=== PATIENT | female | born 1945 | race Caucasian/White ===

== ENCOUNTER → 2017-11-24 09:40 | Day surgery (SDC) | payer MEDICARE, MEDICAID ==
[~2017-11-24 09:40] MED LIST: Flumazenil* 0.1 MG/ML 5 ML MDV ONE; Heparin 2 UNITS/ML IVPREMIX* 1,000 ML IV ONE; Iodixanol* (CONTRAST) 320 MG/ML 100 ML SDV ONE; Lidocaine 1% INJ* 10 MG/ML 30 ML SDV ONE; Midazolam* 1 MG/ML 10 ML VIAL (10 MG) ONE; Naloxone* 0.4 MG/ML 1 ML VIAL ONE; fentaNYL* 50 MCG/ML 2 ML VIAL (100 MCG VIAL) ONE
[2017-11-24 11:11] LABS: ABS Basophils 0 10^3/ul (0-0.2); ABS Eosinophils 0.1 10^3/ul (0-0.6); ABS Lymphocytes 0.7 10^3/ul (1.0-4.8); ABS Monocytes 0.4 10^3/ul (0-0.8); ABS Neutrophils 3.3 10^3/ul (1.5-7.7); ABS Nucleated RBC 0 10^3/ul; Eosinophil % 2.7 % (0-6); Hematocrit 32 % (35-47); Hemoglobin 10.4 g/dl (12.0-16.0); Lymphocyte % 15.7 % (25-47); Mean Corpuscular HGB Conc 33 g/dl (31-36); Mean Corpuscular Hemoglobin 31 pg (27-31); Mean Corpuscular Volume 96 fL (80-97); Mean Platelet Volume 7.5 um3 (7.4-10.4); Nucleated Red Blood Cells % 0; Platelet Count 191 10^3/ul (150-450); Red Blood Count 3.34 10^6/ul (4.00-5.40); Red Cell Distribution Width 16 % (10.5-15); White Blood Count 4.6 10^3/ul (3.5-10.8)
[2017-11-24 11:18] LABS: INR 1.85 (0.77-1.02)
[2017-11-24 11:35] LABS: EGFR Non-African American 16.1 (>60)
[2017-11-24 16:02] VITALS: BP 158/68
--- NOTE | 2017-11-24 17:57 | RAD ---
CPT II Codes: G9500 Procedure(s) performed: 1. Diagnostic fistulogram of the patient's right brachiocephalic arteriovenous fistula. 2. Balloon angioplasty of the venous outflow including the right cephalic vein, subclavian vein and superior most superior vena cava. Date of service: November 24, 2017 Indication for procedure: Prolonged bleeding after dialysis Comparison: Ultrasound dated August 24, 2015 Contrast: 35 mL of Visipaque 320 Fluoroscopy Time: 13.2 minutes Vessels Accessed: Percutaneous access was obtained with ultrasound guidance in the distal right cephalic vein overlying the distal right humerus in the antegrade direction towards the heart. Catheter angiography, with the catheter tip located within the lumen of the following vessels, was performed at the right cephalic vein. Anesthesia: Conscious sedation with IV Fentanyl and Versed as well as local 1% lidocaine injected locally at the arteriotomy site. Conscious sedation time: Timeout: 1336 hours Case end: 1507 hours Total conscious sedation time: 91 minutes Additional medications: * The patient received 1 mg of p.o. Ativan prior to the onset of the procedure. Procedure and Imaging findings: Prior to the procedure the risk and benefits were carefully explained and informed consent was obtained from the patient. The hemodialysis fistula was examined to determine strength of palpable thrill, condition of the overlying skin and direction of flow. Weak pulsatile flow is felt over the patient's bulging right upper arm hemodialysis fistula. Audible rumbling can be auscultated overlying the arterial anastomosis but the rump length as well as palpable thrill is quickly lost in the more proximal portion of the venous outflow. The patient was appropriately positioned on the table in the angiography suite. The skin overlying and surrounding the hemodialysis fistula was prepped and draped in standard sterile fashion. Sterile precautions were employed including use of cap, mask, gown and sterile gloves. A formal time out was performed and all members of the team and the patient agreed to the patient, procedure and laterality. The fistula was examined with ultrasound and sales and marketing representative images were obtained. Under sonographic control the fistula was accessed in the antegrade direction with an 18 gauge Angiocath needle. An image was recorded. Under fluoroscopic control a 0.035 inch Bentson wire was advanced proximally and the needle was exchange for a 5 Cypriot catheter. Through the catheter a venogram of the distal venous outflow was conducted demonstrating tortuosity of the venous outflow with at least 2 foci of high-grade stenosis at the level of the diaphysis of the right humerus. There was a lot of difficulty encountered advancing wires and catheters in the venous outflow due to the bulging tortuosity of the veins and the multiple foci of stenosis. Ultimately a wire was advanced into the fistula over which a 5-Cypriot curved tip catheter was advanced to the level of the humeral neck. Contrast venography was performed demonstrating further stenoses at the proximal most portion of the right cephalic vein and stenosis at the junction of the right cephalic vein with the right subclavian vein. There is also high-grade stenosis at the junction of the right brachiocephalic vein and superior most portion of the superior vena cava. There is collateralized venous filling before the contrast ultimately enters the heart and is seen filling the pulmonary arteries. Through the 5-Cypriot catheter a 0.035 inch hydrophilic stiff wire was advanced into the central veins and advanced under fluoroscopic control into the IVC. With the stiff hydrophilic wire serving as a reliable access, the 5-Cypriot SideArm sheath was exchanged for a 7-Cypriot access sheath. Difficulty was again encountered trying to advance the 7-Cypriot sheath over the wire but this was ultimately successful by compressing the distal most venous outflow to prevent internal looping and buckling of the access wire. Based on the preliminary intravascular angiographic studies the following interventions were pursued. Over the wire and 8 mm x 80 mm Passeo 35 balloon was advanced to the stenoses identified at the level of the humeral diaphysis. Under fluoroscopic control balloon angioplasty was performed. Subsequent arteriogram demonstrated improved flow but persistent tortuosity of the vein at the mid-level of the right humerus. Over the wire the balloon was advanced more proximally to balloon angioplasty the stenoses identified at the proximal most right cephalic vein and to balloon angioplasty the junction of the right cephalic vein and subclavian vein. Contrast arteriogram performed through the access sheath showed further improvement patency and no acute dissection of the vein. The balloon was advanced further for venoplasty of the stenosis seen at the junction of the right brachiocephalic vein and superior vena cava. During each inflation the balloon remained inflated for a minimum of 2 minutes to address venospasm. The balloon was removed and attempt was made to do reflux arteriography of the arterial anastomosis. This attempt proved unsuccessful and the arterial anastomosis was not directly visualized with angiography. At this point the procedure the patient had visible pulsation of her fistula and a palpable thrill that was not present prior to venoplasty. The initial ultrasound of the patient's fistula demonstrated a widely patent arterial anastomosis and therefore contrast angiography of the arterial anastomosis was not deemed crucial at this point. A "purse string" suture was tied around the vascular sheath with non-absorbable monofilament suture and tied immediately after removal of the sheath. Gentle pressure was held at the access site for 5 minutes and no significant bleeding or hematoma formation occurred. The site was dressed with sterile gauze and the patient left the angiography suite in stable condition. SUMMARY OF PROCEDURE, IMAGING FINDINGS AND INTERVENTIONS PERFORMED: 1. Diagnostic studies performed: * Percutaneous fistula access was obtained at the proximal from the arterial anastomosis in the antegrade direction (i.e. towards the heart) with ultrasound guidance. A sonographic image was recorded. * Diagnostic catheter angiography (necessary to perform the appropriate interventions) was performed with the catheter tip in the right cephalic vein. * Catheter arteriography was performed of the venous outflow of the right brachiocephalic fistula, the central veins, superior vena cava as well as the heart and right pulmonary arteries. 2. Interpretation of diagnostic studies performed: * There are multiple foci of stenoses in the cephalic vein outflow and in the central veins. * Related to these focal stenoses there is severe tortuosity of the venous outflow. 3. Surgical interventions performed: * Balloon angioplasty of essentially the entire cephalic vein including the junction of the right cephalic vein and subclavian vein utilizing a 5 mm x 80 mm Passeo 35. * Balloon angioplasty of the junction between the right brachiocephalic vein and superior vena cava. 4. Interpretation of interventions performed: * Postprocedural fistulography and venography demonstrated improved brisk flow through the venous outflow. * Physical examination demonstrated visibly increased pulsatile flow through the fistula with a return of a palpable thrill that was not felt prior to venoplasty. Plan: 1. Hemodialysis may commence immediately. 2. The pursestring suture tied around the access site at the right upper arm must be removed in 3-5 days. If this cannot be done at the dialysis center, the patient must return to Interventional Radiology for suture removal.
== END | disposition home or self-care (01) ==
LOC: CHICATH 09:40
PROVIDERS: ATTEND Radiology Diagnostic Radiology
DX: T82.858A Stenosis of other vascular prosthetic devices, implants and grafts, initial encounter (principal); I13.2 Hypertensive heart and chronic kidney disease with heart failure and with stage 5 chronic kidney disease, or end stage renal disease; I12.9 Hypertensive chronic kidney disease with stage 1 through stage 4 chronic kidney disease, or unspecified chronic kidney disease; I48.3 Typical atrial flutter; Z79.01 Long term (current) use of anticoagulants; N18.6 End stage renal disease; Z99.2 Dependence on renal dialysis
CPT/HCPCS: 36415; 36901; 37249; 76937; 80048; 85025; 85610; 85730; 99156; 99157; C1725; C1769; C1887; J1644; J2250; J2310; J3010

== ENCOUNTER 2018-06-20 10:58 | Emergency (ER) | payer MEDICARE, MEDICAID ==
[2018-06-20] MEDS ORDERED: Lidocaine 2% 10 ML* VIAL INJ ONE (12:32)
[2018-06-20] MEDS ORDERED: Acetaminophen TAB* 325 MG PO ONE (12:33)
[2018-06-20] MEDS ORDERED: Lidocaine 2% PF * 5 ML VIAL ONE (12:39)
--- NOTE | 2018-06-20 14:30 | ED ---
Lower Extremity - HPI Summary HPI Summary: Pt here w/ Lt LE injury prior to arrival. She was in the car and accidentally cut her lateral leg with the car door. Minimal bleeding but sister reports alot of "water" came out. Pt has h/o significant swelling in legs at baseline and wears compression stockings daily. She is also a dialysis pt and just went this morning. Otherwise feeling well and ate prior to arrival. Imms are UTD. - History of Current Complaint Chief Complaint: EDExtremityLower Stated Complaint: LAC ON LEFT LEG Time Seen by Provider: 06/20/18 12:17 Hx Obtained From: Patient, Family/Bagging Machine Operator - sister Pain Intensity: 3 - Allergies/Home Medications Allergies/Adverse Reactions: Allergies Allergy/AdvReac Type Severity Reaction Status Date / Time cephalexin Allergy Hives Verified 06/20/18 11:08 NSAIDS (Non-Steroidal Allergy Bleeding Verified 06/20/18 11:08 Anti-Inflamma Penicillins Allergy Itching Verified 06/20/18 11:08 PMH/Surg Hx/FS Hx/Imm Hx Previously Healthy: Yes - dialysis pt Endocrine/Hematology History: Reports: Hx Anticoagulant Therapy, Hx Anemia Denies: Hx Diabetes, Hx Systemic Lupus Erythematosus, Hx Thyroid Disease Cardiovascular History: Reports: Hx Hypertension, Other Cardiovascular Problems/ Disorders - B/L LE Edema - wears compression stockings Respiratory History: Reports: Hx Chronic Bronchitis, Hx Pneumonia, Other Respiratory Problems/Disorders - PNEUMONIA 12/2014 Denies: Hx Asthma, Hx Chronic Obstructive Pulmonary Disease (COPD) GI History: Denies: Hx Ulcer History: Reports: Hx Chronic Renal Failure, Hx Dialysis, Hx Renal Disease - polycystic kidney disease Musculoskeletal History: Denies: Hx Rheumatoid Arthritis Sensory History: Reports: Hx Contacts or Glasses Opthamlomology History: Reports: Hx Contacts or Glasses - Immunization History Immunizations Up to Date: Yes Infectious Disease History: No Infectious Disease History: Denies: Hx Hepatitis, Hx Human Immunodeficiency Virus (HIV), History Other Infectious Disease, Traveled Outside the [place] in Last 30 Days - Family History Known Family History: Positive: None - Social History Occupation: Unemployed Lives: With Family - sister - also attends day programs Alcohol Use: None Hx Substance Use: No Substance Use Type: Reports: None Hx Tobacco Use: No Smoking Status (MU): Never Smoked Tobacco Review of Systems Constitutional: Negative Positive: no symptoms reported Musculoskeletal: Negative Skin: Other - lac to LLE Neurological: Negative Psychological: Normal All Other Systems Reviewed And Are Negative: Yes Physical Exam Triage Information Reviewed: Yes Vital Signs On Initial Exam: Initial Vitals Temp Pulse Resp BP Pulse Ox 98.1 F 78 20 101/54 95 06/20/18 11:06 06/20/18 11:06 06/20/18 11:06 06/20/18 11:06 06/20/18 11:06 Vital Signs Reviewed: Yes Appearance: Positive: Well-Appearing, No Pain Distress, Obese Skin: Positive: Warm, Skin Color Reflects Adequate Perfusion - V shaped deep flap wound over lateral LLE Head/Face: Positive: Normal Head/Face Inspection Eyes: Positive: EOMI ENT: Positive: Hearing grossly normal Respiratory/Lung Sounds: Positive: Breath Sounds Present Cardiovascular: Positive: Pulses are Symmetrical in both Upper and Lower Extremities, Leg Edema Left, Leg Edema Right - equal B/L (baseline per sister) Musculoskeletal: Positive: Strength/ROM Intact - can move toes, ankle, knees and hips - ambulates Neurological: Positive: Normal, Sensory/Motor Intact, Alert, Oriented to Person Place, Time Psychiatric: Positive: Normal - concerned about pending repair procedure but pleasant, polite, cooperative and in good spirits Procedures - Laceration/Wound Repair 1 Location: lower extremity - Left lateral leg Description: Irregular - flap skin tear with deeper subcutaneous laceration Anesthesia: Local, 2.0%, Lido - 10cc Length, Depth and Shape: triangle flap - sides are 3cm in length - deepest area at center is 0.75cm through subcutaneous tissue only - no fascia, no muscle observed Betadine Prep?: No - hibaclens wash Irrigated w/ Saline (ccs): 100 Laceration/Wound Explored: clean Closure: Multilayer Suture Type: Chromic - 4-0, Other - ethilon 4-0 Number of Sutures: 1 - 3 deep, 4 horizontal mattress, 9 simple interrupted, 1 flap loop Layer Closure?: Yes Sterile Dressing Applied?: Yes - triple anbx ointment + telfa + gauze + NIKA wrap Diagnostics - Vital Signs Vital Signs Temp Pulse Resp BP Pulse Ox 06/20/18 11:06 98.1 F 78 20 101/54 95 - Laboratory Lab Statement: Any lab studies that have been ordered have been reviewed, and results considered in the medical decision making process. Lower Extremity Course/Dx - Course Course Of Treatment: Conversation with pt and pt's sister that the skin that was injured is thin and closure may not hold however chances for best healing are rest, elevation and ice to keep swelling at a minimum/sutures in place. Antibiotics were not initiated as she has multiple drug allergies, cannot take bactrim d/t renal failure, and doxycycline would make bleeding complication worse should this wound open - her wound is clean and we reviewed danger s/sx of infection. Sister has already made an appointment for Monday (2 days from now ) to have wound evaulated by PCP. Pain well controlled w/ acetaminophen. - Diagnoses Provider Diagnoses: Laceration of left leg Discharge - Sign-Out/Discharge Documenting (check all that apply): Patient Departure - Discharge Plan Condition: Stable Disposition: HOME Patient Education Materials: Care For Your Stitches (ED), Laceration (ED) Referrals: Rob Jj MD [Primary Care Provider] - Additional Instructions: Keep Dressing clean and dry and in place for the next 48 hours. After that time you may remove dressing, gently wash wound with soap and water, rinse well and pat dry with clean cloth. Reapply triple antibiotic ointment and clean gauze dressing with NIKA wrap over. Continue this daily until sutures are removed. Call your PCP today schedule wound recheck for Monday. If wound is healing well, sutures may be removed in 10-14 days. REST THE LEG, ICE, ELEVATE MUCH POSSIBLE to aid in keeping pain and swelling controlled and prevent return of bleeding/oozing. * If you develop redness, swelling, streaking, purulent drainage, fevers or chills, seek medical attention sooner or return to the emergency department. - Billing Disposition and Condition Condition: STABLE Disposition: Home
[2018-06-20 14:54] VITALS: BP 113/69
== END 2018-06-20 14:50 | disposition home or self-care (01) ==
LOC: ED 10:58
DX: S81.812A Laceration without foreign body, left lower leg, initial encounter (principal); Z79.01 Long term (current) use of anticoagulants; Z88.0 Allergy status to penicillin; D64.9 Anemia, unspecified; W22.8XXA Striking against or struck by other objects, initial encounter; Y92.810 Car as the place of occurrence of the external cause; Z99.2 Dependence on renal dialysis; I12.0 Hypertensive chronic kidney disease with stage 5 chronic kidney disease or end stage renal disease; N18.6 End stage renal disease; Q61.3 Polycystic kidney, unspecified
CPT/HCPCS: 12002; 99282; A9270-GY

== ENCOUNTER → 2018-07-06 09:42 | Day surgery (SDC) | payer MEDICARE, MEDICAID ==
[~2018-07-06 09:42] MED LIST changes: -Flumazenil* 0.1 MG/ML 5 ML MDV ONE; +Heparin(*) 1000 UNIT/ML 10 ML VIAL CATH LAB IV ONE; +Iodixanol 320 (CONTRAST) 100 ML SDV ONE; -Iodixanol* (CONTRAST) 320 MG/ML 100 ML SDV ONE; +LORazepam TAB(*) 1 MG ONE; -Midazolam* 1 MG/ML 10 ML VIAL (10 MG) ONE; +Midazolam* 1 MG/ML 5 ML VIAL (5 MG) ONE; -Naloxone* 0.4 MG/ML 1 ML VIAL ONE; +nitroGLYCERIN DRIP* 0 MCG/0 ML BTL ONE
--- NOTE | 2018-07-06 14:26 | PN ---
Progress Note - Progress Note Date of Service: 07/06/18 SOAP: Subjective: No pain complaints. Objective: Selected Entries 07/06/18 07/06/18 14:10 14:11 Heart Rate 120 Respiratory 21 Rate Blood Pressure 115/77 (mmHg) Blood Pressure 98 Mean O2 Sat by Pulse 95 Oximetry NAD, AAO x 3 RUE fistula with palpalbe thrill No bleeding at site Dressing is CDI RUE is neuromuscular grossly intact Assessment: 73 YOF status post RUE hemodialysis fistulogram and balloon angioplasty of multiple central and peripheral RUE stenoses. Plan: 1. Patient can resume normal dialysis schedule. 2. Pursestring suture at today's access site must removed within 1 week. If this cannot be done at the dialysis unit 07/09/18, then patient must return to Interventional Radiology or Imaging Department for removal. Selected Entries 07/06/18 07/06/18 14:10 14:11 Heart Rate 120 Respiratory 21 Rate Blood Pressure 115/77 (mmHg) Blood Pressure 98 Mean O2 Sat by Pulse 95 Oximetry
[2018-07-06 15:40] VITALS: BP 70/56
== END | disposition home or self-care (01) ==
LOC: CHICATH 09:42
PROVIDERS: ATTEND Radiology Diagnostic Radiology
DX: T82.858A Stenosis of other vascular prosthetic devices, implants and grafts, initial encounter (principal); N18.6 End stage renal disease; Z99.2 Dependence on renal dialysis; I48.3 Typical atrial flutter; Z79.01 Long term (current) use of anticoagulants; I13.2 Hypertensive heart and chronic kidney disease with heart failure and with stage 5 chronic kidney disease, or end stage renal disease; D64.9 Anemia, unspecified; E78.5 Hyperlipidemia, unspecified; R60.0 Localized edema
CPT/HCPCS: 36901; 36902; 36907; 76937; 99156; 99157; A9270-GY; C1725; C1769; C1887; J1644; J2250; J3010

== ENCOUNTER 2019-05-15 15:37 | Inpatient (IN) | payer MEDICARE, MEDICAID ==
--- NOTE | 2019-05-15 15:59 | ED ---
Complex/Multi-Sys Presentation - HPI Summary HPI Summary: Pt is a 74 y/o F presenting to the ED brought in by EMS for an elevated INR. Per pts sister she had cellulitis that developed last week so she was started on Bactrim which bothered her stomach, causing nausea and abd pain so they decreased the dose to half. This morning she was lightheaded and fell onto her knees before her dialysis appointment. Denies hitting her head or LOC. Was able to walk w walker. Pts sister was called this afternoon d/t her INR being 20. Pt takes Coumadin, 2mg which has been her dose for a while. Patient has baseline intellectual disability. Her only complaint is knee pain and light headedness. - History Of Current Complaint Chief Complaint: EDGeneral Time Seen by Provider: 05/15/19 15:38 Hx Obtained From: Patient, Family/Account Planner Onset/Duration: Sudden Onset, Lasting Hours, Still Present Timing: Hours Severity Currently: None Associated Signs And Symptoms: Positive: Nausea, Abdominal Pain - Allergies/Home Medications Allergies/Adverse Reactions: Allergies Allergy/AdvReac Type Severity Reaction Status Date / Time cephalexin Allergy Vomiting Verified 05/15/19 20:58 NSAIDS (Non-Steroidal Allergy Bleeding Verified 06/20/18 11:08 Anti-Inflamma Penicillins Allergy Vomiting Verified 05/15/19 20:58 Home Medications: Home Medications Bumetanide TAB* [Bumex 1 MG TAB*] 2 mg PO DAILY PRN 05/15/19 [History Confirmed 05/15/19] LevoCETirizine TAB (NF) [Xyzal TAB (NF)] 5 mg PO DAILY 05/15/19 [History Confirmed 05/15/19] Montelukast Sodium TAB* [Singulair TAB*] 10 mg PO DAILY 05/15/19 [History Confirmed 05/15/19] Mupirocin 2% CREAM* [Bactroban 2% CREAM*] 1 applic TOPICAL BID 05/15/19 [ History Confirmed 05/15/19] Sulfamethox/Trimethoprim DS* [Bactrim DS 800/160 TAB*] 1 tab PO BID 05/15/19 [ History Confirmed 05/15/19] Warfarin TAB(*) [Coumadin TAB(*)] 4 - 6 mg PO DAILY 05/15/19 [History Confirmed 05/15/19] PMH/Surg Hx/FS Hx/Imm Hx Previously Healthy: Yes Endocrine/Hematology History: Reports: Hx Anticoagulant Therapy, Hx Anemia Denies: Hx Diabetes, Hx Systemic Lupus Erythematosus, Hx Thyroid Disease Cardiovascular History: Reports: Hx Hypercholesterolemia, Hx Hypertension, Other Cardiovascular Problems/Disorders - B/L LE Edema - wears compression stockings Denies: Hx Angina, Hx Coronary Artery Disease, Hx Myocardial Infarction Respiratory History: Reports: Hx Chronic Bronchitis, Hx Pneumonia, Other Respiratory Problems/Disorders - PNEUMONIA 12/2014 Denies: Hx Asthma, Hx Chronic Obstructive Pulmonary Disease (COPD) GI History: Denies: Hx Ulcer History: Reports: Hx Chronic Renal Failure, Hx Dialysis, Hx Renal Disease - polycystic kidney disease Musculoskeletal History: Denies: Hx Rheumatoid Arthritis Sensory History: Reports: Hx Contacts or Glasses Denies: Hx Hearing Aid Opthamlomology History: Reports: Hx Contacts or Glasses Infectious Disease History: No Infectious Disease History: Denies: Hx Hepatitis, Hx Human Immunodeficiency Virus (HIV), History Other Infectious Disease, Traveled Outside the [place] in Last 30 Days - Family History Known Family History: Negative: Cardiac Disease - Social History Alcohol Use: None Hx Substance Use: No Substance Use Type: Reports: None Hx Tobacco Use: No Smoking Status (MU): Never Smoked Tobacco Review of Systems Positive: Other - high inr Positive: Abdominal Pain, Nausea Positive: Myalgia - leg pain, Other - fall Neurological: Other - lightheadedness All Other Systems Reviewed And Are Negative: Yes Physical Exam - Summary Physical Exam Summary: Constitutional: Well-developed, Well-nourished, Alert. (-) Distressed Skin: Warm, Dry HENT: Normocephalic; Atraumatic Eyes: Conjunctiva normal Neck: Musculoskeletal ROM normal neck. (-) JVD, (-) Stridor, (-) Nuchal rigidity Cardio: Rhythm regular, rate normal, Heart sounds normal; Intact distal pulses; Radial pulses are 2+ and symmetric. (-) Murmur Pulmonary/Chest wall: Effort normal. (-) Respiratory distress, (-) Wheezes, (-) Rales Abd: Soft, (-) tenderness, (-) Distension, (-) Guarding, (-) Rebound Musculoskeletal: Fistula to RUE. Bilateral lymphedema. Ecchymosis of bilateral knees with underlying tenderness. Large ecchymosis behind the L knee. Lymph: (-) Cervical adenopathy Neuro: Alert, speaks in short sentences, at baseline Psych: anxious Triage Information Reviewed: Yes Vital Signs On Initial Exam: Initial Vitals Temp Pulse Resp BP Pulse Ox 100.1 F 106 25 98/39 95 05/15/19 15:43 05/15/19 15:43 05/15/19 15:43 05/15/19 15:43 05/15/19 15:43 Vital Signs Reviewed: Yes Procedures - Procedure Summary Procedure Summary: US IV Ultrasound Guided Peripheral IV Procedure Note Indication: Unable to obtain adequate IV access Skin Prep:Chlorhexidine Sterile Prep (allowed to dry for thirty seconds) Sterility: Gloves Insertion: Appropriate time out was taken. Ultrasound guidance was utilized for vein selection, to document selected vessel patency and real time ultrasound visualization of vascular needle entry into venous lumen. Insertion Site: L forearm Type of catheter: 20 gauge catheter Blood return:yes Saline lock: yes Post Procedure: Estimated blood loss: minimal - Sedation Patient Received Moderate/Deep Sedation with Procedure: No Diagnostics - Vital Signs Vital Signs Temp Pulse Resp BP Pulse Ox 05/15/19 15:43 100.1 F 106 25 98/39 95 - Laboratory Result Diagrams: 05/16/19 14:40 05/16/19 04:49 Lab Statement: Any lab studies that have been ordered have been reviewed, and results considered in the medical decision making process. - Radiology R femur XR Radiology Interpretation Completed By: Radiologist Summary of Radiographic Findings: OSTEOPENIA WITH NO DISPLACED FRACTURE. IF PAIN PERSISTS, FURTHER IMAGING IS RECOMMENDED. ED physician has reviewed this report. L femur XR Radiology Interpretation Completed By: Radiologist Summary of Radiographic Findings: OSTEOPENIA WITH NO DISPLACED FRACTURE. IF PAIN PERSISTS, FURTHER IMAGING IS RECOMMENDED. ED physician has reviewed this report. RLE XR Radiology Interpretation Completed By: Radiologist Summary of Radiographic Findings: OSTEOPENIA WITH NO DISPLACED FRACTURE. IF PAIN PERSISTS, FURTHER IMAGING IS RECOMMENDED. ED physician has reviewed this report. LLE XR Radiology Interpretation Completed By: Radiologist Summary of Radiographic Findings: OSTEOPENIA WITH NO DISPLACED FRACTURE. IF PAIN PERSISTS, FURTHER IMAGING IS RECOMMENDED. ED physician has reviewed this report. - CT Brain CT CT Interpretation Completed By: Radiologist Summary of CT Findings: 1. No intracranial hemorrhage. 2. 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 3. Moderate cerebellar volume loss. ED physician has reviewed this report. - EKG 1651 Cardiac Rate: Tachycardia - 117 EKG Rhythm: Sinus Tachycardia ST Segment: Normal Ectopy: None Summary of EKG Findings: EKG at 1651 shows sinus tachycardia at 117bpm with T- wave inversions in leads II, aVF, v2-v6, and prolonged QTc. T-wave inversions are new when compared to prior. No STEMI. Dr. Pinto has reviewed and interpreted this EKG. Complex Multi-Symp Course/Dx Course Of Treatment: 74 y/o F w hx ESRD, afib/flutter on coumadin, lymphedema, p /w fatigue and fall. - PE w ecchymosis most pronounced to L thigh/knee. Hb drop from 10 1 year ago to 6.6. Tachycardic in fib to 120's w soft BP in 90's. Concern for volume depletion leading to fatigue/near syncope. Given [address] head obtained given fall, elevated INR and headache which is normal. Plain films of extremities w/o obvious fracture. Given vitamin K 10 IV and PCC for bleeding in setting of elevated INR and Hb drop. - Diagnoses Provider Diagnoses: Elevated INR, Anemia - Physician Notifications Discussed Care Of Patient With: Matthew Hurley Time Discussed With Above Provider: 16:55 Instructed by Provider To: Admit As Inpatient - Critical Care Time Critical Care Time: 30-74 min - 30min Discharge ED - Sign-Out/Discharge Documenting (check all that apply): Patient Departure - Discharge Plan Condition: Stable Disposition: ADMITTED TO [facility] - Billing Disposition and Condition Condition: STABLE Disposition: Admitted to [facility] - Attestation Statements Document Initiated by Joel: Yes Documenting Scribe: Fawn Clark Provider For Whom Joel is Documenting (Include Credential): Josr Pinto MD. Scribe Attestation: Fawn Martinez, scribed for Josr Pinto MD. on 05/16/19 at 1930. Scribe Documentation Reviewed: Yes Provider Attestation: The documentation as recorded by the scribe, Fawn Clark accurately reflects the service I personally performed and the decisions made by me, Josr Pinto MD. Status of Scribe Document: Viewed
[2019-05-15] MEDS ORDERED: NS 0.9% 250 ML* 250 ML IV SCH (16:00)
[2019-05-15 16:20] LABS: ABS Eosinophils 0.1 10^3/ul (0-0.6); ABS Lymphocytes 0.4 10^3/ul (1.0-4.8); ABS Monocytes 0.8 10^3/ul (0-0.8); ABS Neutrophils 7.9 10^3/ul (1.5-7.7); Eosinophil % 0.6 %; Hematocrit 20 % (35-47); Hemoglobin 6.6 g/dL (12.0-16.0); Lymphocyte % 4.6 %; Mean Corpuscular HGB Conc 34 g/dL (31-36); Mean Corpuscular Hemoglobin 32 pg (27-31); Mean Corpuscular Volume 95 fL (80-97); Mean Platelet Volume 8.7 fL (7.4-10.4); Platelet Count 253 10^3/uL (150-450); Red Blood Count 2.07 10^6 /uL (3.70-4.87); Red Cell Distribution Width 17 % (10-15); White Blood Count 9.2 10^3/uL (3.5-10.8)
[2019-05-15 16:36] LABS: Troponin I 0.07 ng/mL (<0.03)
[2019-05-15 16:37] LABS: ALT 24 U/L (7-52); AST 64 U/L (13-39); Albumin 2.4 g/dL (3.2-5.2); Alkaline Phosphatase 279 U/L (34-104); Anion Gap 6 mmol/L (2-11); BUN/Creatinine Ratio 9.2 (8-20); Blood Urea Nitrogen 28 mg/dL (6-24); CO2 Carbon Dioxide 33 mmol/L (22-32); Calcium 7.8 mg/dL (8.6-10.3); Chloride 95 mmol/L (101-111); EGFR African American 18.1 (>60); Globulin 2.5 g/dL (2-4); Glucose 99 mg/dL (70-100); Potassium 4.2 mmol/L (3.5-5.0); Sodium 134 mmol/L (135-145); Total Protein 4.9 g/dL (6.4-8.9)
[2019-05-15] MEDS ORDERED: NS 0.9% 1000 ML** 1,000 ML IV ONE (16:45)
[2019-05-15] MEDS ORDERED: Phytonadione IV (Adult)* 10 MG/ML 1 ML AMP IV ONE (17:05)
[2019-05-15 17:51] LABS: INR >10.00 (0.82-1.09)
[2019-05-15] MEDS ORDERED: PHYTONADIONE 10 MG IVPB - ED ONCE IV ONE ×2 (18:00)
[2019-05-15] MEDS ORDERED: Pantoprazole IV* 40 MG IV ONE (18:26)
[2019-05-15] MEDS ORDERED: Metoprolol Tartrate IV* 1 MG/ML 5 ML VIAL IV PRN (18:28)
[2019-05-15 18:44] LABS: Magnesium 1.9 mg/dL (1.9-2.7)
[2019-05-15 19:25] LABS: Activated Partial Thrombo Time 100.8 seconds (26.0-38.0)
--- NOTE | 2019-05-15 20:33 | HP ---
HISTORY AND PHYSICAL: DATE OF ADMISSION: 05/15/19 ADMITTING PROVIDER: Matthew Hurley MD PRIMARY CARE PROVIDER: Rob Jj MD CHIEF COMPLAINT: Fall to the knees, lightheadedness, weakness, and outpatient INR of reportedly 22. HISTORY OF PRESENT ILLNESS: Kendra Trivedi is a 74-year-old female with past medical history of polycystic kidney disease resulting in end-stage renal disease, on hemodialysis Monday, Monday, and Monday for the last 13 years; hypertension; paroxysmal atrial fibrillation(on Coumadin); anemia secondary to renal disease; hyperlipidemia; some mild cognitive delay. She had a scrape against her right lateral knee approximately 10 days ago as someone was adjusting the foot supports of her wheelchair. She followed up with Dr. Giovanna Uriarte, partner of her primary care provider and she was prescribed double strength Bactrim twice a day initiated on 05/08/19 for suspected cellulitis. She continued to take that, but since the , she dropped down to 1 pill a day. She noticed 2 days prior to admission that her left posterior calf, which initially had a bruise after she had also knocked it against something, started to get bigger. She has also noticed increase in lower extremity edema, which they attributed to her not during her usual walks when we had a snowstorm yesterday. She has not missed any hemodialysis sessions, is reportedly at her dry weight between 92.7 and 94.4 kg. This morning she felt lightheaded when she got up from the wheelchair in the hallway and fell to her knees and had to be wheeled back to get back to hemodialysis, which she did tolerate without incident. Her sister asked for an INR to be drawn because she had been concerned about the bruising and her lightheadedness and fall and it has since reportedly returned at 22. She was referred [place] [facility] [place] further evaluation. Here, she is also found to be anemic to 6.6 with a hematocrit of 20. She denies any melena, hematochezia, hemoptysis, bleeding from the gums, gastrointestinal symptoms whatsoever. She has never had a colonoscopy. She actually has a Cologuard test currently waiting for at her home to perform. She has a history of anemia, on 02/19/19 she was 7.7 with replete iron studies and improved to 9.6 on 03/12/19. She has never had a blood transfusion. She denies any loss of consciousness when she fell forward this morning. Additional workup in the [facility] include troponin of 0.07, creatinine 3.05. She has had lower extremity x-rays and femur x-rays which showed no fracture, but evidence of osteopenia. 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 She has had been on stable doses of warfarin 4 mg daily without frequent changes. The emergency room provider has ordered for 10 mg of IV vitamin K and 5000 units of prothrombin complex concentrated Kcentra, and she was referred to the hospitalist service for admission. She attests to being orthopneic at baseline just being in her recliner and she notably is on 5 L nonrebreather mask satting in the high 90s currently. PAST MEDICAL HISTORY: Includes end-stage renal disease; polycystic kidney disease; hypertension; hyperlipidemia; paroxysmal atrial fibrillation, on Coumadin; anemia of chronic renal disease. MEDICATIONS: Include: 1. Metoprolol tartrate 25 mg p.o. twice a day, but holding on dialysis days Monday, Monday, and Monday. 2. Simvastatin 20 mg p.o. at bedtime. 3. Sevelamer 2400 mg p.o. t.i.d. with meals. 4. Oxybutynin 5 mg p.o. daily. 5. Warfarin 4 mg p.o. daily. 6. Bumex 2 mg p.o. daily on nondialysis days. 7. Singulair 10 mg daily. 8. Levocetirizine 5 mg p.o. daily. 9. Bactrim since 05/08/19 twice a day. They reduced to daily on 05/12/19 10. Bactroban topical b.i.d. ALLERGIES: Include PENICILLINS, itching; CEPHALEXIN, hives; NSAIDS, bleeding and she has now had severe coagulopathy with BACTRIM - interacting with her warfarin FAMILY HISTORY: Her father of throat cancer at age 89. Her mother of heart attack at age 88. SOCIAL HISTORY: The patient is a never smoker. Does not drink. She is disabled. She desires to be a full code. Her medical surrogate is her sister, Tia Jonas REVIEW OF SYSTEMS: A complete 14-point review of systems negative except as per HPI. She specifically denies any loss of consciousness. She had a headache yesterday. She has occasional stomach pains, but not currently. The cellulitis on the right lateral knee never was warm. PHYSICAL EXAMINATION GENERAL APPEARANCE: Chronically ill appearing, no acute distress, but fatigued appearing. VITAL SIGNS: Temperature 100.1, heart rate 117 to 123, respiratory rate between 20 and 31, satting in the high 90s currently on 5 L nonrebreather mask, blood pressure 98/39. HEENT: Normocephalic, atraumatic. Pupils are equal, round, and reactive to light. Extraocular motions intact. No scleral icterus. LUNGS: Anteriorly with some faint rales at the left lateral lung connelly. ABDOMEN: Soft, nontender, nondistended. EXTREMITIES: Warm, well perfused. There is evidence of nonpitting edema as well as lymphadenopathy bilaterally. There is hematoma and bruise behind her left knee approximately 5 inches in diameter. There are small lacerations to the left lateral lower leg with scant bleeding on her right lateral knee. There are some faint sarkar, but no erythema or drainage or redness. NEURO: Cranial nerves II through XII intact. Dental Insurance Coordinator strength intact. Wiggle her toes. Seems deconditioned. DIAGNOSTIC STUDIES/LAB DATA: White count 9.2, hemoglobin 6.6, hematocrit 20, platelets 253,000, MCV is 95, RDW 17. INR is greater than 10, APTT is pending. Sodium 134, potassium 4.2, chloride 95, carbon dioxide 33, BUN 28, creatinine 3.05, glucose 99, calcium 7.8, magnesium pending. T-bili is 1.7, AST is 64, ALT 24, alk phos 279. Troponin 0.07. Total protein 4.9, albumin 2.4. Imaging: Lower extremity x-ray and femur x-ray of the left all show osteopenia with no displaced fracture. CT of the brain demonstrated no intracranial hemorrhage, suspected old left SCA territory cerebellar infarct, moderate cerebellar volume loss. ASSESSMENT AND PLAN: 1. Kendra Trivedi is a 74-year-old female with past medical history of atrial fibrillation (on Coumadin); end-stage renal disease secondary to polycystic kidney disease; chronic anemia of renal disease; hypertension; hyperlipidemia; some mild cognitive delay, is presenting with severe anemia and cardiomyopathy in the setting of recent initiation of Bactrim on her chronic Coumadin with the reported INR above 22. She does have some hematoma with pitting in the left lower extremity and she will be reversed with 10 mg of IV vitamin K and 5000 units of Kcentra along with 1 unit of packed red blood cells. She has been consented for these. I will repeat the INR daily. Repeat a CBC posttransfusion approximately 2200 and again in the a.m. She does not have any signs of GI bleed, but we will add a fecal stool occult blood and empirically start Protonix 80 mg IV once and 40 mg q.12 starting tomorrow. She does avoid NSAIDs given her renal disease. She has never had a colonoscopy. 2. Atrial fibrillation with rapid ventricular response with heart rates in the 110s likely in the setting of volume depletion and anemia. She is going to get 1 unit of packed red blood cells, she is hypotensive with pressures 90s/40s, repeat a manual pressure. We will have to be cautious if volume resuscitation does not work, could consider digoxin. Will add lopressor 5mg IV q.5 minutes p.r.n. for sustained heart rates above 120. I am checking her magnesium and repeat that as necessary above 2. Potassium was replete at 4.2, keep above 4. Repeat BMP and magnesium daily. Put her on telemetry. 3. She has near fever and some hypoxia. We are going to get a chest x-ray and a urinalysis. She does make urine, also had a lactic acid. She denies any cough. 4. End-stage renal disease, on hemodialysis Monday, Monday, Monday. The patient reportedly at her dry weight. We will continue her sevelamer, get BMPs daily, have to be cautious with fluid resuscitation. 5. The patient is a full code. 6. She can eat a heart-healthy renal diet. 7. Medical surrogate is her sister, Tia Brennan. She is being admitted to observation status to telemetry unit. [id number]/[facility] #: [id number] [facility] HOSPITALAshley
[2019-05-15] MEDS: Mupirocin 2% OINT* TUBE TOPICAL SCH (23:12)
[2019-05-15] MEDS: Atorvastatin* 10 MG TAB PO SCH (23:12)
[2019-05-16 02:40] LABS: Hematocrit 20 % (35-47); Hemoglobin 6.7 g/dL (12.0-16.0); Mean Corpuscular HGB Conc 34 g/dL (31-36); Mean Corpuscular Hemoglobin 32 pg (27-31); Mean Corpuscular Volume 94 fL (80-97); Mean Platelet Volume 7.9 fL (7.4-10.4); Platelet Count 197 10^3/uL (150-450); Red Blood Count 2.09 10^6 /uL (3.70-4.87); Red Cell Distribution Width 16 % (10-15); White Blood Count 8.3 10^3/uL (3.5-10.8)
[2019-05-16 03:00] LABS: Troponin I 0.07 ng/mL (<0.03)
[2019-05-16 03:12] LABS: ABS Eosinophils 0.1 10^3/ul (0-0.6); ABS Lymphocytes 0.4 10^3/ul (1.0-4.8); ABS Monocytes 0.8 10^3/ul (0-0.8); Lymphocyte % 5.3 %
[2019-05-16 05:00] LABS: ABS Eosinophils 0.1 10^3/ul (0-0.6); ABS Lymphocytes 0.4 10^3/ul (1.0-4.8); ABS Monocytes 0.6 10^3/ul (0-0.8); ABS Neutrophils 6.9 10^3/ul (1.5-7.7); Eosinophil % 1.4 %; Hematocrit 19 % (35-47); Hemoglobin 6.5 g/dL (12.0-16.0); Lymphocyte % 5.5 %; Mean Corpuscular HGB Conc 34 g/dL (31-36); Mean Corpuscular Hemoglobin 32 pg (27-31); Mean Corpuscular Volume 94 fL (80-97); Mean Platelet Volume 7.6 fL (7.4-10.4); Platelet Count 197 10^3/uL (150-450); Red Cell Distribution Width 17 % (10-15); White Blood Count 8.1 10^3/uL (3.5-10.8)
[2019-05-16 05:08] LABS: INR 1.24 (0.82-1.09)
[2019-05-16 05:16] LABS: Calcium 7.8 mg/dL (8.6-10.3); EGFR African American 14.7 (>60); EGFR Non-African American 12.2 (>60)
[2019-05-16 05:23] LABS: Troponin I 0.07 ng/mL (<0.03)
[2019-05-16] MEDS: Pantoprazole IV* 40 MG IV SCH ×2 (08:44→22:11)
[2019-05-16] MEDS: Sevelamer TAB* 800 MG PO SCH ×3 (08:44→16:37)
[2019-05-16] MEDS: Oxybutynin XL TAB* 5 MG PO SCH (08:44)
[2019-05-16] MEDS: Mupirocin 2% OINT* TUBE TOPICAL SCH ×2 (08:44→23:13)
[2019-05-16] MEDS: Montelukast Sodium TAB* 10 MG PO SCH (08:44)
[2019-05-16] MEDS: Metoprolol Tartrate TAB* 25 MG PO SCH (10:09)
[2019-05-16] MEDS ORDERED: Digoxin IV* 0.5 MG/2 ML AMP (0.25 MG/ML) IV SLOW PU ONE (14:23)
--- NOTE | 2019-05-16 14:30 | PN ---
Subjective Date of Service: 05/16/19 Interval History: Pt feels tired. seen with her younger sister by the bedside. At baseline she ambulates with a walker and lives independently(attends adult day care during the day) Today pt c/o b/l knee pain(fell on them yesterday) Objective Active Medications: Atorvastatin Calcium (Lipitor*) 10 mg PO BEDTIME [facility] Last Admin: 05/15/19 23:12 Dose: 10 mg Cetirizine HCl (Zyrtec*) 10 mg PO BEDTIME [facility] Metoprolol Tartrate (Lopressor Iv*) 5 mg IV Q5M PRN PRN Reason: TACHYCARDIA Metoprolol Tartrate (Lopressor Tab*) 25 mg PO DAILY [facility] Last Admin: 05/16/19 10:09 Dose: Not Given Montelukast Sodium (Singulair Tab*) 10 mg PO DAILY [facility] Last Admin: 05/16/19 08:44 Dose: Not Given Mupirocin (Bactroban 2 % Oint*) 1 applic TOPICAL BID [facility] Last Admin: 05/16/19 08:44 Dose: Not Given Oxybutynin Chloride (Ditropan Xl Tab*) 5 mg PO DAILY [facility] Last Admin: 05/16/19 08:44 Dose: 5 mg Pantoprazole Sodium (Protonix Iv*) 40 mg IV Q12H [facility] Last Admin: 05/16/19 08:44 Dose: 40 mg Sevelamer Carbonate (Renvela Tab*) 2,400 mg PO TID WITH MEALS [facility] Last Admin: 05/16/19 12:58 Dose: 2,400 mg Vital Signs - 8 hr 05/16/19 05/16/19 08:01 11:45 Temperature 97.9 F 98.3 F Pulse Rate 122 123 Respiratory 16 20 Rate Blood Pressure 84/40 96/36 (mmHg) O2 Sat by Pulse 100 100 Oximetry Oxygen Devices in Use Now: OxyMask Appearance: 75 yo F in nAD, AAOx2, poor historian Eyes: No Scleral Icterus, PERRLA Ears/Nose/Mouth/Throat: NL Teeth, Lips, Gums, Mucous Membranes Moist Neck: NL Appearance and Movements; NL JVP, Trachea Midline Respiratory: Symmetrical Chest Expansion and Respiratory Effort, Clear to Auscultation Cardiovascular: RRR, - - tachy Abdominal: NL Sounds; No Tenderness; No Distention, No Hepatosplenomegaly Lymphatic: No Cervical Adenopathy Extremities: No Clubbing, Cyanosis, - - b/l UE and LE's lymphoedema, R arm HD fistula with positive thrill noted Skin: - - R thigh ecchymosis and left knee abrasion Neurological: NL Muscle Strength and Tone Result Diagrams: 05/16/19 04:49 05/16/19 04:49 Assess/Plan/Problems-Billing Assessment: Ms Zarate is a 74 yo F who has a h/o ESRD, HTN and afib/flutter presented to the ER with c/o a fall . She was noted to have INR>10 and Hb of 6 - Patient Problems (1) Anemia Comment: due to acute bleed in r thigh Hb at baseline at 8 S/p 2 U PRBC transfusion-will obtain Hb level today (2) Fall Comment: ambulates with a walker at home will ask PT to eval here (3) Atrial fibrillation Comment: pt is tachy in 120's and appears to be in a. flutter will tx with a dose of Digoxin x1 BB held in AM due to low SBP's troponin 0.07 barryley due to demand ischemia and ESRD will get Echo to eval further suspect low SBP is due to a. flutter. Cannot use too much volume due to pt's ESRD. (4) ESRD on hemodialysis Comment: The patient will continue with dialysis MWF. (5) Lymphedema Comment: chronic, will cont NIKA wraps and SCD's (6) DVT prophylaxis Comment: SCD's and NIKA wraps
[2019-05-16 14:46] LABS: ABS Eosinophils 0.2 10^3/ul (0-0.6); ABS Lymphocytes 0.4 10^3/ul (1.0-4.8); ABS Monocytes 0.6 10^3/ul (0-0.8); Eosinophil % 2.1 %; Hematocrit 21 % (35-47); Hemoglobin 7.2 g/dL (12.0-16.0); Lymphocyte % 6.2 %; Mean Corpuscular HGB Conc 34 g/dL (31-36); Mean Corpuscular Hemoglobin 31 pg (27-31); Mean Corpuscular Volume 92 fL (80-97); Mean Platelet Volume 7.5 fL (7.4-10.4); Nucleated Red Blood Cells % 0.2; Platelet Count 175 10^3/uL (150-450); Red Blood Count 2.29 10^6 /uL (3.70-4.87); Red Cell Distribution Width 17 % (10-15); White Blood Count 7.2 10^3/uL (3.5-10.8)
--- NOTE | 2019-05-16 16:29 | ECHO ---
*[facility]* [place] [address] Fax #: [phone] Transthoracic Echocardiogram Patient: Kendra Zarate I : 1945 Study Date: 05/16/2019 Age: 74 Gender: F HR: 123 bpm Height: 61 in /154.9 cm BSA: 1.94 m^2 Weight: 213.6 lb /97.1 kg BMI: 40.4 kg/m^2 *Recreation Center Director: Elisha Kimball *Referring Physician: Cris Salazar *Reading Physician: Sergio Berman MD Indications: Atrial Fibrillation. History: Atrial flutter. Risk factors: Hypertension. Conclusions Summary: - Left ventricle: The cavity size is normal. Wall thickness is moderately increased. Systolic function is normal. The estimated ejection fraction is 60-65%. Wall motion is normal; there are no regional wall motion abnormalities. - Right ventricle: The cavity size is mildly dilated. Systolic function is normal. - Left atrium: The atrium is severely dilated. - Tricuspid valve: There is mild-moderate regurgitation. - Pulmonary arteries: Systolic pressure is moderately to severely increased, estimated to be 60 mm Hg. Recommendations: Compared to prior study from 10/2018, findings are simlar, previous estimated PASP was 48 mmHg Study data: Transthoracic echocardiogram. Procedure: Transthoracic echocardiography was performed. Image quality was good. Complete 2D, spectral Doppler, and color flow Doppler. Location: Bedside. Patient status: Inpatient. Rhythm: Atrial fibrillation. Findings Left ventricle: The cavity size is normal. Wall thickness is moderately increased. Systolic function is normal. The estimated ejection fraction is 60-65%. Wall motion is normal; there are no regional wall motion abnormalities. Left ventricular diastolic function parameters are indeterminate. Right ventricle: The cavity size is mildly dilated. Systolic function is normal. Left atrium: The atrium is severely dilated. Right atrium: The atrium is moderately dilated. Mitral valve: Mitral annulus Appears moderately calcified. The leaflets are mildly thickened. There is no evidence of stenosis. There is mild regurgitation. Aortic valve: The valve is trileaflet. The leaflets are mildly calcified. There is no evidence of stenosis. There is no significant regurgitation. Tricuspid valve: The leaflets are normal thickness. There is no evidence of stenosis. There is mild-moderate regurgitation. Pulmonic valve: The leaflets are normal thickness. There is no evidence of stenosis. There is trace regurgitation. Aorta: The aortic root appears normal. Pericardium: There is no significant pericardial effusion. Pulmonary arteries: Systolic pressure is moderately to severely increased, estimated to be 60 mm Hg. Systemic veins: Inferior vena cava: The vessel is dilated. Pulmonary veins: Not well visualized. Measurements Left ventricle Value Ref Aortic valve Value Ref DAVID, LAX 3.8 cm 3.8 - Peak v, S 2.01 m/sec ----- 5.2 VTI, S 34.5 cm ----- ESD, LAX 2.6 cm 2.2 - Mean grad, S 8.0 mm Hg ----- 3.5 Peak grad, S 16.0 mm Hg ----- FS, LAX 32 % 45 JERO, VTI 1.77 cm^2 ----- PW, ED, LAX (H) 1.5 cm 0.6 - JERO, Vmax 1.59 cm^2 ----- 0.9 FS 31 % Mitral valve Value Ref Mid-wall FS 9 % -------- Peak E 1.61 m/sec ----- PW, ED (H) 1.5 cm 0.6 - Peak A 0 m/sec ----- 0.9 Decel time 239 ms ----- PW/ID, ED 0.4 -------- PHT 79 ms ----- E', avg, TDI 12.0 cm/sec -------- Mean grad, D 8.0 mm Hg -- --- E/e', avg, TDI 13 <=14 Peak grad, D 16.0 mm Hg ----- MVA, PHT 2.8 cm^2 ----- LVOT Value Ref Diam, S 1.80 cm -------- Pulmonic valve Value Ref Area 2.5 cm^2 -------- Peak v, S 1.12 m/sec ----- Peak carolann, S 1.26 m/sec -------- Peak grad, S 5.0 mm Hg ----- Peak grad, S 6 mm Hg -------- Mean grad, S 4 mm Hg -------- Tricuspid valve Value Ref SV 61 ml -------- TR peak v (H) 3.6 m/sec <=2. 8 SV/bsa 31 ml/m^2 -------- Peak RV-RA grad, S 52 mm Hg ----- Max TR carolann 3.61 m/sec ----- Ventricular septum Value Ref IVS, ED (H) 1.5 cm 0.6 - Aortic root Value Ref 0.9 Root diam 2.8 cm <4.1 Right ventricle Value Ref Ascending aorta Value Ref DAVID, LAX 3.0 cm -------- AAo AP diam, S 2.5 cm ----- DAVID minor ax, A4C (H) 5.0 cm 1.9 - AAo AP diam/bsa, S 1.3 cm/m^2 ----- mid 3.5 Decending aorta Value Ref Left atrium Value Ref Baljinder peak carolann 0.67 m/sec ----- ML dim, A4C 5.4 cm -------- SI dim, A4C 6.4 cm -------- Inferior vena cava Value Ref Vol/bsa, ES, 1-p (H) 62 ml/m^2 11 - 40 Diam 3.0 cm ----- A4C Vol/bsa, ES, A/L (H) 56 ml/m^2 16 - 34 Right atrium Value Ref SI dim, ES 5.0 cm 3.4 - 5.3 ML dim, ES, A4C 4.4 cm 2.6 - 4.4 SI dim, ES, A4C 5.0 cm 3.4 - 5.3 Legend: (L) and (H) hiram values outside specified reference range. Prepared and electronically signed by Sergio Marcus MD 05/16/2019 16:29
[2019-05-16] MEDS: Cetirizine* 10 MG TAB PO SCH (22:11)
[2019-05-16] MEDS: Atorvastatin* 10 MG TAB PO SCH (22:12)
[2019-05-17 05:55] LABS: Hematocrit 24 % (35-47); Hemoglobin 8.4 g/dL (12.0-16.0); Mean Corpuscular HGB Conc 35 g/dL (31-36); Mean Corpuscular Hemoglobin 32 pg (27-31); Mean Corpuscular Volume 93 fL (80-97); Mean Platelet Volume 7.2 fL (7.4-10.4); Platelet Count 173 10^3/uL (150-450); Red Blood Count 2.63 10^6 /uL (3.70-4.87); Red Cell Distribution Width 17 % (10-15); White Blood Count 7.1 10^3/uL (3.5-10.8)
[2019-05-17 06:07] LABS: Activated Partial Thrombo Time 30.6 seconds (26.0-38.0); INR 1.11 (0.82-1.09)
[2019-05-17 06:15] LABS: BUN/Creatinine Ratio 9.7 (8-20); Calcium 7.8 mg/dL (8.6-10.3); EGFR African American 11.4 (>60); EGFR Non-African American 9.4 (>60); Potassium 4.3 mmol/L (3.5-5.0)
[2019-05-17] MEDS ORDERED: Metoprolol Tartrate TAB* 25 MG PO SCH ×2 (07:23→20:00)
[2019-05-17 07:28] LABS: ABS Eosinophils 0.3 10^3/ul (0-0.6); ABS Lymphocytes 0.5 10^3/ul (1.0-4.8); ABS Monocytes 0.6 10^3/ul (0-0.8); ABS Neutrophils 5.7 10^3/ul (1.5-7.7); Eosinophil % 3.7 %; Lymphocyte % 7.5 %; Nucleated Red Blood Cells % 0.1
--- NOTE | 2019-05-17 09:06 | CONSULT ---
Consult Consult: Consult requested for: ESRD & HD Consult requested by: Dr. Apodaca, Hospitalist Performed by Dr. Skyler Bruner, [facility] Nephrology 05/17/2019 74 YO WF, mentally challenged, admitted via ED 05/15 evening with elevated INR, on Coumadin for A Fib. Had abdominal pain & nausea and abdominal pain. c/c of dizziness & lightheadedness and a fall onto her knees, caused ecchymosis on Lt thigh/knee. Probably had bled into her thigh muscles accounting for the low Hb on admission. During her last HD session, on Monday had low BP and was unable to stand. Echo 05/16~LVEF 60-65%. LA severely dilated. Moderate to severe Pulmonary HTN & RVSP 60 mm. CXR on admission~ 05/15 acute mild pulmonary edema, mild cardiomegaly, engorged pulmonary vasculature. Shes known ESRD with chronic LE lymphedema. In ED Hb was 6.6. Admitted s/ 2units PRBCs, todays Hb 8.5 & INR PMH: ESD on HD MWF A Fib on Coumadin HTN Dyslipidemia Anemia of ESRD Hospital Meds: Acetaminophen (Tylenol Tab*) 650 mg PO Q4H PRN PRN Reason: PAIN-MILD/TEMP >/= 100.4 Atorvastatin Calcium (Lipitor*) 10 mg PO BEDTIME [facility] Last Admin: 05/16/19 22:12 Dose: 10 mg Cetirizine HCl (Zyrtec*) 10 mg PO BEDTIME [facility] Last Admin: 05/16/19 22:11 Dose: 10 mg Metoprolol Tartrate (Lopressor Iv*) 5 mg IV Q5M PRN PRN Reason: TACHYCARDIA Last Admin: 05/16/19 16:37 Dose: 5 mg Metoprolol Tartrate (Lopressor Tab*) 25 mg PO DAILY [facility] Montelukast Sodium (Singulair Tab*) 10 mg PO DAILY [facility] Last Admin: 05/16/19 08:44 Dose: Not Given Mupirocin (Bactroban 2 % Oint*) 1 applic TOPICAL BID [facility] Last Admin: 05/16/19 23:13 Dose: Not Given Oxybutynin Chloride (Ditropan Xl Tab*) 5 mg PO DAILY [facility] Last Admin: 05/16/19 08:44 Dose: 5 mg Pantoprazole Sodium (Protonix Iv*) 40 mg IV Q12H [facility] Last Admin: 05/16/19 22:11 Dose: 40 mg Sevelamer Carbonate (Renvela Tab*) 2,400 mg PO TID WITH MEALS [facility] Last Admin: 05/16/19 16:37 Dose: 2,400 mg Allergies: Cephalexin, NSAIDs, PCN Social History: Denied Alcohol, smoking. No IVDA. Her sister is her caregiver Family History: Negative for Dialysis, ESRD or Renal Transplant. Positive for HTN & DM Surgical History:TDC 12-Point Review of System obtained: Constitutional: Fatigue. No fever Eyes No blurry vision. No red eye CV: SOB at rest & exertion, no chest pain. Had dizziness on admission & severe edema Respiratory: SOB at rest no cough no wheezing G.I: no diarrhea no nausea no vomiting no pain no blood per rectum no burning no obstruction symptoms Skin: Lt thigh ecchymosis Neurology No seizures or neurologic deficit Endocrine no diabetes, no heat or cold intolerance Hem/Lymphatic no bleeding no lymph nodes swelling Immune/Allergy no allergic reactions Musculoskeletal: No arthritis, no swelling Psych no anxiety no depression no hallucination Objective: 10 Point multi system exam: Constitutional Alert HEENT: No Conjunctivitis Abdomen Soft Abdomen No Ascites Heart: A Fib ++ LE Edema, No murmur Lungs: Basilar crackles Extremities: ++ edema Skin ecchymosis Lt thigh and knee Neurology No deficit. CN intact Hem/Lymph: no palpable lymph nodes Musculoskeletal: No joint swelling Laboratory Reviewed Sodium 134 mmol/L (135-145) L 05/17/19 05:47 Potassium 4.3 mmol/L (3.5-5.0) 05/17/19 05:47 BUN 44 mg/dL (6-24) H 05/17/19 05:47 Creatinine 4.55 mg/dL (0.51-0.95) H 05/17/19 05:47 Calcium 7.8 mg/dL (8.6-10.3) L 05/17/19 05:47 Magnesium 1.9 mg/dL (1.9-2.7) 05/15/19 16:05 AST 64 U/L (13-39) H 05/15/19 16:05 ALT 24 U/L (7-52) 05/15/19 16:05 Assessment and Plan: *ESRD, due for HD today. *Lyts Ok *BP has been running low since last HD 05/15 *Fluid overload & mild Pulmonary edema, will try UF 1L if BP tolerates.
[2019-05-17] MEDS ORDERED: EPOETIN ALFA-EPBX * 3,000 UNIT/ML VIAL IV ONE (10:00)
[2019-05-17] MEDS ORDERED: EPOETIN ALFA-EPBX * 2,000 UNIT/ML VIAL IV ONE (10:00)
[2019-05-17] MEDS: Sevelamer TAB* 800 MG PO SCH ×3 (10:38→16:50)
[2019-05-17] MEDS ORDERED: Digoxin IV* 0.5 MG/2 ML AMP (0.25 MG/ML) IV SLOW PU ONE (10:57)
--- NOTE | 2019-05-17 12:02 | PN ---
Progress Note - Progress Note Date of Service: 05/17/19 Note: Inpatient Acute Dialysis Note Performed by Dr. Skyler Bruner, [facility] Nephrology 05/17/2019 She was admitted with acute anemia, see consult Now doing better s/p 2 Units PRBCs She was seen and examined on HD for ESRD. No complaint HD Routine: MWF HD Duration: 3.0 Hr UF Goal: 1 L/Rx Vitals: BP: 120/85. HR: 75/m Blood Flow: 350 cc/min Dialysate Flow: 600 cc/min Bath: K: 2K Ca: 2.5Ca Na: 138 Hco3: 35 Temp: 36 C Dialyzer: Revaclear 300 Access: Rt IJ TDC Heparin Free Meds with HD: None Tolerates HD well. No Intradialytic Hypotension so far
--- NOTE | 2019-05-17 13:12 | PN ---
Subjective Date of Service: 05/17/19 Interval History: Pt is seen during dialysis, feels tired, but had a good breakfast. Denies SOB or CP Objective Active Medications: Acetaminophen (Tylenol Tab*) 650 mg PO Q4H PRN PRN Reason: PAIN-MILD/TEMP >/= 100.4 Atorvastatin Calcium (Lipitor*) 10 mg PO BEDTIME [facility] Last Admin: 05/16/19 22:12 Dose: 10 mg Cetirizine HCl (Zyrtec*) 10 mg PO BEDTIME [facility] Last Admin: 05/16/19 22:11 Dose: 10 mg Metoprolol Tartrate (Lopressor Iv*) 5 mg IV Q5M PRN PRN Reason: TACHYCARDIA Last Admin: 05/16/19 16:37 Dose: 5 mg Metoprolol Tartrate (Lopressor Tab*) 25 mg PO DAILY [facility] Montelukast Sodium (Singulair Tab*) 10 mg PO DAILY [facility] Last Admin: 05/16/19 08:44 Dose: Not Given Mupirocin (Bactroban 2 % Oint*) 1 applic TOPICAL BID [facility] Last Admin: 05/16/19 23:13 Dose: Not Given Oxybutynin Chloride (Ditropan Xl Tab*) 5 mg PO DAILY [facility] Last Admin: 05/16/19 08:44 Dose: 5 mg Pantoprazole Sodium (Protonix Iv*) 40 mg IV Q12H [facility] Last Admin: 05/16/19 22:11 Dose: 40 mg Sevelamer Carbonate (Renvela Tab*) 2,400 mg PO TID WITH MEALS [facility] Last Admin: 05/17/19 10:38 Dose: Not Given Vital Signs - 8 hr 05/17/19 05/17/19 07:15 07:39 Temperature 98 F Pulse Rate 120 Respiratory 20 18 Rate Blood Pressure 120/41 (mmHg) O2 Sat by Pulse 99 Oximetry Oxygen Devices in Use Now: Nasal Cannula Appearance: 74 yo F in nAD, aAOx2 Eyes: No Scleral Icterus, PERRLA Ears/Nose/Mouth/Throat: NL Teeth, Lips, Gums, Mucous Membranes Moist Neck: NL Appearance and Movements; NL JVP, Trachea Midline Respiratory: Symmetrical Chest Expansion and Respiratory Effort Cardiovascular: RRR, - - tachy Abdominal: NL Sounds; No Tenderness; No Distention, No Hepatosplenomegaly Lymphatic: No Cervical Adenopathy Extremities: No Clubbing, Cyanosis, - - b/l LE's lymphoedema, r thigh eccymosis , R arm dialisis fistula Skin: No Nodules or Sclerosis Neurological: Alert and Oriented x 3, NL Muscle Strength and Tone Result Diagrams: 05/17/19 05:47 05/17/19 05:47 Microbiology and Other Data: Microbiology 05/16/19 22:10 Transfusion Reaction Culture - Preliminary Blood Bag Culture Under Incubation Transfusion Reaction Gram Stain - Final Assess/Plan/Problems-Billing Assessment: Ms Zarate is a 74 yo F who has a h/o ESRD, HTN and afib/flutter presented to the ER with c/o a fall . She was noted to have INR>10 and Hb of 6 - Patient Problems (1) Anemia Comment: due to acute bleed in r thigh Hb back to baseline after 3 U PRBC transfusion (2) Fall Comment: ambulates with a walker at home cont PT (3) Atrial fibrillation Comment: pt is tachy in 120's and appears to be in a. flutter treated dose of Digoxin 0.25mg on 05/16. D/w Dr. Marcus -bishop tx with another digoxin at 0.25mg IV today after HD BB held in AM due to low SBP's troponin 0.07 likely due to demand ischemia and ESRD Echo shows pt to be in A. fib, EF 60% suspect low SBP is due to a. flutter. Cannot use too much volume due to pt's ESRD. (4) ESRD on hemodialysis Comment: The patient will continue with dialysis MWF. (5) Lymphedema Comment: chronic, will cont NIKA wraps and SCD's (6) DVT prophylaxis Comment: SCD's and NIKA wraps Status and Disposition: inpatient
[2019-05-17] MEDS: Acetaminophen TAB* 325 MG PO PRN ×2 (13:14→21:16)
[2019-05-17] MEDS: Oxybutynin XL TAB* 5 MG PO SCH (13:14)
[2019-05-17] MEDS: Pantoprazole IV* 40 MG IV SCH ×2 (13:14→21:14)
[2019-05-17] MEDS: Mupirocin 2% OINT* TUBE TOPICAL SCH ×2 (13:15→21:25)
[2019-05-17] MEDS: Montelukast Sodium TAB* 10 MG PO SCH ×2 (13:16→13:18)
--- NOTE | 2019-05-17 20:07 | CONSULT ---
Subjective Date of Service: 05/17/19 Interval History: Admission Date: 05/15/19 Consult date 05/17/2019 Service: Hospitalist [employer] Supervisor: Dr. Krunal Carr PRIMARY CARE PROVIDER: Rob Jj MD CC: Fall, weakness Reason for consult: Atrial flutter HISTORY OF PRESENT ILLNESS: Kendra Trivedi is a 74-year-old woman with a history as below. She was recently started on bactrim for an infection. She had developed a fall, lightheadedness and easy bruising. An INR was noted to be 22 and hemoglobin of 6.6. No syncope. Found with bleeding into right thigh s/p 3 units of pRBC and INR was reversed. Noted to be in atrial flutter ~ 120 bpm not clearly symptomatic but with BP low enough to limit rate control medications. She received 0.25 mg IV digoxin yesterday x 1 and today x 1 with little effect. 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 ALLERGIES: Include PENICILLINS, itching; CEPHALEXIN, hives; NSAIDS, bleeding and she of note has had coagulopathy with VITAMIN K interaction likely associated with the BACTRIM. FAMILY HISTORY: Her father of throat cancer at age 89. Her mother of heart attack at age 88. SOCIAL HISTORY: The patient is a never smoker. Does not drink. She is disabled. She desires to be a full code. Her medical surrogate is her sister, Tia Jonas Medications Active Medications: Acetaminophen (Tylenol Tab*) 650 mg PO Q4H PRN PRN Reason: PAIN-MILD/TEMP >/= 100.4 Last Admin: 05/17/19 13:14 Dose: 650 mg Atorvastatin Calcium (Lipitor*) 10 mg PO BEDTIME [facility] Last Admin: 05/16/19 22:12 Dose: 10 mg Cetirizine HCl (Zyrtec*) 10 mg PO BEDTIME [facility] Last Admin: 05/16/19 22:11 Dose: 10 mg Montelukast Sodium (Singulair Tab*) 10 mg PO DAILY [facility] Last Admin: 05/17/19 13:18 Dose: Not Given Mupirocin (Bactroban 2 % Oint*) 1 applic TOPICAL BID [facility] Last Admin: 05/17/19 13:15 Dose: 1 applic Oxybutynin Chloride (Ditropan Xl Tab*) 5 mg PO DAILY [facility] Last Admin: 05/17/19 13:14 Dose: 5 mg Pantoprazole Sodium (Protonix Iv*) 40 mg IV Q12H [facility] Last Admin: 05/17/19 13:14 Dose: 40 mg Sevelamer Carbonate (Renvela Tab*) 2,400 mg PO TID WITH MEALS [facility] Last Admin: 05/17/19 16:50 Dose: 2,400 mg Home Medications: Oxybutynin XL TAB* [Ditropan XL TAB*] 5 mg PO DAILY 01/15/15 [History Confirmed 05/15/19] Sevelamer TAB* [Renvela TAB*] 2,400 mg PO TID WITH MEALS 01/15/15 [History Confirmed 05/15/19] Simvastatin TAB(NF) [Zocor 20 MG (NF)] 20 mg PO BEDTIME 01/15/15 [History Confirmed 05/15/19] Metoprolol Tartrate TAB* [Lopressor TAB*] 25 mg PO bid, hold on ,, dialysis days Bumetanide TAB* [Bumex 1 MG TAB*] 2 mg PO DAILY PRN 05/15/19 [History Confirmed 05/15/19] LevoCETirizine TAB (NF) [Xyzal TAB (NF)] 5 mg PO DAILY 05/15/19 [History Confirmed 05/15/19] Montelukast Sodium TAB* [Singulair TAB*] 10 mg PO DAILY 05/15/19 [History Confirmed 05/15/19] Mupirocin 2% CREAM* [Bactroban 2% CREAM*] 1 applic TOPICAL BID 05/15/19 [ History Confirmed 05/15/19] Sulfamethox/Trimethoprim DS* [Bactrim DS 800/160 TAB*] 1 tab PO BID 05/15/19 [ History Confirmed 05/15/19] Warfarin TAB(*) [Coumadin TAB(*)] 4 - 6 mg PO DAILY 05/15/19 [History Confirmed 05/15/19] Review of Systems - Measurements Intake and Output: Intake and Output Last 24 Hours 05/15/19 05/16/19 05/17/19 05/18/19 06:59 06:59 06:59 06:59 Intake Total 0 1061 328 Output Total 0 Balance 0 1061 328 Weight 214 lb 6.4 oz Intake: Oral 0 710 328 Packed Cells 351 Output: Urine 0 Other: Estimated Void Large Small # Bowel Movements 1 1 1 Estimated Stool Amount Small Small Medium # Voids 2 - Review of Systems Constitutional Symptoms: Negative: Weakness, Fever Dermatology: Negative: Rash, Skin Lesions HEENT: Negative: Change in Hearing, Vertigo Eyes: Negative: Change in Vision, Double Vision Thyroid: Negative: Weight Loss, Weight Gain Pulmonary: Positive: Exercise Intolerance Negative: Respiratory Distress, Shortness of Breath Cardiology: Positive: Swelling of Ankles, Edema Negative: Chest Pain, Palpitations, Syncope, Claudication, Orthopnea Gastroenterology: Negative: Blood in Stools, Haematemesis Genital - Urinary: Negative: Dysuria, Hematuria Musculoskeletal: Negative: Joint Deformities, Kyphoscoliosis Endocrinology: Positive: Obesity Negative: Polydipsia, Polyuria Hematologic/Lymphatic: Positive: Use of Antiplatelet Drugs Negative: Use of Anticoagulant Neurology: Negative: Change in Speech, Change in Sphincter Function, Change in Walking Psychiatry: Negative: Unusual Anxiety, Suicidal Ideation Allergic/Immunologic: Negative: Hx HIV, Immunocompromise Review of Systems Statement: All other review of systems negative, unless stated above. Objective Vital Signs: Temp Pulse Resp BP Pulse Ox 98.3 F 115 16 101/33 93 05/17/19 19:40 05/17/19 19:40 05/17/19 19:40 05/17/19 19:40 05/17/19 19:40 Oxygen Devices in Use Now: Nasal Cannula Appearance: chronically ill appearing, very pleasant Ears/Nose/Mouth/Throat: Clear Oropharnyx Neck: Trachea Midline, - - uncertain jvp Respiratory: Symmetrical Chest Expansion and Respiratory Effort, - - basilar rales Cardiovascular: - - tachycardic, regular, no significant murmur Abdominal: - - soft, obese Extremities: - - obese, edematous Skin: No Rash or Ulcers Neurological: - - awake and alert Laboratory Results: 05/17/19 05:47 05/17/19 05:47 INR (Anticoag Therapy) 1.11 (0.82-1.09) H 05/17/19 05:47 APTT 30.6 seconds (26.0-38.0) 05/17/19 05:47 Total Bilirubin 1.70 mg/dL (0.2-1.0) H 05/15/19 16:05 AST 64 U/L (13-39) H 05/15/19 16:05 ALT 24 U/L (7-52) 05/15/19 16:05 Alkaline Phosphatase 279 U/L (34-104) H 05/15/19 16:05 B-Natriuretic Peptide 898 pg/mL (<=100) H 05/15/19 16:05 Total Protein 4.9 g/dL (6.4-8.9) L 05/15/19 16:05 Albumin 2.4 g/dL (3.2-5.2) L 05/15/19 16:05 Globulin 2.5 g/dL (2-4) 05/15/19 16:05 Albumin/Globulin Ratio 1.0 (1-3) 05/15/19 16:05 05/15/19 05/15/19 05/16/19 16:05 23:02 00:00 Troponin I 0.07 H* TNP TNP 05/16/19 05/16/19 02:30 04:49 Troponin I 0.07 H* 0.07 H* Diagnostic Imagin07/2009: cardiac catheterization: no CAD 10/2018: Normal vasodilator stress MPI Transthoracic Echocardiogram Study Date: 05/16/2019 Summary: - Left ventricle: The cavity size is normal. Wall thickness is moderately increased. Systolic function is normal. The estimated ejection fraction is 60-65%. Wall motion is normal; there are no regional wall motion abnormalities. - Right ventricle: The cavity size is mildly dilated. Systolic function is normal. - Left atrium: The atrium is severely dilated. - Tricuspid valve: There is mild-moderate regurgitation. - Pulmonary arteries: Systolic pressure is moderately to severely increased, estimated to be 60 mm Hg. Recommendations: Compared to prior study from 10/2018, findings are simlar, previous estimated PASP was 48 mmHg 05/15/19 CHEST AP OR PORT IMPRESSION: 1. Chest x-ray findings are most consistent acutely with mild pulmonary edema. 2. Persistent elevation of the right hemidiaphragm unchanged since May 17, 2015. EKG Data: ekg 01/10/2019 probable atrial flutter 112 bpm ekg 09/2018: EAT, lafb Assessment/Plan It is not clear if the CT finding was a CVA related to an atrial arrhythmia. She has had a significant bleeding complication with warfarin and would not restart. If ok with Nephrology, would start reduced dose (off label without weight/age indication) 2.5 mg po bid of eliquis. Alternatively could use aspirin. Regarding the atrial arrhythmia currently, patients volume status is still being optimized. Her outpatient BP from 10/2018 with a more normal ectopic atrial rhythm was 128/60 mmhg. Give BP limitations with rate control so far this admission will add 2.5 mg po tid midodrine for now in addition to metoprolol 25 mg po tid. The underlying atrial rate of her current arrhythmia is not clear and if still without change tomorrow will trial IV adenosine as a diagnostic (and less likely but possibly therapeutic) option.
[2019-05-17] MEDS: Cetirizine* 10 MG TAB PO SCH (21:17)
[2019-05-17] MEDS: Atorvastatin* 10 MG TAB PO SCH (21:17)
[2019-05-18 06:07] LABS: INR 1.33 (0.82-1.09)
[2019-05-18 06:08] LABS: Hematocrit 23 % (35-47); Hemoglobin 8.3 g/dL (12.0-16.0); Mean Corpuscular HGB Conc 35 g/dL (31-36); Mean Corpuscular Hemoglobin 32 pg (27-31); Mean Corpuscular Volume 91 fL (80-97); Red Blood Count 2.57 10^6 /uL (3.70-4.87); Red Cell Distribution Width 16 % (10-15); White Blood Count 6.9 10^3/uL (3.5-10.8)
[2019-05-18 06:15] LABS: BUN/Creatinine Ratio 8.9 (8-20); Calcium 7.8 mg/dL (8.6-10.3); EGFR African American 15.1 (>60); EGFR Non-African American 12.4 (>60); Potassium 3.8 mmol/L (3.5-5.0)
[2019-05-18 06:36] LABS: ABS Basophils 0.1 10^3/ul (0-0.2); ABS Eosinophils 0.5 10^3/ul (0-0.6); ABS Lymphocytes 0.5 10^3/ul (1.0-4.8); ABS Monocytes 0.7 10^3/ul (0-0.8); ABS Neutrophils 5.2 10^3/ul (1.5-7.7); Eosinophil % 6.8 %; Lymphocyte % 7.4 %; Mean Platelet Volume 7.8 fL (7.4-10.4); Nucleated Red Blood Cells % 0.1; Platelet Count 164 10^3/uL (150-450)
--- NOTE | 2019-05-18 08:35 | PN ---
Subjective Date of Service: 05/18/19 Interval History: f/u atrial flutter patient eating breakfast tele clearly shows atrial flutter with heart rates controlled at rest and elevated with movement mild dyspnea, remains volume overloaded Medications Active Medications: Acetaminophen (Tylenol Tab*) 650 mg PO Q4H PRN PRN Reason: PAIN-MILD/TEMP >/= 100.4 Last Admin: 05/17/19 21:16 Dose: 650 mg Atorvastatin Calcium (Lipitor*) 10 mg PO BEDTIME [facility] Last Admin: 05/17/19 21:17 Dose: 10 mg Cetirizine HCl (Zyrtec*) 10 mg PO BEDTIME [facility] Last Admin: 05/17/19 21:17 Dose: 10 mg Metoprolol Tartrate (Lopressor Tab*) 50 mg PO BID NATAL[facility] Midodrine (Midodrine) 2.5 mg PO BID [facility]; Protocol Montelukast Sodium (Singulair Tab*) 10 mg PO DAILY [facility] Last Admin: 05/17/19 13:18 Dose: Not Given Mupirocin (Bactroban 2 % Oint*) 1 applic TOPICAL BID [facility] Last Admin: 05/17/19 21:25 Dose: 1 applic Oxybutynin Chloride (Ditropan Xl Tab*) 5 mg PO DAILY [facility] Last Admin: 05/17/19 13:14 Dose: 5 mg Pantoprazole Sodium (Protonix Iv*) 40 mg IV Q12H [facility] Last Admin: 05/17/19 21:14 Dose: 40 mg Sevelamer Carbonate (Renvela Tab*) 2,400 mg PO TID WITH MEALS [facility] Last Admin: 05/17/19 16:50 Dose: 2,400 mg Objective Vital Signs: Temp Pulse Resp BP Pulse Ox 97.9 F 95 20 115/40 100 05/18/19 03:04 05/18/19 03:04 05/18/19 03:04 05/18/19 03:04 05/18/19 03:04 Oxygen Devices in Use Now: Nasal Cannula Appearance: chronically ill appearing, very pleasant Ears/Nose/Mouth/Throat: Clear Oropharnyx Neck: Trachea Midline, - - mild jvd Respiratory: Symmetrical Chest Expansion and Respiratory Effort, - - rales left base, decreased right base Cardiovascular: - - tachycardic, regular, no significant murmur Abdominal: - - soft, obese Extremities: - - obese, edematous Skin: No Rash or Ulcers Neurological: - - awake and alert Laboratory Results: 05/18/19 05:50 05/18/19 05:50 INR (Anticoag Therapy) 1.33 (0.82-1.09) H 05/18/19 05:50 APTT 30.6 seconds (26.0-38.0) 05/17/19 05:47 Total Bilirubin 1.70 mg/dL (0.2-1.0) H 05/15/19 16:05 AST 64 U/L (13-39) H 05/15/19 16:05 ALT 24 U/L (7-52) 05/15/19 16:05 Alkaline Phosphatase 279 U/L (34-104) H 05/15/19 16:05 B-Natriuretic Peptide 898 pg/mL (<=100) H 05/15/19 16:05 Total Protein 4.9 g/dL (6.4-8.9) L 05/15/19 16:05 Albumin 2.4 g/dL (3.2-5.2) L 05/15/19 16:05 Globulin 2.5 g/dL (2-4) 05/15/19 16:05 Albumin/Globulin Ratio 1.0 (1-3) 05/15/19 16:05 05/15/19 05/15/19 05/16/19 16:05 23:02 00:00 Troponin I 0.07 H* TNP TNP 05/16/19 05/16/19 02:30 04:49 Troponin I 0.07 H* 0.07 H* Diagnostic Imagin07/2009: cardiac catheterization: no CAD 10/2018: Normal vasodilator stress MPI Transthoracic Echocardiogram Study Date: 05/16/2019 Summary: - Left ventricle: The cavity size is normal. Wall thickness is moderately increased. Systolic function is normal. The estimated ejection fraction is 60-65%. Wall motion is normal; there are no regional wall motion abnormalities. - Right ventricle: The cavity size is mildly dilated. Systolic function is normal. - Left atrium: The atrium is severely dilated. - Tricuspid valve: There is mild-moderate regurgitation. - Pulmonary arteries: Systolic pressure is moderately to severely increased, estimated to be 60 mm Hg. Recommendations: Compared to prior study from 10/2018, findings are simlar, previous estimated PASP was 48 mmHg 05/15/19 CHEST AP OR PORT IMPRESSION: 1. Chest x-ray findings are most consistent acutely with mild pulmonary edema. 2. Persistent elevation of the right hemidiaphragm unchanged since May 17, 2015. EKG Data: ekg 01/10/2019 probable atrial flutter 112 bpm ekg 09/2018: EAT lafb Assessment/Plan 1. Atrial flutter - change metoprolol/midodrine to 50 mg and 2.5 mg po bid from current dosing for better rate control (ordered) - Remains volume overloaded - as per Nephrology - See consult note for atrial flutter thrombotic prevention recommendations
[2019-05-18] MEDS: Pantoprazole IV* 40 MG IV SCH ×2 (09:21→20:08)
[2019-05-18] MEDS: Metoprolol Tartrate TAB* 50 mg PO SCH ×2 (09:21→20:09)
[2019-05-18] MEDS: Sevelamer TAB* 800 MG PO SCH ×3 (09:21→16:37)
[2019-05-18] MEDS: Mupirocin 2% OINT* TUBE TOPICAL SCH ×2 (09:22→20:10)
[2019-05-18] MEDS: Oxybutynin XL TAB* 5 MG PO SCH (09:22)
[2019-05-18] MEDS: Montelukast Sodium TAB* 10 MG PO SCH (09:22)
--- NOTE | 2019-05-18 11:41 | PN ---
Subjective Date of Service: 05/18/19 Interval History: Pt c/o b/l knee pain , otherwise no SOB, or CP Objective Active Medications: Acetaminophen (Tylenol Tab*) 650 mg PO Q4H PRN PRN Reason: PAIN-MILD/TEMP >/= 100.4 Last Admin: 05/17/19 21:16 Dose: 650 mg Atorvastatin Calcium (Lipitor*) 10 mg PO BEDTIME [facility] Last Admin: 05/17/19 21:17 Dose: 10 mg Cetirizine HCl (Zyrtec*) 10 mg PO BEDTIME [facility] Last Admin: 05/17/19 21:17 Dose: 10 mg Metoprolol Tartrate (Lopressor Tab*) 50 mg PO BID [facility] Last Admin: 05/18/19 09:21 Dose: 50 mg Midodrine (Midodrine) 2.5 mg PO BID [facility]; Protocol Last Admin: 05/18/19 09:22 Dose: 2.5 mg Montelukast Sodium (Singulair Tab*) 10 mg PO DAILY [facility] Last Admin: 05/18/19 09:22 Dose: Not Given Mupirocin (Bactroban 2 % Oint*) 1 applic TOPICAL BID [facility] Last Admin: 05/18/19 09:22 Dose: 1 applic Oxybutynin Chloride (Ditropan Xl Tab*) 5 mg PO DAILY [facility] Last Admin: 05/18/19 09:22 Dose: 5 mg Pantoprazole Sodium (Protonix Iv*) 40 mg IV Q12H [facility] Last Admin: 05/18/19 09:21 Dose: 40 mg Sevelamer Carbonate (Renvela Tab*) 2,400 mg PO TID WITH MEALS [facility] Last Admin: 05/18/19 09:21 Dose: 2,400 mg Vital Signs - 8 hr 05/18/19 05/18/19 07:15 08:00 Temperature 97.3 F Pulse Rate 93 Respiratory 20 20 Rate Blood Pressure 115/41 (mmHg) O2 Sat by Pulse 100 Oximetry Oxygen Devices in Use Now: Nasal Cannula Appearance: 74 yo f in NAD, AAOx2 Eyes: No Scleral Icterus, PERRLA Ears/Nose/Mouth/Throat: NL Teeth, Lips, Gums, Mucous Membranes Moist Neck: NL Appearance and Movements; NL JVP, Trachea Midline Respiratory: Symmetrical Chest Expansion and Respiratory Effort, - - crackles at b/l bases-scant Cardiovascular: - - tachy Abdominal: NL Sounds; No Tenderness; No Distention, No Hepatosplenomegaly Lymphatic: No Cervical Adenopathy Extremities: - - b/l Le's lymphoedema -chronic Skin: No Nodules or Sclerosis, - - mild ecchymosis r thigh, left knee abrasion - mild Neurological: NL Muscle Strength and Tone Result Diagrams: 05/18/19 05:50 05/18/19 05:50 Microbiology and Other Data: Microbiology 05/16/19 22:10 Transfusion Reaction Culture - Preliminary Blood Bag Culture Under Incubation Transfusion Reaction Gram Stain - Final Assess/Plan/Problems-Billing Assessment: Ms Zarate is a 74 yo F who has a h/o ESRD, HTN and afib/flutter presented to the ER with c/o a fall . She was noted to have INR>10 and Hb of 6 - Patient Problems (1) Anemia Comment: due to acute bleed in r thigh Hb back to baseline after 3 U PRBC transfusion (2) Fall Comment: ambulates with a walker at home cont PT (3) Atrial fibrillation Comment: pt appears to be still in a. flutter, but now rate controled after Lopressor and midodrine TID started. Appreciate Dr. Marcus's consult treated dose of Digoxin 0.25mg on 05/16 and on 05/17. troponin 0.07 likely due to demand ischemia and ESRD Echo shows pt to be in A. fib, EF 60% (4) ESRD on hemodialysis Comment: The patient will continue with dialysis MWF. (5) Lymphedema Comment: chronic, will cont NIKA wraps and SCD's (6) DVT prophylaxis Comment: SCD's and NIKA wraps Status and Disposition: inpatient
[2019-05-18] MEDS: Acetaminophen TAB* 325 MG PO PRN ×2 (12:07→20:09)
[2019-05-18] MEDS: Cetirizine* 10 MG TAB PO SCH (20:08)
[2019-05-18] MEDS: Atorvastatin* 10 MG TAB PO SCH (20:09)
[2019-05-19 06:24] LABS: BUN/Creatinine Ratio 9.7 (8-20); EGFR Non-African American 10.3 (>60); Potassium 4.1 mmol/L (3.5-5.0)
[2019-05-19 06:25] LABS: Calcium 7.8 mg/dL (8.6-10.3); EGFR African American 12.5 (>60)
[2019-05-19 07:16] LABS: ABS Basophils 0.1 10^3/ul (0-0.2); ABS Eosinophils 0.5 10^3/ul (0-0.6); ABS Lymphocytes 0.5 10^3/ul (1.0-4.8); ABS Monocytes 0.6 10^3/ul (0-0.8); ABS Neutrophils 5.1 10^3/ul (1.5-7.7); Eosinophil % 6.7 %; Hematocrit 26 % (35-47); Hemoglobin 8.8 g/dL (12.0-16.0); Lymphocyte % 7.7 %; Mean Corpuscular HGB Conc 34 g/dL (31-36); Mean Corpuscular Hemoglobin 32 pg (27-31); Mean Corpuscular Volume 94 fL (80-97); Mean Platelet Volume 7.4 fL (7.4-10.4); Nucleated Red Blood Cells % 0.1; Platelet Count 210 10^3/uL (150-450); Red Blood Count 2.74 10^6 /uL (3.70-4.87); Red Cell Distribution Width 17 % (10-15); White Blood Count 6.8 10^3/uL (3.5-10.8)
[2019-05-19] MEDS: Pantoprazole TAB * 40 MG TAB PO SCH ×2 (08:34→21:10)
[2019-05-19] MEDS: Oxybutynin XL TAB* 5 MG PO SCH (08:34)
[2019-05-19] MEDS: Sevelamer TAB* 800 MG PO SCH ×3 (08:34→17:20)
[2019-05-19] MEDS: Metoprolol Tartrate TAB* 50 mg PO SCH ×2 (08:34→21:11)
[2019-05-19] MEDS: Acetaminophen TAB* 325 MG PO PRN (08:35)
[2019-05-19] MEDS: Montelukast Sodium TAB* 10 MG PO SCH (08:43)
[2019-05-19] MEDS ORDERED: Furosemide IV* 10 MG/ML VIAL (40 MG) IV ONE (09:55)
--- NOTE | 2019-05-19 09:55 | PN ---
Subjective Date of Service: 05/19/19 Interval History: Pt feels "a little SOB". Seen with her sister by the bedside Objective Active Medications: Acetaminophen (Tylenol Tab*) 650 mg PO Q4H PRN PRN Reason: PAIN-MILD/TEMP >/= 100.4 Last Admin: 05/19/19 08:35 Dose: 650 mg Atorvastatin Calcium (Lipitor*) 10 mg PO BEDTIME [facility] Last Admin: 05/18/19 20:09 Dose: 10 mg Cetirizine HCl (Zyrtec*) 10 mg PO BEDTIME [facility] Last Admin: 05/18/19 20:08 Dose: Not Given Metoprolol Tartrate (Lopressor Tab*) 50 mg PO BID [facility] Last Admin: 05/19/19 08:34 Dose: 50 mg Midodrine (Midodrine) 2.5 mg PO BID [facility]; Protocol Last Admin: 05/19/19 08:35 Dose: 2.5 mg Montelukast Sodium (Singulair Tab*) 10 mg PO DAILY [facility] Last Admin: 05/19/19 08:43 Dose: Not Given Mupirocin (Bactroban 2 % Oint*) 1 applic TOPICAL BID [facility] Last Admin: 05/18/19 20:10 Dose: 1 applic Oxybutynin Chloride (Ditropan Xl Tab*) 5 mg PO DAILY [facility] Last Admin: 05/19/19 08:34 Dose: 5 mg Pantoprazole Sodium (Protonix Tab*) 40 mg PO BID [facility] Last Admin: 05/19/19 08:34 Dose: 40 mg Sevelamer Carbonate (Renvela Tab*) 2,400 mg PO TID WITH MEALS [facility] Last Admin: 05/19/19 08:34 Dose: 2,400 mg Vital Signs - 8 hr 05/19/19 05/19/19 05/19/19 03:29 07:15 08:00 Temperature 97.5 F 97.4 F Pulse Rate 87 91 Respiratory 18 20 20 Rate Blood Pressure 103/44 97/44 (mmHg) O2 Sat by Pulse 96 96 Oximetry Oxygen Devices in Use Now: None Appearance: 74 yo F in nAD, aAOx2 Eyes: No Scleral Icterus, PERRLA Ears/Nose/Mouth/Throat: NL Teeth, Lips, Gums, Mucous Membranes Moist Neck: NL Appearance and Movements; NL JVP, Trachea Midline Respiratory: Symmetrical Chest Expansion and Respiratory Effort, - - rales at b/ l bases Cardiovascular: NL Sounds; No Murmurs; No JVD, RRR Abdominal: NL Sounds; No Tenderness; No Distention Lymphatic: No Cervical Adenopathy Extremities: - - b/l LE's lymphoedema Skin: No Rash or Ulcers, No Nodules or Sclerosis, - - mild ecchymosis R thigh Neurological: Alert and Oriented x 3 Result Diagrams: 05/19/19 06:57 05/19/19 05:10 Microbiology and Other Data: Microbiology 05/16/19 22:10 Transfusion Reaction Culture - Preliminary Blood Bag Culture Under Incubation Transfusion Reaction Gram Stain - Final Assess/Plan/Problems-Billing Assessment: Ms Zarate is a 74 yo F who has a h/o ESRD, HTN and afib/flutter presented to the ER with c/o a fall . She was noted to have INR>10 and Hb of 6 - Patient Problems (1) Anemia Comment: due to acute bleed in r thigh Hb back to baseline, even higher than baseline after 3 U PRBC transfusion stool heme+, but no melena , no BRBPR and Hb improving. D/w Pt and sister who agree that unless pt has obvious signs of bleeding, of Hb significatnly lower, no further w/u is necessary (2) Fall Comment: ambulates with a walker at home cont PT (3) Atrial fibrillation Comment: pt appears to be still in a. flutter, but now rate controled after Lopressor and midodrine TID started. Appreciate Dr. Marcus's consult treated dose of Digoxin 0.25mg on 05/16 and on 05/17. troponin 0.07 likely due to demand ischemia and ESRD Echo shows pt to be in A. fib, EF 60% (4) ESRD on hemodialysis Comment: The patient will continue with dialysis MWF. Today pt has rales on lung exam, but in no distress. She still makes urine and will tx with a dose of IV Lasix, prior to dialysis tomorrow (5) Lymphedema Comment: chronic, will cont NIKA wraps and SCD's (6) DVT prophylaxis Comment: SCD's and NIKA wraps Status and Disposition: inpatient
[2019-05-19] MEDS: Mupirocin 2% OINT* TUBE TOPICAL SCH ×2 (10:00→21:12)
--- NOTE | 2019-05-19 14:06 | PN ---
Subjective Date of Service: 05/19/19 Interval History: f/u atrial flutter sitting in chair telemetry with rate controlled atrial flutter no palpitations, chest pain or dyspnea at rest diuresis started Medications Active Medications: Acetaminophen (Tylenol Tab*) 650 mg PO Q4H PRN PRN Reason: PAIN-MILD/TEMP >/= 100.4 Last Admin: 05/19/19 08:35 Dose: 650 mg Atorvastatin Calcium (Lipitor*) 10 mg PO BEDTIME [facility] Last Admin: 05/18/19 20:09 Dose: 10 mg Cetirizine HCl (Zyrtec*) 10 mg PO BEDTIME [facility] Last Admin: 05/18/19 20:08 Dose: Not Given Metoprolol Tartrate (Lopressor Tab*) 50 mg PO BID [facility] Last Admin: 05/19/19 08:34 Dose: 50 mg Midodrine (Midodrine) 5 mg PO BID [facility]; Protocol Montelukast Sodium (Singulair Tab*) 10 mg PO DAILY [facility] Last Admin: 05/19/19 08:43 Dose: Not Given Mupirocin (Bactroban 2 % Oint*) 1 applic TOPICAL BID [facility] Last Admin: 05/19/19 10:00 Dose: 1 applic Oxybutynin Chloride (Ditropan Xl Tab*) 5 mg PO DAILY [facility] Last Admin: 05/19/19 08:34 Dose: 5 mg Pantoprazole Sodium (Protonix Tab*) 40 mg PO BID [facility] Last Admin: 05/19/19 08:34 Dose: 40 mg Sevelamer Carbonate (Renvela Tab*) 2,400 mg PO TID WITH MEALS [facility] Last Admin: 05/19/19 11:27 Dose: 2,400 mg Objective Vital Signs: Temp Pulse Resp BP Pulse Ox 97.4 F 91 20 97/44 96 05/19/19 07:15 05/19/19 07:15 05/19/19 08:00 05/19/19 07:15 05/19/19 07:15 Oxygen Devices in Use Now: None Appearance: chronically ill appearing, very pleasant Ears/Nose/Mouth/Throat: Clear Oropharnyx Neck: Trachea Midline, - - mild jvd Respiratory: Symmetrical Chest Expansion and Respiratory Effort, - - rales left base, decreased right base Cardiovascular: - - tachycardic, regular, no significant murmur Abdominal: - - soft, obese Extremities: - - obese, edematous Skin: No Rash or Ulcers Neurological: - - awake and alert Laboratory Results: 05/19/19 06:57 05/19/19 05:10 INR (Anticoag Therapy) 1.33 (0.82-1.09) H 05/18/19 05:50 APTT 30.6 seconds (26.0-38.0) 05/17/19 05:47 Total Bilirubin 1.70 mg/dL (0.2-1.0) H 05/15/19 16:05 AST 64 U/L (13-39) H 05/15/19 16:05 ALT 24 U/L (7-52) 05/15/19 16:05 Alkaline Phosphatase 279 U/L (34-104) H 05/15/19 16:05 B-Natriuretic Peptide 898 pg/mL (<=100) H 05/15/19 16:05 Total Protein 4.9 g/dL (6.4-8.9) L 05/15/19 16:05 Albumin 2.4 g/dL (3.2-5.2) L 05/15/19 16:05 Globulin 2.5 g/dL (2-4) 05/15/19 16:05 Albumin/Globulin Ratio 1.0 (1-3) 05/15/19 16:05 05/15/19 05/15/19 05/16/19 16:05 23:02 00:00 Troponin I 0.07 H* TNP TNP 05/16/19 05/16/19 02:30 04:49 Troponin I 0.07 H* 0.07 H* Diagnostic Imagin07/2009: cardiac catheterization: no CAD 10/2018: Normal vasodilator stress MPI Transthoracic Echocardiogram Study Date: 05/16/2019 Summary: - Left ventricle: The cavity size is normal. Wall thickness is moderately increased. Systolic function is normal. The estimated ejection fraction is 60-65%. Wall motion is normal; there are no regional wall motion abnormalities. - Right ventricle: The cavity size is mildly dilated. Systolic function is normal. - Left atrium: The atrium is severely dilated. - Tricuspid valve: There is mild-moderate regurgitation. - Pulmonary arteries: Systolic pressure is moderately to severely increased, estimated to be 60 mm Hg. Recommendations: Compared to prior study from 10/2018, findings are simlar, previous estimated PASP was 48 mmHg 05/15/19 CHEST AP OR PORT IMPRESSION: 1. Chest x-ray findings are most consistent acutely with mild pulmonary edema. 2. Persistent elevation of the right hemidiaphragm unchanged since May 17, 2015. EKG Data: ekg 01/10/2019 probable atrial flutter 112 bpm ekg 09/2018: EAT, lafb Assessment/Plan 1. Atrial flutter 2. ESRD on HD - continue metoprolol 50 mg po bid - SBP 90's-100's, will increase midodrone from 2.5 to 5 mg po bid (ordered) - Volume management per Hospitalist/Nephrology - See consult note for atrial flutter thrombotic prevention recommendations
[2019-05-19] MEDS: Cetirizine* 10 MG TAB PO SCH (19:16)
[2019-05-19] MEDS: Atorvastatin* 10 MG TAB PO SCH (21:10)
[2019-05-20] MEDS: Pantoprazole TAB * 40 MG TAB PO SCH ×2 (07:46→21:44)
[2019-05-20] MEDS: Montelukast Sodium TAB* 10 MG PO SCH (07:47)
[2019-05-20] MEDS: Mupirocin 2% OINT* TUBE TOPICAL SCH ×2 (07:48→22:07)
[2019-05-20] MEDS: Metoprolol Tartrate TAB* 50 mg PO SCH ×2 (07:48→21:41)
[2019-05-20] MEDS: Sevelamer TAB* 800 MG PO SCH ×3 (07:49→16:32)
[2019-05-20] MEDS: Oxybutynin XL TAB* 5 MG PO SCH (07:50)
--- NOTE | 2019-05-20 08:46 | PN ---
Subjective Date of Service: 05/20/19 Interval History: f/u atrial flutter no palpitations, chest pain or dyspnea at rest tele rate controlled aflutter Medications Active Medications: Acetaminophen (Tylenol Tab*) 650 mg PO Q4H PRN PRN Reason: PAIN-MILD/TEMP >/= 100.4 Last Admin: 05/19/19 08:35 Dose: 650 mg Atorvastatin Calcium (Lipitor*) 10 mg PO BEDTIME [facility] Last Admin: 05/19/19 21:10 Dose: 10 mg Cetirizine HCl (Zyrtec*) 10 mg PO BEDTIME [facility] Last Admin: 05/19/19 19:16 Dose: Not Given Metoprolol Tartrate (Lopressor Tab*) 50 mg PO BID [facility] Last Admin: 05/20/19 07:48 Dose: 50 mg Midodrine (Midodrine) 5 mg PO BID [facility]; Protocol Last Admin: 05/20/19 07:47 Dose: 5 mg Montelukast Sodium (Singulair Tab*) 10 mg PO DAILY [facility] Last Admin: 05/20/19 07:47 Dose: 10 mg Mupirocin (Bactroban 2 % Oint*) 1 applic TOPICAL BID [facility] Last Admin: 05/20/19 07:48 Dose: 1 applic Oxybutynin Chloride (Ditropan Xl Tab*) 5 mg PO DAILY [facility] Last Admin: 05/20/19 07:50 Dose: 5 mg Pantoprazole Sodium (Protonix Tab*) 40 mg PO BID [facility] Last Admin: 05/20/19 07:46 Dose: 40 mg Sevelamer Carbonate (Renvela Tab*) 2,400 mg PO TID WITH MEALS [facility] Last Admin: 05/20/19 07:49 Dose: 2,400 mg Objective Vital Signs: Temp Pulse Resp BP Pulse Ox 97.3 F 94 24 110/48 96 05/20/19 07:15 05/20/19 07:15 05/20/19 07:15 05/20/19 07:15 05/20/19 07:15 Oxygen Devices in Use Now: None Appearance: chronically ill appearing, very pleasant Ears/Nose/Mouth/Throat: Clear Oropharnyx Neck: Trachea Midline, - Respiratory: Symmetrical Chest Expansion and Respiratory Effort, - - basilar crackles Cardiovascular: - - irregularly iregular, no significant murmur, mild jvd Abdominal: - - soft, obese Extremities: - - obese, edematous Skin: No Rash or Ulcers Neurological: - - awake and alert Laboratory Results: 05/19/19 06:57 05/19/19 05:10 INR (Anticoag Therapy) 1.33 (0.82-1.09) H 05/18/19 05:50 APTT 30.6 seconds (26.0-38.0) 05/17/19 05:47 Total Bilirubin 1.70 mg/dL (0.2-1.0) H 05/15/19 16:05 AST 64 U/L (13-39) H 05/15/19 16:05 ALT 24 U/L (7-52) 05/15/19 16:05 Alkaline Phosphatase 279 U/L (34-104) H 05/15/19 16:05 B-Natriuretic Peptide 898 pg/mL (<=100) H 05/15/19 16:05 Total Protein 4.9 g/dL (6.4-8.9) L 05/15/19 16:05 Albumin 2.4 g/dL (3.2-5.2) L 05/15/19 16:05 Globulin 2.5 g/dL (2-4) 05/15/19 16:05 Albumin/Globulin Ratio 1.0 (1-3) 05/15/19 16:05 05/15/19 05/15/19 05/16/19 16:05 23:02 00:00 Troponin I 0.07 H* TNP TNP 05/16/19 05/16/19 02:30 04:49 Troponin I 0.07 H* 0.07 H* Diagnostic Imagin07/2009: cardiac catheterization: no CAD 10/2018: Normal vasodilator stress MPI Transthoracic Echocardiogram Study Date: 05/16/2019 Summary: - Left ventricle: The cavity size is normal. Wall thickness is moderately increased. Systolic function is normal. The estimated ejection fraction is 60-65%. Wall motion is normal; there are no regional wall motion abnormalities. - Right ventricle: The cavity size is mildly dilated. Systolic function is normal. - Left atrium: The atrium is severely dilated. - Tricuspid valve: There is mild-moderate regurgitation. - Pulmonary arteries: Systolic pressure is moderately to severely increased, estimated to be 60 mm Hg. Recommendations: Compared to prior study from 10/2018, findings are simlar, previous estimated PASP was 48 mmHg 05/15/19 CHEST AP OR PORT IMPRESSION: 1. Chest x-ray findings are most consistent acutely with mild pulmonary edema. 2. Persistent elevation of the right hemidiaphragm unchanged since May 17, 2015. EKG Data: ekg 01/10/2019 probable atrial flutter 112 bpm ekg 09/2018: EAT, lafb Assessment/Plan 1. Atrial flutter 2. ESRD on HD - volume overloaded 3. Supratherapeutic INR - with acute bleed in right thigh s/p 3 ntis prbc - continue metoprolol 50 mg po bid with midodrine 5 mg po bid - Volume management per Hospitalist/Nephrology - see consult note regarding CVA prevention
[2019-05-20] MEDS ORDERED: EPOETIN ALFA-EPBX * 10,000 UNIT/ML VIAL IV ONE (10:45)
--- NOTE | 2019-05-20 10:58 | PN ---
Subjective Date of Service: 05/20/19 Interval History: pt c/o left arm pain when moving it.Developed ecchymosis after heparin shot the other day Objective Active Medications: Acetaminophen (Tylenol Tab*) 650 mg PO Q4H PRN PRN Reason: PAIN-MILD/TEMP >/= 100.4 Last Admin: 05/19/19 08:35 Dose: 650 mg Atorvastatin Calcium (Lipitor*) 10 mg PO BEDTIME [facility] Last Admin: 05/19/19 21:10 Dose: 10 mg Cetirizine HCl (Zyrtec*) 10 mg PO BEDTIME [facility] Last Admin: 05/19/19 19:16 Dose: Not Given Metoprolol Tartrate (Lopressor Tab*) 50 mg PO BID [facility] Last Admin: 05/20/19 07:48 Dose: 50 mg Midodrine (Midodrine) 5 mg PO BID [facility]; Protocol Last Admin: 05/20/19 07:47 Dose: 5 mg Montelukast Sodium (Singulair Tab*) 10 mg PO DAILY [facility] Last Admin: 05/20/19 07:47 Dose: 10 mg Mupirocin (Bactroban 2 % Oint*) 1 applic TOPICAL BID [facility] Last Admin: 05/20/19 07:48 Dose: 1 applic Oxybutynin Chloride (Ditropan Xl Tab*) 5 mg PO DAILY [facility] Last Admin: 05/20/19 07:50 Dose: 5 mg Pantoprazole Sodium (Protonix Tab*) 40 mg PO BID [facility] Last Admin: 05/20/19 07:46 Dose: 40 mg Sevelamer Carbonate (Renvela Tab*) 2,400 mg PO TID WITH MEALS [facility] Last Admin: 05/20/19 07:49 Dose: 2,400 mg Vital Signs - 8 hr 05/20/19 05/20/19 05/20/19 04:17 06:41 07:15 Temperature 97.5 F 97.3 F Pulse Rate 86 94 Respiratory 22 20 24 Rate Blood Pressure 100/46 110/48 (mmHg) O2 Sat by Pulse 95 96 Oximetry Oxygen Devices in Use Now: None Appearance: 74 yo F in nAD, aAOx2 Eyes: No Scleral Icterus, PERRLA Ears/Nose/Mouth/Throat: NL Teeth, Lips, Gums, Mucous Membranes Moist Neck: NL Appearance and Movements; NL JVP, Trachea Midline Respiratory: Symmetrical Chest Expansion and Respiratory Effort, - - faint bibasiliar crackles Cardiovascular: - - tachy, regular Abdominal: NL Sounds; No Tenderness; No Distention, No Hepatosplenomegaly Extremities: - - b/l LE's lymphoedema, left arm edema and ecchymosis, no limit in passive ROM Skin: - - R upper thigh ecchymosis Neurological: NL Muscle Strength and Tone Result Diagrams: 05/19/19 06:57 05/19/19 05:10 Microbiology and Other Data: Microbiology 05/16/19 22:10 Transfusion Reaction Culture - Preliminary Blood Bag Culture Under Incubation Transfusion Reaction Gram Stain - Final Assess/Plan/Problems-Billing Assessment: Ms Zarate is a 74 yo F who has a h/o ESRD, HTN and afib/flutter presented to the ER with c/o a fall . She was noted to have INR>10 and Hb of 6 - Patient Problems (1) Anemia Comment: due to acute bleed in r thigh Hb back to baseline, even higher than baseline after 3 U PRBC transfusion stool heme+, but no melena , no BRBPR and Hb improving. D/w Pt and sister who agree that unless pt has obvious signs of bleeding, of Hb significatnly lower, no further w/u is necessary. repeat stool heme- (2) Fall Comment: ambulates with a walker at home cont PT (3) Atrial fibrillation Comment: pt appears to be still in a. flutter, but now rate controled after Lopressor and midodrine started. Appreciate Dr. Marcus's consult treated dose of Digoxin 0.25mg on 05/16 and on 05/17. troponin 0.07 likely due to demand ischemia and ESRD Echo shows pt to be in A. fib, EF 60% (4) ESRD on hemodialysis Comment: The patient will continue with dialysis MWF. Dialysis today (5) Lymphedema Comment: chronic, will cont NIKA wraps and SCD's (6) DVT prophylaxis Comment: SCD's and NIKA wraps Status and Disposition: inpatient, pt is deconditioned after the fall and hospital stay and is medically ready for discharge today. Awaiting PT recommendation today
--- NOTE | 2019-05-20 18:33 | PN ---
Progress Note - Progress Note Date of Service: 05/20/19 Note: Chief complaint end-stage kidney disease on hemodialysis Monday History of present illness: Patient was admitted status post fall. She usually has low blood pressure. She has end-stage kidney disease and dialyzes Monday. Today is her regular dialysis day. I saw the patient during maintenance hemodialysis and blood pressure was low as usual. She tolerated hemodialysis well. Review of systems: Constitutional: Patient is sleepy as usual during dialysis on Cardiovascular: No chest pain, no palpitations Physical exam: Blood pressure 110/48, respiratory rate 24/min, heart rate 94/min, temperature 97.3, oxygen saturation on room air Chest is clear to auscultation Abdomen is soft nontender nondistended Extremities with +2 lower edema no clubbing or cyanosis Assessment and plan 1. End-stage kidney disease on hemodialysis Monday Discussed the hemodialysis prescription with the dialysis nurse and patient received dialysis earlier in the morning. She tolerated her dialysis treatment as usual without changes compared to her outpatient dialysis. We were unable to remove more than 2 L of fluids due to low blood pressure. 2. Hypotension - we will start midodrine and blood pressure remains low.
[2019-05-20] MEDS: Acetaminophen TAB* 325 MG PO PRN (21:37)
[2019-05-20] MEDS: Cetirizine* 10 MG TAB PO SCH (21:42)
[2019-05-20] MEDS: Atorvastatin* 10 MG TAB PO SCH (22:07)
[2019-05-21] MEDS: Pantoprazole TAB * 40 MG TAB PO SCH ×2 (08:02→20:50)
[2019-05-21] MEDS: Sevelamer TAB* 800 MG PO SCH ×3 (08:02→17:26)
[2019-05-21] MEDS: Oxybutynin XL TAB* 5 MG PO SCH (08:03)
[2019-05-21] MEDS: Metoprolol Tartrate TAB* 50 mg PO SCH ×2 (08:03→20:49)
[2019-05-21] MEDS: Montelukast Sodium TAB* 10 MG PO SCH (08:03)
[2019-05-21] MEDS: Mupirocin 2% OINT* TUBE TOPICAL SCH ×2 (08:04→20:54)
--- NOTE | 2019-05-21 10:38 | PN ---
Subjective Date of Service: 05/21/19 Interval History: No complaints. No Pain. No N/V, LH, CP, SOB Objective Active Medications: Acetaminophen (Tylenol Tab*) 650 mg PO Q4H PRN PRN Reason: PAIN-MILD/TEMP >/= 100.4 Last Admin: 05/20/19 21:37 Dose: 650 mg Atorvastatin Calcium (Lipitor*) 10 mg PO BEDTIME [facility] Last Admin: 05/20/19 22:07 Dose: 10 mg Cetirizine HCl (Zyrtec*) 10 mg PO BEDTIME [facility] Last Admin: 05/20/19 21:42 Dose: Not Given Metoprolol Tartrate (Lopressor Tab*) 50 mg PO BID [facility] Last Admin: 05/21/19 08:03 Dose: 50 mg Midodrine (Midodrine) 5 mg PO BID [facility]; Protocol Last Admin: 05/21/19 08:03 Dose: 5 mg Montelukast Sodium (Singulair Tab*) 10 mg PO DAILY [facility] Last Admin: 05/21/19 08:03 Dose: 10 mg Mupirocin (Bactroban 2 % Oint*) 1 applic TOPICAL BID [facility] Last Admin: 05/21/19 08:04 Dose: 1 applic Oxybutynin Chloride (Ditropan Xl Tab*) 5 mg PO DAILY [facility] Last Admin: 05/21/19 08:03 Dose: 5 mg Pantoprazole Sodium (Protonix Tab*) 40 mg PO BID [facility] Last Admin: 05/21/19 08:02 Dose: 40 mg Sevelamer Carbonate (Renvela Tab*) 2,400 mg PO TID WITH MEALS [facility] Last Admin: 05/21/19 08:02 Dose: 2,400 mg Vital Signs - 8 hr 05/21/19 05/21/19 05/21/19 03:25 07:37 08:01 Temperature 97.9 F 97.9 F Pulse Rate 90 95 Respiratory 24 22 20 Rate Blood Pressure 106/43 110/53 (mmHg) O2 Sat by Pulse 94 94 Oximetry Oxygen Devices in Use Now: None Appearance: NAD, sitting up eating breakfast Eyes: No Scleral Icterus, PERRLA Ears/Nose/Mouth/Throat: NL Teeth, Lips, Gums, Clear Oropharnyx Neck: NL Appearance and Movements; NL JVP Respiratory: Symmetrical Chest Expansion and Respiratory Effort, - - trace basilar rales Cardiovascular: - - irir Abdominal: NL Sounds; No Tenderness; No Distention, No Hepatosplenomegaly Lymphatic: No Cervical Adenopathy Extremities: No Edema Skin: No Rash or Ulcers, - - hemaotom on posterior lateral aspect of right thigh Neurological: - - aox2 to self and location Result Diagrams: 05/19/19 06:57 05/19/19 05:10 Microbiology and Other Data: Microbiology 05/16/19 22:10 Transfusion Reaction Culture - Preliminary Blood Bag Culture Under Incubation Transfusion Reaction Gram Stain - Final Assess/Plan/Problems-Billing Assessment: 74 yo F who has a h/o ESRD, HTN and afib/flutter presented to the ER with c/o fall would with INR>10 on coumadin and Hb of 6 with associated thigh hematoma requiring 3 U PRBC - Patient Problems (1) Anemia Comment: Acute blood loss anemia due to acute bleed in right thigh Status post 3 U PRBC transfusion with Hb now stable stool heme+ without e/o blood loss. Dr. Apodaca d/w Pt and sister who agree that unless pt has obvious signs of bleeding, of Hb significatnly lower, no further w/u is necessary. repeat stool heme negative (2) Atrial flutter Comment: Rate controlled Metoprolol Midodrine with hypitension See cardiology consult note: Recommendation is for eliquis 2.5mg BID in setting of major bleed. Unclear optimal timing for restarting medication s/p major bleed. (3) Fall Current Visit: No Status: Acute Comment: ambulates with a walker at home cont PT (4) ESRD on hemodialysis Current Visit: No Status: Chronic Code(s): N18.6 - END STAGE RENAL DISEASE; Z99.2 - DEPENDENCE ON RENAL DIALYSIS SNOMED Code(s): 885848851 Comment: The patient will continue with dialysis MWF. Dialysis today (5) Lymphedema Comment: chronic cont NIKA wraps and SCD's (6) DVT prophylaxis Comment: SCD's and NIKA wraps Status and Disposition: inpatient, pt is deconditioned after the fall and hospital stay and is medically ready for discharge. Awaiting PT recommendation
[2019-05-21] MEDS: Acetaminophen TAB* 325 MG PO PRN (17:26)
[2019-05-21] MEDS: Atorvastatin* 10 MG TAB PO SCH (20:49)
[2019-05-21] MEDS: Cetirizine* 10 MG TAB PO SCH (20:49)
[2019-05-22] MEDS: Sevelamer TAB* 800 MG PO SCH ×3 (08:11→17:04)
[2019-05-22] MEDS: Oxybutynin XL TAB* 5 MG PO SCH (08:11)
[2019-05-22] MEDS: Montelukast Sodium TAB* 10 MG PO SCH (08:12)
[2019-05-22] MEDS: Mupirocin 2% OINT* TUBE TOPICAL SCH ×2 (08:12→21:22)
[2019-05-22] MEDS: Metoprolol Tartrate TAB* 50 mg PO SCH ×2 (08:12→21:01)
[2019-05-22] MEDS: Pantoprazole TAB * 40 MG TAB PO SCH ×2 (08:12→21:01)
--- NOTE | 2019-05-22 15:27 | PN ---
Subjective Date of Service: 05/22/19 Interval History: Vomiting when tried to eat her breakfast this AM Still felt stomach was unsettled when I spoke with her No other complaints Objective Active Medications: Acetaminophen (Tylenol Tab*) 650 mg PO Q4H PRN PRN Reason: PAIN-MILD/TEMP >/= 100.4 Last Admin: 05/21/19 17:26 Dose: 650 mg Atorvastatin Calcium (Lipitor*) 10 mg PO BEDTIME [facility] Last Admin: 05/21/19 20:49 Dose: 10 mg Cetirizine HCl (Zyrtec*) 10 mg PO BEDTIME [facility] Last Admin: 05/21/19 20:49 Dose: 10 mg Metoprolol Tartrate (Lopressor Tab*) 50 mg PO BID [facility] Last Admin: 05/22/19 08:12 Dose: 50 mg Midodrine (Midodrine) 5 mg PO BID [facility]; Protocol Last Admin: 05/22/19 08:12 Dose: 5 mg Montelukast Sodium (Singulair Tab*) 10 mg PO DAILY [facility] Last Admin: 05/22/19 08:12 Dose: 10 mg Mupirocin (Bactroban 2 % Oint*) 1 applic TOPICAL BID [facility] Last Admin: 05/22/19 08:12 Dose: 1 applic Oxybutynin Chloride (Ditropan Xl Tab*) 5 mg PO DAILY [facility] Last Admin: 05/22/19 08:11 Dose: 5 mg Pantoprazole Sodium (Protonix Tab*) 40 mg PO BID [facility] Last Admin: 05/22/19 08:12 Dose: 40 mg Sevelamer Carbonate (Renvela Tab*) 2,400 mg PO TID WITH MEALS [facility] Last Admin: 05/22/19 11:54 Dose: Not Given Vital Signs - 8 hr 05/22/19 07:35 Respiratory 20 Rate Oxygen Devices in Use Now: None Appearance: sitting up, NAD Eyes: No Scleral Icterus, PERRLA Ears/Nose/Mouth/Throat: NL Teeth, Lips, Gums, Clear Oropharnyx Neck: NL Appearance and Movements; NL JVP, Trachea Midline Respiratory: Symmetrical Chest Expansion and Respiratory Effort, - - decreased breathsounds throughout Cardiovascular: RRR Abdominal: NL Sounds; No Tenderness; No Distention, No Hepatosplenomegaly Extremities: - - RUE fistula, swelling in right hand, b/l LE edema Neurological: - - AOx2 Result Diagrams: 05/19/19 06:57 05/19/19 05:10 Microbiology and Other Data: Microbiology 05/16/19 22:10 Transfusion Reaction Culture - Preliminary Blood Bag Culture Under Incubation Transfusion Reaction Gram Stain - Final Assess/Plan/Problems-Billing Assessment: 74 yo F who has a h/o ESRD, HTN and afib/flutter presented to the ER with c/o fall would with INR>10 on coumadin and Hb of 6 with associated thigh hematoma requiring 3 U PRBC - Patient Problems (1) Anemia Comment: Acute blood loss anemia due to acute bleed in right thigh Status post 3 U PRBC transfusion with Hb now stable stool heme+ without e/o blood loss. Dr. Apodaca d/w Pt and sister who agree that unless pt has obvious signs of bleeding, of Hb significatnly lower, no further w/u is necessary. repeat stool heme negative (2) Atrial flutter Comment: Rate controlled Metoprolol Midodrine now with hypotension See cardiology consult note: Recommendation is for eliquis 2.5mg BID in setting of major bleed. Unclear optimal timing for restarting medication s/p major bleed. (3) ESRD on hemodialysis Comment: The patient will continue with dialysis MWF. (4) Lymphedema Comment: chronic cont NIKA wraps and SCD's (5) DVT prophylaxis Comment: SCD's and NIKA wraps Status and Disposition: inpatient, pt is deconditioned after the fall and hospital stay and is medically ready for discharge to [facility]
[2019-05-22] MEDS: Atorvastatin* 10 MG TAB PO SCH (21:01)
[2019-05-22] MEDS: Cetirizine* 10 MG TAB PO SCH (21:01)
[2019-05-23 05:09] LABS: Calcium 8.3 mg/dL (8.6-10.3); Potassium 4.6 mmol/L (3.5-5.0)
[2019-05-23 05:14] LABS: BUN/Creatinine Ratio 10.8 (8-20); EGFR African American 9.2 (>60); EGFR Non-African American 7.6 (>60); Phosphorus 3.2 mg/dL (2.5-5.0)
[2019-05-23] MEDS: Sevelamer TAB* 800 MG PO SCH ×4 (08:31→17:37)
[2019-05-23] MEDS: Oxybutynin XL TAB* 5 MG PO SCH (08:31)
[2019-05-23] MEDS: Montelukast Sodium TAB* 10 MG PO SCH (08:31)
[2019-05-23] MEDS: Metoprolol Tartrate TAB* 50 mg PO SCH ×2 (08:31→21:22)
[2019-05-23] MEDS: Pantoprazole TAB * 40 MG TAB PO SCH ×2 (08:31→21:22)
[2019-05-23 10:35] LABS: Hematocrit 28 % (35-47); Hemoglobin 9.5 g/dL (12.0-16.0); Mean Corpuscular HGB Conc 34 g/dL (31-36); Mean Corpuscular Hemoglobin 33 pg (27-31); Mean Corpuscular Volume 95 fL (80-97); Mean Platelet Volume 7.6 fL (7.4-10.4); Platelet Count 279 10^3/uL (150-450); Red Blood Count 2.92 10^6 /uL (3.70-4.87); Red Cell Distribution Width 18 % (10-15)
[2019-05-23] MEDS ORDERED: EPOETIN ALFA-EPBX * 10,000 UNIT/ML VIAL IV ONE (11:00)
--- NOTE | 2019-05-23 12:24 | PN ---
Progress Note - Progress Note Date of Service: 05/23/19 Note: Chief complaint: End-stage kidney disease Interval history: The patient looks a lot better than last time I saw her during hemodialysis. She was nauseated in the morning but this is resolved by the time she was taken to hemodialysis. She denies any cramps, upset,, headache , lightheadedness. Blood pressure is a lot improved as received midodrine before dialysis. Meds Acetaminophen (Tylenol Tab*) 650 mg PO Q4H PRN PRN Reason: PAIN-MILD/TEMP >/= 100.4 Last Admin: 05/21/19 17:26 Dose: 650 mg Atorvastatin Calcium (Lipitor*) 10 mg PO BEDTIME [facility] Last Admin: 05/22/19 21:01 Dose: 10 mg Cetirizine HCl (Zyrtec*) 10 mg PO BEDTIME [facility] Last Admin: 05/22/19 21:01 Dose: 10 mg Metoprolol Tartrate (Lopressor Tab*) 50 mg PO BID [facility] Last Admin: 05/23/19 08:31 Dose: 50 mg Midodrine (Midodrine) 5 mg PO BID [facility]; Protocol Last Admin: 05/23/19 08:31 Dose: 5 mg Montelukast Sodium (Singulair Tab*) 10 mg PO DAILY [facility] Last Admin: 05/23/19 08:31 Dose: 10 mg Mupirocin (Bactroban 2 % Oint*) 1 applic TOPICAL BID [facility] Last Admin: 05/22/19 21:22 Dose: 1 applic Oxybutynin Chloride (Ditropan Xl Tab*) 5 mg PO DAILY [facility] Last Admin: 05/23/19 08:31 Dose: 5 mg Pantoprazole Sodium (Protonix Tab*) 40 mg PO BID [facility] Last Admin: 05/23/19 08:31 Dose: 40 mg Sevelamer Carbonate (Renvela Tab*) 2,400 mg PO TID WITH MEALS [facility] Last Admin: 05/23/19 08:31 Dose: 2,400 mg Labs Laboratory Results - last 24 hr 05/23/19 05/23/19 04:54 10:00 WBC 5.0 RBC 2.92 L Hgb 9.5 L Hct 28 L MCV 95 MCH 33 H MCHC 34 RDW 18 H Plt Count 279 MPV 7.6 Sodium 134 L Potassium 4.6 Chloride 102 Carbon Dioxide 24 Anion Gap 8 BUN 59 H Creatinine 5.48 H Est GFR ( Amer) 9.2 Est GFR (Non-Af Amer) 7.6 BUN/Creatinine Ratio 10.8 Glucose 91 Calcium 8.3 L Phosphorus 3.2 Physical exam: Temp Pulse Resp BP Pulse Ox 98.1 F 88 16 118/57 99 05/23/19 07:15 05/23/19 07:15 05/23/19 08:00 05/23/19 07:15 05/23/19 07:15 Constitutional: No acute distress, chronically ill, lying in bed during dialysis. Chest is clear to auscultation Heart shows S1-S2 regular rate and rhythm no murmurs rubs or gallops Abdomen is soft and nontender Extremities with +2 lower extremities edema improved. Assessment and plan: End-stage renal disease patient admitted post fall. 1. End-stage kidney disease on hemodialysis Monday. She did not get dialysis today because it was [place] and it was off for dialysis nurses. I saw the patient during her hemodialysis treatment today and treatment was running smoothly without hemodynamic complications and without patient complaints. Discussed dialysis prescription with hemodialysis nurse. 3K bath, 2.5 calcium, same in the pool, serum heparin dose. 2. Hypotension on dialysis - Improved 3. Deconditioning - physical therapy. 4. hyperphosphatemia - controlled , no changes
[2019-05-23] MEDS: Mupirocin 2% OINT* TUBE TOPICAL SCH ×2 (15:50→21:22)
--- NOTE | 2019-05-23 17:38 | PN ---
Subjective Date of Service: 05/23/19 Interval History: Nausea and vomiting resolved but RN reported some coughing when eating No complaints Objective Active Medications: Acetaminophen (Tylenol Tab*) 650 mg PO Q4H PRN PRN Reason: PAIN-MILD/TEMP >/= 100.4 Last Admin: 05/21/19 17:26 Dose: 650 mg Atorvastatin Calcium (Lipitor*) 10 mg PO BEDTIME [facility] Last Admin: 05/22/19 21:01 Dose: 10 mg Cetirizine HCl (Zyrtec*) 10 mg PO BEDTIME [facility] Last Admin: 05/22/19 21:01 Dose: 10 mg Metoprolol Tartrate (Lopressor Tab*) 50 mg PO BID [facility] Last Admin: 05/23/19 08:31 Dose: 50 mg Midodrine (Midodrine) 5 mg PO BID [facility]; Protocol Last Admin: 05/23/19 08:31 Dose: 5 mg Montelukast Sodium (Singulair Tab*) 10 mg PO DAILY [facility] Last Admin: 05/23/19 08:31 Dose: 10 mg Mupirocin (Bactroban 2 % Oint*) 1 applic TOPICAL BID [facility] Last Admin: 05/23/19 15:50 Dose: 1 applic Oxybutynin Chloride (Ditropan Xl Tab*) 5 mg PO DAILY [facility] Last Admin: 05/23/19 08:31 Dose: 5 mg Pantoprazole Sodium (Protonix Tab*) 40 mg PO BID [facility] Last Admin: 05/23/19 08:31 Dose: 40 mg Sevelamer Carbonate (Renvela Tab*) 2,400 mg PO TID WITH MEALS [facility] Last Admin: 05/23/19 14:06 Dose: 2,400 mg Vital Signs - 8 hr 05/23/19 05/23/19 14:05 16:01 Temperature 97.1 F 97.5 F Pulse Rate 78 87 Respiratory 18 20 Rate Blood Pressure 103/39 118/43 (mmHg) O2 Sat by Pulse 98 97 Oximetry Oxygen Devices in Use Now: None Appearance: seen on dialysis, NAD Eyes: No Scleral Icterus Ears/Nose/Mouth/Throat: NL Teeth, Lips, Gums, Clear Oropharnyx Neck: NL Appearance and Movements; NL JVP, Trachea Midline Respiratory: Symmetrical Chest Expansion and Respiratory Effort, Clear to Auscultation Cardiovascular: RRR Abdominal: NL Sounds; No Tenderness; No Distention, No Hepatosplenomegaly Extremities: - - right fistual, swelling in b/l hands R>L and b/l legs Neurological: Alert and Oriented x 3 Result Diagrams: 05/23/19 10:00 05/23/19 04:54 Microbiology and Other Data: Microbiology 05/16/19 22:10 Transfusion Reaction Culture - Preliminary Blood Bag Culture Under Incubation Transfusion Reaction Gram Stain - Final Assess/Plan/Problems-Billing Assessment: 74 yo F who has a h/o ESRD, HTN and afib/flutter presented to the ER with c/o fall would with INR>10 on coumadin and Hb of 6 with associated thigh hematoma requiring 3 U PRBC - Patient Problems (1) Anemia Comment: Acute blood loss anemia due to acute bleed in right thigh Status post 3 U PRBC transfusion with Hb now stable stool heme+ without e/o blood loss. Dr. Apodaca d/w Pt and sister who agree that unless pt has obvious signs of bleeding, of Hb significatnly lower, no further w/u is necessary. repeat stool heme negative (2) Atrial flutter Comment: Rate controlled Metoprolol Midodrine now after hypotension - improved See cardiology consult note: Recommendation is for eliquis 2.5mg BID in setting of major bleed. Unclear optimal timing for restarting medication s/p major bleed. Last blood transfused on 05/16 (3) ESRD on hemodialysis Comment: The patient will continue with dialysis MWF. Missed Monday due to holiday. Dialysis today and tomorrow to catch up (4) Lymphedema Comment: chronic cont NIKA wraps and SCD's (5) DVT prophylaxis Comment: SCD's and NIKA wraps Status and Disposition: inpatient, pt is deconditioned after the fall and hospital stay and is medically ready for discharge to [facility]
[2019-05-23] MEDS: Cetirizine* 10 MG TAB PO SCH (21:22)
[2019-05-23] MEDS: Atorvastatin* 10 MG TAB PO SCH (21:22)
[2019-05-24] MEDS: Sevelamer TAB* 800 MG PO SCH ×2 (08:12→16:23)
[2019-05-24] MEDS: Montelukast Sodium TAB* 10 MG PO SCH (09:37)
[2019-05-24] MEDS: Pantoprazole TAB * 40 MG TAB PO SCH (09:41)
[2019-05-24] MEDS: Metoprolol Tartrate TAB* 50 mg PO SCH (09:41)
[2019-05-24] MEDS: Oxybutynin XL TAB* 5 MG PO SCH (09:41)
[2019-05-24] MEDS ORDERED: EPOETIN ALFA-EPBX * 10,000 UNIT/ML VIAL IV ONE (10:00)
--- NOTE | 2019-05-24 13:02 | DS ---
CC: Dr. Rob Jj* DISCHARGE SUMMARY: DATE OF ADMISSION: 05/15/19 DATE OF DISCHARGE: 05/24/19 PRIMARY CARE PROVIDER: Dr. Rob Jj. DISPOSITION ON DISCHARGE: Cesar. CONDITION ON DISCHARGE: Stable. PRIMARY DIAGNOSES: 1. Acute blood loss anemia in the setting of a right thigh hematoma. 2. Supratherapeutic INR. SECONDARY DIAGNOSES: 1. Endstage renal disease secondary to polycystic kidney disease, on hemodialysis Monday, Monday and Monday. 2. History of paroxysmal atrial fibrillation. 3. Chronic anemia. 4. Hyperlipidemia. 5. Hypertension. PERTINENT LABORATORY DATA: Hemoglobin on presentation 6.6, nadired at 6.5, 9.5 a day prior to discharge. INR on presentation was greater than 10, on last check, 1.3. PERTINENT IMAGING: Transthoracic echocardiogram, impression: Left ventricular chamber size and wall thickness is moderately increased with left ventricular ejection fraction of 60% to 65%, no regional wall motion abnormalities, RV systolic function is normal, left atrium is fairly dilated, tricuspid valve has mild to moderate regurgitation. Pulmonary artery systolic pressure is moderately to severely increased, estimated at 60 mmHg. Compared to October, findings are consistent except for pulmonary artery systolic pressure was 48 at that time, increased now. MEDICATIONS AT DISCHARGE: 1. Metoprolol 50 mg twice daily. 2. Simvastatin 20 mg in the evening. 3. Sevelamer 2400 mg three times a day. 4. Midodrine 5 mg twice a day. Please note addition of new medications: 1. Oxybutynin XL 5 mg daily. 2. Xyzal 5 mg daily. 3. Mupirocin one application topically twice daily. 4. Please note the increased doses of metoprolol as well as the addition of midodrine. 5. Recommendations is to start Eliquis 2.5 mg by Cardiology to replace Coumadin. The patient will now be started on Eliquis 2.5 mg twice daily at the time of discharge. It is unclear when would be a safe time to restart medication, however, I am recommending 1 week from today on 05/29/19, which will be 2 weeks from her major bleed. The patient is at significant risk for cardioembolic events while she is anticoagulated. Additionally, please note I am holding her Bumex as her blood pressure has been low while in hospital, consider restarting when needed. HISTORY OF PRESENT ILLNESS AND HOSPITAL COURSE: This is a 74-year-old female with a past medical history of intellectual disability as well as endstage renal disease, on hemodialysis Monday, Monday and Monday, recently prescribed Bactrim after scraping her knee, presented to the hospital feeling more lightheaded, found markedly anemic, suspected in the setting of right posterior thigh hematoma. The patient did require 3 units packed red blood cells last on 05/16/19. Her hemoglobin remained stable since that time. Her Coumadin was reversed with vitamin K as well as Kcentra. She received dialysis during the course of the hospital stay. It was noted that her blood pressure was lower and she was started on midodrine with good effect. The patient was seen in conjunction with both nephrology as well as cardiology services. The patient returned back to her baseline; however was markedly deconditioned, will be unable to return home where she spends her day at adult daycare and has to be able to ambulate. Recommendations are to change Coumadin for Eliquis 2.5 mg twice daily as indicated above which I will not start, but I am recommending to initiate 05/29/19 two weeks status post major bleed. There were no other complications during the course of the patient's hospital stay. FOLLOWUP: 1. Follow CBC as necessary, although increasing at this time. 2. Ensure the patient is started on anticoagulation for atrial fibrillation, if not started on 05/29/19. 3. Follow blood pressure on midodrine. 4. Consider restarting Bumex which is being held at that time secondary to her lower blood pressures requiring midodrine in order to dialyze. 5. No other specific labs or vitals that need followup. TIME SPENT: Greater than 60 minutes was spent on this discharge of this patient , greater than half was spent [id number] with the patient. [id number]/[facility] #: [id number] ABBIE
--- NOTE | 2019-05-24 16:39 | PN ---
Progress Note - Progress Note Date of Service: 05/24/19 Note: Chief complaint: End-stage kidney disease secondary to polycystic kidney disease. Interval history: Patient is doing well. Today is her regular maintenance dialysis day. She usually dialyzes Monday. I saw the patient during maintenance hemodialysis. She is doing well without abdominal pain cramps or headaches. Dialysis prescription was reviewed with field assembly supervisor. No labs today. Will do a 3K, 2.5 calcium bath. Physical exam. Blood pressure is a little better. She received midodrine before dialysis. So blood pressure is 113/50, at the time of my visit. Vital Signs 05/23/19 05/23/19 05/23/19 19:40 20:00 23:34 Temperature 97.9 F 98.2 F Pulse Rate 93 94 Respiratory 20 20 22 Rate Blood Pressure 123/49 114/46 (mmHg) O2 Sat by Pulse 93 93 Oximetry 05/24/19 05/24/19 05/24/19 03:53 08:00 14:35 Temperature 98.2 F 98.8 F Pulse Rate 96 80 Respiratory 20 19 15 Rate Blood Pressure 115/43 106/43 (mmHg) O2 Sat by Pulse 93 100 Oximetry Chest is clear to auscultation anteriorly Abdomen is soft nontender nondistended Extremities with improvement in lower extremities edema. Assessment and plan: 1. End-stage kidney disease maintenance hemodialysis Monday. I saw the patient during maintenance hemodialysis today. Tolerating treatment well without any complaints and with hemodynamic stability. 2. Hypotension during dialysis. Improved with midodrine before dialysis 3. Deconditioningto be discharged to short-term rehab center.
[2019-05-24] MEDS: Mupirocin 2% OINT* TUBE TOPICAL SCH (17:04)
[2019-05-24 18:43] VITALS: BP 110/40
== END 2019-05-24 18:54 | disposition swing bed (61) | DRG 811 ==
LOC: ED 15:37 → MEDTELE 18:14 → OBSVTOIN 05-16 11:00 → INTOOBSV 05-16 11:00
PROVIDERS: ADMIT Internal Medicine; ATTEND Internal Medicine
PROC: 30283B1 Transfusion of Nonautologous 4-Factor Prothrombin Complex Concentrate into Vein, Percutaneous Approach (ICD-10-PCS; principal; 2019-05-16)
PROC: 30233N1 Transfusion of Nonautologous Red Blood Cells into Peripheral Vein, Percutaneous Approach (ICD-10-PCS; 2019-05-16)
PROC: 5A1D70Z Performance of Urinary Filtration, Intermittent, Less than 6 Hours Per Day (ICD-10-PCS; 2019-05-17)
DX: D62 Acute posthemorrhagic anemia (principal); N18.6 End stage renal disease; D68.9 Coagulation defect, unspecified; I12.0 Hypertensive chronic kidney disease with stage 5 chronic kidney disease or end stage renal disease; Q61.3 Polycystic kidney, unspecified; I42.9 Cardiomyopathy, unspecified; I48.92 Unspecified atrial flutter; E78.00 Pure hypercholesterolemia, unspecified; I48.0 Paroxysmal atrial fibrillation; E78.5 Hyperlipidemia, unspecified; D63.1 Anemia in chronic kidney disease; J42 Unspecified chronic bronchitis; N18.9 Chronic kidney disease, unspecified; F70 Mild intellectual disabilities; I89.0 Lymphedema, not elsewhere classified; W19.XXXA Unspecified fall, initial encounter; S70.11XA Contusion of right thigh, initial encounter; G31.84 Mild cognitive impairment of uncertain or unknown etiology; I95.9 Hypotension, unspecified; R11.2 Nausea with vomiting, unspecified; E83.39 Other disorders of phosphorus metabolism; Z99.2 Dependence on renal dialysis; Z88.0 Allergy status to penicillin; Z88.6 Allergy status to analgesic agent; Z88.1 Allergy status to other antibiotic agents; Y92.9 Unspecified place or not applicable
CPT/HCPCS: 36415; 70450; 71045; 80048; 80053; 82270; 82272; 83735; 83880; 84100; 84484; 85025; 85027; 85060; 85610; 85730; 86078; 86850; 86900; 86901; 86922; 90935; 93005; 93306; 99285; A9270-GY; C9132; G0257; G8978-GP-CN; G8979-GP-CI; J1160; J1940; J3430; J3490; P9040; Q5106

== ENCOUNTER 2019-05-30 07:17 | Inpatient (IN) | payer MEDICARE, MEDICAID ==
[2019-05-30] MEDS ORDERED: Clindamycin 600 MG/D5W BAG(*) 600 MG/50 ML BAG IV ONE (07:49)
--- NOTE | 2019-05-30 07:54 | ED ---
Skin Complaint - HPI Summary HPI Summary: 74-year-old female with significant past medical history of polycystic kidney disease resulting in end-stage renal disease, hypertension, paroxysmal atrial fibrillation treated with warfarin, anemia, hyperlipidemia, mild cognitive delay presents to the emergency department today with complaints of possible right upper trauma the cellulitis near her hemodialysis fistula. Patient states she has mild right arm pain but denies fevers or other systemic symptoms. There is mild edema and erythema noted to the right distal forearm and antecubital region. Adequate history is difficult to obtain due to patient' s cognitive delay. Patient was recently hospitalized at [facility] for cellulitis of her right knee which is treated to resolution. Patient denies fever, chest pain, abdominal pain, shortness of breath elevated urination. - History of Current Complaint Chief Complaint: EDExtremityUpper Time Seen by Provider: 05/30/19 07:28 Stated Complaint: POS CELLULITIS IN R ARM Hx Obtained From: Patient, Family/Outside Food Server Pain Intensity: 0 - Additional Pertinent History Primary Care Physician: EDGAR - Allergy/Home Medications Allergies/Adverse Reactions: Allergies Allergy/AdvReac Type Severity Reaction Status Date / Time cephalexin Allergy Vomiting Verified 05/30/19 07:48 NSAIDS (Non-Steroidal Allergy Bleeding Verified 05/30/19 07:48 Anti-Inflamma Penicillins Allergy Vomiting Verified 05/30/19 07:48 sulfamethoxazole Allergy See Comment Verified 05/30/19 07:48 [From Bactrim] trimethoprim [From Bactrim] Allergy See Comment Verified 05/30/19 07:48 Home Medications: Home Medications LevoCETirizine TAB (NF) [Xyzal TAB (NF)] 5 mg PO DAILY 05/30/19 [History Confirmed 05/30/19] Montelukast Sodium TAB* [Singulair TAB*] 10 mg PO DAILY 05/30/19 [History Confirmed 05/30/19] PMH/Surg Hx/FS Hx/Imm Hx Endocrine/Hematology History: Reports: Hx Anticoagulant Therapy, Hx Anemia Denies: Hx Diabetes, Hx Systemic Lupus Erythematosus, Hx Thyroid Disease Cardiovascular History: Reports: Hx Hypercholesterolemia, Hx Hypertension, Other Cardiovascular Problems/Disorders - B/L LE Edema - wears compression stockings Denies: Hx Angina, Hx Coronary Artery Disease, Hx Myocardial Infarction Respiratory History: Reports: Hx Chronic Bronchitis, Hx Pneumonia, Other Respiratory Problems/Disorders - PNEUMONIA 12/2014 Denies: Hx Asthma, Hx Chronic Obstructive Pulmonary Disease (COPD) GI History: Denies: Hx Ulcer History: Reports: Hx Chronic Renal Failure, Hx Dialysis, Hx Renal Disease - polycystic kidney disease Musculoskeletal History: Denies: Hx Rheumatoid Arthritis Sensory History: Reports: Hx Contacts or Glasses Denies: Hx Hearing Aid Opthamlomology History: Reports: Hx Contacts or Glasses Infectious Disease History: No Infectious Disease History: Denies: Hx Hepatitis, Hx Human Immunodeficiency Virus (HIV), History Other Infectious Disease, Traveled Outside the [place] in Last 30 Days - Family History Known Family History: Negative: Cardiac Disease - Social History Alcohol Use: None Hx Substance Use: No Substance Use Type: Reports: None Hx Tobacco Use: No Smoking Status (MU): Never Smoked Tobacco Review of Systems Constitutional: Negative Eyes: Negative ENT: Negative Cardiovascular: Negative Respiratory: Negative Gastrointestinal: Negative Genitourinary: Negative Musculoskeletal: Negative Positive: Rash Neurological: Negative Psychological: Normal All Other Systems Reviewed And Are Negative: Yes Physical Exam - Summary Physical Exam Summary: Inspection of the right upper extremity shows moderate amount of edema and erythema in the distribution of the anterior forearm and antecubital fossa. There is no evidence of abscess underlying cellulitis. Patient has pain with palpation of the skin surrounding her dialysis fistula. Patient has full range of motion but endorses pain with movement. Dialysis fistula has positive thrill to palpation and appears to be working. Triage Information Reviewed: Yes Vital Signs On Initial Exam: Initial Vitals Temp Pulse Resp BP Pulse Ox 98.0 F 105 16 113/90 95 05/30/19 07:20 05/30/19 07:20 05/30/19 07:20 05/30/19 07:20 05/30/19 07:20 Vital Signs Reviewed: Yes Appearance: Positive: Well-Appearing, No Pain Distress, Well-Nourished Skin: Positive: Warm, Skin Color Reflects Adequate Perfusion Eyes: Positive: EOMI, MELISSA ENT: Positive: Hearing grossly normal Respiratory/Lung Sounds: Positive: Breath Sounds Present Cardiovascular: Positive: RRR, S1, S2 Abdomen Description: Positive: Nontender, Soft Bowel Sounds: Positive: Present Musculoskeletal: Positive: Strength/ROM Intact Neurological: Positive: Alert, Oriented to Person Place, Time Psychiatric: Positive: Normal AVPU Assessment: Alert Procedures - Sedation Patient Received Moderate/Deep Sedation with Procedure: No Diagnostics - Vital Signs Vital Signs Temp Pulse Resp BP Pulse Ox 05/30/19 07:20 98.0 F 105 16 113/90 95 - Laboratory Result Diagrams: 05/30/19 07:55 05/30/19 07:55 Lab Statement: Any lab studies that have been ordered have been reviewed, and results considered in the medical decision making process. Course/Dx - Course Course Of Treatment: Patient was evaluated in the emergency department today for cellulitis of the right arm overlying her hemodialysis fistula. Patient was seen and examined her vitals are stable and she is afebrile. Patient was given IV clindamycin for cellulitis. Due to overlying cellulitis current hemodialysis port is unable to be accessed for dialysis. Forensic Psychiatrist Dr. George was consulted for disposition and suggestions to alternative forms dialysis. Dr. George suggested placement of a temporary tunnel chest hemodialysis fistula to be used until overlying cellulitis over the current fistula resolves. Dr. Frias with Gen. surgery was consulted for placement of this dialysis fistula. Surgery agreed to place tunnel chest catheter for temporal dialysis either later today or tomorrow. Hospitalist Dr. Rice was consulted for admission of the patient until surgery. Patient nothing by mouth since 8:30 this morning, last meal solid foods. - Differential Diagnoses - Skin Complaint Differential Diagnoses: Abscess, Cellulitis - Diagnoses Provider Diagnoses: Cellulitis of arm, right - Physician Notifications Discussed Care Of Patient With: Christianne George - felt the patient needed a temporary hemodialysis port which is to be placed by Dr. Frias, with general surgery. Discharge ED - Sign-Out/Discharge Documenting (check all that apply): Patient Departure - Discharge Plan Condition: Stable Disposition: ADMITTED TO [facility] Referrals: Rob Jj MD [Primary Care Provider] - - Billing Disposition and Condition Condition: STABLE Disposition: Admitted to [facility]
[2019-05-30 08:25] LABS: ABS Eosinophils 0.3 10^3/ul (0-0.6); ABS Lymphocytes 0.5 10^3/ul (1.0-4.8); ABS Monocytes 0.8 10^3/ul (0-0.8); ABS Neutrophils 7.5 10^3/ul (1.5-7.7); Hematocrit 32 % (35-47); Hemoglobin 10.8 g/dL (12.0-16.0); Lymphocyte % 5.5 %; Mean Corpuscular HGB Conc 34 g/dL (31-36); Mean Corpuscular Hemoglobin 33 pg (27-31); Mean Corpuscular Volume 98 fL (80-97); Mean Platelet Volume 7.9 fL (7.4-10.4); Platelet Count 232 10^3/uL (150-450); Red Blood Count 3.25 10^6 /uL (3.70-4.87); Red Cell Distribution Width 22 % (10-15); White Blood Count 9.1 10^3/uL (3.5-10.8)
[2019-05-30 08:30] LABS: Albumin 2.7 g/dL (3.2-5.2); Albumin/Globulin Ratio 0.9 (1-3); Calcium 8.8 mg/dL (8.6-10.3); EGFR African American 8.3 (>60); EGFR Non-African American 6.9 (>60); Total Protein 5.7 g/dL (6.4-8.9)
--- NOTE | 2019-05-30 11:50 | CONSULT ---
Consult Consult: General Surgery Consult This pleasant 74 yo woman was noticed to have warmth and some redness around the dialysis fistula on her right arm and was sent to the ED for an evaluation, rather than proceeding with dialysis. In the ED, she is being treated for cellulitis over the fistula and has received a dose of IV clindamycin. The pt reports she is feeling well, complaining only of some right should pain that has been present for a few days and worsens with movement. Denies fever, chills , malaise, N/V/D, dysuria, weight loss, or pain otherwise. Her last dialysis was 2 days ago on 05/28/19. She has been on dialysis for 14 years and has not had any issues with her current fistula in the past. Social history: Has been in rehab for some days now, following a recent fall. Normally lives independently with assistance from family member who is RN. No history or current use of etoh, tobacco, or drugs. Family history: Negative for clotting disorders or problems with anesthesia Surgical history: Umbilical hernia repair 5 yrs ago. No complications or problematic anesthesia. Past medical history: Atrial fibrillation, arthritis, ESRD. Allergies: keflex, bactrim, NSAIDS Medications: xyzal 5mg PO daily, singulair 10mg daily, warfarin Temp Pulse Resp BP Pulse Ox 98.0 F 106 16 115/73 97 05/30/19 07:20 05/30/19 11:10 05/30/19 07:20 05/30/19 11:40 05/30/19 11:10 Lab Results 05/30/19 05/30/19 05/30/19 Range/Units 07:55 07:55 07:55 WBC 9.1 (3.5-10.8) 10^3/uL RBC 3.25 L (3.70-4.87) 10^6 /uL Hgb 10.8 L (12.0-16.0) g/dL Hct 32 L (35-47) % MCV 98 H (80-97) fL MCH 33 H (27-31) pg MCHC 34 (31-36) g/dL RDW 22 H (10-15) % Plt Count 232 (150-450) 10^3/uL MPV 7.9 (7.4-10.4) fL Neut % (Auto) 81.8 % Lymph % (Auto) 5.5 % [place] % (Auto) 9.3 % Eos % (Auto) 3.0 % Baso % (Auto) 0.4 % Absolute Neuts (auto) 7.5 (1.5-7.7) 10^3/ul Absolute Lymphs (auto) 0.5 L (1.0-4.8) 10^3/ul Absolute Monos (auto) 0.8 (0-0.8) 10^3/ul Absolute Eos (auto) 0.3 (0-0.6) 10^3/ul Absolute Basos (auto) 0.0 (0-0.2) 10^3/ul Absolute Nucleated RBC 0.0 10^3/ul Nucleated RBC % 0.0 Sodium 136 (135-145) mmol/L Potassium 5.0 (3.5-5.0) mmol/L Chloride 101 (101-111) mmol/L Carbon Dioxide 28 (22-32) mmol/L Anion Gap 7 (2-11) mmol/L BUN 54 H (6-24) mg/dL Creatinine 5.98 H (0.51-0.95) mg/dL Est GFR ( Amer) 8.3 (>60) Est GFR (Non-Af Amer) 6.9 (>60) BUN/Creatinine Ratio 9.0 (8-20) Glucose 95 (70-100) mg/dL Calcium 8.8 (8.6-10.3) mg/dL Total Bilirubin 3.00 H (0.2-1.0) mg/dL AST 20 (13-39) U/L ALT 13 (7-52) U/L Alkaline Phosphatase 360 H (34-104) U/L C-Reactive Protein 74.01 H (<8.01) mg/L Total Protein 5.7 L (6.4-8.9) g/dL Albumin 2.7 L (3.2-5.2) g/dL Globulin 3.0 (2-4) g/dL Albumin/Globulin Ratio 0.9 L (1-3) Vitamin B12 Pending Folate Pending PEX: General- Alert, in no acute distress or discomfort Integumentary- No rashes, lesions, or jaundice Heart- Irregularly irregular, no MRG Lungs- CTA, no WRR ABD- Soft, nondistended. Bowel sounds present. Some minimal diffuse pain. No rebound tenderness. Palpable umbilical hernia repair site. Negative murphys. Extremities- distal pulses intact bilaterally. Right arm fistula with some warmth and slight erythema not extending out of site. Not tender. Assessment and plan: 74 yo F with cellulitis over right arm dialysis fistula. NPO, obtain coagulation studies, Dr. Akhtar will likely be placing temporary dialysis access tomorrow (05/30/19). She will be admitted in the meantime.
[2019-05-30 12:03] LABS: Folate 4.94 ng/mL (>3.99)
[2019-05-30 14:15] LABS: Activated Partial Thrombo Time 41.5 seconds (26.0-38.0); INR 1.66 (0.82-1.09)
--- NOTE | 2019-05-30 18:41 | CONSULT ---
Consult Consult: REASON FOR CONSULTATION: End stage kidney disease, infected AV fistula REQUESTING CONSULT: JOANIE Raines (ER) Beba Rice MD ( IM Hospitalist ) HISTORY OF PRESENT ILLNESS: Kendra Zarate is a very nice 74-year-old woman with cognitive impairment who was sent to the emergency room from the dialysis unit for an infected left upper arm fistula. Today was her regular dialysis day. When she presented to the dialysis unit it was noted that her left upper arm AV fistula was erythematous and warmer than usual to touch. I saw the patient in the emergency room earlier. At the time of my visit she was a poor historian as usual, but she looked and behaved at her baseline. Her sister was present and also her caregiver from [facility] where she resides now for outpatient rehab after her recent hospitalization. Labs show a white blood cell count of 9.1, hemoglobin of 10.8, platelets 232, INR 1.66, sodium 136, potassium 5.0, total CO2 28, BUN 54, creatinine 6. Nasal MRSA was negative. ROS: Constitutional: no fevers, chills, night sweats, loss of appetite or weight loss CVS: no CP, SOB, but leg swelling is still present Respiratory: no cough, sputum production, wheezing, hemoptysis GI: no abdominal pain, N/V/D/C : Still makes urine, no dysuria or hematuria. All systems were reviewed and they were all negative unless otherwise specified PHYSICAL EXAM: Vitals stable: Blood pressure 114/64, temperature 98F, heart rate 95 bpm, oxygen saturation 95% on room air Constitutional: No acute distress, pleasantly demented, morbidly obese Head: Atraumatic and normocephalic. Nose, lips and ears appear normal. Eyes: moist conjunctivae, no ptosis, pupils are equal. Neck: Short , Supple, full range of motion, , trachea midline, Respiratory: Chest is clear to auscultation with good respiratory effort. Cardiovascular: Heart auscultation shows normal S1-S2, regular rate and rhythm, no murmur rubs or gallops. +3 peripheral edema. Gastrointestinal: Abdomen is soft, nontender and nondistended. No hepatosplenomegaly or masses appreciated, exam limited due to obesity Musculoskeletal: No digital cyanosis or clubbing. No joint swelling or tenderness. Skin: No skin rashes, ulcers or lesions. Normal turgor and temperature. Neurologic: Speech fluent but slow, no tremor, grossly nonfocal. Psychiatric: Appropriate affect, alert and oriented, impaired memory Temp Pulse Resp BP SpO2 FiO2 99 F 122 29 108/68 97 05/30/19 13:38 05/30/19 17:10 05/30/19 17:10 05/30/19 16:40 05/30/19 17:10 Home Medications Medication Instructions Recorded Confirmed Type Oxybutynin XL TAB* [Ditropan XL 5 mg PO DAILY 01/15/15 05/30/19 History TAB*] Sevelamer TAB* [Renvela TAB*] 2,400 mg PO TID WITH MEALS 01/15/15 05/30/19 History Simvastatin TAB(NF) [Zocor 20 MG 20 mg PO BEDTIME 01/15/15 05/30/19 History (NF)] Mupirocin 2% CREAM* [Bactroban 2% 1 applic TOPICAL BID 05/15/19 05/30/19 History CREAM*] Acetaminophen TAB* [Tylenol TAB*] 650 mg PO Q4H PRN tab 05/24/19 05/30/19 Rx Metoprolol Tartrate TAB* 50 mg PO BID tab 05/24/19 05/30/19 Rx [Lopressor TAB*] Midodrine 5 mg PO BID tab 05/24/19 05/30/19 Rx LevoCETirizine TAB (NF) [Xyzal TAB 5 mg PO DAILY 05/30/19 05/30/19 History (NF)] Montelukast Sodium TAB* [Singulair 10 mg PO DAILY 05/30/19 05/30/19 History TAB*] Acetaminophen (Tylenol Tab*) 650 mg PO Q8H PRN PRN Reason: MILD PAIN or TEMP > 100.4 Atorvastatin Calcium (Lipitor*) 10 mg PO BEDTIME [facility] Clindamycin HCl/Dextrose (Cleocin 600 Mg/50 Ml(*)) 600 mg in 50 mls @ 100 mls/ hr IV Q12H [facility] Metoprolol Tartrate (Lopressor Tab*) 50 mg PO BID [facility] Midodrine (Midodrine) 5 mg PO BID [facility] Oxybutynin Chloride (Ditropan Xl Tab*) 5 mg PO DAILY [facility] Sevelamer Carbonate (Renvela Tab*) 2,400 mg PO TID WITH MEALS [facility] Past medical history: End-stage kidney disease due to polycystic kidney disease Hypertension Hyperlipidemia Paroxysmal A. fib on Coumadin Anemia of chronic kidney disease Allergies: Penicillin, cephalexin, NSAIDs. Family history: Father of throat cancer at age 89. Mother of heart attack at 88. Social history: She is disabled. A medical surrogates sister, Tia. Patient has never smoked nor did she drink. ASSESSMENT AND PLAN: 1. End-stage kidney disease on hemodialysis Monday - No dialysis today as we do not have a usable access. - Consulted Dr. Frias of [facility] who agreed to help with tunnel catheter placement 2. Infected AV graft - Doppler ultrasound showed a clot associated with the aneurysmal part of her AV fistula. Based on this she will need antibiotic for 6 weeks. - Agree with ID consult. - Blood cultures were drawn today - Patient started on clindamycin from the emergency room, further antibiotic therapy to be decided after ID consult. 3. Chronic hypotension. On midodrine with good control. 4. Hyperphosphatemia on Renvela with meals. Please continue same dose. 5. A. fib on metoprolol 50 mg by mouth twice a day for rate control. Dr. Bruner covering Nephrology tomorrow. Thank you.
--- NOTE | 2019-05-30 20:01 | HP ---
HISTORY AND PHYSICAL: DATE OF ADMISSION: 05/30/19 PROVIDER: Dianna Camp NP ATTENDING PHYSICIAN WHILE IN THE HOSPITAL: Dr. Beba Rice * (dictated by Dianna Camp NP). PRIMARY CARE PROVIDER: Dr. Jj. CHIEF COMPLAINT: Redness and swelling to the right arm. HISTORY OF PRESENT ILLNESS: Ms. Trivedi is a 74-year-old female with a past medical history significant for polycystic kidney disease resulting in end- stage renal disease, on hemodialysis Monday, Monday and Monday, but does report her last hemodialysis was Monday; paroxysmal atrial fibrillation, due to start Eliquis; anemia secondary to renal disease; hyperlipidemia; mild cognitive delay, who presented to the emergency room from dialysis due to right arm swelling and redness. The patient's sister reports that she developed redness and swelling to the right arm that started yesterday and today became progressively worse going further up her arm and developed pain. The sister also reports that the patient has chronic protrusion of her fistula that has been normal for her for several years, but does report that the lump in her right upper arm color has changed this morning. She did notice a color change in that this morning. Due to the redness and swelling in the arm, Hospital Medicine was asked to see and evaluate the patient for cellulitis. While in the emergency room, the patient had routine lab work drawn. She did not show any leukocytosis. Her lab work appears to be at baseline. She was noted to have an elevated CRP of 74.01. 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 Due to the patient's cellulitis in the arm where her fistula is, the patient was unable to receive dialysis today; therefore, was sent to the emergency room to have a PermCath placed. She was seen in consultation by Surgery, who will place a PermCath tomorrow morning at 8 a.m. and do inpatient hemodialysis. Due to needing the PermCath and cellulitis, Hospital Medicine again was asked to admit her. PAST MEDICAL HISTORY: Includes: 1. End-stage renal disease, on hemodialysis Monday, Monday and Monday. 2. Polycystic kidney disease. 3. Hypertension. 4. Hyperlipidemia. 5. Paroxysmal atrial fibrillation, due to start Eliquis. 6. Anemia of chronic disease. PAST SURGICAL HISTORY: 1. Umbilical hernia. 2. Fistula placement 13 years ago and 14 years ago she had a temporary dialysis catheter placement. HOME MEDICATIONS: Include: 1. Metoprolol 50 mg p.o. twice daily 2. Simvastatin 20 mg at bedtime. 3. Sevelamer 2400 mg p.o. t.i.d. with meals. 4. Oxybutynin 5 mg p.o. daily. 5. Eliquis 2.5 mg b.i.d. (has not started yet). 6. Midodrine 5 mg p.o. b.i.d. 7. Bumex 2 mg po daily - non dialysis days- Held at discharge 05/24/19 d/t low SBP ALLERGIES: She has allergy to PENICILLIN, KEFLEX, NSAIDS, and BACTRIM. FAMILY HISTORY: Father of throat cancer at the age of 89. Mother from a heart attack at 88. SOCIAL HISTORY: The patient has never smoked. Does not drink. She is disabled. She wishes to be a full code. Surrogate decision maker in the event she is unable to make her own decisions is her sister, Tia Jonas REVIEW OF SYSTEMS: The patient denies any fever, chills, chest pain, or shortness of breath. She denies any nausea, vomiting, diarrhea, or abdominal pain. No gross hematuria, dysuria. She denies any focal weakness, sensory loss , any visual complaints, dysphagia, arthralgias, myalgias, open sores, psychosis , or anxiety. She does complain of redness and swelling to her right upper arm as well as pain. PHYSICAL EXAMINATION GENERAL: At this time, Ms. Trivedi is alert and oriented, resting on the stretcher in the emergency room. She does not appear to be in any acute distress. VITAL SIGNS: Blood pressure 115/73, heart rate 97, respirations are 22, O2 saturation 96% on room air, temperature was 98.0. HEENT: Head is atraumatic, normocephalic. Eyes: EOMs are intact. Sclerae anicteric and not pale. Oral mucosa appeared to be moist. NECK: Supple. LUNGS: With crackles in the bases bilaterally. No respiratory distress or cough noted. ABDOMEN: Obese, soft, nontender, nondistended. Bowel sounds are present x4. EXTREMITIES: She does have bilateral lower extremity edema. Pedal pulses are + 2 bilaterally. There is no clubbing or cyanosis. NEUROLOGIC: She is awake, alert, oriented x3. Speech is clear. Thought process is intact. There are no gross focal deficits. SKIN: She does have redness and swelling noted to her right upper arm with AV fistula noted with protrusion at the AC joint with a good thrill. She does have a lump noted to her right upper arm. It is hard, warm to touch. No thrill. She does have redness that extends to her right upper chest. DIAGNOSTIC STUDIES/LAB DATA: WBCs are 9.1, RBCs 3.25, hemoglobin 10.8, hematocrit is 32, platelet count 232. INR 1.66, APTT was 41.5. Sodium 136, potassium 5.0, chloride 101, carbon dioxide was 28, anion gap of 7, BUN 54, creatinine 5.98 which is at her baseline, calcium was 8.8. Total bilirubin was 3.0, ASTs were 20, ALTs were 13, alkaline phosphatase was 360. C-reactive protein was 74.01. She has a chest x-ray and her urinalysis is currently pending. Blood cultures are currently pending as well. She had an ultrasound of her right upper extremity: There is an area of palpable mass demonstrates an aneurysmal dilation of the outflow tract, presumably of the basilic vein measuring up to 3.2 cm with slow flow and intramural hematoma. IMPRESSION AND PLAN: Ms. Trivedi is a 74-year-old female with a past medical history significant for end-stage renal disease, on hemodialysis; history of hypertension; paroxysmal atrial fibrillation; anemia; hyperlipidemia; and mild cognitive delay, who presented to the emergency room from dialysis due to right arm redness, swelling and pain. She will be admitted inpatient for: 1. Right arm cellulitis. The patient does have cellulitis of the right arm. She was given clindamycin 600 mg in the emergency room. We will continue her on clindamycin 600 mg IV q.12 hours. I have talked to Surgery, Dr. Akhtar, who saw the patient in consultation and will take the patient tomorrow at 8 a.m. for a PermCath placement. I also have consulted Infectious Disease for further recommendations on IV medications. 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 I have discussed these results with Dr. George from Nephrology as well as Dr. Fuentes from [facility] Vascular Surgery as well as General Surgery. The patient will need to have an outpatient followup evaluation of her fistula with Dr. Fuentes upon discharge. No need for emergent transfer at this time. Dr. George has recommended 6 weeks of antibiotics because of the intramural hematoma. 2. End-stage renal disease, on hemodialysis. The patient will have a PermCath placed tomorrow to continue her hemodialysis. She should have hemodialysis tomorrow if able. Further recommendations per Dr. George from Nephrology. She will continue on sevelamer 2400 mg p.o. t.i.d. with meals. 3. History of paroxysmal atrial fibrillation. The patient does have a history of paroxysmal atrial fibrillation. She was supposed to be started on Eliquis on 05/29/19. She has not started that yet. The patient does have an INR of 1.66. I will not start Eliquis today as the patient is to go for a PermCath placement in the morning. Resuming Eliquis will be based on Surgery's recommendation after PermCath placement. She will continue on metoprolol 50 mg p.o. b.i.d. 4. Hyperlipidemia. She should continue on simvastatin 20 mg as previously prescribed. 5. Lymphedema. The patient does take Bumex on non dialysis days - this was held at discharge 05/24/19 due to low SBP.. I am going to hold off on this today as the patient SBP is in the low 90's to 110's. She has room air oxygen saturation of 98-100% and is in no acute respiratory distress. She does have lymphedema to her bilateral lower legs which is at baseline per the sister. 6. FEN: She can have a renal diet. 7. Code status: She is a full code. 8. DVT prophylaxis: We will start her on Eliquis as soon as able after surgery. TIME SPENT: Time spent on this admission was 75 minutes, greater than half that time was spent at the bedside reviewing events leading thus far to her hospitalization, performing physical exam, and reviewing my plan of care; also discussing with specialists, surgical consult, Vascular Surgery, and Nephrology. I have discussed this with my attending, Dr. Beba Rice; she is in agreement with my plan. DIANNA CAMP, BEAD FORMING MACHINE SET UP OPERATOR [id number]/[facility] #: [id number] [facility]EW[facility] MEDICAL CENTERAshley
[2019-05-30] MEDS: Clindamycin 600 MG/D5W BAG(*) 600 MG/50 ML BAG IV SCH (20:17)
[2019-05-30] MEDS: Acetaminophen TAB* 325 MG PO PRN (20:17)
[2019-05-30] MEDS: Metoprolol Tartrate TAB* 50 mg PO SCH (20:17)
[2019-05-30] MEDS ORDERED: Atorvastatin* 10 MG TAB PO SCH (21:00)
[2019-05-31 06:34] LABS: Hematocrit 28 % (35-47); Hemoglobin 9.5 g/dL (12.0-16.0); Mean Corpuscular HGB Conc 34 g/dL (31-36); Mean Corpuscular Hemoglobin 33 pg (27-31); Mean Corpuscular Volume 97 fL (80-97); Mean Platelet Volume 7.7 fL (7.4-10.4); Platelet Count 156 10^3/uL (150-450); Red Blood Count 2.89 10^6 /uL (3.70-4.87); Red Cell Distribution Width 21 % (10-15); White Blood Count 7.1 10^3/uL (3.5-10.8)
[2019-05-31 06:44] LABS: INR 1.58 (0.82-1.09)
[2019-05-31 06:49] LABS: BUN/Creatinine Ratio 9.5 (8-20); EGFR African American 7.7 (>60); EGFR Non-African American 6.3 (>60)
[2019-05-31 06:58] LABS: Potassium 5.4 mmol/L (3.5-5.0)
[2019-05-31 07:09] LABS: ABS Basophils 0.1 10^3/ul (0-0.2); ABS Eosinophils 0.3 10^3/ul (0-0.6); ABS Lymphocytes 0.5 10^3/ul (1.0-4.8); ABS Monocytes 0.8 10^3/ul (0-0.8); ABS Neutrophils 5.5 10^3/ul (1.5-7.7); Eosinophil % 4.1 %; Nucleated Red Blood Cells % 0.1
[2019-05-31] MEDS: Sevelamer TAB* 800 MG PO SCH ×3 (07:45→17:37)
[2019-05-31] MEDS ORDERED: fentaNYL* 50 MCG/ML 2 ML VIAL (100 MCG VIAL) ONE ×2 (08:05→10:25)
[2019-05-31] MEDS ORDERED: Midazolam* 1 MG/ML 2 ML VIAL (2 MG) ONE (08:05)
[2019-05-31] MEDS ORDERED: Lidocaine 1% INJ* 10 MG/ML 30 ML SDV ONE (08:09)
[2019-05-31] MEDS ORDERED: Heparin VIAL(*) 5000 UNITS/ML VIAL (FIVE THOUSAND) ONE (08:09)
[2019-05-31] MEDS ORDERED: Ondansetron INJ* 2 MG/ML VIAL IV PRN ×2 (08:16→10:29)
[2019-05-31] MEDS ORDERED: HYDROcodone/ACETAMIN 5-325 MG* 1 TAB PO PRN (08:16)
[2019-05-31] MEDS ORDERED: fentaNYL* 50 MCG/ML 2 ML VIAL (100 MCG VIAL) IV PRN (08:16)
[2019-05-31] MEDS ORDERED: Acetaminophen TAB* 325 MG PO PRN (08:16)
[2019-05-31] MEDS ORDERED: Naloxone* 0.4 MG/ML 1 ML VIAL IV PRN (08:16)
[2019-05-31] MEDS ORDERED: KETAMINE HCL* 50 MG/ML 10 ML VIAL ONE (09:02)
[2019-05-31] MEDS ORDERED: Phenylephrine 40 MCG/ML SYRINGE ONE (09:36)
--- NOTE | 2019-05-31 10:14 | BRIEFOPN ---
Brief Operative/Procedure Note - Operation Details Pre-Op Diagnosis: ESRD Post-Op Diagnosis: ESRD Procedures: Placement of tunneled dialysis catheter Surgeon(s)/Proceduralists: Kellie Akhtar MD Anesthesia: MAC Estimated Blood Loss: 30 ml Findings: Successful placement of dialysis catheter under fluoroscopy Specimen(s)/Culture(s) Description: None Complications: None
--- NOTE | 2019-05-31 10:22 | PN ---
Subjective Date of Service: 05/31/19 Interval History: Admitted yesterday for placement of HD cath. No acute events overnight. Started on clindamycin IV for cellulitis over fistula. Received tunneled HD catheter by surgery this morning. Plan is for HD today. If tolerates well, will DC back to [facility] with outpatient HD followed by vancomycin dosing. Patient somnolent on interview as she just received fentanyl after procedure. Objective Active Medications: Acetaminophen (Tylenol Tab*) 650 mg PO Q8H PRN PRN Reason: MILD PAIN or TEMP > 100.4 Last Admin: 05/30/19 20:17 Dose: 650 mg Heparin Sodium (Porcine) (Heparin Dialysis Only(*)) 4,000 units DIALYSIS ONCE ONE Stop: 05/31/19 15:01 Vancomycin HCl 1,000 mg/ (Sodium Chloride) 250 mls @ 166.667 mls/hr IV ONCE ONE ; Protocol Stop: 05/31/19 15:18 Lactobacillus Rhamnosus (Lactobacillus Acidophilus*) 1 tab PO DAILY [facility] Last Admin: 05/31/19 12:32 Dose: Not Given Metoprolol Succinate (Toprol Xl Tab*) 100 mg PO DAILY@1700 [facility] Midodrine (Midodrine) 5 mg PO BID [facility] Last Admin: 05/31/19 12:33 Dose: Not Given Oxybutynin Chloride (Ditropan Xl Tab*) 5 mg PO DAILY [facility] Last Admin: 05/31/19 12:32 Dose: Not Given Sevelamer Carbonate (Renvela Tab*) 2,400 mg PO TID WITH MEALS [facility] Last Admin: 05/31/19 13:25 Dose: Not Given Vital Signs - 8 hr 05/31/19 05/31/19 03:06 07:15 Temperature 97.6 F 98.3 F Pulse Rate 93 96 Respiratory 18 20 Rate Blood Pressure 106/53 114/58 (mmHg) O2 Sat by Pulse 100 100 Oximetry Oxygen Devices in Use Now: None Appearance: sleeping woman in NAD, alert to voice and able to answer questions appropriately Eyes: No Scleral Icterus Ears/Nose/Mouth/Throat: Clear Oropharnyx, Mucous Membranes Moist Neck: NL Appearance and Movements; NL JVP, Trachea Midline Respiratory: - - clear anteriorly Cardiovascular: NL Sounds; No Murmurs; No JVD, RRR Abdominal: NL Sounds; No Tenderness; No Distention, No Hepatosplenomegaly Extremities: - - 1+ edema in all extremities, 2+ in RUE; AV fistula with thrill in R arm with pulsitile protrusion proximally; overlying skin hyperpigmented but without erythemia or open wounds Neurological: Alert and Oriented x 3 Result Diagrams: 05/31/19 06:26 05/31/19 06:26 Microbiology and Other Data: Microbiology 05/30/19 08:04 Aerobic Blood Culture - Preliminary Blood Venous No Growth Day 1 Anaerobic Blood Culture - Preliminary No Growth Day 1 Blood Culture - Preliminary No Growth Day 1 05/30/19 07:55 Aerobic Blood Culture - Preliminary Blood Venous No Growth Day 1 Anaerobic Blood Culture - Preliminary No Growth Day 1 Blood Culture - Preliminary No Growth Day 1 05/30/19 07:58 Nasal Screen MRSA (PCR) - Final Nasal Mrsa Not Detected Assess/Plan/Problems-Billing Assessment: 74W with ESRD/PKD on HD MWF, HTN, pAF not on warfarin given recent significant bleed into right thigh, anemia of CKD, intellectual disability, who presents as 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 - Patient Problems (1) Cellulitis Comment: Over right-sided AV fistula. - switch IV clinda (1/2 - ) to vanc dosed after HD, discussed with Drs. George and Franc - no need for PICC (2) ESRD on hemodialysis Comment: - getting HD session today, then likely back to [facility] - cont MWF with vanc
[2019-05-31] MEDS ORDERED: fentaNYL* 50 MCG/ML 2 ML VIAL (100 MCG VIAL) IV SLOW PU PRN (10:28)
--- NOTE | 2019-05-31 11:34 | PN ---
Progress Note - Progress Note Date of Service: 05/31/19 Note: Inpatient nephrology FU Note: Performed by Dr. Skyler Bruner, [facility] Nephrology 05/31/2019 74 y WM, mentally challenged with cognitive impairment. Admitted via ED with infected right forearm~cellulitis She hasnt been dialyzed since last Monday when she had extravasation through the Rt AVF and bled a little so HD session was aborted! Yesterday, her HD nurse noticed erythema and warmth. Patient wasn't dialyzed, sent to ED, and admitted for IV ABx~Clindamycin She had a new TDC in OR today! She will be HD today via TDC On IV ABx Clindamycin Blood cultures negative so far Volume status significant Edema, Lymphedema type! Active Medications: Acetaminophen (Tylenol Tab*) 650 mg PO Q8H PRN PRN Reason: MILD PAIN or TEMP > 100.4 Last Admin: 05/30/19 20:17 Dose: 650 mg Atorvastatin Calcium (Lipitor*) 10 mg PO BEDTIME [facility] Last Admin: 05/30/19 20:18 Dose: 10 mg Fentanyl Citrate (Fentanyl*) 25 mcg IV SLOW PU Q4H PRN PRN Reason: PAIN - SEVERE Clindamycin HCl/Dextrose (Cleocin 600 Mg/50 Ml(*)) 600 mg in 50 mls @ 100 mls/ hr IV Q12H [facility] Last Admin: 05/30/19 20:17 Dose: 100 mls/hr Lactobacillus Rhamnosus (Lactobacillus Acidophilus*) 1 tab PO DAILY [facility] Metoprolol Tartrate (Lopressor Tab*) 50 mg PO BID [facility] Last Admin: 05/30/19 20:17 Dose: 50 mg Midodrine (Midodrine) 5 mg PO BID [facility] Last Admin: 05/30/19 20:18 Dose: 5 mg Ondansetron HCl (Zofran Inj*) 4 mg IV Q6H PRN PRN Reason: NAUSEA Oxybutynin Chloride (Ditropan Xl Tab*) 5 mg PO DAILY [facility] Sevelamer Carbonate (Renvela Tab*) 2,400 mg PO TID WITH MEALS [facility] Last Admin: 05/31/19 07:45 Dose: Not Given Objective: .Vital Signs: Temp Pulse Resp BP Pulse Ox 97 F 92 20 114/67 100 05/31/19 11:04 05/31/19 11:04 05/31/19 11:04 05/31/19 11:04 05/31/19 11:04 .Heart: Regular rate and rhythm No murmur or gallop ++ LE Edema No Rub .Lungs: Clear to auscultation and percussion No wheezes or Crackles .Extremities: ++ LE edema Rt IJ TDC Left AVF Aneurysmal, no sign of active AVF infection, but warm and erythema of Lt forearm Skin overlying the AVF is thin and shiny Laboratory Reviewed Sodium 134 mmol/L (135-145) L 05/31/19 06:26 Potassium 5.4 mmol/L (3.5-5.0) H 05/31/19 06:26 BUN 61 mg/dL (6-24) H 05/31/19 06:26 Creatinine 6.42 mg/dL (0.51-0.95) H 05/31/19 06:26 Calcium 8.0 mg/dL (8.6-10.3) L 05/31/19 06:26 AST 20 U/L (13-39) 05/30/19 07:55 ALT 13 U/L (7-52) 05/30/19 07:55 Assessment and Plan: ESRD on HD. Gets Dialysis today via Rt IJ TDC Access: I doubt infected AVF but has Rt Arm cellulitis and infection on IV ABx. Advise switching to IV Vancomycin 1 gm IVPB MWF after HD, needs 1st dose as inpatient and will continue as outpatient from Monday for 2 weeks total!! BP is borderline low, and with edema, will try UF 3L K 5.4, HD with 2K Case discussed with Dr. Rice and updated her about plan
[2019-05-31] MEDS: Clindamycin 600 MG/D5W BAG(*) 600 MG/50 ML BAG IV SCH (12:31)
[2019-05-31] MEDS: Lactobacillus Acidophilus* 1 TAB PO SCH (12:32)
[2019-05-31] MEDS: Metoprolol Tartrate TAB* 50 mg PO SCH (12:32)
[2019-05-31] MEDS: Oxybutynin XL TAB* 5 MG PO SCH (12:32)
--- NOTE | 2019-05-31 13:39 | CONS ---
CONSULTATION REPORT: DATE OF ADMISSION: 05/30/19 DATE OF CONSULT: 05/31/19 PRIMARY CARE PROVIDER: Dr. Rob Jj. PROVIDER REQUESTING CONSULTATION: Dianna Camp NP. CONSULTING SERVICE: Infectious Disease. PROVIDER: Jaydon Morris NP. ATTENDING PROVIDER: Dr. Rip Szymanski * (dictated by JAYDON MORRIS NP). REASON FOR CONSULTATION: Right arm redness and swelling with cellulitis in the setting of a hemodialysis fistula. IMPRESSION: 1. Right arm cellulitis. This is in the setting of a hemodialysis fistula that has been present for 13 years. Differential diagnosis includes soft tissue infection, hematoma, or infected hematoma. The patient last received dialysis on Monday, developed erythema and edema to the arm. She presented to the emergency room and had an ultrasound revealing aneurysm, dilation of the outflow tract, and intramural hematoma. The erythema could be secondary to a hematoma alone, and not an infectious cause. She has no leukocytosis, she has been afebrile. She had blood cultures with no growth on day 1 and she has been on clindamycin. Nephrology feels that this represents an infected hematoma. 2. End-stage renal disease, on hemodialysis. Underwent dialysis catheter placement this morning. PLAN: Discontinue clindamycin and change to Vancomycin, trough goal of 10-15. She should receive 6 weeks of IV Vancomycin post dialysis. She should receive weekly labs while on IV ABX: CBC, CMP, CRP and vanco trough. Follow up with ID outpatient. HISTORY OF PRESENT ILLNESS: Ms. Trivedi is a 74-year-old female with past medical history significant for end-stage renal disease, on hemodialysis Monday , Monday, Monday; polycystic kidney disease; hypertension; hyperlipidemia; paroxysmal atrial fibrillation, currently off of anticoagulation; anemia of chronic disease; and lymphedema, who states that she has been in her usual state of health. On 05/28/19, she had her last dialysis treatment and reports feeling well at that time. The patient's sister had noticed that she developed some redness and swelling of her right arm starting on 05/29/19 and had noticed that had been progressively worse going down her arm and towards her chest, and she also developed pain in the arm. She denies any fevers or chills. According to the patient, she has chronic protrusion of her fistula that has been stable for several years. Due to the swelling, she presented to the emergency room for further evaluation. While in the emergency room, she had routine blood work showing a normal white blood cell count, elevated CRP at 74.01. She had an ultrasound of the arm showing aneurysmal dilation of 3.2 cm and intramural hematoma. The patient was seen in consultation by General Surgery with plans to place a dialysis catheter if she is unable to receive dialysis due to the current status of her fistula. Additionally, she was seen in consultation by Dr. George, who felt that this represented an infected AV fistula and recommended 6 weeks of antibiotics. The patient was referred to the hospitalist service for admission. While in the hospital, she continued to have no leukocytosis. She was noted to be hyperkalemic this morning with hyponatremia. She has been afebrile. She underwent a temporary dialysis cath placement today. She is drowsy and difficult to obtain a review of systems from at this time but she states she has no fever or chills. She reports an episode of diarrhea this morning prior to surgery. She reports that the right arm is more edematous than baseline. The redness is improving. She denies any urinary symptoms. She does continue to occasionally urinate in the setting of end-stage renal disease, on hemodialysis. She denies any recent travel. She has been on clindamycin, started yesterday. PAST MEDICAL HISTORY: 1. End-stage renal disease, on hemodialysis Monday, Monday, Monday. 2. Polycystic kidney disease. 3. Hypertension. 4. Hyperlipidemia. 5. Paroxysmal atrial fibrillation, not currently on anticoagulation. 6. Anemia of chronic disease. 7. Lymphedema. PAST SURGICAL HISTORY: 1. Status post umbilical hernia repair. 2. Status post right upper arm fistula placement 13 years ago. MEDICATIONS: Home medications: 1. Metoprolol tartrate 50 mg by mouth twice daily. 2. Simvastatin 20 mg by mouth daily. 3. Sevelamer 2400 mg by mouth 3 times daily with meals. 4. Oxybutynin 5 mg by mouth daily. 5. Midodrine 5 mg by mouth twice daily. 6. Bumex 2 mg by mouth daily, this is being held since discharge on 05/24/19. Hospital medications: 1. Acetaminophen 650 mg by mouth every 8 hours as needed for fever or pain. 2. Atorvastatin 10 mg by mouth daily at bedtime. 3. Clindamycin 600 mg IV every 12 hours. 4. Fentanyl 25 mcg IV push every 4 hours as needed for severe pain. 5. Lactobacillus 1 tablet by mouth daily. 6. Metoprolol tartrate 50 mg by mouth twice daily. 7. Midodrine 5 mg by mouth twice daily. 8. Zofran 4 mg IV every 6 hours as needed for nausea. 9. Oxybutynin 5 mg by mouth daily. 10. Sevelamer 2400 mg by mouth 3 times daily. ALLERGIES: 1. CEPHALEXIN caused vomiting. 2. NSAIDs caused bleeding. 3. PENICILLIN caused vomiting. 4. BACTRIM caused supratherapeutic INR and profuse bleeding. FAMILY HISTORY: Denies family history of recurrent resistant infections. Mother with a history of ND, passed at age 88. Father with a history of throat cancer , passed at age 89. No family history of diabetes. SOCIAL HISTORY: Denies alcohol, recreational drug use, or tobacco use. REVIEW OF SYSTEMS: I performed a 10-point review of systems. All the pertinent positives and negatives are mentioned in the history of present illness. The remainder of the review of systems are negative. PHYSICAL EXAM: Vital Signs: Temperature 97, heart rate 92, respiratory rate 20 , O2 sat 100% on room air via nasal cannula, blood pressure 114/67. General Appearance: The patient is drowsy, appears to be in no acute distress, lying in bed. Head: Normocephalic, atraumatic. ENT: Extraocular movements are intact. No subconjunctival hemorrhage. Moist mucous membranes. Neck: Supple. No lymphadenopathy noted. Neurological: Alert but slightly drowsy. Oriented to person and place. Cranial nerves II through XII are grossly intact. Cardiovascular: Regular rate and rhythm. S1, S2 present. No murmurs, rubs, or gallops heard. Respiratory: No accessory muscle use. Lungs are clear to auscultation bilateral. Abdomen: Bowel sounds present. Abdomen is obese, soft, nontender, nondistended. Extremities: There is no bilateral lower extremity edema. DP and PT pulses are 1+ and symmetric. There is 2+ right upper extremity edema. Musculoskeletal: No clubbing or cyanosis noted. Exhibits good strength in all extremities. Psychological: She is calm and cooperative. Skin: No rashes or abnormalities seen. She is noted to have a dialysis catheter to the right upper chest with a dressing that is clean, dry, and intact. She is noted to have a protrusion at her dialysis fistula site in the right upper arm. There is no erythema or warmth noted at this time. DIAGNOSTIC STUDIES/LAB DATA: Sodium 134, potassium 5.4, chloride 102, CO2 of 24 , BUN 61, creatinine 6.42, glucose 77. White blood cell count 7.1, hemoglobin 9.5, hematocrit 28, platelet count 156. CRP on 05/30/19 was 74.01. Blood cultures with no growth to date. Please see impression and recommendations outlined above, recommendations have been discussed with Dr. Beba Rice. Thank you for asking us to see Ms. Trivedi in consultation. The case has been reviewed with my attending Dr. Rip Szymanski, who agrees with the plan of care. Reviewed by KESHA REILLY-Inga 06/03/19 1119 [id number]/[facility] #: [id number] MTDD
[2019-05-31] MEDS ORDERED: Vancomycin(*) 1,000 MG in NS 0.9% 250 ML* 250 ML IV ONE (13:49)
[2019-05-31] MEDS ORDERED: EPOETIN ALFA-EPBX * 10,000 UNIT/ML VIAL IV ONE (14:30)
[2019-05-31] MEDS ORDERED: Heparin DIALYSIS ONLY(*) 1,000 UNITS/ML VIAL DIALYSIS ONE (15:00)
[2019-05-31] MEDS ORDERED: Metoprolol Succinate XL TAB* 100 MG PO SCH (17:00)
[2019-05-31] MEDS: Acetaminophen TAB* 325 MG PO PRN (20:03)
[2019-05-31] MEDS ORDERED: Heparin VIAL(*) 5000 UNITS/ML VIAL (FIVE THOUSAND) SUBCUT SCH (21:00)
--- NOTE | 2019-06-01 08:33 | PN ---
Subjective Date of Service: 06/01/19 Interval History: No acute events overnight. HR under good control with metoprolol. Deferring start of anticoagulation to outpatient given recent bleed into thigh. Received vanc and EPO after HD yesterday. Tolerated procedure well. Feels back to baseline and ready to return to SNF. Objective Active Medications: Acetaminophen (Tylenol Tab*) 650 mg PO Q8H PRN PRN Reason: MILD PAIN or TEMP > 100.4 Last Admin: 05/31/19 20:03 Dose: 650 mg Lactobacillus Rhamnosus (Lactobacillus Acidophilus*) 1 tab PO DAILY [facility] Last Admin: 05/31/19 12:32 Dose: Not Given Metoprolol Succinate (Toprol Xl Tab*) 100 mg PO DAILY@1700 [facility] Last Admin: 05/31/19 17:37 Dose: 100 mg Midodrine (Midodrine) 5 mg PO BID [facility] Last Admin: 05/31/19 20:02 Dose: 5 mg Oxybutynin Chloride (Ditropan Xl Tab*) 5 mg PO DAILY [facility] Last Admin: 05/31/19 12:32 Dose: Not Given Sevelamer Carbonate (Renvela Tab*) 2,400 mg PO TID WITH MEALS [facility] Last Admin: 05/31/19 17:37 Dose: 2,400 mg Vital Signs - 8 hr 06/01/19 06/01/19 02:45 07:15 Temperature 98 F 98.5 F Pulse Rate 75 69 Respiratory 20 16 Rate Blood Pressure 97/40 97/37 (mmHg) O2 Sat by Pulse 93 96 Oximetry Oxygen Devices in Use Now: None Appearance: chronically ill-appearing obese woman in NAD, pleasant and interactive Ears/Nose/Mouth/Throat: Clear Oropharnyx, Mucous Membranes Moist Neck: NL Appearance and Movements; NL JVP, Trachea Midline Respiratory: Symmetrical Chest Expansion and Respiratory Effort, Clear to Auscultation - anteriorly Cardiovascular: - - irreg irreg, no mgr Extremities: - - trace edema over ankles and RUE Skin: - - hyperpigmentation over RUE fistula, no open wounds, no tenderness Lines/Tubes/Other Access: Clean, Dry and Intact Central Line - tunneled dialysis catheter to R chest Result Diagrams: 05/31/19 06:26 05/31/19 06:26 Microbiology and Other Data: Microbiology 05/30/19 08:04 Aerobic Blood Culture - Preliminary Blood Venous No Growth Day 1 Anaerobic Blood Culture - Preliminary No Growth Day 1 Blood Culture - Preliminary No Growth Day 1 05/30/19 07:55 Aerobic Blood Culture - Preliminary Blood Venous No Growth Day 1 Anaerobic Blood Culture - Preliminary No Growth Day 1 Blood Culture - Preliminary No Growth Day 1 05/30/19 07:58 Nasal Screen MRSA (PCR) - Final Nasal Mrsa Not Detected Assess/Plan/Problems-Billing Assessment: 74W with ESRD/PKD on HD MWF, HTN, pAF not on warfarin given recent significant bleed into right thigh, anemia of CKD, intellectual disability, who presents as referral from associate professor of psychology for urgent HD cath placement given cellulitis over fistula. - Patient Problems (1) Cellulitis Comment: Over right-sided AV fistula. Now s/p HD cath in right IJ/chest on 05/31. - switch IV clinda (05/30 - ) to vanc dosed after HD, discussed with Drs. George and Franc - no need for PICC (2) ESRD on hemodialysis Comment: - cont sevelamer - renal following, back on normal HD schedule (3) Atrial fibrillation Comment: - rate controlled with metoprolol - anticoaculation deferred given recent bleed while supratherapeutic on warfarin - outpatient providers to start DOAC
[2019-06-01] MEDS: Sevelamer TAB* 800 MG PO SCH ×3 (08:39→13:20)
[2019-06-01] MEDS: Oxybutynin XL TAB* 5 MG PO SCH (08:39)
[2019-06-01] MEDS: Lactobacillus Acidophilus* 1 TAB PO SCH (08:39)
[2019-06-01] MEDS: Acetaminophen TAB* 325 MG PO PRN (08:44)
[2019-06-01] MEDS ORDERED: Metoprolol Succinate XL TAB* 50 MG PO SCH (09:00)
[2019-06-01 11:37] VITALS: BP 107/39
--- NOTE | 2019-06-01 14:32 | DS ---
CC: Dr. Rob Jj; Dr. Christianne George DISCHARGE SUMMARY: DATE OF ADMISSION: 05/30/19 DATE OF DISCHARGE: 06/01/19 PRIMARY CARE PHYSICIAN: Rob Jj MD OUTPATIENT [employer] TECHNICIAN: Christianne George MD PRIMARY DIAGNOSES: 1. Right upper extremity cellulitis. 2. End-stage renal disease, on hemodialysis. 3. 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 SECONDARY DIAGNOSES: 1. Atrial fibrillation, off anticoagulation. 2. Hypertension. 3. Anemia of chronic kidney disease from recent thigh hematoma. CONSULTS: Dr. George and Dr. Bruner from Nephrology, Dr. Kellie Akhtar from General Surgery. PROCEDURES: Placement of tunneled dialysis catheter to the right chest under fluoroscopy on 05/31/19. DISCHARGE MEDICATIONS: 1. Sevelamer 2400 mg 3 times a day with meals. 2. Metoprolol succinate 100 mg daily. 3. Midodrine 5 mg twice a day. 4. Montelukast 10 mg daily. 5. Levocetirizine 5 mg daily. 6. Oxybutynin XL 5 mg daily. 7. Tylenol 650 every 4 hours as needed for pain. 8. Lactobacillus acidophilus 1 tablet daily. HISTORY OF PRESENT ILLNESS: Ms. Trivedi is a 74-year-old woman with with end-stage renal disease and polycystic kidney disease, on hemodialysis 3 times a week; hypertension; paroxysmal atrial fibrillation, not on warfarin due to a recent hematoma to right thigh, requiring blood transfusions and intellectual disability, who is presenting as a referral from her real estate agency principal for urgent HD cath placement given likely right upper extremity cellulitis over the site of her fistula. The patient's sister, Tia reports that she developed redness and swelling to the right arm on day prior to presentation that was progressively worse until a day of presentation and associated with tenderness. The sister reports the patient has chronic protrusion of her fistula for several years, but thinks the lump over her right upper arm has changed in color since yesterday. The patient 's outpatient real estate agency principal wanted the patient admitted to the hospital for urgent HD cath placement as they were unable to perform dialysis through infected fistula site. HOSPITAL COURSE: In the emergency room, routine lab work was without leukocytosis and the patient was afebrile. Her CRP was 74. An ultrasound performed of the right arm showed aneurysmal dilatation at 3.2 cm with an intramural hematoma. The patient's vascular surgeon in [place], Dr. Salas was called, who stated the patient did not require emergent transfer and that the patient can continue to follow up with her at [facility] after she is finished with IV antibiotics. General Surgery was also consulted, who planned to place a PermCath so that the patient could get hemodialysis in the hospital. By next morning, a tunneled HD cath was placed by surgery to the right chest. The patient tolerated the procedure well. She had undergone hemodialysis after that , which she tolerated well. While the patient was initially given clindamycin start in the emergency room, per discussion with Infectious Disease team and real estate agency principal, the patient was switched to vancomycin to be given after HD sessions 3 times a week. The patient's real estate agency principal was updated with this plan and it was agreed that she could receive vancomycin in dialysis. The patient stayed one more evening for monitoring after dialysis and by next morning, she felt back to her baseline and ready return to her custodial. Her sister was called and updated with a plan and agreed. PERTINENT DIAGNOSTIC STUDIES: CBC notable for anemia at baseline of 9.5 with MCV 97. BMP significant for creatinine 6.42 before dialysis and potassium 5.4 also before dialysis. Two sets of blood cultures with no growth to date by day 2. CRP 74. Soft tissue ultrasound with area of palpable mass demonstrating aneurysmal dilatation of the outflow tract presumably in the basilic vein measuring up to 3.2 cm with slow flow and an intramural hematoma. Chest x-ray PA and lateral with low lung volumes and possible mild congestive heart failure. DISCHARGE PLAN: The patient will be discharged back to [facility] to follow up with her outpatient primary care physician, real estate agency principal and vascular surgeon, all of whom have been updated about the patient's hospitalization for HD catheter placement. She should continue hemodialysis on her old schedule with the addition of vancomycin dose after HD sessions. She should continue on medications as listed above, notably with metoprolol succinate 100 mg daily for rate control of her atrial fibrillation. Given the patient's recent hospitalization for bleeding into her right thigh, she was not started on anticoagulation this admission for her atrial fibrillation, as this is being followed up by her outpatient providers. The patient should have weekly CBC, CMP, CRP and vanco trough while on vancomycin per ID. The patient should eat a healthy renal diet, low in processed foods and resume activity as tolerated. DISPOSITION: [facility]. CONDITION: Good. TIME SPENT: Approximately 60 minutes was spent on discharge of this patient, more than half of which was spent with care coordination or at bedside for interview and exam. [id number]/[facility] #: [id number] ABBIE
--- NOTE | 2019-06-02 09:52 | OP ---
Operative Report - Blank - Operative Report Date of Operation: 05/31/19 Note: PRE-OPERATIVE DIAGNOSIS: ESRD POST-OPERATIVE DIAGNOSIS: ESRD PROCEDURE: Placement of tunneled dialysis catheter SURGEON: Kellie Akhtar MD ANESTHESIA: MAC EBL: 30 ml FINDINGS: Successful placement of 28-cm BioFlo DuraMax chronic hemodialysis catheter (15.5 Fr) INDICATION: Kendra Trivedi is a 74 year-old woman with a history of ESRD from polycystic kidney disease who was admitted to the hospitalist service with right arm cellulitis. Her AV fistula is in the right arm as well. Due to the cellulitis, nephrology recommended placing a tunneled dialysis catheter while she is treated for cellulitis. I discussed risks of placement with the patient and her sister, including but not limited to bleeding, infection, or pneumothorax. DESCRIPTION: The patient was brought to the OR and placed in the supine position on the OR table. SCDs were placed. The patient was warmed. She received her scheduled dose of clindamycin in the OR which she is receiving for the cellulitis. MAC anesthesia was administered. The right upper chest and neck were prepped and draped in the usual sterile fashion. A time out was called confirming the patient's name, date of , and procedure. Lidocaine 1% was injected into the skin over the right internal jugular vein. The vein was cannulated with the needle using ultrasound guidance. The wire was advanced through the needle, and then the needle was removed. Fluoroscopy was used to confirm correct placement of the wire into the superior vena cava. Next , lidocaine 1% was injected into the skin over the planned catheter location and exit site. A 5mm incision was made at the exit site with a scalpel. A stab incision was made at the wire in the right internal jugular vein. The catheter was tunneled under the skin from the exit site to the wire. The vein was then serially dilated to the 16 Fr dilator with pull away sheath. Fluoroscopy confirmed correct position of the dilator and sheath. The dilator and wire were removed. The catheter was placed into the pull away sheath, and the sheath was pulled away and out. Both lumens pranay back blood and flushed easily. Xray showed the tip of the catheter at the cavoatrial junction. The cuff on the catheter was approximately 5 cm away from the exit site. Each lumen was flushed with the appropriate amount of 5000 units/5ml heparin as indicated on the catheter then capped. The catheter was secured with 2-0 Prolene sutures. The neck incision was closed witha 4-0 Vicryl. A sterile dressing was placed over the catheter and the neck incision. The patient tolerated the procedure well. She was brought to recovery in stable condition. A chest xray in recovery confirmed correct placement of the catheter without complication.
== END 2019-06-01 16:15 | DRG 674 ==
LOC: ED 07:17 → MED 16:24
PROVIDERS: ADMIT Internal Medicine; ATTEND Internal Medicine
PROC: 0JH63XZ Insertion of Tunneled Vascular Access Device into Chest Subcutaneous Tissue and Fascia, Percutaneous Approach (ICD-10-PCS; 2019-05-31)
PROC: 05HM33Z Insertion of Infusion Device into Right Internal Jugular Vein, Percutaneous Approach (ICD-10-PCS; 2019-05-31)
PROC: B543ZZA Ultrasonography of Right Jugular Veins, Guidance (ICD-10-PCS; 2019-05-31)
PROC: 5A1D70Z Performance of Urinary Filtration, Intermittent, Less than 6 Hours Per Day (ICD-10-PCS; principal; 2019-05-31 08:30)
DX: N18.6 End stage renal disease (principal); L03.113 Cellulitis of right upper limb; Q61.3 Polycystic kidney, unspecified; E87.1 Hypo-osmolality and hyponatremia; T82.7XXA Infection and inflammatory reaction due to other cardiac and vascular devices, implants and grafts, initial encounter; I12.0 Hypertensive chronic kidney disease with stage 5 chronic kidney disease or end stage renal disease; D63.1 Anemia in chronic kidney disease; I48.0 Paroxysmal atrial fibrillation; F79 Unspecified intellectual disabilities; S40.021A Contusion of right upper arm, initial encounter; X58.XXXA Exposure to other specified factors, initial encounter; E78.5 Hyperlipidemia, unspecified; E66.9 Obesity, unspecified; I89.0 Lymphedema, not elsewhere classified; G31.84 Mild cognitive impairment of uncertain or unknown etiology; E87.5 Hyperkalemia; E83.39 Other disorders of phosphorus metabolism; Z68.39 Body mass index [BMI] 39.0-39.9, adult; Y92.9 Unspecified place or not applicable; Z99.2 Dependence on renal dialysis; Z79.899 Other long term (current) drug therapy; Z88.6 Allergy status to analgesic agent; Z88.1 Allergy status to other antibiotic agents; Z88.0 Allergy status to penicillin; Z88.8 Allergy status to other drugs, medicaments and biological substances; Z82.49 Family history of ischemic heart disease and other diseases of the circulatory system
CPT/HCPCS: 36415; 71045; 71046; 76000; 80048; 80053; 82607; 82746; 85025; 85060; 85610; 85730; 86140; 87040; 87641; 96365; 99284; A9270-GY; C1750; J1644; J2250; J3010; J3370; Q5106

== ENCOUNTER 2019-06-07 09:17 | Inpatient (IN) | payer MEDICARE, MEDICAID ==
--- NOTE | 2019-06-07 09:43 | ED ---
Upper Extremity Pain - HPI Summary HPI Summary: Pt is a 74 y/o F presenting to the ED with a chief complaint of RUE pain. She reports edema, erythema, warmth, and pain to the RUE around the area of her fistula. She receives IV abx, and she has some chronic edema that has worsened. These sx were noticed this morning, and the pt is now reporting SOB. Pt has known embolism found by PCP in the arterial vein that they were going to treat outpatient. Last dialysis 06/05/2019. - History of Current Complaint Chief Complaint: EDExtremityUpper Stated Complaint: ARM INJURY Time Seen by Provider: 06/07/19 09:25 Hx Obtained From: Patient Mechanism Of Injury: Unknown Onset/Duration: Started Hours Ago, Still Present Timing: Constant, Lasting Hours Severity Initially: Moderate Severity Currently: Moderate Pain Location: Arm - right Aggravating Factor(s): Nothing Alleviating Factor(s): Nothing Associated Signs & Symptoms: Positive: Swelling, Redness, SOB. Negative: Fever - Allergies/Home Medications Allergies/Adverse Reactions: Allergies Allergy/AdvReac Type Severity Reaction Status Date / Time cephalexin Allergy Vomiting Verified 05/30/19 07:48 NSAIDS (Non-Steroidal Allergy Bleeding Verified 05/30/19 07:48 Anti-Inflamma Penicillins Allergy Vomiting Verified 05/30/19 07:48 sulfamethoxazole Allergy See Comment Verified 05/30/19 07:48 [From Bactrim] trimethoprim [From Bactrim] Allergy See Comment Verified 05/30/19 07:48 Home Medications: Home Medications Docusate CAP* [Colace Cap*] 100 mg PO BID 06/07/19 [History Confirmed 06/07/19] Metoprolol Succinate XL TAB* [Toprol XL TAB*] 100 mg PO DAILY 06/07/19 [History Confirmed 06/07/19] Simvastatin TAB(NF) [Zocor(NF)] 20 mg PO QPM 06/07/19 [History Confirmed ] PMH/Surg Hx/FS Hx/Imm Hx Previously Healthy: Yes Endocrine/Hematology History: Reports: Hx Anticoagulant Therapy, Hx Anemia, Other Endocrine/Hematological Disorders - PCOS Denies: Hx Diabetes, Hx Systemic Lupus Erythematosus, Hx Thyroid Disease Cardiovascular History: Reports: Hx Hypercholesterolemia, Hx Hypertension, Other Cardiovascular Problems/Disorders - Lymphedema Denies: Hx Angina, Hx Coronary Artery Disease, Hx Myocardial Infarction Respiratory History: Reports: Hx Chronic Bronchitis, Hx Pneumonia, Other Respiratory Problems/Disorders - PNEUMONIA 12/2014 Denies: Hx Asthma, Hx Chronic Obstructive Pulmonary Disease (COPD) GI History: Denies: Hx Ulcer History: Reports: Hx Chronic Renal Failure, Hx Dialysis, Hx Renal Disease - polycystic kidney disease Musculoskeletal History: Denies: Hx Rheumatoid Arthritis Sensory History: Reports: Hx Contacts or Glasses Denies: Hx Hearing Aid Opthamlomology History: Reports: Hx Contacts or Glasses Infectious Disease History: No Infectious Disease History: Denies: Hx Hepatitis, Hx Human Immunodeficiency Virus (HIV), History Other Infectious Disease, Traveled Outside the [place] in Last 30 Days - Family History Known Family History: Negative: Cardiac Disease - Social History Alcohol Use: None Hx Substance Use: No Substance Use Type: Reports: None Hx Tobacco Use: No Smoking Status (MU): Never Smoked Tobacco Have You Smoked in the Last Year: No Review of Systems Negative: Fever Positive: Shortness Of Breath Positive: Myalgia, Edema, Other - erythema All Other Systems Reviewed And Are Negative: Yes Physical Exam - Summary Physical Exam Summary: Constitutional: Well-developed, Well-nourished, Alert. (-) Distressed Skin: Warm, Dry HENT: Normocephalic; Atraumatic Eyes: Conjunctiva normal Neck: Musculoskeletal ROM normal neck. (-) JVD, (-) Stridor, (-) Nuchal rigidity Cardio: Rhythm irregularly irregular, rate tachycardic, Heart sounds normal; Intact distal pulses; Radial pulses are 2+ and symmetric. (-) Murmur Pulmonary/Chest wall: Effort normal. (-) Respiratory distress, (-) Wheezes, (-) Rales Abd: Soft, (-) tenderness, (-) Distension, (-) Guarding, (-) Rebound Musculoskeletal: 5x4cm area of edema and erythema above fistula on R arm Lymph: (-) Cervical adenopathy Neuro: Alert, Oriented x3 Psych: Mood and affect Normal Triage Information Reviewed: Yes Vital Signs On Initial Exam: Initial Vitals Temp Pulse Resp BP Pulse Ox 98.6 F 111 16 109/67 98 06/07/19 09:18 06/07/19 09:18 06/07/19 09:18 06/07/19 09:18 06/07/19 09:18 Vital Signs Reviewed: Yes Procedures - Sedation Patient Received Moderate/Deep Sedation with Procedure: No Diagnostics - Vital Signs Vital Signs Temp Pulse Resp BP Pulse Ox 06/07/19 09:18 98.6 F 111 16 109/67 98 - Laboratory Result Diagrams: 06/07/19 09:57 06/07/19 09:57 Lab Statement: Any lab studies that have been ordered have been reviewed, and results considered in the medical decision making process. - Radiology CXR Radiology Interpretation Completed By: Radiologist Summary of Radiographic Findings: 1. PULMONARY VASCULAR CONGESTION WITH MILD CARDIOMEGALY. 2. STABLE ELEVATION OF THE RIGHT HEMIDIAPHRAGM. ED physician has reviewed this report. - EKG 1159 Cardiac Rate: Other Rate - 118 afib EKG Rhythm: Atrial Fibrillation ST Segment: Normal Ectopy: None EKG Comparison: No Significant Change Summary of EKG Findings: An EKG at 1159 reveals atrial fibrillation 118bpm, nml axis, nml intervals. No STEMI. No acute changes. T-wave inversions in II, III, aVL, aVF, and v2-v6. No significant change from 04/15/2019. ED physician has reviewed and interpreted this EKG. Re-Evaluation - Re-Evaluation 1st re-eval Re-Evaluation Time: 11:50 Change: Unchanged Comment: I spoke with Dr. George after she evaluated the pt. She would like the pt to be admitted to [facility] for failure of outpatient abx, she wants to speak with ID, and she's recommending the pt go to dialysis straight away. Course/Dx - Course Course Of Treatment: 74-year-old female with history of ESRD, polycystic kidney disease, right arm fistula with recent concern for infection. Ultrasound initially showed aneurysmal dilation with a intermural hematoma. Patient had a permacath placed in the right chest wall for dialysis. Patient was seen by Dr. Riley, for concern for infection of soft tissue versus hematoma. Patient was initially on clindamycin change to vancomycin. - labs here notable for worsening CRP. - VS w tachycardia, did not get AM metoprolol. Given home dose. EKG w afib, no acute changes. BNP elevated in setting of ESRD. Nephrology came down to see patient, thinks site looks worse, plan for admission, ID consult. - patient to go to dialysis - Diagnoses Provider Diagnoses: ESRD (end stage renal disease), Complication of AV dialysis fistula, Abscess Discharge ED - Sign-Out/Discharge Documenting (check all that apply): Patient Departure - Discharge Plan Condition: Stable Disposition: ADMITTED TO [facility] Referrals: Rob Jj MD [Primary Care Provider] - - Attestation Statements Document Initiated by Scribe: Yes Documenting Scribe: Fawn Clark Provider For Whom Scribe is Documenting (Include Credential): Josr Pinto MD. Scribe Attestation: I, Fawn Clark, scribed for Josr Pinto MD. on 06/07/19 at 1241. Status of Scribe Document: Ready Consult Consult: 1127 - I spoke with Dr. George about the pt's present condition who will be coming to evaluate the pt in the ED. 1249 - Dr. Sandoval accepts pt for admission.
[2019-06-07 10:18] LABS: ABS Basophils 0.1 10^3/ul (0-0.2); ABS Eosinophils 0.3 10^3/ul (0-0.6); ABS Lymphocytes 0.5 10^3/ul (1.0-4.8); ABS Monocytes 0.7 10^3/ul (0-0.8); ABS Neutrophils 3.8 10^3/ul (1.5-7.7); Eosinophil % 5.9 %; Hematocrit 28 % (35-47); Hemoglobin 9.1 g/dL (12.0-16.0); Lymphocyte % 8.8 %; Mean Corpuscular HGB Conc 33 g/dL (31-36); Mean Corpuscular Hemoglobin 32 pg (27-31); Mean Corpuscular Volume 98 fL (80-97); Mean Platelet Volume 7.3 fL (7.4-10.4); Nucleated Red Blood Cells % 0.5; Platelet Count 199 10^3/uL (150-450); Red Blood Count 2.84 10^6 /uL (3.70-4.87); Red Cell Distribution Width 21 % (10-15); White Blood Count 5.4 10^3/uL (3.5-10.8)
[2019-06-07 10:23] LABS: INR 1.25 (0.82-1.09)
[2019-06-07 10:30] LABS: Albumin 2.6 g/dL (3.2-5.2); Albumin/Globulin Ratio 0.9 (1-3); Calcium 8.8 mg/dL (8.6-10.3); EGFR African American 11.8 (>60); EGFR Non-African American 9.7 (>60); Total Bilirubin 2.1 mg/dL (0.2-1.0); Total Protein 5.6 g/dL (6.4-8.9)
[2019-06-07 10:55] LABS: C Reactive Protein 96.32 mg/L (<8.01)
[2019-06-07] MEDS ORDERED: Metoprolol Succinate XL TAB* 100 MG PO ONE (11:32)
[2019-06-07] MEDS ORDERED: Aztreonam (*) 1 GM in NS 0.9% 50 ML* 50 ML IVPB ONE (14:20)
[2019-06-07] MEDS ORDERED: Heparin DIALYSIS ONLY(*) 1,000 UNITS/ML VIAL DIALYSIS ONE (14:30)
[2019-06-07] MEDS ORDERED: EPOETIN ALFA-EPBX * 10,000 UNIT/ML VIAL IV ONE (14:30)
[2019-06-07] MEDS ORDERED: Vancomycin(*) 500 MG in NS 0.9% 250 ML* 250 ML IVPB SCH (15:00)
[2019-06-07] MEDS ORDERED: Vancomycin per Pharmacy* NOTE FOLLOW UP PRN (15:19)
[2019-06-07] MEDS: Acetaminophen TAB* 325 MG PO PRN (15:22)
[2019-06-07] MEDS ORDERED: Vancomycin(*) 1,500 MG in NS 0.9% 250 ML* 250 ML IVPB ONE (16:00)
[2019-06-07] MEDS: Sevelamer TAB* 800 MG PO SCH (16:43)
[2019-06-07] MEDS: Atorvastatin* 10 MG TAB PO SCH (16:44)
--- NOTE | 2019-06-07 16:58 | PN ---
Progress Note - Progress Note Date of Service: 06/07/19 Note: Cc: End-stage renal disease HPI and ROS: Ms. Pena is a very nice 74-year-old woman with some cognitive impairment who was sent to the emergency room from the [facility] because of sudden worsening of erythema at the site of her AV fistula. She was admitted with cellulitis of the AV fistula about a week ago. She was started on vancomycin. She continued on vancomycin with dialysis. She initially responded well with sudden worsening overnight. She was seen by her sister last night before she went to bed and this morning was significantly worse. I saw her in the emergency room she looked the best that I have ever seen her. She is in no acute distress. She has some pain in the right upper arm. On exam aneurysmal part of the fistula looks more erythematous and is warmer to palpation. She was admitted for hemodialysis and further management of her cellulitis involving the AV fistula, possibly due to failure of vancomycin. She is known to have intra-aneurysmal thrombus from her previous admission. Today is her hemodialysis day. She denies chest pain, shortness of breath, nausea, vomiting, diarrhea. She has some pain in the right upper arm. No palpitations and no headache. MEDS: Acetaminophen (Tylenol Tab*) 650 mg PO Q4H PRN PRN Reason: PAIN-MILD/TEMP >/= 100.4 Last Admin: 06/07/19 15:22 Dose: 650 mg Atorvastatin Calcium (Lipitor*) 10 mg PO QPM [facility] Last Admin: 06/07/19 16:44 Dose: 10 mg Cetirizine HCl (Zyrtec*) 10 mg PO DAILY [facility] Docusate Sodium (Colace Cap*) 100 mg PO BID [facility] Vancomycin HCl 500 mg/ Sodium (Chloride) 250 mls @ 166.667 mls/hr IVPB MOWEFR NATALIA; Protocol Aztreonam 0.25 gm/ Sodium (Chloride) 50 mls @ 200 mls/hr IVPB Q12H [facility] Vancomycin HCl 1,500 mg/ (Sodium Chloride) 250 mls @ 166.667 mls/hr IVPB ONCE ONE Stop: 06/07/19 17:29 Last Admin: 06/07/19 16:53 Dose: 166.667 mls/hr Lactobacillus Rhamnosus (Lactobacillus Acidophilus*) 1 tab PO DAILY [facility] Metoprolol Succinate (Toprol Xl Tab*) 100 mg PO DAILY [facility] Midodrine (Midodrine) 5 mg PO BID NATALIA; Protocol Montelukast Sodium (Singulair Tab*) 10 mg PO DAILY [facility] Oxybutynin Chloride (Ditropan Xl Tab*) 5 mg PO DAILY [facility] Pharmacy Consult (Vancomycin Per Pharmacy*) 1 note FOLLOW UP . PRN PRN Reason: PER PROTOCOL Sevelamer Carbonate (Renvela Tab*) 2,400 mg PO TID WITH MEALS [facility] Last Admin: 06/07/19 16:43 Dose: 2,400 mg LABS: Laboratory Last Values WBC 5.4 10^3/uL (3.5-10.8) 06/07/19 09:57 RBC 2.84 10^6 /uL (3.70-4.87) L 06/07/19 09:57 Hgb 9.1 g/dL (12.0-16.0) L 06/07/19 09:57 Hct 28 % (35-47) L 06/07/19 09:57 MCV 98 fL (80-97) H 06/07/19 09:57 MCH 32 pg (27-31) H 06/07/19 09:57 MCHC 33 g/dL (31-36) 06/07/19 09:57 RDW 21 % (10-15) H 06/07/19 09:57 Plt Count 199 10^3/uL (150-450) 06/07/19 09:57 MPV 7.3 fL (7.4-10.4) L 06/07/19 09:57 Neut % (Auto) 71.1 % 06/07/19 09:57 Lymph % (Auto) 8.8 % 06/07/19 09:57 Norman % (Auto) 12.3 % 06/07/19 09:57 Eos % (Auto) 5.9 % 06/07/19 09:57 Baso % (Auto) 1.9 % 06/07/19 09:57 Absolute Neuts (auto) 3.8 10^3/ul (1.5-7.7) 06/07/19 09:57 Absolute Lymphs (auto) 0.5 10^3/ul (1.0-4.8) L 06/07/19 09:57 Absolute Monos (auto) 0.7 10^3/ul (0-0.8) 06/07/19 09:57 Absolute Eos (auto) 0.3 10^3/ul (0-0.6) 06/07/19 09:57 Absolute Basos (auto) 0.1 10^3/ul (0-0.2) 06/07/19 09:57 Absolute Nucleated RBC 0.0 10^3/ul 06/07/19 09:57 Nucleated RBC % 0.5 06/07/19 09:57 INR (Anticoag Therapy) 1.25 (0.82-1.09) H 06/07/19 09:57 Sodium 136 mmol/L (135-145) 06/07/19 09:57 Potassium 5.0 mmol/L (3.5-5.0) 06/07/19 09:57 Chloride 99 mmol/L (101-111) L 06/07/19 09:57 Carbon Dioxide 31 mmol/L (22-32) 06/07/19 09:57 Anion Gap 6 mmol/L (2-11) 06/07/19 09:57 BUN 40 mg/dL (6-24) H 06/07/19 09:57 Creatinine 4.43 mg/dL (0.51-0.95) H 06/07/19 09:57 Est GFR ( Amer) 11.8 (>60) 06/07/19 09:57 Est GFR (Non-Af Amer) 9.7 (>60) 06/07/19 09:57 BUN/Creatinine Ratio 9.0 (8-20) 06/07/19 09:57 Glucose 70 mg/dL (70-100) 06/07/19 09:57 Calcium 8.8 mg/dL (8.6-10.3) 06/07/19 09:57 Total Bilirubin 2.10 mg/dL (0.2-1.0) H 06/07/19 09:57 AST 28 U/L (13-39) 06/07/19 09:57 ALT 16 U/L (7-52) 06/07/19 09:57 Alkaline Phosphatase 468 U/L (34-104) H 06/07/19 09:57 C-Reactive Protein 96.32 mg/L (<8.01) H 06/07/19 09:57 C-React Prot High Sens Cancelled 06/07/19 09:57 B-Natriuretic Peptide 1224 pg/mL (<=100) H 06/07/19 09:57 Total Protein 5.6 g/dL (6.4-8.9) L 06/07/19 09:57 Albumin 2.6 g/dL (3.2-5.2) L 06/07/19 09:57 Globulin 3.0 g/dL (2-4) 06/07/19 09:57 Albumin/Globulin Ratio 0.9 (1-3) L 06/07/19 09:57 Random Vancomycin 8.7 mcg/mL 06/07/19 14:51 PHYSICAL EXAM: Constitutional : No acute distress, pleasant, conversant. Chest is clear to auscultation with good respiratory effort Heart shows S1 and S2, regular rate and rhythm no murmurs rubs or gallops. Extremities with 2+ lower extremities edema, no clubbing or cyanosis. Right upper arm AV fistula with 2 aneurysmal dilatations. The larger one is closer to the elbow and the skin overlying the fistula is brightly erythematous and warm to palpation. Assessment and plan: Kendra is a very nice 74-year-old woman who was admitted for worsening cellulitis of the right upper arm fistula. She has end-stage kidney disease is on hemodialysis Monday. Today is her regular hemodialysis day. 1. End-stage kidney disease on hemodialysis. Patient to receive hemodialysis today. Discussed the prescription with dialysis nurse. Dialysis access is a PermCath. 2. Cellulitis of the AV fistula. Vancomycin level to be drawn today. She needs broadening the antibiotic coverage at this time and aztreonam will be added to her regimen. We got blood cultures through the PermCath today. 2 sets , one set from each port. Antibiotic coverage should be prolonged because of intra-aneurysmal thrombus. I would consider ID consult 3. A. fib/atrial flutter with RVR. Metoprolol as needed. 4. Hypotension during dialysis. She receives midodrine with dialysis. 5. Hyperphosphatemia on Renvela. 6. Anemia of ESRD on Epogen with dialysis . she may be resistant to EPo due to current infection. Discussed with JOANIE Acevedo.
--- NOTE | 2019-06-07 17:08 | HP ---
CC: Dr. Rob Jj; Dr. George; Dr. Bruner; Dr. Akhtar * HISTORY AND PHYSICAL: DATE OF ADMISSION: 06/07/19 PRIMARY CARE PROVIDER: Dr. Rob Jj. OTHER PROVIDERS: Dr. George, Dr. Bruner, Dr. Akhtar. ATTENDING PHYSICIAN: Dr. Abilio Sandoval * (dictated by JOANIE Acevedo). CHIEF COMPLAINT: Right upper extremity erythema, edema, and pain. HISTORY OF PRESENT ILLNESS: Ms. Trivedi is a 74-year-old female with past medical history of paroxysmal atrial fibrillation, not on anticoagulation due to recent hematoma to right thigh; anemia of chronic disease; end-stage renal disease with hemodialysis Monday, Monday, Monday with right fistula in place with notable aneurysmal dilatation of the fistula, who presented to the ER today with complaints of erythema to the right upper extremity. It is important to note that the patient has had upper extremity cellulitis for approximately 2 weeks. She was an inpatient at [facility] from 05/30 to 06/01/19 and was treated with clindamycin initially and then transitioned to vancomycin outpatient. She had improved up until yesterday when her arm became erythematous again. She reports pain in the arm but notes that it has been there for some time. She reports that pain is worse with movement. She denies fever. She does complain of chills but notes that this is chronic and has not worsened recently. She complains of shortness of breath , which occurs on occasion prior to dialysis. She states she continues to make urine. During her last hospitalization, an ultrasound of the right upper extremity was performed and revealed an intramural hematoma. Again, the patient was discharged on vancomycin with followup to Infectious Disease with plans for 6 weeks of IV antibiotics. In the ER, the patient received a full workup. She was noted to have macrocytic anemia, which is chronic. She has an elevated BUN and creatinine, also chronic. Her bilirubin and alk phos are elevated, which appears to be chronic. Her CRP is elevated from her last visit, which is concerning for worsening of infection. EKG shows atrial flutter without ST depression or elevation. Chest x-ray shows right hemidiaphragm elevation, which is stable, pulmonary vascular congestion, cardiomegaly. The hospitalist team was asked to evaluate the patient for admission. PAST MEDICAL HISTORY: 1. End-stage renal disease with a right upper extremity fistula in place, which is no longer being used, now has a right chest tunneled dialysis catheter with dialysis Monday, Monday, Monday. 2. Polycystic kidney disease. 3. Hypertension. 4. Hyperlipidemia. 5. Paroxysmal atrial fibrillation, not on anticoagulation. 6. Anemia of chronic disease. PAST SURGICAL HISTORY: 1. Hemodialysis fistula, right chest tunneled catheter, 05/31/19. 2. Hernia. HOME MEDICATIONS: 1. Acetaminophen 650 mg p.o. q.4 hours p.r.n. 2. Docusate 100 mg p.o. b.i.d. 3. Lactobacillus acidophilus 1 tab p.o. daily. 4. Levocetirizine 5 mg p.o. daily. 5. Metoprolol succinate 100 mg p.o. daily. 6. Midodrine 5 mg p.o. b.i.d. 7. Montelukast 10 mg p.o. daily. 8. Mupirocin cream 1 application topically b.i.d. 9. Oxybutynin 5 mg p.o. daily. 10. Sevelamer 2400 mg p.o. t.i.d. with meals. 11. Simvastatin 20 mg p.o. at bedtime. DRUG ALLERGIES: CEPHALEXIN, vomiting; NSAIDs, bleed; PENICILLIN, vomiting; BACTRIM, profuse bleeding, INR went up to 23. FAMILY HISTORY: Father and mother both had MIs. Father had lung cancer. No family history of CVA or diabetes mellitus. SOCIAL HISTORY: The patient denies current or former use of tobacco. She does not use alcohol. She does not work currently. She lives at [facility]. She is not and has no children. In the event that she is unable to make her own medical decisions, she has appointed her sister Tia Alston to be her surrogate decision maker. REVIEW OF SYSTEMS: A 14-point review of systems has been performed and all the pertinent positives and negatives are in the HPI. All other systems are negative. PHYSICAL EXAMINATION GENERAL: Ms. Trivedi is a well-developed, well-nourished, obese 74-year-old white woman who is sitting in bed receiving dialysis. She appears comfortable and in no acute distress. She is pleasant, cooperative. HEENT: PERRL. EOMI. Visual connelly appear to be grossly intact. Hearing is grossly intact. Oral: Mucous membranes are moist. There are no lesions. The pharynx is clear. The tongue is at midline. Palate elevates symmetrically. PULMONARY: Symmetrical chest expansion without use of accessory muscles. Clear to auscultation bilaterally anteriorly without wheeze, rhonchi, or rales. There is a noted right chest tunneled dialysis catheter in place. CARDIOVASCULAR: Regular rate and rhythm with S1, S2 present without murmurs, rubs, clicks, or gallops. There is no apparent JVD, although the patient does have diffuse edema to bilateral lower extremities and 1+ pitting edema to bilateral upper extremities. ABDOMEN: Obese. Bowel sounds in all quadrants. Soft, nontender to palpation. NEURO: The patient is awake. She is alert and oriented x3. Cranial nerves II through XII are grossly intact. SKIN: The patient has a right arm hemodialysis fistula, which is visibly aneurysmal. Just lateral to this area, there is an approximately 1.5 x 6 cm area of erythema. This area plus adjacent areas are tender to palpation. The area is warm. At the site of the fistula, there are no thrills or bruit noted. The right upper extremity is warm distally with cap refill less than 2 seconds and radial pulses present. DIAGNOSTIC STUDIES/LABORATORY DATA: WBC 5.4, hemoglobin 9.1, hematocrit 28, MCV 98. INR 1.25. Sodium 136, potassium 5, chloride 99, BUN 40, creatinine 4.43. Total bilirubin 2.10, alkaline phosphatase 465. CRP 96.32. BNP 1224. EKG: Rate of 118, showing atrial flutter without ST depression or elevation. Chest x-ray, impression: Pulmonary vascular congestion with mild cardiomegaly. Stable elevation of the right hemidiaphragm. ASSESSMENT AND PLAN: Ms. Trivedi is a 74-year-old female with past medical history of end-stage renal disease, on dialysis Monday, Monday, Monday with a fistula in place that has an intramural hematoma noted from last admission, who currently has a right chest tunneled dialysis catheter in place, who is being treated for cellulitis proximal to the fistula with vancomycin 3 times a week after hemodialysis; paroxysmal atrial fibrillation, not on anticoagulation due to recent right thigh hematoma; hypertension; hyperlipidemia, who presented to the ER today with complaints of worsening erythema and edema to the area proximal to the right upper extremity fistula. The patient will be admitted for: 1. Right upper extremity cellulitis. The patient was hospitalized from to 06/01/19 for treatment of right upper extremity cellulitis. She was noted to have an intramural hematoma at the fistula site. A tunneled dialysis catheter was placed on 05/31/19 and her fistula is no longer being used. Again , she was receiving treatment with IV vancomycin after hemodialysis days. She initially improved, but worsened in the last 2 days. The patient will be admitted for further management. Infectious Disease has been consulted and plans to see the patient on Monday. In the meantime, they recommended continued vancomycin with the addition of aztreonam, both at hemodialysis/renal dosing. CT of the arm with contrast has been ordered. This was discussed with Nephrology, Dr. George, who recommends with contrast. Repeat ultrasound of the right upper quadrant has also been ordered to assess the thrombus located in the fistula site. 2. Paroxysmal atrial fibrillation. The patient was on Coumadin in the outpatient setting, but this was discontinued due to right thigh hematoma. Awaiting updated medication list to see if the patient was placed back on anticoagulation as this was deferred to her primary care provider after her last admission. In the meantime, we will await med rec and continue metoprolol. 3. End-stage renal disease. The patient has end-stage renal disease. The right arm fistula is no longer in use. The fistula is a gulkana fistula without prosthetic material. The patient will continue to receive her hemodialysis as scheduled Monday, Monday, and Monday. Her last dialysis was today. Continue sevelamer. 4. Hypertension. Continue metoprolol, midodrine. 5. Hyperlipidemia. Continue statin. 6. DVT prophylaxis: According to the DVT Risk Assessment, the patient scores 3 placing her at high risk. We will hold off on anticoagulation while we await medication list. If the patient is not on Coumadin in the outpatient setting, she should be started on chemoprophylaxis. 7. Code status. Full code. TIME SPENT: Approximately 75 minutes were spent on this admission, greater than half that time was spent [id number] with the patient obtaining history, performing a physical, and reviewing the plan of care. The case has been discussed with my attending Dr. Sandoval, who is in agreement with the plan of care. JOANIE CANCINO [id number]/[facility] #: [id number] [facility]ITALAshley
[2019-06-07] MEDS: Docusate CAP* 100 MG PO SCH (20:14)
[2019-06-08] MEDS: NS 0.9% IVPB SCH ×2 (02:14→15:11)
[2019-06-08] MEDS: AZTREONAM IVPB SCH ×2 (02:14→15:11)
[2019-06-08 06:18] LABS: Hematocrit 24 % (35-47); Mean Corpuscular HGB Conc 33 g/dL (31-36); Mean Corpuscular Hemoglobin 33 pg (27-31); Mean Corpuscular Volume 98 fL (80-97); Mean Platelet Volume 7.6 fL (7.4-10.4); Platelet Count 175 10^3/uL (150-450); Red Blood Count 2.47 10^6 /uL (3.70-4.87); Red Cell Distribution Width 21 % (10-15); White Blood Count 4.6 10^3/uL (3.5-10.8)
[2019-06-08 06:23] LABS: INR 1.21 (0.82-1.09)
[2019-06-08 06:34] LABS: Albumin 2.4 g/dL (3.2-5.2); BUN/Creatinine Ratio 8.7 (8-20); Calcium 8.1 mg/dL (8.6-10.3); EGFR African American 18.6 (>60); EGFR Non-African American 15.4 (>60); Globulin 2.5 g/dL (2-4); Potassium 4.1 mmol/L (3.5-5.0); Total Bilirubin 2.1 mg/dL (0.2-1.0); Total Protein 4.9 g/dL (6.4-8.9)
[2019-06-08 07:04] LABS: ABS Eosinophils 0.4 10^3/ul (0-0.6); ABS Lymphocytes 0.5 10^3/ul (1.0-4.8); ABS Monocytes 0.6 10^3/ul (0-0.8); ABS Neutrophils 3.2 10^3/ul (1.5-7.7); Eosinophil % 7.8 %; Lymphocyte % 9.8 %; Nucleated Red Blood Cells % 0.1
[2019-06-08 07:07] LABS: Polychromasia 1+
[2019-06-08] MEDS: Sevelamer TAB* 800 MG PO SCH ×3 (09:15→17:35)
[2019-06-08] MEDS: Oxybutynin XL TAB* 5 MG PO SCH (09:19)
[2019-06-08] MEDS: Montelukast Sodium TAB* 10 MG PO SCH (09:19)
[2019-06-08] MEDS: Metoprolol Succinate XL TAB* 100 MG PO SCH (09:19)
[2019-06-08] MEDS: Docusate CAP* 100 MG PO SCH ×2 (09:19→21:34)
[2019-06-08] MEDS: Lactobacillus Acidophilus* 1 TAB PO SCH (09:19)
[2019-06-08] MEDS: Cetirizine* 10 MG TAB PO SCH (09:19)
[2019-06-08] MEDS ORDERED: Vancomycin - DIALYSIS DOSING* NOTE FOLLOW UP SCH (11:00)
[2019-06-08] MEDS ORDERED: Iodixanol* (CONTRAST) 320 MG/ML 100 ML SDV IV ONE (13:27)
--- NOTE | 2019-06-08 13:38 | PN ---
Subjective Date of Service: 06/08/19 Interval History: HOSPITALIST PROGRESS NOTE Patient seen and examined at bedside. Care reviewed and d/w Dona Arana RN. She feels a little better today. RUE pain is less intense and she thinks the redness is improving. Family History: Unchanged from Admission Social History: Unchanged from Admission Past Medical History: Unchanged from Admission Objective Active Medications: Acetaminophen (Tylenol Tab*) 650 mg PO Q4H PRN PRN Reason: PAIN-MILD/TEMP >/= 100.4 Last Admin: 06/07/19 15:22 Dose: 650 mg Atorvastatin Calcium (Lipitor*) 10 mg PO QPM [facility] Last Admin: 06/07/19 16:44 Dose: 10 mg Cetirizine HCl (Zyrtec*) 10 mg PO DAILY [facility] Last Admin: 06/08/19 09:19 Dose: 10 mg Docusate Sodium (Colace Cap*) 100 mg PO BID [facility] Last Admin: 06/08/19 09:19 Dose: 100 mg Aztreonam 0.25 gm/ Sodium (Chloride) 50 mls @ 200 mls/hr IVPB Q12H [facility] Last Admin: 06/08/19 02:14 Dose: 200 mls/hr Lactobacillus Rhamnosus (Lactobacillus Acidophilus*) 1 tab PO DAILY [facility] Last Admin: 06/08/19 09:19 Dose: 1 tab Metoprolol Succinate (Toprol Xl Tab*) 100 mg PO DAILY [facility] Last Admin: 06/08/19 09:19 Dose: 100 mg Midodrine (Midodrine) 5 mg PO BID [facility]; Protocol Last Admin: 06/08/19 09:16 Dose: 5 mg Montelukast Sodium (Singulair Tab*) 10 mg PO DAILY [facility] Last Admin: 06/08/19 09:19 Dose: 10 mg Oxybutynin Chloride (Ditropan Xl Tab*) 5 mg PO DAILY [facility] Last Admin: 06/08/19 09:19 Dose: 5 mg Pharmacy Consult (Vancomycin Per Pharmacy*) 1 note FOLLOW UP . PRN PRN Reason: PER PROTOCOL Pharmacy Consult (Vancomycin - Dialysis Dosing*) 1 note FOLLOW UP . [facility] Pharmacy Profile Note (Vancomycin Trough Check) 1 note FOLLOW UP 0600 ONE Stop: 06/10/19 06:01 Sevelamer Carbonate (Renvela Tab*) 2,400 mg PO TID WITH MEALS [facility] Last Admin: 06/08/19 09:15 Dose: 2,400 mg Vital Signs - 8 hr 06/08/19 06/08/19 06/08/19 07:15 08:00 11:15 Temperature 97.8 F 98.2 F Pulse Rate 125 122 Respiratory 14 18 18 Rate Blood Pressure 119/62 120/67 (mmHg) O2 Sat by Pulse 94 98 Oximetry Oxygen Devices in Use Now: None, Nasal Cannula Appearance: Obese lady siting up in bed in NAD Eyes: No Scleral Icterus Ears/Nose/Mouth/Throat: Mucous Membranes Moist Neck: Trachea Midline Respiratory: Symmetrical Chest Expansion and Respiratory Effort, - - BS+ bilaterally diminished with no added sounds Cardiovascular: RRR - Normal S1 and S2 Abdominal: NL Sounds; No Tenderness; No Distention - obese Extremities: - - RUE with 2 aneurysmal dilations on AVF, with erythema and edema. No purulence Neurological: Alert and Oriented x 3, NL Muscle Strength and Tone Result Diagrams: 06/08/19 05:57 06/08/19 05:57 Assess/Plan/Problems-Billing Assessment: Mrs Zarate is a 74yo F with PMH of ESRD on HD, polycystic kidney disease, HTN, HLD, PAF, anemia of chronic disease who presented to ED with worsening RUE/AVF cellulitis. - Patient Problems (1) Cellulitis of right upper extremity Comment: - Overlying thrombosed AV fistula. - For CT RUE and vascular US today. - Continue Vancomycin and Aztreonam. - ID consult requested. (2) Atrial fibrillation Comment: - Continue Metoprolol. - Off anticoagulation due to thigh hematoma and anemia. (3) ESRD on hemodialysis Comment: - Being dyalised through Permacath. - Continue as scheduled. (4) DVT prophylaxis Comment: - SCDs (5) Full code status Status and Disposition: Inpatient.
[2019-06-08] MEDS ORDERED: Metoprolol Succinate XL TAB* 50 MG PO ONE (16:45)
[2019-06-08] MEDS: Atorvastatin* 10 MG TAB PO SCH (17:35)
[2019-06-08] MEDS ORDERED: Metoprolol Tartrate TAB* 50 mg PO ONE (23:46)
[2019-06-09] MEDS: AZTREONAM IVPB SCH ×2 (02:43→15:30)
[2019-06-09] MEDS: NS 0.9% IVPB SCH ×2 (02:43→15:30)
[2019-06-09] MEDS: Sevelamer TAB* 800 MG PO SCH ×3 (08:04→18:31)
[2019-06-09] MEDS: Cetirizine* 10 MG TAB PO SCH (08:04)
[2019-06-09] MEDS: Acetaminophen TAB* 325 MG PO PRN ×2 (08:04→21:39)
[2019-06-09] MEDS: Lactobacillus Acidophilus* 1 TAB PO SCH (08:04)
[2019-06-09] MEDS: Metoprolol Succinate XL TAB* 100 MG PO SCH (08:04)
[2019-06-09] MEDS: Docusate CAP* 100 MG PO SCH ×2 (08:04→21:38)
[2019-06-09] MEDS: Montelukast Sodium TAB* 10 MG PO SCH (08:04)
[2019-06-09] MEDS: Oxybutynin XL TAB* 5 MG PO SCH (08:04)
[2019-06-09] MEDS: metroNIDAZOLE IV 500 MG/100ML* 500 MG/100 ML BAG IVPB SCH ×2 (10:33→21:39)
[2019-06-09 11:03] LABS: Hematocrit 24 % (35-47); Hemoglobin 8.2 g/dL (12.0-16.0); Mean Corpuscular HGB Conc 34 g/dL (31-36); Mean Corpuscular Hemoglobin 33 pg (27-31); Mean Corpuscular Volume 97 fL (80-97); Mean Platelet Volume 7.4 fL (7.4-10.4); Platelet Count 180 10^3/uL (150-450); Red Blood Count 2.48 10^6 /uL (3.70-4.87); Red Cell Distribution Width 21 % (10-15); White Blood Count 4.2 10^3/uL (3.5-10.8)
[2019-06-09 11:07] LABS: ABS Eosinophils 0.4 10^3/ul (0-0.6); ABS Lymphocytes 0.3 10^3/ul (1.0-4.8); ABS Monocytes 0.6 10^3/ul (0-0.8); Eosinophil % 9.7 %; Lymphocyte % 7.7 %
[2019-06-09 11:17] LABS: BUN/Creatinine Ratio 8.7 (8-20); Calcium 8.2 mg/dL (8.6-10.3); EGFR African American 12.4 (>60); EGFR Non-African American 10.2 (>60); Potassium 4.2 mmol/L (3.5-5.0)
--- NOTE | 2019-06-09 13:15 | PN ---
Subjective Date of Service: 06/09/19 Interval History: HOSPITALIST PROGRESS NOTE Patient seen and examined at bedside. Care reviewed and d/w Melina Vásquez RN. Last night events noted - patient was tachycardic and tachypneic last night. She offers no complaints today, but still has frequent coughing. Family History: Unchanged from Admission Social History: Unchanged from Admission Past Medical History: Unchanged from Admission Objective Active Medications: Acetaminophen (Tylenol Tab*) 650 mg PO Q4H PRN PRN Reason: PAIN-MILD/TEMP >/= 100.4 Last Admin: 06/09/19 08:04 Dose: 650 mg Atorvastatin Calcium (Lipitor*) 10 mg PO QPM [facility] Last Admin: 06/08/19 17:35 Dose: 10 mg Cetirizine HCl (Zyrtec*) 10 mg PO DAILY [facility] Last Admin: 06/09/19 08:04 Dose: Not Given Docusate Sodium (Colace Cap*) 100 mg PO BID [facility] Last Admin: 06/09/19 08:04 Dose: 100 mg Aztreonam 0.25 gm/ Sodium (Chloride) 50 mls @ 200 mls/hr IVPB Q12H [facility] Last Admin: 06/09/19 02:43 Dose: 200 mls/hr Metronidazole/Sodium Chloride (Flagyl 500 Mg Ivpb*) 500 mg in 100 mls @ 100 mls /hr IVPB Q12H [facility] Last Admin: 06/09/19 10:33 Dose: 100 mls/hr Lactobacillus Rhamnosus (Lactobacillus Acidophilus*) 1 tab PO DAILY [facility] Last Admin: 06/09/19 08:04 Dose: 1 tab Metoprolol Succinate (Toprol Xl Tab*) 100 mg PO DAILY [facility] Last Admin: 06/09/19 08:04 Dose: 100 mg Midodrine (Midodrine) 5 mg PO BID [facility]; Protocol Last Admin: 06/09/19 08:04 Dose: 5 mg Montelukast Sodium (Singulair Tab*) 10 mg PO DAILY [facility] Last Admin: 06/09/19 08:04 Dose: Not Given Oxybutynin Chloride (Ditropan Xl Tab*) 5 mg PO DAILY [facility] Last Admin: 06/09/19 08:04 Dose: 5 mg Pharmacy Consult (Vancomycin Per Pharmacy*) 1 note FOLLOW UP . PRN PRN Reason: PER PROTOCOL Pharmacy Consult (Vancomycin - Dialysis Dosing*) 1 note FOLLOW UP . [facility] Pharmacy Profile Note (Vancomycin Trough Check) 1 note FOLLOW UP 0600 ONE Stop: 06/10/19 06:01 Sevelamer Carbonate (Renvela Tab*) 2,400 mg PO TID WITH MEALS [facility] Last Admin: 06/09/19 12:39 Dose: Not Given Vital Signs - 8 hr 06/09/19 06/09/19 06/09/19 07:09 08:00 11:06 Temperature 97.6 F 98.4 F Pulse Rate 114 97 Respiratory 28 28 24 Rate Blood Pressure 122/75 111/54 (mmHg) O2 Sat by Pulse 93 97 Oximetry Oxygen Devices in Use Now: None Appearance: Elderly lady sitting up in bed in NAD Eyes: No Scleral Icterus Ears/Nose/Mouth/Throat: Mucous Membranes Moist Neck: Trachea Midline Respiratory: Symmetrical Chest Expansion and Respiratory Effort, - - BS+ bilaterally with crackles on the right Cardiovascular: - - Normal S1 and S2, irregularly irregular Abdominal: NL Sounds; No Tenderness; No Distention Extremities: - - RUE mild erythema of AV fistula, no open areas or drainage Neurological: Alert and Oriented x 3, NL Muscle Strength and Tone Result Diagrams: 06/09/19 10:54 06/09/19 10:54 Assess/Plan/Problems-Billing Assessment: Mrs Zarate is a 74yo F with PMH of ESRD on HD, polycystic kidney disease, HTN, HLD, PAF, anemia of chronic disease who presented to ED with worsening RUE/AVF cellulitis. - Patient Problems (1) Dysphagia Comment: - Patient was having difficulties with solids - diet changed to pureed. - Awaiting Speech pathology evaluation. (2) Aspiration pneumonia Comment: - Patient was tachypneic and more tachycardic overnight. - CxR reviewed and reveals RML infiltrate suggestive of aspiration. - Will continue Vanco/Aztreonam and add Metronidazole. (3) Cellulitis of right upper extremity Comment: - Overlying thrombosed AV fistula. - CT RUE showed no abscess, just cellulitis. 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 Increased thrombosis of the venous outflow tract with approximate 50% thrombosis of the lumen compared with 30% previously. In addition there is hematoma either within the wall of the vein or immediately adjacent to the vein in the subcutaneous tissue plane increased now measuring up to 1.3 cm." Will need Nephrology follow up to see when she can have any AV fistula intervention. - Continue Vancomycin and Aztreonam. - ID consult requested. (4) Atrial fibrillation Comment: - Continue Metoprolol. - Off anticoagulation due to thigh hematoma and anemia on prior admission in April 2019. (5) ESRD on hemodialysis Comment: - Being dyalised through Permacath. - Continue as scheduled. (6) DVT prophylaxis Comment: - SCDs (7) Full code status Status and Disposition: Inpatient.
[2019-06-09] MEDS: Atorvastatin* 10 MG TAB PO SCH (18:31)
[2019-06-10] MEDS: AZTREONAM IVPB SCH ×2 (02:17→14:32)
[2019-06-10] MEDS: NS 0.9% IVPB SCH ×2 (02:17→14:32)
[2019-06-10] MEDS ORDERED: Vancomycin Trough Check NOTE FOLLOW UP ONE (06:00)
[2019-06-10 06:40] LABS: EGFR Non-African American 9.1 (>60); Vancomycin Trough 19.2 mcg/mL
[2019-06-10] MEDS: Oxybutynin XL TAB* 5 MG PO SCH (08:56)
[2019-06-10] MEDS: Sevelamer TAB* 800 MG PO SCH ×3 (08:56→17:50)
[2019-06-10] MEDS: Montelukast Sodium TAB* 10 MG PO SCH (08:56)
[2019-06-10] MEDS: Metoprolol Succinate XL TAB* 100 MG PO SCH (08:56)
[2019-06-10] MEDS: Cetirizine* 10 MG TAB PO SCH (08:56)
[2019-06-10] MEDS: Docusate CAP* 100 MG PO SCH ×2 (08:56→19:55)
[2019-06-10 09:25] LABS: C Reactive Protein 67.27 mg/L (<8.01)
[2019-06-10] MEDS: metroNIDAZOLE IV 500 MG/100ML* 500 MG/100 ML BAG IVPB SCH ×2 (09:31→23:08)
[2019-06-10] MEDS: Lactobacillus Acidophilus* 1 TAB PO SCH (09:34)
[2019-06-10] MEDS ORDERED: EPOETIN ALFA-EPBX * 10,000 UNIT/ML VIAL IV ONE (10:30)
--- NOTE | 2019-06-10 10:53 | PN ---
Subjective Date of Service: 06/10/19 Interval History: Patient stated that her right arm hurt at rest and to move. Mildly short of breath at rest. Feels chilled. Denies chest pain, palpitations, abdominal pain, nausea, vomiting, issues moving bowel or bladder. Family History: Unchanged from Admission Social History: Unchanged from Admission Past Medical History: Unchanged from Admission Objective Active Medications: Acetaminophen (Tylenol Tab*) 650 mg PO Q4H PRN PRN Reason: PAIN-MILD/TEMP >/= 100.4 Last Admin: 06/09/19 21:39 Dose: 650 mg Atorvastatin Calcium (Lipitor*) 10 mg PO QPM [facility] Last Admin: 06/09/19 18:31 Dose: 10 mg Cetirizine HCl (Zyrtec*) 10 mg PO DAILY [facility] Last Admin: 06/10/19 08:56 Dose: 10 mg Docusate Sodium (Colace Cap*) 100 mg PO BID [facility] Last Admin: 06/10/19 08:56 Dose: 100 mg Heparin Sodium (Porcine) (Heparin Dialysis Only(*)) 9,000 units DIALYSIS ONCE ONE Stop: 06/10/19 11:01 Aztreonam 0.25 gm/ Sodium (Chloride) 50 mls @ 200 mls/hr IVPB Q12H [facility] Last Admin: 06/10/19 02:17 Dose: 200 mls/hr Metronidazole/Sodium Chloride (Flagyl 500 Mg Ivpb*) 500 mg in 100 mls @ 100 mls /hr IVPB Q12H [facility] Last Admin: 06/10/19 09:31 Dose: 100 mls/hr Lactobacillus Rhamnosus (Lactobacillus Acidophilus*) 1 tab PO DAILY [facility] Last Admin: 06/10/19 09:34 Dose: 1 tab Metoprolol Succinate (Toprol Xl Tab*) 100 mg PO DAILY [facility] Last Admin: 06/10/19 08:56 Dose: 100 mg Midodrine (Midodrine) 5 mg PO BID [facility]; Protocol Last Admin: 06/10/19 08:56 Dose: 5 mg Montelukast Sodium (Singulair Tab*) 10 mg PO DAILY [facility] Last Admin: 06/10/19 08:56 Dose: 10 mg Oxybutynin Chloride (Ditropan Xl Tab*) 5 mg PO DAILY [facility] Last Admin: 06/10/19 08:56 Dose: 5 mg Pharmacy Consult (Vancomycin Per Pharmacy*) 1 note FOLLOW UP . PRN PRN Reason: PER PROTOCOL Pharmacy Consult (Vancomycin - Dialysis Dosing*) 1 note FOLLOW UP . [facility] Sevelamer Carbonate (Renvela Tab*) 2,400 mg PO TID WITH MEALS [facility] Last Admin: 06/10/19 08:56 Dose: 2,400 mg Vital Signs - 8 hr 06/10/19 06/10/19 06/10/19 03:15 07:15 08:00 Temperature 97.7 F 98.7 F Pulse Rate 105 117 Respiratory 20 26 26 Rate Blood Pressure 108/57 117/68 (mmHg) O2 Sat by Pulse 95 94 Oximetry Oxygen Devices in Use Now: None Appearance: This is a well developed, obese older woman seen sitting up in bed. Mild distress noted with movement. Eyes: No Scleral Icterus, PERRLA Ears/Nose/Mouth/Throat: NL Teeth, Lips, Gums, Clear Oropharnyx, Mucous Membranes Moist Neck: NL Appearance and Movements; NL JVP, Trachea Midline Respiratory: Symmetrical Chest Expansion and Respiratory Effort, Clear to Auscultation, - - Diminished in bases bilaterally. Cardiovascular: NL Sounds; No Murmurs; No JVD, RRR, No Edema Abdominal: NL Sounds; No Tenderness; No Distention Lymphatic: No Cervical Adenopathy Extremities: No Clubbing, Cyanosis - +2-3 pitting edema to bilateral lower extremities., - Skin: No Nodules or Sclerosis, - - Skin over right upper extremity fistula is tight, shiny, deep red/purple and hot to touch. Neurological: Alert and Oriented x 3 Lines/Tubes/Other Access: Clean, Dry and Intact Peripheral IV, Clean, Dry and Intact Other Access - AV fistula to right upper extremity. Tunneled dialysis catheter to right upper chest wall. Result Diagrams: 06/09/19 10:54 06/10/19 06:05 Microbiology and Other Data: Microbiology 06/07/19 12:40 Aerobic Blood Culture - Preliminary Blood Arterial No Growth Day 1 Anaerobic Blood Culture - Preliminary No Growth Day 1 06/07/19 12:40 Aerobic Blood Culture - Preliminary Blood Arterial No Growth Day 1 Anaerobic Blood Culture - Preliminary No Growth Day 1 Assess/Plan/Problems-Billing Assessment: Mrs Zarate is a 74yo F with PMH of ESRD on HD, polycystic kidney disease, HTN, HLD, PAF, anemia of chronic disease who presented to ED with worsening RUE/AVF cellulitis. - Patient Problems (1) Aspiration pneumonia Current Visit: Yes Status: Acute Code(s): J69.0 - PNEUMONITIS DUE TO INHALATION OF FOOD AND VOMIT SNOMED Code(s): 647405456 Comment: - Continues to be tachypneic and tachycardic, though less so than the previous day. - CxR reviewed and reveals RML infiltrate suggestive of aspiration. - Will continue Vanco/Aztreonam and Metronidazole. (2) Cellulitis of right upper extremity Current Visit: Yes Status: Acute Code(s): L03.113 - CELLULITIS OF RIGHT UPPER LIMB SNOMED Code(s): 382389358 Comment: - Overlying thrombosed AV fistula. - CT RUE showed no abscess, just cellulitis. 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 Increased thrombosis of the venous outflow tract with approximate 50% thrombosis of the lumen compared with 30% previously. In addition there is hematoma either within the wall of the vein or immediately adjacent to the vein in the subcutaneous tissue plane increased now measuring up to 1.3 cm." - Continue Vancomycin and Aztreonam as per ID. -Dr. George approved restarting her apixaban in light of the worsening AV thrombus. Will start today. (3) DVT prophylaxis Current Visit: Yes Status: Acute Code(s): EUB3043 - SNOMED Code(s): 975016659 Comment: - SCDs (4) Dysphagia Current Visit: Yes Status: Acute Code(s): R13.10 - DYSPHAGIA, UNSPECIFIED SNOMED Code(s): 75785438 Comment: - Patient was having difficulties with solids - diet changed to pureed. - Awaiting Speech pathology evaluation. (5) Full code status Current Visit: Yes Status: Acute Code(s): Z78.9 - OTHER SPECIFIED HEALTH STATUS SNOMED Code(s): 611396241 (6) Atrial fibrillation Current Visit: Yes Status: Chronic Code(s): I48.91 - UNSPECIFIED ATRIAL FIBRILLATION SNOMED Code(s): 21009898 Comment: - Continue Metoprolol. - Off anticoagulation due to thigh hematoma and anemia on prior admission in April 2019. (7) ESRD on hemodialysis Current Visit: Yes Status: Chronic Code(s): N18.6 - END STAGE RENAL DISEASE ; Z99.2 - DEPENDENCE ON RENAL DIALYSIS SNOMED Code(s): 467109856 Comment: - Being dyalised through Permacath. - Continue as scheduled. (8) Anemia Current Visit: No Status: Acute Code(s): D64.9 - ANEMIA, UNSPECIFIED SNOMED Code(s): 587667136 Comment: Acute blood loss anemia due to acute bleed in right thigh Status post 3 U PRBC transfusion with Hb now stable stool heme+ without e/o blood loss. Dr. Apodaca d/w Pt and sister who agree that unless pt has obvious signs of bleeding, of Hb significatnly lower, no further w/u is necessary. repeat stool heme negative Status and Disposition: Inpatient.
[2019-06-10] MEDS ORDERED: Heparin DIALYSIS ONLY(*) 1,000 UNITS/ML VIAL DIALYSIS ONE (11:00)
--- NOTE | 2019-06-10 11:26 | CONS ---
CONSULTATION REPORT: DATE OF CONSULT: 06/10/19 REQUESTING PROVIDER: JOANIE Acevedo. CONSULTING SERVICE: Infectious Disease. REASON FOR CONSULT: Right arm cellulitis. IMPRESSION: 1. Presence of right upper extremity arteriovenous fistula with aneurysmal dilation and thrombus which is extending and complicated by cellulitis with some worsening erythema and swelling. This may be more on the basis of vascular abnormality than worsening infection. Her arm is improving since more attention to elevation in addition to gram-negative coverage. 2. Endstage renal disease, on hemodialysis via right upper extremity arteriovenous fistula and now via tunneled catheter in the right chest. 3. Morbid obesity. 4. Polycystic kidney disease. 5. PENICILLIN allergy which caused vomiting, CEPHALEXIN caused rash, BACTRIM caused bleeding. PLAN/RECOMMENDATIONS: 1. Continue vancomycin goal trough 15 to 20 and aztreonam dosed for hemodialysis as well as Flagyl added for possible aspiration pneumonia. 2. Question of anticoagulation for extending thrombus. HISTORY OF PRESENT ILLNESS: This is a 74-year-old woman with endstage renal disease, on hemodialysis, developed right upper extremity swelling and redness about her fistula early in May, found to have a thrombus. Improved on vancomycin and was discharged on the same and had been receiving at hemodialysis. Then was noted to have worsening swelling and redness. So, was sent back to the hospital on 06/07/19. Her CRP at that time was 96. When she arrived on 05/30/19, it was 74. She has not had a recheck here. She has been afebrile. She and her nurse think that the swelling and redness are decreased around her wrist and then around the fistula as well. She notes pain when trying to lift her arm and the pain is centered around the fistula, no pain in her shoulder. She does not have numbness or tingling in her hand. PAST MEDICAL HISTORY: 1. Endstage renal disease, on hemodialysis. She has a right upper extremity fistula and now a right tunneled catheter. 2. Polycystic kidney disease. 3. Hypertension. 4. Hyperlipidemia. 5. Morbid obesity. 6. Paroxysmal atrial fibrillation. 7. Anemia of chronic disease. 8. Status post hernia repair. MEDICATIONS: 1. Tylenol. 2. Lipitor. 3. Aztreonam 0.25 g every 12 hours. 4. Cetirizine. 5. Lactobacillus. 6. Metoprolol. 7. Flagyl 500 mg every 12 hours. 8. Midodrine. 9. Sevelamer. 10. Singulair. 11. Oxybutynin. 12. Vancomycin post dialysis. ALLERGIES: PENICILLIN caused vomiting, KEFLEX caused rash, BACTRIM caused elevated INR and bleeding. FAMILY HISTORY: Both parents had MIs, father had lung cancer. SOCIAL HISTORY: She lives in [place] by herself in a senior apartment. She is a nonsmoker, does not use alcohol. [facility] REVIEW OF SYSTEMS: All negative except as noted above to a 14-point review of systems. PHYSICAL EXAM: Vital Signs: Temperature 36.5, heart rate 100, respiration rate 20, blood pressure 108/57, oxygen saturation 95% on room air. General: She is awake, not in distress. Neurologic: She is oriented x3, follows all commands, moves all extremities. HEENT: There is no conjunctival hemorrhage. Oropharynx without lesions. Neck is supple without mass. Heart is regular without murmurs, rubs, or gallops. Lungs are clear to auscultation bilaterally. Abdomen: Soft, nontender, nondistended. Bowel sounds present. Skin: There is no rash or splinter hemorrhage. Musculoskeletal: There is diffuse right upper extremity edema which is nonpitting from the wrist up to the shoulder. There is faint erythema in the same distribution. There is no tenderness except about the proximal AV fistula where there is some dilation, no crepitus or fluctuance. I do not palpate a thrill. Sensation is intact to light touch in the hand. DIAGNOSTIC STUDIES/LAB DATA: White blood cell count 4, hemoglobin 8.2, platelets 180, creatinine 4, potassium 4.2 yesterday. Please see impressions and recommendations outlined above. I discussed with Lexus Mendiola NP. Thanks for asking me to see Ms. Trivedi in consultation. [id number]/[facility] #: [id number] [facility]PITALAshley
[2019-06-10 12:17] LABS: Hepatitis B Surface Antigen Nonreactive (Nonreactive)
--- NOTE | 2019-06-10 13:55 | PN ---
Progress Note - Progress Note Date of Service: 06/10/19 Note: Inpatient Nephrology FU Note: Performed by Dr. Skyler Bruner, [facility] Nephrology 06/10/2018 74 yo WF ESRD on HD, via Rt IJ TDC, PKD, HTN, Anemia of ESRD. Has an Rt BC Aneurysmal AVF, clotting, with no thrill or audible bruit, except for some palpable pulsations both ends. Has been getting IV ABx, Vancomycin and Aztreonam. I personally believe this is thrombophlebitis rather than cellulitis. Her access has to be abandoned and portably ligated. Had HD via TDC, dimple well Vascular US showed increased thrombosis of the venous outflow tract, 50% thrombosis of the lumen compared with 30% previously Active Medications: Acetaminophen (Tylenol Tab*) 650 mg PO Q4H PRN PRN Reason: PAIN-MILD/TEMP >/= 100.4 Last Admin: 06/09/19 21:39 Dose: 650 mg Apixaban (Eliquis*) 2.5 mg PO BID [facility] Atorvastatin Calcium (Lipitor*) 10 mg PO QPM [facility] Last Admin: 06/09/19 18:31 Dose: 10 mg Cetirizine HCl (Zyrtec*) 10 mg PO DAILY [facility] Last Admin: 06/10/19 08:56 Dose: 10 mg Docusate Sodium (Colace Cap*) 100 mg PO BID [facility] Last Admin: 06/10/19 08:56 Dose: 100 mg Aztreonam 0.25 gm/ Sodium (Chloride) 50 mls @ 200 mls/hr IVPB Q12H [facility] Last Admin: 06/10/19 02:17 Dose: 200 mls/hr Metronidazole/Sodium Chloride (Flagyl 500 Mg Ivpb*) 500 mg in 100 mls @ 100 mls /hr IVPB Q12H [facility] Last Admin: 06/10/19 09:31 Dose: 100 mls/hr Vancomycin HCl 750 mg/ Sodium (Chloride) 250 mls @ 166.667 mls/hr IVPB ONCE ONE Stop: 06/10/19 17:29 Lactobacillus Rhamnosus (Lactobacillus Acidophilus*) 1 tab PO DAILY [facility] Last Admin: 06/10/19 09:34 Dose: 1 tab Metoprolol Succinate (Toprol Xl Tab*) 100 mg PO DAILY [facility] Last Admin: 06/10/19 08:56 Dose: 100 mg Midodrine (Midodrine) 5 mg PO BID [facility]; Protocol Last Admin: 06/10/19 08:56 Dose: 5 mg Montelukast Sodium (Singulair Tab*) 10 mg PO DAILY [facility] Last Admin: 06/10/19 08:56 Dose: 10 mg Oxybutynin Chloride (Ditropan Xl Tab*) 5 mg PO DAILY [facility] Last Admin: 06/10/19 08:56 Dose: 5 mg Pharmacy Consult (Vancomycin Per Pharmacy*) 1 note FOLLOW UP . PRN PRN Reason: PER PROTOCOL Pharmacy Consult (Vancomycin - Dialysis Dosing*) 1 note FOLLOW UP . [facility] Pharmacy Consult (Vancomycin Random Level*) 1 note FOLLOW UP 0600 ONE Stop: 06/12/19 06:01 Sevelamer Carbonate (Renvela Tab*) 2,400 mg PO TID WITH MEALS [facility] Last Admin: 06/10/19 08:56 Dose: 2,400 mg Objective: .Vital Signs: Temp Pulse Resp BP Pulse Ox 98.7 F 117 26 117/68 94 06/10/19 07:15 06/10/19 07:15 06/10/19 08:00 06/10/19 07:15 06/10/19 07:15 .Extremities: Rt BC Aneurysmal AVF, no thrill or bruit, swollen, red and tender. Swollen Rt forearm ++ LE edema Rt IJ TDC Laboratory Reviewed Sodium 133 mmol/L (135-145) L 06/09/19 10:54 Potassium 4.2 mmol/L (3.5-5.0) 06/09/19 10:54 BUN 42 mg/dL (6-24) H 06/10/19 06:05 Creatinine 4.71 mg/dL (0.51-0.95) H 06/10/19 06:05 Calcium 8.2 mg/dL (8.6-10.3) L 06/09/19 10:54 AST 30 U/L (13-39) 06/08/19 05:57 ALT 16 U/L (7-52) 06/08/19 05:57 Assessment and Plan: ESRD, tolerated HD well HD via Rt IJ TDC AVF has to be abandoned, possibly ligated. I believe it's thrombophlebitis rather than infection. Try symptomatic pain control with NSAIDs. Electrolytes Ok
[2019-06-10] MEDS ORDERED: Vancomycin(*) 750 MG in NS 0.9% 250 ML* 250 ML IVPB ONE (16:00)
[2019-06-10] MEDS: Atorvastatin* 10 MG TAB PO SCH (17:50)
[2019-06-10] MEDS: Apixaban* 2.5 MG TAB PO SCH (19:55)
[2019-06-10] MEDS: Metoprolol Tartrate TAB* 50 mg PO SCH (23:14)
[2019-06-10] MEDS: Acetaminophen TAB* 325 MG PO PRN (23:14)
[2019-06-11] MEDS: NS 0.9% IVPB SCH ×2 (03:13→14:40)
[2019-06-11] MEDS: AZTREONAM IVPB SCH ×2 (03:13→14:40)
[2019-06-11 07:52] LABS: ABS Basophils 0.1 10^3/ul (0-0.2); ABS Eosinophils 0.4 10^3/ul (0-0.6); ABS Lymphocytes 0.5 10^3/ul (1.0-4.8); ABS Monocytes 0.7 10^3/ul (0-0.8); ABS Neutrophils 3.9 10^3/ul (1.5-7.7); Eosinophil % 7.1 %; Hematocrit 27 % (35-47); Hemoglobin 8.9 g/dL (12.0-16.0); Lymphocyte % 9.4 %; Mean Corpuscular HGB Conc 34 g/dL (31-36); Mean Corpuscular Hemoglobin 33 pg (27-31); Mean Corpuscular Volume 97 fL (80-97); Mean Platelet Volume 8.1 fL (7.4-10.4); Platelet Count 220 10^3/uL (150-450); Red Blood Count 2.73 10^6 /uL (3.70-4.87); Red Cell Distribution Width 21 % (10-15); White Blood Count 5.6 10^3/uL (3.5-10.8)
[2019-06-11 08:08] LABS: BUN/Creatinine Ratio 7.2 (8-20); Calcium 8.2 mg/dL (8.6-10.3); EGFR Non-African American 12.4 (>60); Potassium 4.1 mmol/L (3.5-5.0)
[2019-06-11] MEDS: Sevelamer TAB* 800 MG PO SCH ×3 (08:41→17:37)
[2019-06-11] MEDS: Oxybutynin XL TAB* 5 MG PO SCH (09:01)
[2019-06-11] MEDS: Metoprolol Tartrate TAB* 50 mg PO SCH ×2 (09:02→20:44)
[2019-06-11] MEDS: Lactobacillus Acidophilus* 1 TAB PO SCH (09:05)
[2019-06-11] MEDS: Cetirizine* 10 MG TAB PO SCH (09:06)
[2019-06-11] MEDS: Montelukast Sodium TAB* 10 MG PO SCH (09:06)
[2019-06-11] MEDS: Apixaban* 2.5 MG TAB PO SCH (09:07)
[2019-06-11] MEDS: Docusate CAP* 100 MG PO SCH ×2 (09:07→20:44)
--- NOTE | 2019-06-11 09:08 | PN ---
Progress Note - Progress Note Date of Service: 06/11/19 SOAP: Subjective: CC: Right arm infection HPI: Ms. Zarate is a 74 yo female with PMH significant for ESRD on hemodialysis, polycystic kidney disease, HTN, HLD, morbid obesity, P Afib, and anemia of chronic disease; who presented to the hospital with increased redness and swelling in her right arm while being treated with IV vancomycin for a right arm cellulitis. Denies fever, chills, nausea, vomiting, or diarrhea. She reports that she felt feverish last night and had some sweating during the night (no documented fever overnight). She feels that the redness and swelling in the right arm are improving. She states that she urinates without difficulty. Objective: Vital Signs - 8 hr 06/11/19 06/11/19 06/11/19 03:45 07:21 07:40 Temperature 97.8 F 98 F Pulse Rate 97 61 Respiratory 20 30 Rate Blood Pressure 102/47 97/48 104/46 (mmHg) O2 Sat by Pulse 93 93 Oximetry Physical Exam: General: NAD, sitting up in bed Neurological: Alert and Oriented HEENT: Moist MM, no thrush Cardiovascular: Heart rate regular, no murmur Respiratory: Lung sounds clear Abdominal: Bowel sounds present; ABD soft, non tender and obese MSK: Able to move right elbow and wrist, some limited ROM due to edema. Diffuse edema in the right arm Skin: No rash. There is slight erythema in the right arm Laboratory Results - last 24 hr 06/08/19 06/10/19 06/10/19 05:57 06:05 11:00 BUN 42 H Creatinine 4.71 H Est GFR ( Amer) 11.0 Est GFR (Non-Af Amer) 9.1 C-Reactive Protein 67.27 H Vancomycin Trough 19.2 Hep Bs Antigen Nonreactive 06/10/19 06/11/19 06/11/19 11:00 07:18 07:18 WBC 5.6 RBC 2.73 L Hgb 8.9 L Hct 27 L MCV 97 MCH 33 H MCHC 34 RDW 21 H Plt Count 220 MPV 8.1 Neut % (Auto) 69.8 Lymph % (Auto) 9.4 [place] % (Auto) 12.7 Eos % (Auto) 7.1 Baso % (Auto) 1.0 Absolute Neuts (auto) 3.9 Absolute Lymphs (auto) 0.5 L Absolute Monos (auto) 0.7 Absolute Eos (auto) 0.4 Absolute Basos (auto) 0.1 Absolute Nucleated RBC 0.0 Nucleated RBC % 0.0 Sodium 134 L Potassium 4.1 Chloride 99 L Carbon Dioxide 27 Anion Gap 8 BUN 26 H Creatinine 3.60 H Est GFR ( Amer) 15.0 Est GFR (Non-Af Amer) 12.4 BUN/Creatinine Ratio 7.2 L Glucose 111 H Calcium 8.2 L C-Reactive Protein TSH 13.89 H Microbiology 06/07/19 12:40 Aerobic Blood Culture - Preliminary Blood Arterial No Growth Day 3 Anaerobic Blood Culture - Preliminary No Growth Day 3 06/07/19 12:40 Aerobic Blood Culture - Preliminary Blood Arterial No Growth Day 3 Anaerobic Blood Culture - Preliminary No Growth Day 3 Assessment: 1. 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 ? vascular abnormality vs worsening infection. Edema and erythema to the arm is improving. Afebrile and no leukocytosis. Blood cultures with no growth on day 3. 2. ESRD on hermodialysis. Previously using right AV fistula, now using right chest dialysis cath. 3. Morbid obesity. BMI 40.2 4. PCN allergy - caused vomiting, CEPHALEXIN caused rash, and BACTRIM caused bleeding. Plan: Discontinue Flagyl. Continue vancomycin, trough goal 15-20; aztreonam; for 2 more weeks. Encourage Pt to keep right arm elevated to assist with edema.
[2019-06-11 09:15] LABS: Free T4 1.08 ng/dL (0.61-1.12)
[2019-06-11] MEDS: metroNIDAZOLE IV 500 MG/100ML* 500 MG/100 ML BAG IVPB SCH (10:04)
--- NOTE | 2019-06-11 11:43 | PN ---
Subjective Date of Service: 06/11/19 Interval History: Patient mentions she felt diaphoretic early this morning but this has resolved. Denies rigors. Denies chest pain, abd pain at rest. She denies dyspnea though is breathing with pursed lips and is noted to be tachypneic on exam. Right arm pain comes and goes and is overall controlled. Family History: Unchanged from Admission Social History: Unchanged from Admission Past Medical History: Unchanged from Admission Objective Active Medications: Acetaminophen (Tylenol Tab*) 650 mg PO Q4H PRN PRN Reason: PAIN-MILD/TEMP >/= 100.4 Last Admin: 06/10/19 23:14 Dose: 650 mg Apixaban (Eliquis*) 2.5 mg PO BID [facility] Last Admin: 06/11/19 09:07 Dose: 2.5 mg Atorvastatin Calcium (Lipitor*) 10 mg PO QPM [facility] Last Admin: 06/10/19 17:50 Dose: 10 mg Cetirizine HCl (Zyrtec*) 10 mg PO DAILY [facility] Last Admin: 06/11/19 09:06 Dose: Not Given Docusate Sodium (Colace Cap*) 100 mg PO BID [facility] Last Admin: 06/11/19 09:07 Dose: 100 mg Aztreonam 0.25 gm/ Sodium (Chloride) 50 mls @ 200 mls/hr IVPB Q12H [facility] Last Admin: 06/11/19 03:13 Dose: 200 mls/hr Metronidazole/Sodium Chloride (Flagyl 500 Mg Ivpb*) 500 mg in 100 mls @ 100 mls /hr IVPB Q12H [facility] Last Admin: 06/11/19 10:04 Dose: 100 mls/hr Lactobacillus Rhamnosus (Lactobacillus Acidophilus*) 1 tab PO DAILY [facility] Last Admin: 06/11/19 09:05 Dose: 1 tab Metoprolol Tartrate (Lopressor Tab*) 75 mg PO BID [facility] Last Admin: 06/11/19 09:02 Dose: 75 mg Midodrine (Midodrine) 5 mg PO BID [facility]; Protocol Last Admin: 06/11/19 09:01 Dose: 5 mg Montelukast Sodium (Singulair Tab*) 10 mg PO DAILY [facility] Last Admin: 06/11/19 09:06 Dose: 10 mg Oxybutynin Chloride (Ditropan Xl Tab*) 5 mg PO DAILY [facility] Last Admin: 06/11/19 09:01 Dose: 5 mg Pharmacy Consult (Vancomycin Per Pharmacy*) 1 note FOLLOW UP . PRN PRN Reason: PER PROTOCOL Pharmacy Consult (Vancomycin - Dialysis Dosing*) 1 note FOLLOW UP . [facility] Pharmacy Consult (Vancomycin Random Level*) 1 note FOLLOW UP 0600 ONE Stop: 06/12/19 06:01 Sevelamer Carbonate (Renvela Tab*) 2,400 mg PO TID WITH MEALS [facility] Last Admin: 06/11/19 08:41 Dose: 2,400 mg Vital Signs - 8 hr 06/11/19 06/11/19 06/11/19 03:45 07:21 07:40 Temperature 97.8 F 98 F Pulse Rate 97 61 Respiratory 20 30 Rate Blood Pressure 102/47 97/48 104/46 (mmHg) O2 Sat by Pulse 93 93 Oximetry 06/11/19 08:00 Temperature Pulse Rate Respiratory 26 Rate Blood Pressure (mmHg) O2 Sat by Pulse Oximetry Oxygen Devices in Use Now: None Appearance: Elderly, obese, white female, laying upright in bed, appearing comfortable and in NAD Eyes: No Scleral Icterus, - - PERRL Ears/Nose/Mouth/Throat: Mucous Membranes Moist Neck: Trachea Midline Respiratory: Symmetrical Chest Expansion and Respiratory Effort, - - right lower lobe diminished lung sounds Cardiovascular: NL Sounds; No Murmurs; No JVD, RRR Abdominal: - - abd tender to palpation in upper quadrants Extremities: - - significant aneurysm of the AV fistula at right AC; pitting edema to right forearm and hand; no significant erythema Skin: No Rash or Ulcers Neurological: Alert and Oriented x 3 Result Diagrams: 06/11/19 07:18 06/11/19 07:18 Microbiology and Other Data: Microbiology 06/07/19 12:40 Aerobic Blood Culture - Preliminary Blood Arterial No Growth Day 1 Anaerobic Blood Culture - Preliminary No Growth Day 1 06/07/19 12:40 Aerobic Blood Culture - Preliminary Blood Arterial No Growth Day 1 Anaerobic Blood Culture - Preliminary No Growth Day 1 Assess/Plan/Problems-Billing Assessment: Mrs Zarate is a 74yo F with PMH of ESRD on HD, polycystic kidney disease, HTN, HLD, PAF, anemia of chronic disease who presented to ED with worsening RUE/AVF cellulitis. - Patient Problems (1) Superficial venous thrombosis of right upper extremity Current Visit: Yes Status: Acute Code(s): I82.611 - ACUTE EMBOLISM AND THOMBOS OF SUPERFIC VEINS OF R UP EXTREM SNOMED Code(s): 613609665 Comment: -thrombosis of right cephalic vein proximal to AV fistula -associated erythema from presentation could potentially be a thrombophlebitis though possibly a component of cellulitis -will continue vanco and aztrenam and d/c flagyl per ID recommendations -will start NSAID if component of thrombophlebitis, continu elevation of RUE -erythema improved, edema is persistent -potentially will d/c apixaban if PE ruled out on CTA (2) Pleural effusion Current Visit: Yes Status: Acute Code(s): J90 - PLEURAL EFFUSION, NOT ELSEWHERE CLASSIFIED SNOMED Code(s): 70124860 Comment: -right sided pleural effusion demonstrated since 06/09/19 CXR. I am not convinced of aspiration PNA, though the patient does have dysphagia per BLOOD DONOR RECRUITER. CT chest demonstrates moderate sized pleural effusion -potentially may need thoracentesis however was started on apixaban yesterday -worsening tachypnea today -mechanical ground diet per BLOOD DONOR RECRUITER (3) Atrial fibrillation Current Visit: Yes Status: Chronic Code(s): I48.91 - UNSPECIFIED ATRIAL FIBRILLATION SNOMED Code(s): 77428304 Comment: - Rate controlled - Continue Metoprolol - Off anticoagulation due to thigh hematoma and anemia on prior admission in April 2019 (4) ESRD on hemodialysis Current Visit: Yes Status: Chronic Code(s): N18.6 - END STAGE RENAL DISEASE ; Z99.2 - DEPENDENCE ON RENAL DIALYSIS SNOMED Code(s): 782166309 Comment: - Dialysis through Permacath - Continue HD as scheduled, continue sevelamer - Cr at baseline (5) Anemia of chronic disease Current Visit: Yes Status: Acute Code(s): D63.8 - ANEMIA IN OTHER CHRONIC DISEASES CLASSIFIED ELSEWHERE SNOMED Code(s): 740066853 Comment: -baseline (6) Hypotension Current Visit: Yes Status: Acute Comment: -related to ESRD -continue midodrine (7) Subclinical hypothyroidism Current Visit: Yes Status: Acute Code(s): E03.9 - HYPOTHYROIDISM, UNSPECIFIED SNOMED Code(s): 83425150 Comment: -no intervention needed (8) DVT prophylaxis Current Visit: Yes Status: Acute Code(s): JCE5241 - SNOMED Code(s): 815318076 Comment: - SCDs (9) Full code status Current Visit: Yes Status: Acute Code(s): Z78.9 - OTHER SPECIFIED HEALTH STATUS SNOMED Code(s): 397927175 Status and Disposition: Inpatient.
[2019-06-11] MEDS ORDERED: Ondansetron ODT TAB* 4 MG SL PRN (12:23)
[2019-06-11] MEDS ORDERED: Benzonatate CAP* 100 MG PO PRN (12:24)
[2019-06-11] MEDS: Atorvastatin* 10 MG TAB PO SCH (17:37)
[2019-06-11] MEDS: guaiFENesin ER TAB 600 MG PO SCH (20:44)
[2019-06-11] MEDS ORDERED: Apixaban* 2.5 MG TAB PO SCH (21:00)
[2019-06-12] MEDS: NS 0.9% IVPB SCH ×2 (03:58→14:58)
[2019-06-12] MEDS: AZTREONAM IVPB SCH ×2 (03:58→14:58)
[2019-06-12] MEDS ORDERED: Iodixanol* (CONTRAST) 320 MG/ML 100 ML SDV IV ONE (06:44)
--- NOTE | 2019-06-12 09:25 | PN ---
Progress Note - Progress Note Date of Service: 06/12/19 SOAP: Subjective: CC: Right arm infection HPI: Ms. Zarate is a 74 yo female with PMH significant for ESRD on hemodialysis, polycystic kidney disease, HTN, HLD, morbid obesity, P Afib, and anemia of chronic disease; who presented to the hospital with increased redness and swelling in her right arm while being treated with IV vancomycin for a right arm cellulitis. Denies fever, chills, nausea, vomiting, or diarrhea. She reports sweating during the night (no documented fever overnight). She states that she urinates without difficulty. Eating without difficulty, she reports coughing awhile after eating. Noted to have an occasional moist cough. Objective: Vital Signs - 8 hr 06/12/19 03:04 Temperature 98.5 F Pulse Rate 63 Respiratory 20 Rate Blood Pressure 108/53 (mmHg) O2 Sat by Pulse 92 Oximetry Physical Exam: General: NAD, sitting up in bed Neurological: Alert and Oriented HEENT: Moist MM, no thrush Cardiovascular: Heart rate regular, no murmur. Bilateral LE edema 1-2+ Respiratory: Lung sounds clear Abdominal: Bowel sounds present; ABD soft, non tender and obese MSK: Able to move right elbow and wrist, some limited ROM due to edema. Diffuse edema in the right arm, 2-3+ Skin: No rash. There is slight erythema in the right arm near the elbow. She noted to have 2 aneurysms in the right arm, the larger/more distal one with purplish discoloration and the proximal/smaller one with slight erythema. Laboratory Tests 06/10/19 06/11/19 06/11/19 06:05 07:18 07:18 WBC 5.6 Hgb 8.9 L Hct 27 L Plt Count 220 Sodium 134 L Potassium 4.1 Chloride 99 L Carbon Dioxide 27 BUN 26 H Creatinine 3.60 H Glucose 111 H C-Reactive Protein 67.27 H Microbiology 06/07/19 12:40 Aerobic Blood Culture - Preliminary Blood Arterial No Growth Day 4 Anaerobic Blood Culture - Preliminary No Growth Day 4 06/07/19 12:40 Aerobic Blood Culture - Preliminary Blood Arterial No Growth Day 4 Anaerobic Blood Culture - Preliminary No Growth Day 4 Assessment: 1. 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 ? vascular abnormality vs worsening infection. Edema and erythema to the arm is improving. Afebrile and no leukocytosis. Blood cultures with no growth on day 4. 2. ESRD on hermodialysis. Previously using right AV fistula, now using right chest dialysis cath. 3. Morbid obesity. BMI 40.2 4. PCN allergy - caused vomiting, CEPHALEXIN caused rash, and BACTRIM caused bleeding. Plan: Continue vancomycin, trough goal 15-20; aztreonam; for 2 more weeks; Day 2/14. Encourage Pt to keep right arm elevated to assist with edema. Will get a repeat CRP with the next lab draw.
[2019-06-12] MEDS: Cetirizine* 10 MG TAB PO SCH (09:31)
[2019-06-12] MEDS: Vancomycin Random Level* NOTE FOLLOW UP ONE ×2 (09:31→12:00)
[2019-06-12] MEDS: Montelukast Sodium TAB* 10 MG PO SCH (09:32)
[2019-06-12] MEDS: Metoprolol Tartrate TAB* 50 mg PO SCH ×2 (09:36→20:29)
[2019-06-12] MEDS: Sevelamer TAB* 800 MG PO SCH ×3 (09:36→17:07)
[2019-06-12] MEDS: guaiFENesin ER TAB 600 MG PO SCH ×2 (09:37→20:29)
[2019-06-12] MEDS: Docusate CAP* 100 MG PO SCH ×2 (09:37→20:29)
[2019-06-12] MEDS ORDERED: EPOETIN ALFA-EPBX * 10,000 UNIT/ML VIAL IV ONE (10:45)
[2019-06-12] MEDS ORDERED: Heparin DIALYSIS ONLY(*) 1,000 UNITS/ML VIAL DIALYSIS ONE (11:00)
--- NOTE | 2019-06-12 12:18 | PN ---
Progress Note - Progress Note Date of Service: 06/12/19 Note: Inpatient Nephrology FU Note: Performed by Dr. Skyler Bruner, [facility] Nephrology 06/12/2019 74 yo WF ESRD on HD, via Rt IJ TDC, PKD, HTN, Anemia of ESRD. Has an Rt BC Aneurysmal AVF, clotted. Swelling and redness slightly better. On IV ABx, Vancomycin and Aztreonam. My impression was thrombophlebitis rather than cellulitis. Had HD via TDC, works well Active Medications: Acetaminophen (Tylenol Tab*) 650 mg PO Q4H PRN PRN Reason: PAIN-MILD/TEMP >/= 100.4 Last Admin: 06/10/19 23:14 Dose: 650 mg Atorvastatin Calcium (Lipitor*) 10 mg PO QPM [facility] Last Admin: 06/11/19 17:37 Dose: 10 mg Benzonatate (Tessalon Cap*) 100 mg PO BID PRN PRN Reason: COUGH Cetirizine HCl (Zyrtec*) 10 mg PO DAILY [facility] Last Admin: 06/12/19 09:31 Dose: Not Given Docusate Sodium (Colace Cap*) 100 mg PO BID [facility] Last Admin: 06/12/19 09:37 Dose: 100 mg Guaifenesin (Mucinex*) 600 mg PO BID [facility] Last Admin: 06/12/19 09:37 Dose: 600 mg Aztreonam 0.25 gm/ Sodium (Chloride) 50 mls @ 200 mls/hr IVPB Q12H [facility] Last Admin: 06/12/19 03:58 Dose: 200 mls/hr Vancomycin HCl 750 mg/ Sodium (Chloride) 250 mls @ 166.667 mls/hr IVPB ONCE ONE Stop: 06/12/19 17:29 Lactobacillus Rhamnosus (Lactobacillus Acidophilus*) 1 tab PO DAILY [facility] Last Admin: 06/11/19 09:05 Dose: 1 tab Metoprolol Tartrate (Lopressor Tab*) 75 mg PO BID [facility] Last Admin: 06/12/19 09:36 Dose: 75 mg Midodrine (Midodrine) 5 mg PO BID [facility]; Protocol Last Admin: 06/12/19 09:36 Dose: 5 mg Montelukast Sodium (Singulair Tab*) 10 mg PO DAILY [facility] Last Admin: 06/12/19 09:32 Dose: Not Given Ondansetron HCl (Zofran Odt Tab*) 4 mg SL Q6H PRN PRN Reason: NAUSEA/VOMITING Oxybutynin Chloride (Ditropan Xl Tab*) 5 mg PO DAILY [facility] Last Admin: 06/11/19 09:01 Dose: 5 mg Pharmacy Consult (Vancomycin Per Pharmacy*) 1 note FOLLOW UP . PRN PRN Reason: PER PROTOCOL Pharmacy Consult (Vancomycin - Dialysis Dosing*) 1 note FOLLOW UP . [facility] Pharmacy Consult (Vancomycin Random Level*) 1 note FOLLOW UP 0600 ONE Stop: 06/14/19 06:01 Sevelamer Carbonate (Renvela Tab*) 2,400 mg PO TID WITH MEALS [facility] Last Admin: 06/12/19 09:36 Dose: 2,400 mg Objective: .Vital Signs: Temp Pulse Resp BP Pulse Ox 98.5 F 63 20 108/53 92 06/12/19 03:04 06/12/19 03:04 06/12/19 03:04 06/12/19 03:04 06/12/19 03:04 .Extremities: Rt BC Aneurysmal AVF, no thrill or bruit, swollen, red and tender, slightly better. Swollen Rt forearm, less than yesterday! ++ LE edema Rt IJ TDC Laboratory Reviewed Sodium 134 mmol/L (135-145) L 06/11/19 07:18 Potassium 4.1 mmol/L (3.5-5.0) 06/11/19 07:18 BUN 26 mg/dL (6-24) H 06/11/19 07:18 Creatinine 3.60 mg/dL (0.51-0.95) H 06/11/19 07:18 Calcium 8.2 mg/dL (8.6-10.3) L 06/11/19 07:18 AST 30 U/L (13-39) 06/08/19 05:57 ALT 16 U/L (7-52) 06/08/19 05:57 Assessment and Plan: She was seen and examined on HD, for ESRD HD Routine: MWF HD Duration: 3.0 Hr UF Goal: 3 L/Rx Vitals: BP: 120/70 HR: 75/m Blood Flow: 400 cc/min Dialysate Flow: 600 cc/min Bath: K: 2K Ca: 2.5Ca Na: 138 Hco3: 35 Temp: 36 C Dialyzer: Revaclear Max Access: Rt IJ TDC Meds with HD: Heparin Loading & Maintenance: 2000 then 1000 IU/Hr except last Hr IV EPO 10,000 u Tolerates HD well. No Intradialytic Hypotension.
[2019-06-12] MEDS: Oxybutynin XL TAB* 5 MG PO SCH (14:58)
[2019-06-12] MEDS: Lactobacillus Acidophilus* 1 TAB PO SCH (15:01)
[2019-06-12] MEDS ORDERED: Vancomycin(*) 750 MG in NS 0.9% 250 ML* 250 ML IVPB ONE (16:00)
[2019-06-12] MEDS: Atorvastatin* 10 MG TAB PO SCH (17:07)
--- NOTE | 2019-06-12 19:41 | PN ---
Subjective Date of Service: 06/12/19 Interval History: Patient is feeling more symptomatic of SOB today. Denies chest pain, fever/ chills, abd pain, dizziness/lightheadedness. Feels tired. We had extensive discussion with her and her sister. She ultimately is agreeable to thoracentesis and would like her sister to be present if possible. Family History: Unchanged from Admission Social History: Unchanged from Admission Past Medical History: Unchanged from Admission Objective Active Medications: Acetaminophen (Tylenol Tab*) 650 mg PO Q4H PRN PRN Reason: PAIN-MILD/TEMP >/= 100.4 Last Admin: 06/10/19 23:14 Dose: 650 mg Atorvastatin Calcium (Lipitor*) 10 mg PO QPM [facility] Last Admin: 06/12/19 17:07 Dose: 10 mg Benzonatate (Tessalon Cap*) 100 mg PO BID PRN PRN Reason: COUGH Cetirizine HCl (Zyrtec*) 10 mg PO DAILY [facility] Last Admin: 06/12/19 09:31 Dose: Not Given Docusate Sodium (Colace Cap*) 100 mg PO BID [facility] Last Admin: 06/12/19 09:37 Dose: 100 mg Guaifenesin (Mucinex*) 600 mg PO BID [facility] Last Admin: 06/12/19 09:37 Dose: 600 mg Aztreonam 0.25 gm/ Sodium (Chloride) 50 mls @ 200 mls/hr IVPB Q12H [facility] Last Admin: 06/12/19 14:58 Dose: 200 mls/hr Lactobacillus Rhamnosus (Lactobacillus Acidophilus*) 1 tab PO DAILY [facility] Last Admin: 06/12/19 15:01 Dose: Not Given Metoprolol Tartrate (Lopressor Tab*) 75 mg PO BID [facility] Last Admin: 06/12/19 09:36 Dose: 75 mg Midodrine (Midodrine) 5 mg PO BID [facility]; Protocol Last Admin: 06/12/19 09:36 Dose: 5 mg Montelukast Sodium (Singulair Tab*) 10 mg PO DAILY [facility] Last Admin: 06/12/19 09:32 Dose: Not Given Ondansetron HCl (Zofran Odt Tab*) 4 mg SL Q6H PRN PRN Reason: NAUSEA/VOMITING Oxybutynin Chloride (Ditropan Xl Tab*) 5 mg PO DAILY [facility] Last Admin: 06/12/19 14:58 Dose: 5 mg Pharmacy Consult (Vancomycin Per Pharmacy*) 1 note FOLLOW UP . PRN PRN Reason: PER PROTOCOL Pharmacy Consult (Vancomycin - Dialysis Dosing*) 1 note FOLLOW UP . [facility] Pharmacy Consult (Vancomycin Random Level*) 1 note FOLLOW UP 0600 ONE Stop: 06/14/19 06:01 Sevelamer Carbonate (Renvela Tab*) 2,400 mg PO TID WITH MEALS [facility] Last Admin: 06/12/19 17:07 Dose: 2,400 mg Vital Signs - 8 hr 06/12/19 06/12/19 06/12/19 13:35 15:14 18:57 Temperature 97.9 F 98.1 F 98.6 F Pulse Rate 64 64 63 Respiratory 28 24 30 Rate Blood Pressure 101/43 110/50 106/56 (mmHg) O2 Sat by Pulse 97 92 90 Oximetry Oxygen Devices in Use Now: None Appearance: White female who appears older than stated age, laying upright in bed, appearing in NAD Eyes: No Scleral Icterus, - - PERRL Ears/Nose/Mouth/Throat: Mucous Membranes Moist Neck: Trachea Midline Respiratory: - - shallow respirations with crackles in RLL Cardiovascular: NL Sounds; No Murmurs; No JVD, RRR Abdominal: - - abd soft, nontender, nondistended Extremities: No Clubbing, Cyanosis, - - +1-2 pitting edema to right forearm, appears diminished from yesterday; some erythema to right elbow; AV fistula at right AC with significant aneurysm Skin: No Rash or Ulcers Neurological: Alert and Oriented x 3 Result Diagrams: 06/11/19 07:18 06/11/19 07:18 Microbiology and Other Data: Microbiology 06/07/19 12:40 Aerobic Blood Culture - Preliminary Blood Arterial No Growth Day 1 Anaerobic Blood Culture - Preliminary No Growth Day 1 06/07/19 12:40 Aerobic Blood Culture - Preliminary Blood Arterial No Growth Day 1 Anaerobic Blood Culture - Preliminary No Growth Day 1 Assess/Plan/Problems-Billing Assessment: Mrs Zarate is a 74yo F with PMH of ESRD on HD, polycystic kidney disease, HTN, HLD, PAF, anemia of chronic disease who presented to ED with worsening RUE/AVF cellulitis. - Patient Problems (1) Superficial venous thrombosis of right upper extremity Current Visit: Yes Status: Acute Code(s): I82.611 - ACUTE EMBOLISM AND THOMBOS OF SUPERFIC VEINS OF R UP EXTREM SNOMED Code(s): 434816321 Comment: -thrombosis of right cephalic vein proximal to AV fistula -associated erythema from presentation could potentially be a thrombophlebitis though possibly a component of cellulitis -will continue vanco and aztrenam and d/c flagyl per ID recommendations -will start ibuprofen 800mg q8h as there may be component of thrombophlebitis -continue elevation of RUE -erythema improved, edema is minimally improved -discontinued apixaban as not needed for superficial thrombus (2) Pleural effusion Current Visit: Yes Status: Acute Code(s): J90 - PLEURAL EFFUSION, NOT ELSEWHERE CLASSIFIED SNOMED Code(s): 72242902 Comment: -right sided pleural effusion demonstrated since 06/09/19 CXR. Previous concern for aspiration PNA, as the patient does have dysphagia per ENGRAVER JEWELRY. CT chest demonstrates moderate sized pleural effusion. I do have concern for a possible parapneumonic effusion -would benefit from thoracentesis, have discontinued apixaban and plan for thoracentesis tomorrow -remains tachypeic today -mechanical ground diet per ENGRAVER JEWELRY (3) Atrial fibrillation Current Visit: Yes Status: Chronic Code(s): I48.91 - UNSPECIFIED ATRIAL FIBRILLATION SNOMED Code(s): 58641990 Comment: - Rate controlled - Continue Metoprolol - Off anticoagulation due to thigh hematoma and anemia on prior admission in April 2019 (4) ESRD on hemodialysis Current Visit: Yes Status: Chronic Code(s): N18.6 - END STAGE RENAL DISEASE ; Z99.2 - DEPENDENCE ON RENAL DIALYSIS SNOMED Code(s): 199036493 Comment: - Dialysis through Permacath - Continue HD as scheduled, continue sevelamer (5) Anemia of chronic disease Current Visit: Yes Status: Acute Code(s): D63.8 - ANEMIA IN OTHER CHRONIC DISEASES CLASSIFIED ELSEWHERE SNOMED Code(s): 377745528 Comment: -baseline (6) Hypotension Current Visit: Yes Status: Acute Comment: -related to ESRD -continue midodrine (7) Subclinical hypothyroidism Current Visit: Yes Status: Acute Code(s): E03.9 - HYPOTHYROIDISM, UNSPECIFIED SNOMED Code(s): 22419203 Comment: -no intervention needed (8) DVT prophylaxis Current Visit: Yes Status: Acute Code(s): OUC9366 - SNOMED Code(s): 738794741 Comment: - SCDs (9) Full code status Current Visit: Yes Status: Acute Code(s): Z78.9 - OTHER SPECIFIED HEALTH STATUS SNOMED Code(s): 689313340 Status and Disposition: Inpatient.
[2019-06-12] MEDS ORDERED: Ibuprofen TAB* 800 MG PO PRN (20:00)
[2019-06-13] MEDS: AZTREONAM IVPB SCH ×2 (02:20→15:09)
[2019-06-13] MEDS: NS 0.9% IVPB SCH ×2 (02:20→15:09)
[2019-06-13 08:47] LABS: BUN/Creatinine Ratio 5.8 (8-20); Calcium 8.2 mg/dL (8.6-10.3); EGFR African American 14.9 (>60); EGFR Non-African American 12.3 (>60); Potassium 4.1 mmol/L (3.5-5.0)
[2019-06-13] MEDS: Sevelamer TAB* 800 MG PO SCH ×3 (09:56→18:09)
[2019-06-13] MEDS: guaiFENesin ER TAB 600 MG PO SCH ×2 (09:56→21:32)
[2019-06-13] MEDS: Docusate CAP* 100 MG PO SCH ×2 (09:57→21:32)
[2019-06-13] MEDS: Metoprolol Tartrate TAB* 50 mg PO SCH ×2 (09:58→21:32)
[2019-06-13] MEDS: Montelukast Sodium TAB* 10 MG PO SCH (09:58)
[2019-06-13] MEDS: Cetirizine* 10 MG TAB PO SCH (09:59)
--- NOTE | 2019-06-13 10:32 | PN ---
Progress Note - Progress Note Date of Service: 06/13/19 SOAP: Subjective: CC: right arm swelling HPI: 74 year old woman ESRD, RUE AV fistula with cellulitis of the right arm; admitted with worsening swelling. Is better now. Still painful to lift. No fever, rash, or diarrhea. Objective: Vital Signs Temp 36.6 C 06/13/19 03:45 Pulse 81 06/13/19 03:45 Resp 20 06/13/19 03:45 BP 102/42 06/13/19 03:45 Pulse Ox 97 06/13/19 03:50 Intake & Output 06/12/19 06/13/19 06/13/19 18:59 06:59 18:59 Intake Total 433 335 100 Balance 433 335 100 Intake: IV Fluids 40 15 NS (0.9%) 40 15 IVPB 63 320 ABX - AZTREONAM 63 60 Vancomycin 260 Oral 330 0 100 Other: Estimated Void Medium # Voids 1 Gen:awake, no distress HEENT: no thrush Heart:RRR no murmur Lungs:Clear to auscultation Abd:+BS NTND soft Skin: no rash MSK: RUE diffuse edema; upper arm pulsatile mass Laboratory Results - last 24 hr 06/12/19 06/13/19 10:15 08:22 Sodium 134 L Potassium 4.1 Chloride 98 L Carbon Dioxide 30 Anion Gap 6 BUN 21 Creatinine 3.61 H Est GFR ( Amer) 14.9 Est GFR (Non-Af Amer) 12.3 BUN/Creatinine Ratio 5.8 L Glucose 75 Calcium 8.2 L Random Vancomycin 19.9 Microbiology 06/07/19 12:40 Aerobic Blood Culture - Final Blood Arterial No Growth Day 5 Anaerobic Blood Culture - Final No Growth Day 5 06/07/19 12:40 Aerobic Blood Culture - Final Blood Arterial No Growth Day 5 Anaerobic Blood Culture - Final No Growth Day 5 Assessment: 1. right arm cellulitis; crp and edema improving 2. AV fistula aneurysm and thrombus 3. ESRD on hemodialysis 4. morbid obesity Plan: 1. continue vancomycin pos HD and aztreonam .25 mg Q12hrs; day 6, can continue vancomycin at HD and can change to cipro for dc for another week. Fistula studies per primary team
[2019-06-13] MEDS ORDERED: Heparin DIALYSIS ONLY(*) 1,000 UNITS/ML VIAL DIALYSIS ONE (11:00)
[2019-06-13] MEDS: Oxybutynin XL TAB* 5 MG PO SCH (15:09)
[2019-06-13] MEDS: Lactobacillus Acidophilus* 1 TAB PO SCH (15:09)
--- NOTE | 2019-06-13 15:23 | PN ---
Progress Note - Progress Note Date of Service: 06/13/19 Note: Inpatient acute HD Note: Performed by Dr. Skyler Bruner, [facility] Nephrology 06/13/2019 74 yo WF ESRD on HD, via Rt IJ TDC, PKD, HTN, Anemia of ESRD. Has an Rt BC Aneurysmal AVF, clotting, with superimposed thrombophlebitis on IV ABx. Vancomycin and Aztreonam. Had HD via TDC, works well Scheduled for extra HD today for fluid overload, successfully able to remove 1L. Scheduled for Thoracentesis. Volume status still has Edema Active Medications: Acetaminophen (Tylenol Tab*) 650 mg PO Q4H PRN PRN Reason: PAIN-MILD/TEMP >/= 100.4 Last Admin: 06/10/19 23:14 Dose: 650 mg Atorvastatin Calcium (Lipitor*) 10 mg PO QPM [facility] Last Admin: 06/12/19 17:07 Dose: 10 mg Benzonatate (Tessalon Cap*) 100 mg PO BID PRN PRN Reason: COUGH Cetirizine HCl (Zyrtec*) 10 mg PO DAILY [facility] Last Admin: 06/13/19 09:59 Dose: Not Given Docusate Sodium (Colace Cap*) 100 mg PO BID [facility] Last Admin: 06/13/19 09:57 Dose: 100 mg Guaifenesin (Mucinex*) 600 mg PO BID [facility] Last Admin: 06/13/19 09:56 Dose: 600 mg Aztreonam 0.25 gm/ Sodium (Chloride) 50 mls @ 200 mls/hr IVPB Q12H [facility] Last Admin: 06/13/19 15:09 Dose: 200 mls/hr Ibuprofen (Motrin Tab*) 800 mg PO Q8H PRN PRN Reason: PAIN Lactobacillus Rhamnosus (Lactobacillus Acidophilus*) 1 tab PO DAILY [facility] Last Admin: 06/13/19 15:09 Dose: 1 tab Metoprolol Tartrate (Lopressor Tab*) 75 mg PO BID [facility] Last Admin: 06/13/19 09:58 Dose: 75 mg Midodrine (Midodrine) 5 mg PO BID [facility]; Protocol Last Admin: 06/13/19 09:56 Dose: 5 mg Montelukast Sodium (Singulair Tab*) 10 mg PO DAILY [facility] Last Admin: 06/13/19 09:58 Dose: Not Given Ondansetron HCl (Zofran Odt Tab*) 4 mg SL Q6H PRN PRN Reason: NAUSEA/VOMITING Oxybutynin Chloride (Ditropan Xl Tab*) 5 mg PO DAILY [facility] Last Admin: 06/13/19 15:09 Dose: 5 mg Pharmacy Consult (Vancomycin Per Pharmacy*) 1 note FOLLOW UP . PRN PRN Reason: PER PROTOCOL Pharmacy Consult (Vancomycin - Dialysis Dosing*) 1 note FOLLOW UP . [facility] Pharmacy Consult (Vancomycin Random Level*) 1 note FOLLOW UP 0600 ONE Stop: 06/14/19 06:01 Sevelamer Carbonate (Renvela Tab*) 2,400 mg PO TID WITH MEALS [facility] Last Admin: 06/13/19 15:09 Dose: 2,400 mg Objective: .Vital Signs: Temp Pulse Resp BP Pulse Ox 97.8 F 76 24 105/44 90 06/13/19 14:05 06/13/19 14:05 06/13/19 14:05 06/13/19 14:05 06/13/19 14:05 .Extremities: Rt BC Aneurysmal AVF, no thrill, swollen, red, but slightly better. Swollen Rt forearm, better ++ LE edema Rt IJ TDC Laboratory Reviewed Sodium 134 mmol/L (135-145) L 06/13/19 08:22 Potassium 4.1 mmol/L (3.5-5.0) 06/13/19 08:22 BUN 21 mg/dL (6-24) 06/13/19 08:22 Creatinine 3.61 mg/dL (0.51-0.95) H 06/13/19 08:22 Calcium 8.2 mg/dL (8.6-10.3) L 06/13/19 08:22 AST 30 U/L (13-39) 06/08/19 05:57 ALT 16 U/L (7-52) 06/08/19 05:57 Assessment and Plan: She was seen and examined on HD, for ESRD HD Routine: MWF. Extra HD today. HD Duration: 3.0 Hr UF Goal: 1 L/Rx Vitals: BP: 120/70 HR: 75/m Blood Flow: 400 cc/min Dialysate Flow: 600 cc/min Bath: K: 2K Ca: 2.5Ca Na: 138 Hco3: 35 Temp: 36 C Dialyzer: Revaclear Max Access: Rt IJ TDC Meds with HD: Heparin free Tolerates HD well. No Intradialytic Hypotension.I L UF
--- NOTE | 2019-06-13 16:03 | PN ---
Subjective Date of Service: 06/13/19 Interval History: Patient tells me she does not have shortness of breath but does have evident tachypnea. She understands thoracentesis is planned for today. She mentioned an episode of chest pain that lasted approx 15 min this morning that went away on its own. Denies abd pain and nausea. Family History: Unchanged from Admission Social History: Unchanged from Admission Past Medical History: Unchanged from Admission Objective Active Medications: Acetaminophen (Tylenol Tab*) 650 mg PO Q4H PRN PRN Reason: PAIN-MILD/TEMP >/= 100.4 Last Admin: 06/10/19 23:14 Dose: 650 mg Atorvastatin Calcium (Lipitor*) 10 mg PO QPM [facility] Last Admin: 06/12/19 17:07 Dose: 10 mg Benzonatate (Tessalon Cap*) 100 mg PO BID PRN PRN Reason: COUGH Cetirizine HCl (Zyrtec*) 10 mg PO DAILY [facility] Last Admin: 06/13/19 09:59 Dose: Not Given Docusate Sodium (Colace Cap*) 100 mg PO BID [facility] Last Admin: 06/13/19 09:57 Dose: 100 mg Guaifenesin (Mucinex*) 600 mg PO BID [facility] Last Admin: 06/13/19 09:56 Dose: 600 mg Aztreonam 0.25 gm/ Sodium (Chloride) 50 mls @ 200 mls/hr IVPB Q12H [facility] Last Admin: 06/13/19 15:09 Dose: 200 mls/hr Ibuprofen (Motrin Tab*) 800 mg PO Q8H PRN PRN Reason: PAIN Lactobacillus Rhamnosus (Lactobacillus Acidophilus*) 1 tab PO DAILY [facility] Last Admin: 06/13/19 15:09 Dose: 1 tab Metoprolol Tartrate (Lopressor Tab*) 75 mg PO BID [facility] Last Admin: 06/13/19 09:58 Dose: 75 mg Midodrine (Midodrine) 5 mg PO BID [facility]; Protocol Last Admin: 06/13/19 09:56 Dose: 5 mg Montelukast Sodium (Singulair Tab*) 10 mg PO DAILY [facility] Last Admin: 06/13/19 09:58 Dose: Not Given Ondansetron HCl (Zofran Odt Tab*) 4 mg SL Q6H PRN PRN Reason: NAUSEA/VOMITING Oxybutynin Chloride (Ditropan Xl Tab*) 5 mg PO DAILY [facility] Last Admin: 06/13/19 15:09 Dose: 5 mg Pharmacy Consult (Vancomycin Per Pharmacy*) 1 note FOLLOW UP . PRN PRN Reason: PER PROTOCOL Pharmacy Consult (Vancomycin - Dialysis Dosing*) 1 note FOLLOW UP . [facility] Pharmacy Consult (Vancomycin Random Level*) 1 note FOLLOW UP 0600 ONE Stop: 06/14/19 06:01 Sevelamer Carbonate (Renvela Tab*) 2,400 mg PO TID WITH MEALS [facility] Last Admin: 06/13/19 15:09 Dose: 2,400 mg Vital Signs - 8 hr 06/13/19 14:05 Temperature 97.8 F Pulse Rate 76 Respiratory 24 Rate Blood Pressure 105/44 (mmHg) O2 Sat by Pulse 90 Oximetry Oxygen Devices in Use Now: Nasal Cannula Appearance: Elderly white female who appears older than stated age, laying upright in bed, appearing in NAD Eyes: No Scleral Icterus, - - PERRL Ears/Nose/Mouth/Throat: Mucous Membranes Moist Neck: Trachea Midline Respiratory: Symmetrical Chest Expansion and Respiratory Effort, - - faint crackles in bilateral lung bases, poor respiration depth Cardiovascular: NL Sounds; No Murmurs; No JVD, RRR Abdominal: - - abd soft, nontender, nondistended Extremities: No Clubbing, Cyanosis, - - +1-2 pitting edema to RUE from elbow and inferiorly; trace edema to LUE and pedally bilaterally; AV fistula aneurysm unchanged Skin: No Rash or Ulcers Neurological: Alert and Oriented x 3 Result Diagrams: 06/11/19 07:18 06/13/19 08:22 Microbiology and Other Data: Microbiology 06/07/19 12:40 Aerobic Blood Culture - Preliminary Blood Arterial No Growth Day 1 Anaerobic Blood Culture - Preliminary No Growth Day 1 06/07/19 12:40 Aerobic Blood Culture - Preliminary Blood Arterial No Growth Day 1 Anaerobic Blood Culture - Preliminary No Growth Day 1 Assess/Plan/Problems-Billing Assessment: Mrs Zarate is a 74yo F with PMH of ESRD on HD, polycystic kidney disease, HTN, HLD, PAF, anemia of chronic disease who presented to ED with worsening RUE/AVF cellulitis. - Patient Problems (1) Superficial venous thrombosis of right upper extremity Current Visit: Yes Status: Acute Code(s): I82.611 - ACUTE EMBOLISM AND THOMBOS OF SUPERFIC VEINS OF R UP EXTREM SNOMED Code(s): 994610473 Comment: -thrombosis of right cephalic vein proximal to AV fistula -associated erythema from presentation could potentially be a thrombophlebitis though possibly a component of cellulitis -will start ibuprofen 800mg q8h as there may be component of thrombophlebitis; OK with nephrology -continue elevation of RUE -erythema improved, edema is minimally improved -discontinued apixaban as not needed for superficial thrombus (2) Cellulitis of right upper extremity Current Visit: Yes Status: Acute Code(s): L03.113 - CELLULITIS OF RIGHT UPPER LIMB SNOMED Code(s): 473534413 Comment: - erythema of RUE likely multifactorial as discused above - CT RUE showed no abscess - Continue Vancomycin and Aztreonam as per ID (3) Pleural effusion Current Visit: Yes Status: Acute Code(s): J90 - PLEURAL EFFUSION, NOT ELSEWHERE CLASSIFIED SNOMED Code(s): 13656994 Comment: -right sided pleural effusion demonstrated since 06/09/19 CXR. Previous concern for aspiration PNA, as the patient does have dysphagia per [employer]. CT chest demonstrates moderate sized pleural effusion. I do have concern for a possible parapneumonic effusion -thoracentesis today, studies pending -remains tachypeic today and is hypoxic -mechanical ground diet per [employer] (4) Atrial fibrillation Current Visit: Yes Status: Chronic Code(s): I48.91 - UNSPECIFIED ATRIAL FIBRILLATION SNOMED Code(s): 69285168 Comment: - Rate controlled - Continue Metoprolol - Off anticoagulation due to thigh hematoma and anemia on prior admission in April 2019 (5) ESRD on hemodialysis Current Visit: Yes Status: Chronic Code(s): N18.6 - END STAGE RENAL DISEASE ; Z99.2 - DEPENDENCE ON RENAL DIALYSIS SNOMED Code(s): 401411878 Comment: - Dialysis through [facility] as scheduled - additional HD session today for fluid overload - continue sevelamer (6) Anemia of chronic disease Current Visit: Yes Status: Acute Code(s): D63.8 - ANEMIA IN OTHER CHRONIC DISEASES CLASSIFIED ELSEWHERE SNOMED Code(s): 169502934 Comment: -baseline (7) Hypotension Current Visit: Yes Status: Acute Comment: -related to ESRD -continue midodrine -has maintained good pressures (8) Subclinical hypothyroidism Current Visit: Yes Status: Acute Code(s): E03.9 - HYPOTHYROIDISM, UNSPECIFIED SNOMED Code(s): 46502708 Comment: -no intervention needed (9) DVT prophylaxis Current Visit: Yes Status: Acute Code(s): CJL1591 - SNOMED Code(s): 091841878 Comment: - SCDs (10) Full code status Current Visit: Yes Status: Acute Code(s): Z78.9 - OTHER SPECIFIED HEALTH STATUS SNOMED Code(s): 429333457 Status and Disposition: Inpatient.
[2019-06-13 16:53] LABS: Total Protein 5.3 g/dL (6.4-8.9)
[2019-06-13 16:56] LABS: Body Fluid Source Pleural Fluid
[2019-06-13] MEDS: Atorvastatin* 10 MG TAB PO SCH (18:09)
[2019-06-13] MEDS: Ibuprofen TAB* 800 MG PO SCH (18:09)
[2019-06-13 18:28] LABS: Body Fluid Mono 59 %; Body Fluid Other Cells 8
[2019-06-13] MEDS ORDERED: Albuterol/Ipratropium NEB.SOL* Albuterol 2.5 MG/Ipratropium 0.5 MG 3 ML INH ONE (20:50)
[2019-06-14] MEDS: Ibuprofen TAB* 800 MG PO SCH ×2 (02:59→08:42)
[2019-06-14] MEDS: NS 0.9% IVPB SCH ×2 (02:59→13:59)
[2019-06-14] MEDS: AZTREONAM IVPB SCH ×2 (02:59→13:59)
[2019-06-14] MEDS ORDERED: Vancomycin Random Level* NOTE FOLLOW UP ONE (06:00)
[2019-06-14 06:31] LABS: Vancomycin Random 16.3 mcg/mL
[2019-06-14 06:33] LABS: C Reactive Protein 54.09 mg/L (<8.01)
[2019-06-14] MEDS: Sevelamer TAB* 800 MG PO SCH ×2 (08:37→13:59)
[2019-06-14] MEDS: Metoprolol Tartrate TAB* 50 mg PO SCH (08:40)
[2019-06-14] MEDS: guaiFENesin ER TAB 600 MG PO SCH (08:43)
[2019-06-14] MEDS: Docusate CAP* 100 MG PO SCH (08:44)
[2019-06-14] MEDS ORDERED: EPOETIN ALFA-EPBX * 10,000 UNIT/ML VIAL IV ONE (09:00)
[2019-06-14] MEDS ORDERED: Heparin DIALYSIS ONLY(*) 1,000 UNITS/ML VIAL DIALYSIS ONE (09:00)
--- NOTE | 2019-06-14 11:21 | PN ---
Progress Note - Progress Note Date of Service: 06/14/19 SOAP: Subjective: CC: right arm swelling HPI: 74 year old woman ESRD, RUE AV fistula with cellulitis of the right arm; admitted with worsening swelling. Swelling continues to improve. No fever, rash, or diarrhea. Objective: Vital Signs Temp 36.4 C 06/14/19 03:31 Pulse 90 06/14/19 04:35 Resp 18 06/14/19 03:31 BP 102/54 06/14/19 03:31 Pulse Ox 94 06/14/19 04:35 Intake & Output 06/13/19 06/14/19 06/14/19 18:59 06:59 18:59 Intake Total 545 75 440 Balance 545 75 440 Intake: IV Fluids 10 15 NS (0.9%) 10 15 IVPB 55 60 ABX - AZTREONAM 55 60 Oral 480 0 440 Other: Estimated Void Medium Medium Estimated Stool Amount Medium # Voids 1 1 Gen:awake, no distress HEENT: no thrush Heart:RRR no murmur Lungs:Clear to auscultation Abd:+BS NTND soft Skin: no rash MSK: RUE diffuse edema; upper arm pulsatile mass Laboratory Results - last 24 hr 06/13/19 06/13/19 06/14/19 08:22 16:18 05:36 Sodium 134 L Potassium 4.1 Chloride 98 L Carbon Dioxide 30 Anion Gap 6 BUN 21 Creatinine 3.61 H Est GFR ( Amer) 14.9 Est GFR (Non-Af Amer) 12.3 BUN/Creatinine Ratio 5.8 L Glucose 75 Calcium 8.2 L Lactate Dehydrogenase 247 C-Reactive Protein 54.09 H Total Protein 5.3 L Fluid Source Pleural fluid Fluid Volume 55 Fluid Color Yellow Fluid Appearance Clear Fluid WBC 213 Fluid RBC 638 Fluid Tot Cell Count 100 Fluid Neutrophils 3 Fluid Lymphocytes 37 Fluid Monocytes 59 Fluid Basophils 1 Fluid Other Cells 8 Fluid Comment Random Vancomycin 16.3 Assessment: 1. right arm cellulitis; crp and edema improving 2. AV fistula aneurysm and thrombus 3. ESRD on hemodialysis 4. morbid obesity Plan: 1. continue vancomycin pos HD and aztreonam .25 mg Q12hrs; day 7, can continue vancomycin at HD and can change to cipro 500 mg by mouth daily for dc for another week. Discussed with Lisset NAIR
[2019-06-14 12:37] VITALS: BP 100/55
--- NOTE | 2019-06-14 13:40 | PN ---
Progress Note - Progress Note Date of Service: 06/14/19 Note: Inpatient Nephrology FU Note: Performed by Dr. Skyler Bruner, [facility] Nephrology 06/14/2019 ESRD on HD, via Rt IJ TDC Known PKD, HTN & ESRD. Rt BC Aneurysmal AVF, cellulitis/thrombophlebitis on IV ABx. Better Had HD via TDC, works well Had HD 4 times this week, s/p extra HD yesterday with 1 L UF Active Medications: Reviewed Objective: .Vital Signs: Temp Pulse Resp BP Pulse Ox 97.4 F 90 18 100/55 97 06/14/19 08:06 06/14/19 08:06 06/14/19 08:06 06/14/19 08:06 06/14/19 08:06 .Extremities: Rt BC Aneurysmal AVF, redness and swelling better. Swollen Rt forearm, better ++ LE edema Rt IJ TDC Laboratory Reviewed Sodium 134 mmol/L (135-145) L 06/13/19 08:22 Potassium 4.1 mmol/L (3.5-5.0) 06/13/19 08:22 BUN 21 mg/dL (6-24) 06/13/19 08:22 Creatinine 3.61 mg/dL (0.51-0.95) H 06/13/19 08:22 Calcium 8.2 mg/dL (8.6-10.3) L 06/13/19 08:22 AST 30 U/L (13-39) 06/08/19 05:57 ALT 16 U/L (7-52) 06/08/19 05:57 She was seen and examined on HD, for ESRD HD Routine: MWF. HD Duration: 3.0 Hr UF Goal: 2-3 L/Rx Vitals: BP: 120/70, dropped once 80/60 HR: 75/m Blood Flow: 400 cc/min Dialysate Flow: 600 cc/min Bath: K: 2K Ca: 2.5Ca Na: 138 Hco3: 35 Temp: 36 C Dialyzer: Revaclear Max Access: Rt IJ TDC Meds with HD: Heparin free EPO 10,000 U Tolerates HD well.
[2019-06-14] MEDS: Lactobacillus Acidophilus* 1 TAB PO SCH (13:59)
[2019-06-14] MEDS: Cetirizine* 10 MG TAB PO SCH (13:59)
[2019-06-14] MEDS: Montelukast Sodium TAB* 10 MG PO SCH (13:59)
[2019-06-14] MEDS: Oxybutynin XL TAB* 5 MG PO SCH (13:59)
[2019-06-14] MEDS ORDERED: Vancomycin(*) 750 MG in NS 0.9% 250 ML* 250 ML IVPB ONE (16:00)
--- NOTE | 2019-06-14 18:15 | DS ---
DISCHARGE SUMMARY: DATE OF ADMISSION: 06/07/19 DATE OF DISCHARGE: 06/14/19 ATTENDING PHYSICIAN WHILE IN THE HOSPITAL: Dr. Lupillo Macdonald * (dictated by JOANIE Boyle) PRIMARY CARE PROVIDER: Dr. Jj at [facility]. CONSULTING NEPHROLOGISTS: Dr. George and Dr. Bruner. CONSULTING INFECTIOUS DISEASE SPECIALIST: Dr. Szymanski. PRIMARY DIAGNOSES: 1. Right upper extremity superficial vein thrombus with likely associated thrombophlebitis. 2. Right upper extremity erythema, likely right upper extremity cellulitis with additional component of underlying thrombophlebitis. 3. Pleural effusion status post thoracentesis. SECONDARY DIAGNOSES: 1. End-stage renal disease with right upper extremity AV fistula, which is no longer being used due to aneurysm with hemodialysis Monday, Monday, Monday via right chest tunneled dialysis catheter. 2. Polycystic kidney disease. 3. Hypertension. 4. Hyperlipidemia. 5. Paroxysmal atrial fibrillation, not on anticoagulation due to recent lower extremity hematoma. 6. Anemia of chronic disease. PROCEDURES WHILE IN THE HOSPITAL: Thoracentesis on 06/13/19 with 30 mL of pleural fluid aspirated. Please see full report for the details. Chest CTA on 06/12/19, impression: 1. Limited study due to motion artifact, no evidence for central pulmonary embolism. 2. Bilateral pleural effusions, dependent infiltrates and findings suggestive of mild interstitial pulmonary edema, unchanged. 3. Mildly prominent right axillary lymph nodes. Chest x-ray on 06/13/19: 1. Decreased volume of the right pleural effusion with no pneumothorax. 2. Elevated right hemidiaphragm. 3. Right central line terminates in the right atrium. Chest x-ray on 06/09/19: 1. New alveolar consolidation at the right mid to lower lung zone concerning for potential aspiration given the noted clinical concern. 2. Pulmonary vascular congestion increased over the prior exam. Ultrasound of the right upper extremity on 06/08/19: 1. The venous outflow tract is aneurysmal measuring up to 4 cm without significant change. 2. Increased thrombosis of the venous outflow tract with approximately 50% thrombosis of the lumen compared with 30% previously. 3. In addition, there is a hematoma either within the wall of the vein or medially adjacent to the vein and subcutaneous tissue plane, increased now measuring up to 1.3 cm. There is overlying dermal edema and ecchymosis on clinical inspection. 4. Patent portion of the vein demonstrates slow flow/venous stasis. Upper extremity CT on 06/08/19, impression: 1. Severe aneurysmal dilation of the right cephalic vein extending from the antecubital fossa AV fistula with associated significant partial thrombosis and near complete thrombosis of the proximal segment near the confluence of the axillary vein with associated accessory vein bypass of the thrombosed segment. 2. Diffuse severe subcutaneous edema throughout the field of view including involvement of the right upper extremity and visualized right lateral thorax, which may represent cellulitis in the appropriate clinical context. No loculated abscess collection evident within the field of view. LABORATORY DATA: White blood cell count on admission 5.4. CRP at admission 96.32, CRP on date of discharge 54.09. HISTORY OF PRESENT ILLNESS/HOSPITAL COURSE: Kendra Trivedi is a 74-year-old white female with past medical history significant for paroxysmal atrial fibrillation, not on anticoagulation due to recent hematoma of the thigh; anemia of chronic disease, end-stage renal disease with hemodialysis on Monday, Monday, Monday via a tunneled dialysis catheter due to significant AV fistula aneurysm, presented with erythema of the right upper extremity on . Please see further details of the history and physical written by JOANIE Acevedo. Of note, this is a second admission for this patient within the calender month. She re-presented due to increased erythema of her right upper extremity as well as pain and edema. She was previously treated with clindamycin and then transitioned to vancomycin; this was in the previous hospitalization. The patient upon this hospitalization was seen by Infectious Disease and was receiving vancomycin and aztreonam for treatment of suspected right upper extremity cellulitis. Additionally, the thrombosis of her right upper extremity cephalic vein was thought to be likely contributing to her edema as well as possibly some erythema in relation to possible thrombophlebitis and she was ultimately started on NSAIDs. She was started on low-dose apixaban due to the thought of perhaps improving the burden of the thrombus on the extremity; however, this was later discontinued again due to the risk of her prior hematoma as well as need for performing thoracentesis. This was discussed further. Ultimately by day of discharge, the patient's right upper extremity is still edematous, though improved and erythema is far improved from presentation and Infectious Disease agrees with the plan for vancomycin, continue with dialysis and has advised gram-negative coverage with ciprofloxacin. The patient was afebrile for the entirety of her hospital stay and without leukocytosis and her CRP has begun to downtrend. The patient was noted to be coughing frequently and therefore speech therapy evaluation was recommended. Recommendations to this point, the speech therapist is recommending mechanical ground solids and thin liquids is okay. Her chest x-ray was concerning for possible aspiration pneumonia given the findings in her right lower lobe and later her pleural effusion developed and was causing tachypnea as well as minimal hypoxia. The patient had a thoracentesis performed on 06/13/19 and 30 mL of fluid was removed to this point. Pleural effusion LDH and protein are pending and on this day of dictation, the pleural fluid culture is without growth to date and there are no organisms found on the Gram stain. The pleural fluid based on the cell count was not concerning for overt infection and was not overtly purulent, though at this time, it is unclear whether this is transudative or exudative. I do suspect this is most likely transudative given fluid overload, as the patient was usually third spacing with edema of her other extremities in addition to her right upper extremity, which is worse. For this reason, Nephrology did perform additional dialysis on 06/13/19, which was on . Therefore, the patient by day of discharge has received 3 days in a row dialysis. By day of discharge, the patient had a repeat chest x-ray, which demonstrated no pneumothorax and pleural effusion, significant improvement, she is no longer tachypneic or hypoxic and was feeling improved and was agreeable to discharge back home to [facility] versus a long-term resident. The patient did develop tachycardia during her hospital stay, which was presumed to be rapid aflutter and her metoprolol was changed. She was previously taking metoprolol succinate 100 mg p.o. daily and she was changed to metoprolol tartrate 25 mg b.i.d. and she did have good control of her heart rate after this change. PHYSICAL EXAM ON DAY OF DISCHARGE: Genera: White female, feels older than stated age, lying upright in hospital bed, appearing comfortable, in no acute distress. Eyes: PERRL. Sclerae anicteric. ENT: Mucous membranes moist. Lungs: Clear to auscultation throughout. Cardio: Regular rate and rhythm without murmurs, rubs, or gallops. Abdomen: Soft, nontender, nondistended. Extremities: +2 pitting edema to the right forearm below the elbow, which does improve as it moved inferior along the arm as the dorsum of the right hand is with only trace edema. There is trace edema to the dorsum of the left hand as well as trace pedal edema bilaterally. Trace pedal edema in the left lower extremity and +1 to 2 pitting edema pedally on the right extremity. Significant aneurysm of the AV fistula of the right upper extremity with palpable thrill and pulsations. Neuro: The patient is alert and oriented x3. No focal deficits. Able to move all extremities. Skin: Warm and dry and intact. DISCHARGE PLAN: DIET: Renal diet with mechanical ground foods, thin liquids okay. ACTIVITY: The patient may return to her normal activity as tolerated. Right upper extremity is to be elevated. DISCHARGE INSTRUCTIONS: 1. The patient is to follow up with Dr. Jj in 1 week at this time to evaluate if her extremities continued to improve. 2. The patient is follow up with Dr. Szymanski to determine the course of her IV antibiotics and additionally as previously recommended at her previous hospitalization, she is to follow up with Dr. Salas, the vascular surgeon regarding her AV fistula. 3. The patient needs her right arm elevated. I do anticipate it will take quite some time for her erythema and edema to improve considering the significant thrombus burden as well as the aneurysmal burden and the AV fistula as well as time for the cellulitis to improve. 4. She should return to the emergency department for fever, chills, or significant erythema, chest pain, difficulty breathing. 5. Infectious Disease is recommending for antibiotic coverage for an additional 2 weeks, day 1 starting on 06/11/19. 6. She is to return to her hemodialysis schedule as previously scheduled Monday , Monday, Monday and she will be receiving vancomycin at dialysis. 7. Please follow up her pleural fluid LDH and protein at followup with her primary care provider at [facility] to determine if this is a transudative or exudative pleural effusion and please follow the pleural fluid culture to day 5. DISCHARGE MEDICATIONS: New medications: 1. Ciprofloxacin 500 mg p.o. daily. 2. Vancomycin IV on Monday, Monday, Monday per dialysis dosing. 3. Metoprolol tartrate mg p.o. b.i.d. 4. Ibuprofen 800 mg p.o. q.8 hours scheduled. Continued home medications: 1. Oxybutynin 5 mg p.o. daily. 2. Sevelamer 2400 mg p.o. a.c. 3. Tylenol 650 mg p.o. q.4 hours p.r.n. pain. 4. Midodrine 5 mg p.o. b.i.d. 5. Colace 100 mg p.o. b.i.d. 6. Xyzal 5 mg p.o. daily. 7. Mupirocin 2% cream 1 application topically b.i.d. 8. Lactobacillus acidophilus 1 tab p.o. daily. 9. Singulair 10 mg p.o. daily. 10. Simvastatin 20 mg p.o. q.p.m. Discontinued home medications: Metoprolol succinate 100 mg daily. CONDITION ON DISCHARGE: Improved. DISCHARGE DISPOSITION: [facility], the patient is a long-term resident. TIME SPENT: Approximately 45 minutes was spent on this discharge, approximately half of this time was spent at bedside evaluating the patient and discussing the plan of care. JOANIE BOYLE [id number]/[facility] #: [id number] MTDD
[2019-06-15 14:07] LABS: Fluid Type, Glucose PLEURAL; Lactate Dehydrogenase, BF 83 U/L
[2019-06-15 14:30] LABS: Fluid Type, Protein, Total PLEURAL
[2019-06-17] MEDS ORDERED: Vancomycin Random Level* NOTE FOLLOW UP ONE (06:00)
== END 2019-06-14 16:30 | DRG 314 ==
LOC: ED 09:17 → EEVIPCON 09:17 → MED 14:03
PROVIDERS: ADMIT Internal Medicine; ATTEND Internal Medicine
PROC: 5A1D70Z Performance of Urinary Filtration, Intermittent, Less than 6 Hours Per Day (ICD-10-PCS; principal; 2019-06-10)
PROC: 0W993ZZ Drainage of Right Pleural Cavity, Percutaneous Approach (ICD-10-PCS; 2019-06-13)
DX: T80.219A Unspecified infection due to central venous catheter, initial encounter (principal); N18.6 End stage renal disease; T80.1XXA Vascular complications following infusion, transfusion and therapeutic injection, initial encounter; T82.868A Thrombosis due to vascular prosthetic devices, implants and grafts, initial encounter; I12.0 Hypertensive chronic kidney disease with stage 5 chronic kidney disease or end stage renal disease; Q61.3 Polycystic kidney, unspecified; J90 Pleural effusion, not elsewhere classified; L03.113 Cellulitis of right upper limb; I48.92 Unspecified atrial flutter; D62 Acute posthemorrhagic anemia; I82.611 Acute embolism and thrombosis of superficial veins of right upper extremity; E28.2 Polycystic ovarian syndrome; E78.00 Pure hypercholesterolemia, unspecified; I89.0 Lymphedema, not elsewhere classified; E78.5 Hyperlipidemia, unspecified; I48.0 Paroxysmal atrial fibrillation; E83.39 Other disorders of phosphorus metabolism; Y84.9 Medical procedure, unspecified as the cause of abnormal reaction of the patient, or of later complication, without mention of misadventure at the time of the procedure; E03.9 Hypothyroidism, unspecified; R13.10 Dysphagia, unspecified; E66.01 Morbid (severe) obesity due to excess calories; I77.0 Arteriovenous fistula, acquired; D63.1 Anemia in chronic kidney disease; Z87.891 Personal history of nicotine dependence; I95.9 Hypotension, unspecified; Z99.2 Dependence on renal dialysis; Z88.1 Allergy status to other antibiotic agents; Z88.6 Allergy status to analgesic agent; Y92.9 Unspecified place or not applicable; Z88.0 Allergy status to penicillin; Z68.39 Body mass index [BMI] 39.0-39.9, adult
CPT/HCPCS: 32555; 36415; 71045; 71250; 71275; 80048; 80053; 80202; 82565; 82945; 83615; 83880; 84155; 84157; 84439; 84443; 84520; 85025; 85060; 85610; 86140; 87040; 87070; 87205; 87340; 89051; 93005; 93990; 99284; A9270-GY; J1644; J3370; Q5106; Q9967

== ENCOUNTER 2019-07-10 06:37 | Inpatient (IN) | payer MEDICARE, MEDICAID ==
--- NOTE | 2019-07-08 12:56 | HP ---
HISTORY AND PHYSICAL: DATE OF ADMISSION: 07/10/19 CHIEF COMPLAINT: Aneurysmal dilatation of right arteriovenous fistula of the right arm. HISTORY OF PRESENT ILLNESS: The patient is a 74-year-old female with end-stage renal disease secondary to polycystic kidneys. The patient has had an arteriovenous brachiocephalic fistula for 14 years and in the past month the patient was admitted to the hospital for cellulitis around the fistula, thrombus formation inside the fistula and an aneurysmal dilatation and for this reason, the patient is being admitted for exclusion of fistula aneurysms and transposition of the fistula, possible graft. The patient also was admitted to the hospital and treated with intravenous vancomycin for cellulitis. She was treated as an outpatient for a full course 6 weeks of IV antibiotics. At the time when she was seen in my office, the patient had no cellulitis, no pain, no erythema. She had a patent fistula with excellent thrill and two 4 cm aneurysms next to each other on the lateral aspect of the right arm. The main fistula diameter is 1.4 cm both proximally and distally taking a tortuous course. The patient is currently being dialyzed via a right internal jugular catheter because the patient at some point had the infection and a small scab formation, all of which has healed at the present time. PAST MEDICAL HISTORY: Remarkable for end-stage renal disease secondary to polycystic kidneys; history of hypertension; hyperlipidemia; paroxysmal atrial fibrillation, currently on anticoagulation, specifically Eliquis; and chronic anemia secondary to end-stage renal disease. ALLERGIES: The patient is allergic to PENICILLIN, CEPHALEXIN, NSAIDS, BACTRIM. FAMILY HISTORY: Father and mother are . Father had lung cancer. SOCIAL HISTORY: The patient lives in a halfway. No history of tobacco or alcohol abuse. REVIEW OF SYSTEMS: Contributory for end-stage renal disease, polycystic kidney disease, hypertension, chronic anemia, atrial fibrillation, high cholesterol. PHYSICAL EXAMINATION GENERAL: She was examined sitting in a wheelchair, in no acute distress, cooperative with the exam. HEAD AND NECK: Reveals a tunneled dialysis catheter on the right internal jugular. Otherwise, unremarkable. No JVD noted on the other side. No lymph nodes noted. LUNGS: Clear to auscultation bilaterally. HEART: Rate is irregularly irregular. ABDOMEN: Globular with central obesity. EXTREMITIES: Bilateral 1+ pitting edema. Upper extremities: Left lower extremity completely unremarkable. The right lower extremity has a large arteriovenous fistula that was created 14 years ago. There are 2 large aneurysms of 4 cm each in diameter. One can see the tortuosity of the fistula from the connection to the brachial artery to the brachial vein in the antecubital fossa coursing superiorly and laterally towards the deltopectoral groove, at which point on ultrasound the diameter of the vessel is 1.4 cm; however, the aneurysmal dilatation is present, 2 of them next to each other. There is clot within the lumen of the aneurysm, but there is flow around it. There is no scab formation, no cellulitis, no infection, no pain. The patient has excellent palpable radial and ulnar pulses with good capillary refill bilaterally. DIAGNOSTIC IMPRESSION: Aneurysmal dilatation with thrombus formation in arteriovenous fistula with potential for infection and rupture as well as thrombosis. PLAN: For this reason, the patient is being admitted for exclusion of the aneurysms with transposition and re-anastomosis of the AV fistula, possible graft interposition or creation of new arteriovenous graft. The patient understands the potential complications including but not exclusive of others such as bleeding, infection, thrombosis, etc. The patient understands, agrees and wishes to proceed. [id number]/[facility] #: [id number] ABBIE
[~2019-07-10 06:37] MED LIST changes: +Buffered Lidocaine 1% SYRIN* 1 ML/SYRINGE INTRADERM ONE; -Heparin 2 UNITS/ML IVPREMIX* 1,000 ML IV ONE; -Heparin(*) 1000 UNIT/ML 10 ML VIAL CATH LAB IV ONE; -Iodixanol 320 (CONTRAST) 100 ML SDV ONE; -LORazepam TAB(*) 1 MG ONE; +Lactated Ringers 1000 ML Bag* 1,000 ML IV SCH; -Lidocaine 1% INJ* 10 MG/ML 30 ML SDV ONE; -Midazolam* 1 MG/ML 5 ML VIAL (5 MG) ONE; +NS 0.9% 250 ML* 250 ML IV SCH; -fentaNYL* 50 MCG/ML 2 ML VIAL (100 MCG VIAL) ONE; -nitroGLYCERIN DRIP* 0 MCG/0 ML BTL ONE
[2019-07-10] MEDS ORDERED: Buffered Lidocaine 1% SYRIN* 1 ML/SYRINGE INTRADERM ONE (06:45)
[2019-07-10] MEDS ORDERED: Clindamycin 900 MG/D5W BAG(*) 900 MG/50 ML BAG IVPB ONE (06:45)
[2019-07-10] MEDS ORDERED: Heparin DIALYSIS ONLY(*) 1,000 UNITS/ML VIAL ONE ×3 (07:08→09:54)
[2019-07-10] MEDS ORDERED: Heparin VIAL(*) 5000 UNITS/ML VIAL (FIVE THOUSAND) ONE (07:08)
[2019-07-10] MEDS ORDERED: Lidocaine 1% INJ* 10 MG/ML 30 ML SDV ONE (07:08)
[2019-07-10] MEDS ORDERED: Bupivacaine 0.25% SDV* 30 ML ONE (07:08)
[2019-07-10] MEDS ORDERED: Midazolam* 1 MG/ML 2 ML VIAL (2 MG) ONE (07:24)
[2019-07-10] MEDS ORDERED: KETAMINE HCL* 50 MG/ML 10 ML VIAL ONE (07:24)
[2019-07-10] MEDS ORDERED: fentaNYL* 50 MCG/ML 2 ML VIAL (100 MCG VIAL) ONE (07:24)
[2019-07-10] MEDS ORDERED: Mepivacaine 2% MPF (20 MG/ML)* 20 ML MPF ONE (07:48)
[2019-07-10] MEDS ORDERED: ROPIVACAINE 5 MG/ML 30 ML BTL (0.5%) ONE (08:22)
[2019-07-10] MEDS ORDERED: Propofol* 10 MG/ML 20 ML BTL ONE (08:22)
[2019-07-10] MEDS ORDERED: Lidocaine 2% PF * 5 ML VIAL ONE (08:22)
[2019-07-10] MEDS ORDERED: Phenylephrine 40 MCG/ML SYRINGE ONE (08:38)
[2019-07-10] MEDS ORDERED: Bupivacaine 0.5% W/EPI SDV* 10 ML VIAL INJ ONE ×2 (09:18→09:19)
[2019-07-10] MEDS ORDERED: Petrolatum 5 GM* 5 GM PACKET ONE (11:06)
[2019-07-10] MEDS ORDERED: Acetaminophen IV 1GM/100ML * 100 ML ONE (12:03)
[2019-07-10] MEDS ORDERED: fentaNYL* 50 MCG/ML 2 ML VIAL (100 MCG VIAL) IV PRN ×2 (12:46→14:16)
[2019-07-10] MEDS ORDERED: Naloxone* 0.4 MG/ML 1 ML VIAL IV PRN ×2 (12:46→14:11)
[2019-07-10] MEDS ORDERED: diPHENhydraMINE IV* 50 MG/ML 1 ml VIAL (BENADRYL) IV PRN ×2 (12:46→14:11)
[2019-07-10] MEDS ORDERED: Acetaminophen IV 1GM/100ML * 1,000 MG/100 ML VIAL IVPB ONE (12:46)
[2019-07-10] MEDS ORDERED: Ondansetron INJ* 2 MG/ML VIAL IV PRN ×2 (12:46→14:11)
[2019-07-10] MEDS ORDERED: Albuterol/Ipratropium NEB.SOL* Albuterol 2.5 MG/Ipratropium 0.5 MG 3 ML INH PRN (13:44)
[2019-07-10] MEDS ORDERED: Morphine INJ* 2 MG/ML 1 ML SYRINGE (TWO MG - NEW SYRINGE VERSION) IV PRN (13:52)
--- OUTSIDE RECORDS SUMMARY | 2019-07-10 14:14 | XMS REPORT | Continuity of Care Document ---
:1945 External Reference #:[id number] Author Name CadetTomeka hortamo (transmitted by agent of provider Guerline Meier) Address [address] [place] [address] Care Team Providers Name Role Phone Rob Jj M.D. - Family Medicine Care Team Information Prior Authorization Technician [phone] Christianne George MD - Nephrology Care Team Information Prior Authorization Technician [phone] Problems Description No Information Available Social History Type Date Description Comments Sex Unknown Allergies, Adverse Reactions, Alerts Description No Information Available Medications Description No Information Available Immunizations Description No Information Available Vital Signs Description No Information Available Results Description No Information Available Procedures Description No Information Available Medical Devices Description No Information Available Encounters Description No Information Available Assessments Description No Information Available Plan of Treatment No Information Available Functional Status Description No Information Available Mental Status Description No Information Available Referrals Description No Information Available
[2019-07-10] MEDS ORDERED: Sevelamer TAB* 800 MG PO SCH (17:00)
[2019-07-10] MEDS: Acetaminophen TAB* 325 MG PO PRN (21:02)
[2019-07-11 00:48] LABS: ABS Basophils 0.1 10^3/ul (0-0.2); ABS Eosinophils 0.2 10^3/ul (0-0.6); ABS Lymphocytes 0.5 10^3/ul (1.0-4.8); ABS Monocytes 0.4 10^3/ul (0-0.8); Eosinophil % 5.5 %; Hematocrit 25 % (35-47); Hemoglobin 8.4 g/dL (12.0-16.0); Lymphocyte % 12.6 %; Mean Corpuscular HGB Conc 33 g/dL (31-36); Mean Corpuscular Hemoglobin 33 pg (27-31); Mean Corpuscular Volume 98 fL (80-97); Mean Platelet Volume 8.2 fL (7.4-10.4); Platelet Count 170 10^3/uL (150-450); Red Blood Count 2.56 10^6 /uL (3.70-4.87); Red Cell Distribution Width 18 % (10-15); White Blood Count 4.2 10^3/uL (3.5-10.8)
[2019-07-11 01:04] LABS: BUN/Creatinine Ratio 8.2 (8-20); Calcium 8.1 mg/dL (8.6-10.3); EGFR African American 10.3 (>60); EGFR Non-African American 8.5 (>60); Potassium 5.1 mmol/L (3.5-5.0)
--- NOTE | 2019-07-11 01:12 | OP ---
CC: Dr. George * DATE OF OPERATION: 07/10/19 - ROOM #335 DATE OF : 45 SURGEON: Pee Cadet MD WARD CLERK: Daniela John NP ANESTHESIA: Cervical block plus MAC. PRE-OP DIAGNOSIS: Aneurysms of the right brachiocephalic fistula with clot formation and history of infection. POST-OP DIAGNOSIS: Aneurysms of the right brachiocephalic fistula with clot formation and history of infection. OPERATIVE PROCEDURE: Revision of right brachiocephalic fistula with Yuma-Elliot 8 mm interposition graft and excision of aneurysms of the right arteriovenous fistula x3. ESTIMATED BLOOD LOSS: Approximately 200 cc. DRAINS: PRESTON. GRAFT USED: Yuma Propaten 8-mm straight. INDICATIONS: The patient is a 74-year-old female with end-stage renal disease secondary to polycystic kidneys. The patient underwent creation of a right brachiocephalic fistula 14 years ago and it has been used since. Over time, the fistula has gotten quite large with a diameter of 1.4 cm and 2 obvious large aneurysms with a diameter of 4 cm each with clot formation in it and recent admission for infection of the aneurysm. For this reason, the patient is being brought in for revision of the AV fistula and excision of aneurysms. DESCRIPTION OF PROCEDURE: The patient was taken to the procedure room. She underwent proper identification of the patient and site of surgery. She underwent a cervical block for anesthesia. She was then prepped and draped in the usual sterile fashion. Proper time-out was performed and after this was completed, we then proceeded to perform an incision distal at the base of the most distal aneurysm. This incision was an oblique incision that was carried down through the skin, subcutaneous tissue. The cephalic vein that had been arterialized by the fistula was then dissected off at the neck and the dissection was carried more distal to release any and all of the adhesions. In the same manner, another proximal incision was made at the neck of the most proximal aneurysm and this was dissected off into the cephalic vein. It was found there was another smaller aneurysm more proximal and the dissection was carried further up in order to expose the cephalic vein that could be used for anastomosis. It was felt that the distance to be covered could not be done after the excision of the aneurysms and therefore in order to salvage the fistula, an interposition graft was indicated. We then proceeded to perform the dissection, map the trajectory of the graft. The patient received 3000 units of heparin and 5 minutes later, we then proceeded to cross-clamp the inflow and the outflow with Rafiq Hydragrip. Then, the aneurysms were divided in between clamps and after this was done, the same thing was done in the area of the outflow. The aneurysms were left untouched to be done later and we then proceeded to use a Yuma tunneler to establish a connection between the 2 most distal incisions and this was done under local anesthesia. Via the tunneler, we proceeded to introduce the straight 8-mm Propaten Yuma-Elliot graft to create the interposition. We then proceeded to do the distal anastomosis by spatulating the end of the graft and we then performed an end-to-end anastomosis between the graft and the residual cephalic vein related to the fistula. This was done using 5-0 Prolene in a parachute continuous manner. After this was done, we then proceeded to irrigate with a Skye tree via the Yuma-Elliot graft and re-clamped again once the anastomosis was completed. We then proceeded to perform the more distal anastomosis that was between the arterial end of the fistula in the same manner after spatulating the 8-mm Yuma- Elliot to conform to the end-to-end anastomosis of the cephalic vein from the arterial side and again the anastomosis was done using parachute technique, 5-0 Prolene cardiovascular and after this was completed, the distal clamp was removed, the proximal clamp was then removed, flow established with excellent thrill. Oozers from the anastomosis were closed with interrupted 6-0 Prolene and Surgicel. After this was completed, we then proceeded to perform incisions over the skin where the aneurysms were located and they were dissected off and removed. They appeared to be very attached with fibrosis; however, they were able to be removed. Two large aneurysms were removed and sent as a specimen. The flores were oozing. No active bleeding was noted. This was controlled with electrocautery and a separate Donato-Lombardi drain was left to drain the bed of the aneurysms, which was brought out through a separate incision and fixed to the skin with 4-0 Prolene. After this was done, the incisions were closed with subcutaneous tissue using 4-0 Vicryl and on some occasions using vertical mattress sutures and flex. After this was completed, a light dressing was applied to the right upper extremity. The patient tolerated the procedure well and she was taken in good condition to the recovery room. [id number]/[facility] #: [id number] ABBIE
--- NOTE | 2019-07-11 03:26 | CONS ---
CC: Dr. Jj; Dr. Cadet * CONSULTATION REPORT: DATE OF CONSULT: 07/11/19 PRIMARY CARE PROVIDER: Dr. Jj from [facility], [place]. ATTENDING PHYSICIAN WHILE IN THE HOSPITAL: Dr. Pedro (report dictated by Edi Whitehead NP). REQUESTING PHYSICIAN FOR CONSULT: Dr. Cadet. REASON FOR MEDICAL CONSULTATION: Evaluation of blood pressure, hypotension. HISTORY OF PRESENT ILLNESS: Ms. Trivedi is a 74-year-old female patient with a history of end-stage renal disease, atrial fibrillation, polycystic kidney disease, hypertension, hyperlipidemia, and anemia of chronic disease, who came in. She actually was here in May twice for cellulitis over her right fistula and then a recurrent thrombophlebitis and infection, completed a 2-week oral course after discharge from IV antibiotics. 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 The patient had a tunneled catheter placed and has been getting dialysis through the tunneled catheter and the fistula obviously was not being used. She presented to Dr. Cadet's service today for revision of the AV fistula with graft placement and excision of aneurysms. She underwent the procedure and did well; however, in the postoperative course, it was noted that she was hypotensive. Her blood pressure was running as low as 76 /40, and again I checked it when I evaluated her and it was 88/60. On evaluating the patient, she said she is not having any chest pain or shortness of breath. She denies feeling lightheaded. She denies feeling dizzy. She said she does not feel like she is going to faint. It was noted that she received a regional block via anesthesia and also Versed, fentanyl, propofol as well during the case. The patient had a regional right supraclavicular block placed. The patient states that she does have sensation back in her arm. She denies any numbness or tingling or pain to the right upper extremity. Denies feeling her hands feeling cold. She states that she is feeling well. She is tired and she states that she would like to get some sleep. She states that she was last dialyzed on Monday. She took her blood pressure meds this morning. She does carry a history of orthostatic hypotension and in fact is on midodrine for this. There was concern given the hypotension, and we were asked to evaluate and consult. PAST MEDICAL HISTORY: Significant for: 1. End-stage renal disease. 2. Polycystic kidney disease. 3. Hypertension. 4. Hyperlipidemia. 5. AFib. 6. Anemia. 7. History of orthostatic hypotension. 8. Recent hospitalization for cellulitis overlying the right fistula in the right upper extremity and also thrombophlebitis. PAST SURGICAL HISTORY: She has had an AV fistula placed about 14 years ago. Today, she had an AV fistula repair with graft placement, and she has had a history of hernia repair. MEDICATIONS: Home meds according to the preoperative list include: 1. Lactobacillus 1 tablet every other day. 2. Mucinex 600 mg daily. 3. LiquaCel 30 cc p.o. b.i.d. 4. Oxybutynin 5 mg p.o. daily. 5. Midodrine 5 mg p.o. b.i.d. 6. Toprol-XL 100 mg daily. 7. Simvastatin 20 mg daily. 8. Renvela 2400 mg p.o. t.i.d. with meals. 9. Colace 100 mg at bedtime. 10. DuoNeb 1 neb inhaled every 4 hours as needed. 11. Tylenol 650 mg every 4 hours as needed. ALLERGIES TO MEDICATIONS: Include KEFLEX, NSAIDs, PENICILLIN, and BACTRIM. FAMILY HISTORY: Both her mother and father had lung cancer. SOCIAL HISTORY: She does not smoke. She does not drink. She resides at [facility], [place]. Surrogate decision maker not appointed at this point. REVIEW OF SYSTEMS: There is no documented fever. She denied having any significant weight change. There is no double vision. She denies having any ear discharge. There is no rhinorrhea. No sore throat. No thyroid enlargement. She denied having any chest pain. There is no orthopnea. No nocturnal dyspnea. No abdominal pain. No nausea, no vomiting. No dysuria. There is no frequency. There is no seizure. No loss of consciousness. No pruritus and no skin ulcerations. Review of 14 systems completed, all others negative. PHYSICAL EXAM: Again, blood pressure when I last checked was 88/60, pulse 93, respirations 18, O2 saturation 100%, temperature 98.0. General: At this time, Ms. Trivedi is a 74-year-old female patient, she is sitting in the ED stretcher, she does not appear to be in any acute distress, she appears to be well nourished, she is well developed. HEENT: Head: Atraumatic, normocephalic. Eyes: EOMs intact. Sclerae anicteric, not pale. Neck is supple. Throat: Oral mucosa appears to be moist. No oropharyngeal erythema. Heart sounds, S1, S2. She had an irregularly irregular rate. No murmurs, rubs, or gallops. Lungs: Clear to auscultation. No wheezes, rales, or rhonchi. Abdomen: Soft, flat, nontender. She does have an umbilical hernia noted. Extremities: Pulses were 2+ throughout. The right upper extremity had good distal CSM checks intact to the hand. There was a dressing intact, which did have some serosanguineous drainage. She had a Donato-Lombardi drain present as well with a scant amount of sanguineous drainage. She has peripheral edema noted to her lower extremities, 3+ with 5/5 strength. Neurologically, again, she is awake, alert, oriented x3. Tongue midline. Silk Screen Processor equal. No gross focal deficits. Skin: Intact with the exception she does have an incision to the right upper extremity, which is covered with a dressing. DIAGNOSTIC STUDIES/LAB DATA: Labs revealed a WBC of 4.2, RBC of 2.56, hemoglobin 8.4 which is at baseline, hematocrit of 25. Sodium 135, potassium 5.1, bicarb 29, chloride 100, BUN 41, creatinine 4.99 which is near her baseline , glucose 73. Lactate 1.1. Calcium 8.1. She also had a chest x-ray obtained today, which does show pulmonary edema. She does have a right pleural effusion noted, which when reviewed with her previous chest x-ray, appears to be similar in nature. The degree of pulmonary edema looks a little worse on the chest x-ray. Old medical records were reviewed. ASSESSMENT AND PLAN: Ms. Trivedi is a 74-year-old female patient coming in to the surgical services today for a revision of her arteriovenous fistula. We were asked to evaluate and consult given the hypotension. My recommendations at this point are: 1. Status post revision of arteriovenous fistula. I will defer further management to Dr. Cadet and his team. 2. Hypotension. Etiology is unclear. She will be modi cultured. She had a chest x-ray, which does show right pleural effusion but appears to be similar. She does have some increased pulmonary edema, I would be hesitant to force fluids. She is asymptomatic at this point. It could be secondary to the anesthesia and the delay. Given her history of end-stage renal disease, it may take some time for this to wear off. Again, being that she is asymptomatic, I would be more keen to observe this. If she has any symptoms, then I would certainly cautiously hydrate her with a bolus, but given the history of end- stage renal disease and the degree of pulmonary edema, I would be cautious as I do not want to put her in flash pulmonary edema. Her H and H was stable. We will repeat that in 6 hours to make sure it is not falling. I will transfuse as indicated. Electrolytes are stable. Potassium is slightly elevated at 5.1. We will repeat that and continue to follow. 3. End-stage renal disease. I will continue her current regimen. 4. Hypertension. I will hold her meds for blood pressures less than 100. 5. Hyperlipidemia. Continue meds prescribed. 6. Atrial fibrillation. Continue current medical regimen. 7. Anemia. Again, H and H is stable. It is anemia of chronic disease. We will continue to follow. 8. Polycystic kidney disease. Again, at this point, follow with her insecticide maker. 9. DVT prophylaxis: We will defer to the primary team. 10. Fluid, electrolyte, and nutrition: I would recommend a renal diet. TIME SPENT: Time spent on the consult was 60 minutes, greater than half that time was spent [id number] with the patient obtaining my history and physical, the other half time was spent going over the plan of care with the patient, implementing the plan of care. I did discuss the plan of care with my attending Dr. Pedro, he is in agreement. EDI WHITEHEAD, MABLE [id number]/[facility] #: [id number] ABBIE
[2019-07-11] MEDS: Acetaminophen TAB* 325 MG PO PRN (06:11)
[2019-07-11 06:38] LABS: CO2 Carbon Dioxide 23 mmol/L (22-32); Calcium 7.9 mg/dL (8.6-10.3); Chloride 101 mmol/L (101-111); Sodium 133 mmol/L (135-145)
[2019-07-11 06:44] LABS: BUN/Creatinine Ratio 8.6 (8-20); Blood Urea Nitrogen 43 mg/dL (6-24); EGFR African American 10.2 (>60); EGFR Non-African American 8.5 (>60); Glucose 68 mg/dL (70-100)
[2019-07-11 06:53] LABS: Anion Gap 9 mmol/L (2-11)
[2019-07-11] MEDS: Docusate CAP* 100 MG PO SCH (08:16)
[2019-07-11] MEDS: Metoprolol Succinate XL TAB* 100 MG PO SCH (08:16)
[2019-07-11] MEDS: guaiFENesin ER TAB 600 MG PO SCH (08:16)
[2019-07-11] MEDS: Oxybutynin XL TAB* 5 MG PO SCH (08:16)
[2019-07-11] MEDS: Sevelamer TAB* 800 MG PO SCH ×3 (08:16→18:06)
[2019-07-11] MEDS ORDERED: Metoprolol Succinate XL TAB* 100 MG PO SCH (09:00)
[2019-07-11] MEDS ORDERED: EPOETIN ALFA-EPBX * 4,000 UNIT/ML VIAL SUBCUT ONE (09:30)
--- NOTE | 2019-07-11 09:33 | CONSULT ---
Consult Consult: Consult requested for: ESRD & HD Consult requested by: Dr. Cadet, Vascular Surgery Performed by Dr. Skyler Bruner, [facility] Nephrology 07/11/2019 74 YO WF ESRD on HD MWF via Rt IJ TDC. She has been dealing with an aneurysmal AVF, which clotted and developed thrombophlebitis, s/p ABx week s ago, s/p aneurysmal excision and a new AVG placement! She is well doing, but has AFib with RVR, s/p Metoprolol but BP dropped a little 80s-90s. We are dialyzing her inpatient today with minimal UF. Metoprolol on hold, and was given Midodrine! PMH: ESD on HD MWF A Fib on Eliquis, will be restarted tomorrow. HTN Dyslipidemia Anemia of ESRD Hospital Meds: Acetaminophen Albuterol/Ipratropium Docusate Sodium Epoetin Jose Roberto with HD Guaifenesin Metoprolol Succinate Midodrine Morphine Sulfate Oxybutynin Chloride Sevelamer Carbonate Allergies: cephalexin Allergy (Verified 07/10/19 07:26) Vomiting NSAIDS (Non-Steroidal Anti-Inflamma Allergy (Verified 07/10/19 07:26) Bleeding Penicillins Allergy (Verified 07/10/19 07:26) Vomiting sulfamethoxazole [From Bactrim] Allergy (Verified 07/10/19 07:26) See Comment profuse bleeding, INR went up to 23 trimethoprim [From Bactrim] Allergy (Verified 07/10/19 07:26) See Comment profuse bleeding, INR went up to 23 Social History: Denied Alcohol, smoking. No IVDA. Her sister is her caregiver Family History: Negative for Dialysis, ESRD or Renal Transplant. Positive for HTN & DM Surgical History:TDC. AVF. 12-Point Review of System obtained: Constitutional: No fever Eyes No blurry vision. No red eye CV: No new SOB. No chest pain. Respiratory: No cough no wheezing G.I: no diarrhea no nausea no vomiting no pain no blood per rectum no burning no obstruction symptoms Skin: No rash Neurology No seizures or neurologic deficit Endocrine no heat or cold intolerance Hem/Lymphatic no bleeding no lymph nodes swelling Immune/Allergy no allergic reactions Musculoskeletal: No arthritis, no swelling Psych no anxiety no depression no hallucination Objective: Temp Pulse Resp BP Pulse Ox 98.2 F 125 22 86/47 96 02/13/20 07:22 07/11/19 07:22 07/11/19 07:58 07/11/19 07:22 07/11/19 07:22 10 Point multi system exam: Constitutional Alert HEENT: No Conjunctivitis Abdomen Soft Abdomen No Ascites Heart: A Fib +LE Edema, No murmur Lungs: Basilar crackles Extremities: + edema. Rt Arm dressing, drain, serosanguinous fluid Neurology No deficit. CN intact Hem/Lymph: no palpable lymph nodes Musculoskeletal: No joint swelling Laboratory Reviewed Sodium 133 mmol/L (135-145) L 07/11/19 05:51 Potassium TNP 07/11/19 05:51 BUN 43 mg/dL (6-24) H 07/11/19 05:51 Creatinine 5.00 mg/dL (0.51-0.95) H 07/11/19 05:51 Calcium 7.9 mg/dL (8.6-10.3) L 07/11/19 05:51 Assessment and Plan: *ESRD *HD today: UF only IL as BP low, holding Metoprolol and continued Midodrine, may give extra dose. *Dropped blood flow to 300 cc/min from 350, as HR 130/min, AFib with RVR, will f /u response. *Electrolytes Ok. HD with 2K bath
--- NOTE | 2019-07-11 10:03 | PN ---
Progress Note - Progress Note Date of Service: 07/11/19 Note: Inpatient Acute HD note Performed by Dr. Skyler Bruner, [facility] Nephrology 07/11/2019 ESRD on HD, via Rt IJ TDC Known PKD, HTN & ESRD. Rt BC Aneurysmal AVF, s/p excision see surgeon's report and my consult Originally HD schedule MWF, missed yesterday, today make up session, and will need HD again tomorrow. She was seen and examined on HD, for ESRD HD Routine: MWF. HD Duration: 3:15 Hr UF Goal: only 1 L Vitals: BP: 90, improved to 1100. HR: 129/min. AFib with RVR vs. Sinus Tach. I spoke to Ct Riggins & advised ruling out an underlying cause if this is Sinus Tach, TSH, Sepsis, Bleeding, Pain, etc.. but if it's AFib, we may try Digoxin 0.125 mg. Metoprolol will be put on hold & will continue with Midodrine 10 mh up to TID, if needed. Blood Flow: Dropped to 300 cc/min in view of Tachycardia Dialysate Flow: 600 cc/min Bath: K: 2K Ca: 2.5Ca Na: 138 Hco3: 35 Temp: 35.5 C Dialyzer: Revaclear 300 Access: Rt IJ TDC Meds with HD: Heparin free EPO 4,000 U Tolerates HD well so far
--- NOTE | 2019-07-11 16:20 | PN ---
Subjective Date of Service: 07/11/19 Interval History: Received call from RN this morning that patient has been hypotensive and tachycardia, but asymptomatic. In additional, Metoprolol held. Patient sent for dialysis. EKG and tele ordered. Patient assessed after dialysis. Reports she feels well. Has some pain in right upper extremity, but tolerable. Denies cp, sob, palpitations, nausea, vomiting, diaphoresis, lightheadedness. Objective Active Medications: Acetaminophen (Tylenol Tab*) 650 mg PO Q4H PRN PRN Reason: PAIN/FEVER Last Admin: 07/11/19 06:11 Dose: 650 mg Albuterol/Ipratropium (Duoneb (Albuterol 2.5 Mg/Ipratropium 0.5 Mg)) 1 neb INH Q4H PRN PRN Reason: SHORTNESS OF BREATH Docusate Sodium (Colace Cap*) 100 mg PO DAILY [facility] Last Admin: 07/11/19 08:16 Dose: Not Given Guaifenesin (Mucinex*) 600 mg PO QAM [facility] Last Admin: 07/11/19 08:16 Dose: Not Given Sodium Chloride (Ns 0.9% 250 Ml*) 250 mls @ 0 mls/hr IV KVO [facility] Last Admin: 07/10/19 07:20 Dose: 5 mls/hr Metoprolol Succinate (Toprol Xl Tab*) 100 mg PO DAILY [facility] Last Admin: 07/11/19 08:16 Dose: Not Given Midodrine (Midodrine) 10 mg PO BID [facility] Morphine Sulfate (Morphine Inj (Syringe))*) 2 mg IV Q2H PRN PRN Reason: PAIN SEVERE Oxybutynin Chloride (Ditropan Xl Tab*) 5 mg PO DAILY [facility] Last Admin: 07/11/19 08:16 Dose: Not Given Sevelamer Carbonate (Renvela Tab*) 800 mg PO TID WITH MEALS [facility] Last Admin: 07/11/19 13:03 Dose: 800 mg Vital Signs - 8 hr 07/11/19 07/11/19 12:16 15:29 Temperature 97.8 F 98.1 F Pulse Rate 116 107 Respiratory 18 35 Rate Blood Pressure 99/48 85/37 (mmHg) O2 Sat by Pulse 93 99 Oximetry Oxygen Devices in Use Now: None Appearance: Comfortable, NAD Eyes: No Scleral Icterus Ears/Nose/Mouth/Throat: Clear Oropharnyx, Mucous Membranes Moist Neck: NL Appearance and Movements; NL JVP Respiratory: Symmetrical Chest Expansion and Respiratory Effort, Clear to Auscultation Cardiovascular: NL Sounds; No Murmurs; No JVD, RRR, - - Bilateral LE non pitting edema Result Diagrams: 07/11/19 16:30 07/11/19 16:30 Assess/Plan/Problems-Billing Assessment: 74 yr old hx of esrd, afib, polycysitc kidney disease, htn, hld, anemia; who came for revision of av fistula with graft - Patient Problems (1) AV fistula Comment: - S/P AV fistula revision. - Dr Cadet managing. - Had some drainage today and dressing was changed by MD in morning and RN this afternoon. - Has PRESTON drain with SS drainage. (2) Hypotension Comment: - Asymptomatic. - Unclear etiology, therefore, she was modi cultured which has so far not revealed infection, chest xray unremarkable, anemia stable for patient. - Given hypotension and tachycardia, VQ scan ordered and revealed intermediate risk. US of bilateral LE ordered and revealed possible blot. Discussed with Dr Bruner, Dr Cadet and patient sister. Plan for CTA tonight and deicision about AC tomorrow. Normally would start AC while awaiting official results, but given fistula revision discussed with Dr Cadet who recommends holding on AC until offically diagnosis of AC as she is at greater risk of bleeding. - It should be noted that patient has not been on AC (specifically Eliquis) since 06/14 per [facility] and hospital d/c summary (3) Tachycardia Comment: - Asymptomatic - EKG sinus tach - Tele currently sinus tach - See above for plan due to intermediate risk VQ scan - It should be noted that BB has been held also (4) Full code status (5) Atrial fibrillation Comment: - Currently sinus tach - Continue to hold Metoprolol given low bp - Per documentation patient has been off anticoagulation due to thigh hematoma and pending procedure since 06/14/19 (6) ESRD on hemodialysis SNOMED Code(s): 898079402 Comment: - Dialysis today Attending: Kristy Golden
[2019-07-11 16:47] LABS: ABS Eosinophils 0.1 10^3/ul (0-0.6); ABS Lymphocytes 0.4 10^3/ul (1.0-4.8); ABS Monocytes 0.4 10^3/ul (0-0.8); ABS Neutrophils 2.9 10^3/ul (1.5-7.7); Eosinophil % 3.2 %; Hematocrit 23 % (35-47); Hemoglobin 7.8 g/dL (12.0-16.0); Lymphocyte % 10.7 %; Mean Corpuscular HGB Conc 34 g/dL (31-36); Mean Corpuscular Hemoglobin 33 pg (27-31); Mean Corpuscular Volume 98 fL (80-97); Platelet Count 155 10^3/uL (150-450); Red Blood Count 2.38 10^6 /uL (3.70-4.87); Red Cell Distribution Width 18 % (10-15); White Blood Count 3.9 10^3/uL (3.5-10.8)
[2019-07-11 16:55] LABS: INR 1.35 (0.82-1.09)
[2019-07-11] MEDS ORDERED: Iodixanol* (CONTRAST) 320 MG/ML 100 ML SDV IV ONE (19:37)
[2019-07-12] MEDS: Acetaminophen TAB* 325 MG PO PRN ×3 (08:38→21:09)
[2019-07-12] MEDS: Sevelamer TAB* 800 MG PO SCH ×3 (09:28→18:05)
[2019-07-12] MEDS: guaiFENesin ER TAB 600 MG PO SCH (09:28)
[2019-07-12] MEDS: Docusate CAP* 100 MG PO SCH (09:28)
[2019-07-12] MEDS: Metoprolol Succinate XL TAB* 100 MG PO SCH (13:05)
[2019-07-12] MEDS: Oxybutynin XL TAB* 5 MG PO SCH (13:05)
--- NOTE | 2019-07-12 14:29 | PN ---
Progress Note - Progress Note Date of Service: 07/12/19 Note: Inpatient Acute Dialysis Note~ESRD Performed by Dr. Skyler Bruner, [facility] Nephrology 07/12/2019 I saw her today on HD for ESRD. HD routine MWF. Seen and examined on HD. s/p AVF Aneurysm ligation, s/p AVG, s/p PRESTON drain with SS drainage. Had VQ scan yesterday showed intermediate risk PE, B/L LE US showed possible Lt Femoral DVT, but CTA showed no PE HD Routine: MWF HD Duration: 1-2 Hr. Had HD full treatment yesterday UF Goal: 1-2 L/Rx Vitals: BP: 110/55 HR: 120/m Blood Flow: 400 cc/min Dialysate Flow: 600 cc/min Bath: K: 2K Ca: 2.5Ca Na: 138 Hco3: 35 Temp: 36 C Dialyzer: Revaclear 300 Access: Rt IJ TDC Meds with HD: Heparin free Tolerates HD well.
[2019-07-12 16:50] LABS: ABS Eosinophils 0.2 10^3/ul (0-0.6); ABS Lymphocytes 0.3 10^3/ul (1.0-4.8); ABS Monocytes 0.4 10^3/ul (0-0.8); ABS Neutrophils 3.2 10^3/ul (1.5-7.7); Eosinophil % 5.5 %; Hematocrit 26 % (35-47); Hemoglobin 8.2 g/dL (12.0-16.0); Lymphocyte % 7.7 %; Mean Corpuscular HGB Conc 32 g/dL (31-36); Mean Corpuscular Hemoglobin 33 pg (27-31); Mean Corpuscular Volume 104 fL (80-97); Mean Platelet Volume 8.6 fL (7.4-10.4); Nucleated Red Blood Cells % 0.1; Platelet Count 106 10^3/uL (150-450); Red Blood Count 2.49 10^6 /uL (3.70-4.87); Red Cell Distribution Width 19 % (10-15); White Blood Count 4.2 10^3/uL (3.5-10.8)
[2019-07-12 17:11] LABS: Potassium 4.2 mmol/L (3.5-5.0)
[2019-07-12 17:17] LABS: EGFR African American 15.9 (>60); EGFR Non-African American 13.2 (>60)
--- NOTE | 2019-07-12 17:23 | PN ---
Subjective Date of Service: 07/12/19 Interval History: Discussed patient care plan and CTA results with Dr Cadet. No PE. Plan to restart low dose Eliquis. Drainage from surgical site decrease significantly per Chichi and PRESTON drain will be removed tomorrow. Patient resting in bed on assessment. Reports she feels well today. Report min pain in RUE. Denies pain in LEs. Denies sob, cp, palpitations, nausea, vomiting , weakness, dizziness. Objective Active Medications: Acetaminophen (Tylenol Tab*) 650 mg PO Q4H PRN PRN Reason: PAIN/FEVER Last Admin: 07/12/19 13:34 Dose: 650 mg Albuterol/Ipratropium (Duoneb (Albuterol 2.5 Mg/Ipratropium 0.5 Mg)) 1 neb INH Q4H PRN PRN Reason: SHORTNESS OF BREATH Docusate Sodium (Colace Cap*) 100 mg PO DAILY [facility] Last Admin: 07/12/19 09:28 Dose: Not Given Guaifenesin (Mucinex*) 600 mg PO QAM [facility] Last Admin: 07/12/19 09:28 Dose: 600 mg Sodium Chloride (Ns 0.9% 250 Ml*) 250 mls @ 0 mls/hr IV KVO [facility] Last Admin: 07/10/19 07:20 Dose: 5 mls/hr Metoprolol Succinate (Toprol Xl Tab*) 100 mg PO DAILY [facility] Last Admin: 07/12/19 13:05 Dose: Not Given Midodrine (Midodrine) 10 mg PO BID [facility] Last Admin: 07/12/19 13:05 Dose: Not Given Morphine Sulfate (Morphine Inj (Syringe))*) 2 mg IV Q2H PRN PRN Reason: PAIN SEVERE Oxybutynin Chloride (Ditropan Xl Tab*) 5 mg PO DAILY [facility] Last Admin: 07/12/19 13:05 Dose: Not Given Sevelamer Carbonate (Renvela Tab*) 800 mg PO TID WITH MEALS [facility] Last Admin: 07/12/19 13:34 Dose: 800 mg Vital Signs - 8 hr 07/12/19 07/12/19 11:28 15:37 Temperature 98.2 F 98.2 F Pulse Rate 121 123 Respiratory 18 20 Rate Blood Pressure 119/47 99/39 (mmHg) O2 Sat by Pulse 94 93 Oximetry Oxygen Devices in Use Now: None Appearance: Comfortable, NAD Eyes: No Scleral Icterus Ears/Nose/Mouth/Throat: Clear Oropharnyx, Mucous Membranes Moist Neck: NL Appearance and Movements; NL JVP Respiratory: Symmetrical Chest Expansion and Respiratory Effort, Clear to Auscultation Cardiovascular: NL Sounds; No Murmurs; No JVD, RRR, - - Bilateral nonpitting edema Abdominal: NL Sounds; No Tenderness; No Distention Lymphatic: No Cervical Adenopathy Extremities: - - Dressing to RUE CDI Skin: No Rash or Ulcers Neurological: Alert and Oriented x 3 Nutrition: Taking PO's Result Diagrams: 07/12/19 15:15 07/12/19 15:15 Additional Lab and Data: Laboratory Results - last 24 hr 07/12/19 07/12/19 15:15 15:15 WBC 4.2 RBC 2.49 L Hgb 8.2 L Hct 26 L MCV 104 H MCH 33 H MCHC 32 RDW 19 H Plt Count 106 L MPV 8.6 Neut % (Auto) 76.5 Lymph % (Auto) 7.7 [place] % (Auto) 9.9 Eos % (Auto) 5.5 Baso % (Auto) 0.4 Absolute Neuts (auto) 3.2 Absolute Lymphs (auto) 0.3 L Absolute Monos (auto) 0.4 Absolute Eos (auto) 0.2 Absolute Basos (auto) 0.0 Absolute Nucleated RBC 0.0 Nucleated RBC % 0.1 Sodium 132 L Potassium 4.2 Chloride 98 L Carbon Dioxide 26 Anion Gap 8 BUN 24 Creatinine 3.41 H Est GFR ( Amer) 15.9 Est GFR (Non-Af Amer) 13.2 BUN/Creatinine Ratio 7.0 L Glucose 89 Calcium 8.0 L Microbiology and Other Data: Microbiology 07/11/19 02:00 Aerobic Blood Culture - Preliminary Blood Venous No Growth Day 1 Anaerobic Blood Culture - Preliminary No Growth Day 1 07/11/19 00:41 Aerobic Blood Culture - Preliminary Blood Venous No Growth Day 1 Anaerobic Blood Culture - Preliminary No Growth Day 1 Assess/Plan/Problems-Billing Assessment: 74 yr old hx of esrd, afib, polycysitc kidney disease, htn, hld, anemia; who came for revision of av fistula with graft - Patient Problems (1) DVT (deep venous thrombosis) Comment: - US read as extremely limited but possible dvt in left mid and distal femoral vein. Discussed with Dr Cadet who reports likely old dvt and recommended restarting patient's Eliquis (low dose) that she was on previously for afib - Patient had CTA that was negative for PE. Patient was not given heparin in meantime due to risk for bleed and discussion with Dr Bruner who reported that small clots are common in ESRD patients who are on HD. Also discussed risk/ benefits with sister who agreed to no AC until results of CTA resulted. (2) AV fistula Comment: - Drainage improving and PRESTON to be removed tomorrow per Chichi - S/P AV fistula revision. (3) Hypotension Comment: - Midodrine increased yesterday from 5 mg BID to [address] Bruner recommendations - BP improving - Asymptomatic. - Unclear etiology, therefore, she was modi cultured which has so far not revealed infection, chest xray unremarkable, anemia stable for patient. - No PE (4) Tachycardia Comment: - Suspected from holding BB - No PE - Asymptomatic - EKG sinus tach - Cont tele (5) Atrial fibrillation Comment: - Currently sinus tach - Continue Metoprolol. Recently has been held due to hypotension (parameters changed) - Resume low dose Eliquis (okay'd by Dr Cadet) (6) ESRD on hemodialysis Comment: - Dialysis today (7) Full code status Attending: Kristy Golden
[2019-07-12] MEDS: Apixaban* 2.5 MG TAB PO SCH (21:10)
[2019-07-13] MEDS: Metoprolol Succinate XL TAB* 50 MG PO SCH (09:03)
[2019-07-13] MEDS: Docusate CAP* 100 MG PO SCH (09:03)
[2019-07-13] MEDS: Oxybutynin XL TAB* 5 MG PO SCH (09:03)
[2019-07-13] MEDS: Apixaban* 2.5 MG TAB PO SCH ×2 (09:04→21:40)
[2019-07-13] MEDS: guaiFENesin ER TAB 600 MG PO SCH (09:04)
[2019-07-13] MEDS: Sevelamer TAB* 800 MG PO SCH ×3 (09:04→17:56)
[2019-07-13] MEDS: Acetaminophen TAB* 325 MG PO PRN ×2 (17:32→21:40)
--- NOTE | 2019-07-13 17:56 | PN ---
Subjective Date of Service: 07/13/19 Interval History: Discussed care plan with PA from Dr Cadet's office. PRESTON drain removed today and she is stable for d/c from their surgical point of view. Patient lying in bed. Reports she feels well. Reports pain in RUE is improving. Reports no longer experiencing pain in legs. Denies cp, palpitations, sob, n/v/d , fever, chills. Objective Active Medications: Acetaminophen (Tylenol Tab*) 650 mg PO Q4H PRN PRN Reason: PAIN/FEVER Last Admin: 07/13/19 17:32 Dose: 650 mg Albuterol/Ipratropium (Duoneb (Albuterol 2.5 Mg/Ipratropium 0.5 Mg)) 1 neb INH Q4H PRN PRN Reason: SHORTNESS OF BREATH Apixaban (Eliquis*) 2.5 mg PO BID [facility] Last Admin: 07/13/19 09:04 Dose: 2.5 mg Docusate Sodium (Colace Cap*) 100 mg PO DAILY [facility] Last Admin: 07/13/19 09:03 Dose: 100 mg Guaifenesin (Mucinex*) 600 mg PO QAM [facility] Last Admin: 07/13/19 09:04 Dose: 600 mg Sodium Chloride (Ns 0.9% 250 Ml*) 250 mls @ 0 mls/hr IV KVO [facility] Last Admin: 07/10/19 07:20 Dose: 5 mls/hr Metoprolol Succinate (Toprol Xl Tab*) 50 mg PO DAILY [facility] Last Admin: 07/13/19 09:03 Dose: 50 mg Midodrine (Midodrine) 10 mg PO BID [facility] Last Admin: 07/13/19 09:04 Dose: 10 mg Morphine Sulfate (Morphine Inj (Syringe))*) 2 mg IV Q2H PRN PRN Reason: PAIN SEVERE Oxybutynin Chloride (Ditropan Xl Tab*) 5 mg PO DAILY [facility] Last Admin: 07/13/19 09:03 Dose: 5 mg Sevelamer Carbonate (Renvela Tab*) 800 mg PO TID WITH MEALS [facility] Last Admin: 07/13/19 12:51 Dose: 800 mg Vital Signs - 8 hr 07/13/19 07/13/19 07/13/19 11:13 15:28 16:05 Temperature 97.9 F 98.3 F Pulse Rate 113 102 Respiratory 18 16 Rate Blood Pressure 122/60 100/45 106/47 (mmHg) O2 Sat by Pulse 95 98 Oximetry Oxygen Devices in Use Now: None Appearance: Comfortable, NAD Eyes: No Scleral Icterus Ears/Nose/Mouth/Throat: Clear Oropharnyx, Mucous Membranes Moist Neck: NL Appearance and Movements; NL JVP Respiratory: Symmetrical Chest Expansion and Respiratory Effort, Clear to Auscultation Cardiovascular: NL Sounds; No Murmurs; No JVD, - - Non pitting edema Abdominal: NL Sounds; No Tenderness; No Distention Lymphatic: No Cervical Adenopathy Extremities: - - Right upper extremity edema and bilateral le edema Skin: - - Dressing to RUE has mild amount of drainage Neurological: Alert and Oriented x 3 Nutrition: Taking PO's Result Diagrams: 07/12/19 15:15 07/12/19 15:15 Additional Lab and Data: . Microbiology and Other Data: Microbiology 07/11/19 02:00 Aerobic Blood Culture - Preliminary Blood Venous No Growth Day 1 Anaerobic Blood Culture - Preliminary No Growth Day 1 07/11/19 00:41 Aerobic Blood Culture - Preliminary Blood Venous No Growth Day 1 Anaerobic Blood Culture - Preliminary No Growth Day 1 Assess/Plan/Problems-Billing Assessment: 74 yr old hx of esrd, afib, polycysitc kidney disease, htn, hld, anemia; who came for revision of av fistula with graft - Patient Problems (1) DVT (deep venous thrombosis) Comment: - Cont low dose Eliquis - US read as extremely limited but possible dvt in left mid and distal femoral vein. Discussed with Dr Cadet who reports likely old dvt and recommended restarting patient's Eliquis (low dose) that she was on previously for afib - Patient had CTA that was negative for PE. Patient was not given heparin in meantime due to risk for bleed and discussion with Dr Bruner who reported that small clots are common in ESRD patients who are on HD. Also discussed risk/ benefits with sister who agreed to no AC until results of CTA resulted. (2) AV fistula Comment: - PRESTON removed. Small amount of SS drainage noted to dressing after removal - S/P AV fistula revision. (3) Hypotension Comment: - BP improving. - Midodrine 10 mg BID - Unclear etiology, therefore, she was modi cultured which has so far not revealed infection, chest xray unremarkable, anemia stable for patient. - No PE (4) Tachycardia Comment: - Improving as now low 100s to 110. - Suspected from holding BB - No PE - Asymptomatic - EKG sinus tach - Cont tele (5) Atrial fibrillation Comment: - Currently sinus tach with occasional afib - Continue Metoprolol. Recently has been held due to hypotension (parameters changed) - Resume low dose Eliquis (okay'd by Dr Cadet) (6) ESRD on hemodialysis Comment: - Dialysis Monday (7) Full code status Attending: Dee Dee Jones
--- NOTE | 2019-07-13 21:58 | PN ---
Progress Note - Progress Note Date of Service: 07/13/19 Note: Inpatient Nephrology f/u Note: Performed by Dr. Skyler Bruner, [facility] Nephrology 07/13/2019 74 YO WF ESRD on HD MWF via Rt IJ TDC. s/p aneurysmal AVF, s/p aneurysmal excision and a new AVG. Feeling well, s/p removal of PRESTON drain, s/p dressing changes. Last HD yesterday, was shorter treatment s/p full session . Feels well. No c/c. Has Lt DVT, on low dose Eliquis. No PE. Cleared from vascular surgery for discharge. Hospital Meds: Reviewed Objective: Temp Pulse Resp BP Pulse Ox 98.3 F 102 18 106/47 98 07/13/19 15:28 07/13/19 15:28 07/13/19 19:40 07/13/19 16:05 07/13/19 15:28 10 Point multi system exam: Constitutional Alert HEENT: No Conjunctivitis Abdomen Soft Abdomen No Ascites Heart: A Fib +LE Edema, No murmur Lungs: Clear Extremities: + edema. Rt Arm dressing. Neurology No deficit. CN intact Hem/Lymph: no palpable lymph nodes Musculoskeletal: No joint swelling Laboratory Reviewed Sodium 132 mmol/L (135-145) L 07/12/19 15:15 Potassium 4.2 mmol/L (3.5-5.0) 07/12/19 15:15 BUN 24 mg/dL (6-24) 07/12/19 15:15 Creatinine 3.41 mg/dL (0.51-0.95) H 07/12/19 15:15 Calcium 8.0 mg/dL (8.6-10.3) L 07/12/19 15:15 Assessment and Plan: *ESRD *HD MWF *Electrolytes Ok. *Ok for d/c home from Nephrology perspective
[2019-07-14 04:49] LABS: Hematocrit 24 % (35-47); Hemoglobin 7.9 g/dL (12.0-16.0); Mean Corpuscular HGB Conc 33 g/dL (31-36); Mean Corpuscular Hemoglobin 33 pg (27-31); Mean Corpuscular Volume 98 fL (80-97); Platelet Count 169 10^3/uL (150-450); Red Blood Count 2.42 10^6 /uL (3.70-4.87); Red Cell Distribution Width 18 % (10-15); White Blood Count 5.2 10^3/uL (3.5-10.8)
[2019-07-14 04:58] LABS: Calcium 8.2 mg/dL (8.6-10.3); Potassium 4.5 mmol/L (3.5-5.0)
[2019-07-14 05:04] LABS: BUN/Creatinine Ratio 7.3 (8-20); EGFR African American 11.1 (>60); EGFR Non-African American 9.2 (>60)
[2019-07-14 05:13] LABS: Polychromasia 1+
[2019-07-14 05:14] LABS: ABS Eosinophils 0.5 10^3/ul (0-0.6); ABS Lymphocytes 0.5 10^3/ul (1.0-4.8); ABS Monocytes 0.5 10^3/ul (0-0.8); ABS Neutrophils 3.7 10^3/ul (1.5-7.7); Eosinophil % 8.7 %; Lymphocyte % 10.3 %
[2019-07-14] MEDS: Apixaban* 2.5 MG TAB PO SCH ×2 (08:42→20:14)
[2019-07-14] MEDS: Metoprolol Succinate XL TAB* 50 MG PO SCH (08:42)
[2019-07-14] MEDS: guaiFENesin ER TAB 600 MG PO SCH (08:42)
[2019-07-14] MEDS: Docusate CAP* 100 MG PO SCH (08:43)
[2019-07-14] MEDS: Oxybutynin XL TAB* 5 MG PO SCH (08:43)
[2019-07-14] MEDS: Sevelamer TAB* 800 MG PO SCH ×3 (08:43→18:24)
--- NOTE | 2019-07-14 15:11 | PN ---
Subjective Date of Service: 07/14/19 Interval History: Patient states that on the whole she feels like she is doing better. Pain in her right arm is well controlled with tylenol. Denied dizziness, lightheadedness , chest pain, palpitations, abdominal pain, nausea, vomiting, or issues moving bowel or bladder. Denied experiencing shortness of breath, however her respirations were 32 and shallow. Family History: Unchanged from Admission Social History: Unchanged from Admission Past Medical History: Unchanged from Admission Objective Active Medications: Acetaminophen (Tylenol Tab*) 650 mg PO Q4H PRN PRN Reason: PAIN/FEVER Last Admin: 07/13/19 21:40 Dose: 650 mg Albuterol/Ipratropium (Duoneb (Albuterol 2.5 Mg/Ipratropium 0.5 Mg)) 1 neb INH Q4H PRN PRN Reason: SHORTNESS OF BREATH Apixaban (Eliquis*) 2.5 mg PO BID [facility] Last Admin: 07/14/19 08:42 Dose: 2.5 mg Docusate Sodium (Colace Cap*) 100 mg PO DAILY [facility] Last Admin: 07/14/19 08:43 Dose: Not Given Guaifenesin (Mucinex*) 600 mg PO QAM [facility] Last Admin: 07/14/19 08:42 Dose: 600 mg Sodium Chloride (Ns 0.9% 250 Ml*) 250 mls @ 0 mls/hr IV KVO [facility] Last Admin: 07/10/19 07:20 Dose: 5 mls/hr Metoprolol Succinate (Toprol Xl Tab*) 50 mg PO DAILY [facility] Last Admin: 07/14/19 08:42 Dose: 50 mg Midodrine (Midodrine) 10 mg PO BID [facility] Last Admin: 07/14/19 08:43 Dose: 10 mg Morphine Sulfate (Morphine Inj (Syringe))*) 2 mg IV Q2H PRN PRN Reason: PAIN SEVERE Oxybutynin Chloride (Ditropan Xl Tab*) 5 mg PO DAILY [facility] Last Admin: 07/14/19 08:43 Dose: 5 mg Sevelamer Carbonate (Renvela Tab*) 2,400 mg PO TID WITH MEALS [facility] Vital Signs - 8 hr 07/14/19 07/14/19 07/14/19 07:49 07:50 08:00 Temperature Pulse Rate 155 115 Respiratory 20 Rate Blood Pressure (mmHg) O2 Sat by Pulse Oximetry 07/14/19 07/14/19 08:23 12:12 Temperature 97.8 F 97.9 F Pulse Rate 105 92 Respiratory 18 20 Rate Blood Pressure 95/54 112/55 (mmHg) O2 Sat by Pulse 100 99 Oximetry Oxygen Devices in Use Now: None Appearance: Well developed older woman, pale, chronically ill in appearance. Eyes: No Scleral Icterus, PERRLA Ears/Nose/Mouth/Throat: NL Teeth, Lips, Gums, Clear Oropharnyx, Mucous Membranes Moist Neck: NL Appearance and Movements; NL JVP, Trachea Midline Respiratory: Symmetrical Chest Expansion and Respiratory Effort, Clear to Auscultation, - - Diminished in bases Cardiovascular: NL Sounds; No Murmurs; No JVD, RRR, No Edema Abdominal: NL Sounds; No Tenderness; No Distention Lymphatic: No Cervical Adenopathy Extremities: No Clubbing, Cyanosis, - - +3 non-pitting edema to right upper extremity. Skin: No Rash or Ulcers, No Nodules or Sclerosis, - - Dressing to right upper extremity intact with small amount of serosanguineous drainage. Neurological: Alert and Oriented x 3 Lines/Tubes/Other Access: Clean, Dry and Intact Peripheral IV Result Diagrams: 07/14/19 04:42 07/14/19 04:42 Additional Lab and Data: . Microbiology and Other Data: Microbiology 07/11/19 02:00 Aerobic Blood Culture - Preliminary Blood Venous No Growth Day 1 Anaerobic Blood Culture - Preliminary No Growth Day 1 07/11/19 00:41 Aerobic Blood Culture - Preliminary Blood Venous No Growth Day 1 Anaerobic Blood Culture - Preliminary No Growth Day 1 Assess/Plan/Problems-Billing Assessment: 74 yr old hx of esrd, afib, polycysitc kidney disease, htn, hld, anemia; who came for revision of av fistula with graft - Patient Problems (1) DVT (deep venous thrombosis) Current Visit: Yes Status: Acute Code(s): I82.409 - ACUTE EMBOLISM AND THOMBOS UNSP DEEP VN UNSP LOWER EXTREMITY SNOMED Code(s): 185889654 Comment: - Cont low dose Eliquis - US read as extremely limited but possible dvt in left mid and distal femoral vein. Discussed with Dr Cadet who reports likely old dvt. - Patient had CTA that was negative for PE. Patient was not given heparin in meantime due to risk for bleed and discussion with Dr Bruner who reported that small clots are common in ESRD patients who are on HD. (2) AV fistula Current Visit: Yes Status: Acute Code(s): I77.0 - ARTERIOVENOUS FISTULA, ACQUIRED SNOMED Code(s): 994855965 Comment: - Dressing currently intact with small amount of serosanguineous drainage. Pain well managed with tylenol. - S/P AV fistula revision. (3) Tachycardia Current Visit: Yes Status: Acute Code(s): R00.0 - TACHYCARDIA, UNSPECIFIED SNOMED Code(s): 1088406 Comment: - HR continues to be between 90's to 110's. May be likely due to anemia. - No PE - Asymptomatic - EKG sinus tach - Cont tele (4) Hypotension Current Visit: No Status: Acute Comment: - BP varies between 90's to 120's systolically. - Midodrine 10 mg BID - HH is trending down, will recheck tomorrow, possibly give blood if needed during dialysis. - No PE (5) Atrial fibrillation Current Visit: No Status: Chronic Code(s): I48.91 - UNSPECIFIED ATRIAL FIBRILLATION SNOMED Code(s): 70319123 Comment: - Currently sinus tach. - Continue Metoprolol and low dose Eliquis (okay'd by Dr Cadet) (6) ESRD on hemodialysis Current Visit: No Status: Chronic Code(s): N18.6 - END STAGE RENAL DISEASE; Z99.2 - DEPENDENCE ON RENAL DIALYSIS SNOMED Code(s): 289099729 Comment: - Dialysis Monday. Depending on HH, may receive a unit of PRBC during. (7) DVT prophylaxis Current Visit: No Status: Acute Code(s): PUW0748 - SNOMED Code(s): 359810528 Comment: - SCDs (8) Full code status Current Visit: No Status: Acute Code(s): Z78.9 - OTHER SPECIFIED HEALTH STATUS SNOMED Code(s): 123245401 Status and Disposition: Condition: Fair Disposition: Admit inpatient to short stay. Attending: Dee Dee Jones
[2019-07-14] MEDS: Acetaminophen TAB* 325 MG PO PRN (20:14)
--- NOTE | 2019-07-14 21:04 | PN ---
Progress Note - Progress Note Date of Service: 07/14/19 Note: Inpatient Nephrology f/u Note: Performed by Dr. Skyler Bruner, [facility] Nephrology 07/14/2019 74 YO WF ESRD on HD MWF via Rt IJ TDC. s/p aneurysmal AVF, s/p aneurysmal excision and a new AVG. Feels well. No c/c. Has Lt DVT, on low dose Eliquis. No PE. Hb dropped a little. If drops further may need PRBCs, no need for PRBCs yet. If Hb drops further, advise r/o GI bleeding as she's on NOAC. Hospital Meds: Acetaminophen Albuterol/Ipratropium Apixaban Docusate Sodium Guaifenesin Metoprolol Succinate Midodrine Morphine Sulfate Oxybutynin Chloride Sevelamer Carbonate Objective: Temp Pulse Resp BP Pulse Ox 97.8 F 99 20 114/48 96 07/14/19 19:42 07/14/19 19:42 07/14/19 20:32 07/14/19 19:42 07/14/19 19:42 10 Point multi system exam: Constitutional Alert HEENT: No Conjunctivitis Abdomen Soft Abdomen No Ascites Heart: A Fib +LE Edema, No murmur Lungs: Clear Extremities: + edema. Rt Arm dressing. Neurology No deficit. CN intact Hem/Lymph: no palpable lymph nodes Musculoskeletal: No joint swelling Laboratory Reviewed Sodium 132 mmol/L (135-145) L 07/14/19 04:42 Potassium 4.5 mmol/L (3.5-5.0) 07/14/19 04:42 BUN 34 mg/dL (6-24) H 07/14/19 04:42 Creatinine 4.67 mg/dL (0.51-0.95) H 07/14/19 04:42 Calcium 8.2 mg/dL (8.6-10.3) L 07/14/19 04:42 Assessment and Plan: *ESRD *HD MWF. Next is tomorrow AM. *Electrolytes Ok. *If Hb drops, advise w/u for GI or deep soft tissue Bleeding *Hb slightly lowering, no indication for HD yet. May transfuse if Hb drops further.
[2019-07-15 05:40] LABS: ABS Basophils 0.1 10^3/ul (0-0.2); ABS Eosinophils 0.6 10^3/ul (0-0.6); ABS Lymphocytes 0.7 10^3/ul (1.0-4.8); ABS Monocytes 0.5 10^3/ul (0-0.8); ABS Neutrophils 3.2 10^3/ul (1.5-7.7); Eosinophil % 11.3 %; Hematocrit 25 % (35-47); Hemoglobin 8.1 g/dL (12.0-16.0); Lymphocyte % 13.3 %; Mean Corpuscular HGB Conc 33 g/dL (31-36); Mean Corpuscular Hemoglobin 33 pg (27-31); Mean Corpuscular Volume 99 fL (80-97); Mean Platelet Volume 7.9 fL (7.4-10.4); Nucleated Red Blood Cells % 0.2; Platelet Count 193 10^3/uL (150-450); Red Cell Distribution Width 17 % (10-15)
[2019-07-15 05:50] LABS: Calcium 8.1 mg/dL (8.6-10.3); Potassium 4.9 mmol/L (3.5-5.0)
[2019-07-15 05:56] LABS: BUN/Creatinine Ratio 7.6 (8-20); EGFR African American 9.3 (>60); EGFR Non-African American 7.7 (>60)
[2019-07-15] MEDS: Docusate CAP* 100 MG PO SCH (07:58)
[2019-07-15] MEDS: Sevelamer TAB* 800 MG PO SCH ×2 (08:11→11:54)
[2019-07-15] MEDS: guaiFENesin ER TAB 600 MG PO SCH (08:11)
[2019-07-15] MEDS: Oxybutynin XL TAB* 5 MG PO SCH (08:11)
[2019-07-15] MEDS: Acetaminophen TAB* 325 MG PO PRN ×2 (08:11→14:43)
[2019-07-15] MEDS: Apixaban* 2.5 MG TAB PO SCH (08:11)
[2019-07-15] MEDS ORDERED: Metoprolol Succinate XL TAB* 50 MG PO SCH (09:00)
[2019-07-15] MEDS ORDERED: EPOETIN ALFA-EPBX * 4,000 UNIT/ML VIAL IV ONE (10:00)
--- NOTE | 2019-07-15 10:27 | DS ---
CC: Dr. Jj * DISCHARGE SUMMARY: DATE OF ADMISSION: 07/10/19 DATE OF ADMISSION: 07/15/19 PROVIDER: Monalisa Mendiola NP PRIMARY CARE PHYSICIAN: Dr. Jj ATTENDING PHYSICIAN: Dr. Sandoval.* (DICTATED BY MONALISA MENDIOLA NP) SURGEON: Dr. Cadet. CONSULTING PROVIDER: Dr. Bruner. PRIMARY DIAGNOSES: 1. Revision of right brachiocephalic dialysis fistula. 2. Deep venous thrombosis to left mid and distal femoral vein, likely old. SECONDARY DIAGNOSES: 1. Hypotension. 2. Atrial fibrillation. 3. End-stage renal disease. PROCEDURES: On 07/10/19, she is status post a right upper extremity brachiocephalic dialysis fistula revision with Dr. Cadet. STUDIES: Chest x-ray on 07/10/19 showed probable mid pulmonary vascular congestion and interstitial edema, mild asymmetric alveolar consolidation in the right mid-to- lower lung zone, now new compared with prior exam, it is not specific and may represent alveolar edema or potential inflammatory infiltrate. Also showed moderate subpulmonic right pleural effusion with atelectasis, is grossly unchanged. On 07/11/19, V/Q showed intermediate probability for pulmonary embolism. On , chest/thorax CTA showed stable mid right lower lobe infiltrate and small right effusion, no evidence for PE. PERTINENT LAB DATA: RBC 2.50, hemoglobin 8.1, hematocrit 25, MCV 99, MCH 33, RDW 17. Sodium 131, chloride 96, BUN 41, creatinine 5.43, BUN-creatinine ratio 7.6, glucose 69, calcium 8.1. HISTORY OF PRESENT ILLNESS/HOSPITAL COURSE: This is a 74-year-old female with a past medical history significant for end-stage renal disease, hypotension, and paroxysmal AFib, who was admitted to the hospital on 07/10/19 for an elective revision of her right brachiocephalic dialysis fistula. Initially, procedure went well. PRESTON drain was placed to the right upper extremity. The next day, the patient developed hypotension and tachycardia. Her metoprolol was held at that point and she was worked up for a PE. A V/Q scan revealed intermediate risk for pulmonary embolism; however, later in the day, a CTA of the chest/thorax showed no evidence for PE, but did show a stable right lower lobe infiltrate and small right effusion. She also underwent dialysis on this day. On 07/12/19, due to lack of PE, she was restarted on her Eliquis and did receive her metoprolol. Incision with the PRESTON drain was healing well. Pain controlled with Tylenol. On 07/13/19, PRESTON drain was removed, continued to be in sinus tach, otherwise the day went uneventfully. On 07/14/19, her H and H trended down slightly, overall was less tachy than the days previously. She did have a period of hypotension in the a.m., which resolved. I discussed her H and H with Dr. Bruner as well as her tachycardia and no interventions were required at that time. Today, she is in good spirits, resting in bed, is relatively comfortable. Dressing is clean, dry, and intact to the right upper extremity. Heart rate is in the high 90s to low 100s. I increased her metoprolol succinate from 50 to 75 mg. REVIEW OF SYSTEMS: A 12-point systems review was performed, which was positive for right upper extremity discomfort 09/05. She denies any lightheadedness, dizziness, fever, chills, chest pain, palpitations, abdominal pain, nausea, vomiting, or issues moving her bowels or bladder. PHYSICAL EXAMINATION: Vital Signs: 97.5 Fahrenheit, 107 pulse, 17 respirations , 100% oxygen on room air, and 138/54 blood pressure. General: This is a well - developed, obese older woman, seen sitting up in her bed, in no acute distress. HEENT: Conjunctivae pink and moist. PERRLA. EOMs intact. Oropharynx is clear. Mucous membranes moist. Neck is supple. Cardiac: S1, S2 present. Heart rate regular. No murmurs, gallops, or rubs appreciated. Tachycardic. Lungs: Clear throughout bilaterally on room air, diminished in the bases. Abdomen: Soft, nontender, nondistended with positive bowel sounds x4. Musculoskeletal: Able to move all extremities. 2+ positive radial pulses. Cap refill less than 3 seconds. Skin: Dressing to right upper extremity is clean, dry, intact; changed this morning. Distal to the incision, skin is slightly pink, but not warm to touch. Neurological: Sensation intact to light touch. No focal deficits appreciated. Psych: She is alert and oriented x3. Thought content organized. DISCHARGE PLAN: She is to be discharged back to [facility] with a renal diet. Her activity is as tolerated with no restrictions. She is to return to the hospital should she develop any sudden chest pain, shortness of breath or if she developed a fever of 101 degrees or higher, the incision starts to drain pus with woodard yellow drainage or if the skin surrounding the incision turns bright red, hot to touch and swollen. PLAN FOR EACH CONDITION: 1. Status post revision of brachiocephalic dialysis fistula. Dressing to right upper extremity is to be changed daily using 4x4 and Manuel wrap. It should be changed until she is seen in office by Dr. Cadet; his office will with an appointment time. Until the followup visit, no showers; sponge baths only. No submerging the wound in the water. 2. DVT. Ultrasound Doppler showed she had limited, but possible DVT in the left mid and distal femoral vein. Dr. Cadet felt it was likely an old DVT. She is to continue her low-dose Eliquis. 3. Tachycardia. Her metoprolol this morning was increased from 50 to 75 mg. It is noted that she was taking 100 mg daily prior to her admission; it is likely that this needs to be titrated up. It is thought that this might be likely due to anemia as a PE was ruled out and the likelihood of infection is low as there appears to be no active drainage from the incision. She has no leukocytosis or any other signs or symptoms of infection. 4. Hypotension. Her midodrine was increased to 10 mg b.i.d. from 5 mg. Her hypotension may be attributed to her tachycardia and anemia; however, the anemia is stable. 5. Atrial fibrillation. She has been showing sinus tach on the monitor for the majority of her admission and she should continue her metoprolol succinate as discussed above, the dosage has been increased and may need further titration. She is also to continue her low-dose Eliquis, which has been okayed by Dr. Cadet. 6. End-stage renal disease, on hemodialysis. She is to receive her dialysis on her normal schedule of Monday, Monday, Monday and to take her Sevelamer 3 times a day. MEDICATIONS: New medications upon discharge: 1. Metoprolol succinate 75 mg p.o. daily. 2. Midodrine 10 mg p.o. b.i.d. Medications to continue upon discharge: 1. Acetaminophen 650 mg p.o. q.4 hours p.r.n. 2. DuoNeb 1 inhalation q.4 hours p.r.n. 3. Apixaban 2.5 mg p.o. b.i.d. 4. Docusate 100 mg p.o. daily. 5. Guaifenesin 600 mg p.o. q.a.m. 6. Oxybutynin 5 mg p.o. daily. 7. Sevelamer 2400 mg p.o. t.i.d. with meals. CONDITION UPON DISCHARGE: Stable. DISPOSITION: Discharged back to [facility]. TIME SPENT: Time spent on the patient is about 40 minutes with 20 of that spent [id number]. MONALISA MENDIOLA, GEOLOGICAL E LOGGER [id number]/CPS #: [id number] [facility]
[2019-07-15 12:22] VITALS: BP 107/52
--- NOTE | 2019-07-15 17:06 | PN ---
Progress Note - Progress Note Date of Service: 07/15/19 Note: CC: esrd on HD. HPI: Matilde us recovering well after the right AVF revision to AVG. Right arm still very swollen. she states that she feels well. started on Eliquis during this admission for DVT. Today is her regular dialysis day and she received HD in the morning, II saw Matilde during maintenance HD today and she tolerated her treatment very well, without complications. ROS: no fevers, chills, CP , shoertness of breath. PE: Temp Pulse Resp BP SpO2 FiO2 98.9 F 103 16 107/52 96 07/15/19 12:21 07/15/19 12:21 07/15/19 12:21 07/15/19 12:21 07/15/19 12:21 const: NAD Chest CTA Heart: S1, S2 , rrr, no mrg appreciated, +3 soft Le edema. Right arm + 3 pitting edema after AVF surgery. psych: some mental delay ( at baseline) AAOx3 A/P 1. ESRD on HD MWF Received maintenance HD today without complications 2. S/p R AVF revision to AVG. complicated with sif=gnificant swelling of the right arm . elevate arm. 3. LE DVT without PE , on AC per admitting team.
--- NOTE | 2019-07-16 13:33 | CONS ---
CONSULTATION ADMISSION REPORT: DATE OF CONSULT: 07/11/19 The patient underwent a revision of a right arteriovenous fistula with excision of 3 aneurysms. The patient was decided to be admitted overnight for observation since there was an extensive area of dissection requiring a drain; and, because of the patient's multiple medical conditions, it was best to keep the patient overnight. For this reason, the patient is being admitted for a 24- hour observation. [id number]/CPS #: [id number] MTDD
--- NOTE | 2019-07-16 14:15 | TRS ---
TRANSFER SUMMARY: DATE OF ADMISSION: 07/11/19 DATE OF TRANSFER: 07/15/19 HISTORY: The patient is a 74-year-old female electively admitted for excision of right arm arteriovenous fistula. Aneurysms prior to this admission had been infected and because of infection and the possibility of thrombosis and rupture , the patient was electively admitted for revision and excision of the aneurysms. This was done on 07/10/19 and the patient was then admitted for observation overnight. During the observation admission, the patient became hypotensive without symptoms for no apparent reason. The patient had been taking Toprol and her dose had been increased. Her heart rate and blood pressure were issues according to the sister and after the surgery, the entire blood loss was approximately 150 to 200 cc, which was not significant in the drainage and the draining at the incision was serosanguineous that did not explain the patient's hypotension. For this reason, a consultation in the middle of the night was obtained with the hospitalist and they performed a complete workup that included chest x-rays, blood cultures although the patient never had any fever and basically observation since the patient was not symptomatic with the pressure in the 70s and 80s. The patient afterwards dialyzed, blood pressure improved significantly and after the Toprol was held, the patient's heart rate increased and for this reason the hospitalist decided to admit the patient into their service and for this reason dictating a transfer summary. In terms of the surgical, the patient had a drain in place, draining serosanguineous fluid, no issues with the incision, which was healing well, the edema was coming down and at the time to be transferred to the medical service, the pain was managed with plain Tylenol. During the hospital course, they continue to monitor her blood pressure and heart rate and she continued to receive hemodialysis in the hospital. [id number] #: [id number] MTDD
== END 2019-07-15 15:50 | DRG 252 ==
LOC: OR 06:37 → SSU 14:09 → OBSVTOIN 07-11 14:09
PROVIDERS: ADMIT Surgery; ATTEND Internal Medicine
PROC: 05WY0JZ Revision of Synthetic Substitute in Upper Vein, Open Approach (ICD-10-PCS; principal; 2019-07-10 07:30)
PROC: 5A1D70Z Performance of Urinary Filtration, Intermittent, Less than 6 Hours Per Day (ICD-10-PCS; 2019-07-11)
DX: I77.0 Arteriovenous fistula, acquired (principal); N18.6 End stage renal disease; I12.0 Hypertensive chronic kidney disease with stage 5 chronic kidney disease or end stage renal disease; Q61.3 Polycystic kidney, unspecified; I82.412 Acute embolism and thrombosis of left femoral vein; J90 Pleural effusion, not elsewhere classified; D63.1 Anemia in chronic kidney disease; I95.9 Hypotension, unspecified; E78.5 Hyperlipidemia, unspecified; R00.0 Tachycardia, unspecified; I48.0 Paroxysmal atrial fibrillation; Z99.2 Dependence on renal dialysis; Z88.1 Allergy status to other antibiotic agents; Z79.01 Long term (current) use of anticoagulants; Z79.899 Other long term (current) drug therapy
CPT/HCPCS: 36415; 71045; 71275; 78582; 80048; 83605; 85025; 85060; 85610; 87040; 88304; 93005; 93970; A9270-GY; A9540; A9558; G0378; J0670; J1644; J2250; J2704; J2795; J3010; J3490; Q5106; Q9967

== ENCOUNTER → 2019-09-04 13:18 | Day surgery (SDC) | payer MEDICARE, MEDICAID ==
[~2019-09-04 13:18] MED LIST changes: -Buffered Lidocaine 1% SYRIN* 1 ML/SYRINGE INTRADERM ONE; +Heparin 2 UNITS/ML IVPREMIX* 1,000 ML IV ONE; +Heparin for STEMI(*) 5,000 UNITS/ML 1 ML VIAL IV ONE; +Heparin(*) 1000 UNIT/ML 10 ML VIAL CATH LAB IV ONE; -Lactated Ringers 1000 ML Bag* 1,000 ML IV SCH; +Lidocaine 1% INJ* 10 MG/ML 30 ML SDV ONE; -NS 0.9% 250 ML* 250 ML IV SCH; +Ondansetron INJ* 2 MG/ML VIAL ONE
[2019-09-04 15:09] VITALS: BP 102/65
--- NOTE | 2019-09-04 15:21 | OP ---
Operative Report - Blank - Operative Report Date of Operation: 09/04/19 Note: Date of Operation: 09/04/19 Procedure Note: Right IJ Tunneled HD Catheter Replacement Note: Performed by Dr. Skyler Bruner, [facility] Nephrology 09/04/2019 Procedure indication: ESRD, infected current TDC exit site, oozing pus. The procedure started with 2 ID time out after marking the new proposed venotomy site. Patient was put in Trendelenburg position. Consent was obtained Following strict hand hygiene and standard sterile precautions, using a cap, face mask with an eye shield, and double sterile gloves. Surgical field was surrounded by sterile surgical towels. A sterile full body drape was placed to cover the patient from head to toe. Neck and Chest were prepped with 2% Chlorhexidine. Skin over exit site and tunnel were numbed thoroughly using 30 cc of 1% Lidocaine, then using a curved Barbara, the exit site was bluntly dissected and the cuff was freed easily from the fibrin sheath around it. The old TDC was freed near the venotomy site, was extracted and clamped, a 0.035 Amplatz wire was passed through it to the Rt Atrium. The Intra vascular half was pulled out. Then a 16 Fr dilator and peel away sheath passed over the amplatz. Dilator and wire were removed and a 19 cm TDC was chosen. The remaining half of the old TDC was pulled out from the exit site, lots of pus came out. Chest were prepped again after removing the TDC. The new exit site was chosen, and created using # 11 Blade and extended to 0.5 cm long, dissected bluntly using a curved Barbara. A blunt tunneler was used to pull the new TDC from the exit site to the venotomy site and was placed just behind the peel a way sheath and dilator. Wire and dilator removed. TDC was fed through the peel away sheath that was peel away carefully. Tip of TDC Catheter seen under Fluoro at the Cavo-atrial junction to Rt Atrium Both ports checked for flow and draw and both worked very well then flushed again with saline and locked with 1:500 in each port. Caps were applied over both ports. The catheter was secured and tethered in place using 2-0 Proline sutures at the exit site. Venotomy sutured using 3- Vicryl. She left in stable condition I spoke to her sister. Complications: None Estimated Bleeding: < 5cc Fluoro Time: 0.4 minutes IV Contrast: Zero Radiation Exposure: 9 mGy Pre Op Meds: Vancomycin 1gm 600 mg IVPB pre Op. Sedation free as she ate at 9am
--- NOTE | 2019-09-09 22:32 | HP ---
H&P (Free Text) History and Physical: ESRD on HD H&P Performed by Dr. Skyler Bruner, [facility] Nephrology 09/04/2019 Infected TDC with pus from exit site, for replacement. 74 YO WF ESRD on HD MWF via Rt IJ TDC. Nurse saw pus from exit site. TDC is infected, was placed by surgery 05/2019, needs exchange. PMH: ESD on HD MWF A Fib on Eliquis, will be restarted tomorrow. HTN Dyslipidemia Anemia of ESRD Home Meds: Reviewed Allergies: cephalexin Allergy (Verified 07/10/19 07:26) Vomiting NSAIDS (Non-Steroidal Anti-Inflamma Allergy (Verified 07/10/19 07:26) Bleeding Penicillins Allergy (Verified 07/10/19 07:26) Vomiting sulfamethoxazole [From Bactrim] Allergy (Verified 07/10/19 07:26) See Comment profuse bleeding, INR went up to 23 trimethoprim [From Bactrim] Allergy (Verified 07/10/19 07:26) See Comment profuse bleeding, INR went up to 23 Social History: Denied Alcohol, smoking. No IVDA. Her sister is her caregiver Family History: Negative for Dialysis, ESRD or Renal Transplant. Positive for HTN & DM Surgical History:TDC. AVF. 12-Point Review of System obtained: Constitutional: No fever Eyes No blurry vision. No red eye CV: No new SOB. No chest pain. Respiratory: No cough no wheezing G.I: no diarrhea no nausea no vomiting no pain no blood per rectum no burning no obstruction symptoms Skin: No rash Neurology No seizures or neurologic deficit Endocrine no heat or cold intolerance Hem/Lymphatic no bleeding no lymph nodes swelling Immune/Allergy no allergic reactions Musculoskeletal: No arthritis, no swelling Psych no anxiety no depression no hallucination Objective: Temp Pulse Resp BP Pulse Ox 96 27 102/65 96 09/04/19 15:00 09/04/19 15:00 09/04/19 14:46 09/04/19 15:00 10 Point multi system exam: Constitutional Alert HEENT: No Conjunctivitis Abdomen Soft Abdomen No Ascites Heart: A Fib +LE Edema, No murmur Lungs: Clear Extremities: + edema. Neurology No deficit. CN intact Hem/Lymph: no palpable lymph nodes Musculoskeletal: No joint swelling Pus from TDC exit site. Laboratory Reviewed Assessment and Plan: *ESRD *Rt IJ TDC GILBERT in labor arbitrator hearing office *I spoke to sister and obtained consent.
== END | disposition home or self-care (01) ==
LOC: CHICARD 13:18
PROVIDERS: ATTEND Internal Medicine Nephrology
DX: T82.7XXA Infection and inflammatory reaction due to other cardiac and vascular devices, implants and grafts, initial encounter (principal); N18.6 End stage renal disease; Z99.2 Dependence on renal dialysis; I48.91 Unspecified atrial fibrillation; R60.0 Localized edema
CPT/HCPCS: 36581; C1750; C1769; J1644; J2405

== ENCOUNTER 2020-10-23 15:47 | Inpatient (IN) ==
[2020-10-23] MEDS ORDERED: Levofloxacin 750 MG IVPREMIX 750 MG/150 ML BAG IVPB ONE (16:15)
[2020-10-23] MEDS ORDERED: Cefepime 2 GM in NS 0.9% 50 ML 50 ML IVPB ONE (16:15)
[2020-10-23] MEDS ORDERED: NS 0.9% 1000 ml BAG 1,000 ML IV.FLUID IV ONE (16:15)
[2020-10-23 16:43] LABS: ABS Basophils 0.1 10^3/ul (0-0.2); ABS Lymphocytes 0.2 10^3/ul (1.0-4.8); ABS Monocytes 1.3 10^3/ul (0-0.8); ABS Neutrophils 14.7 10^3/ul (1.5-7.7); Eosinophil % 0.1 %; Hematocrit 38 % (35-47); Hemoglobin 12.8 g/dL (12.0-16.0); Lymphocyte % 1.4 %; Mean Corpuscular HGB Conc 33 g/dL (31-36); Mean Corpuscular Hemoglobin 33 pg (27-31); Mean Corpuscular Volume 100 fL (80-97); Mean Platelet Volume 7.8 fL (7.4-10.4); Platelet Count 156 10^3/uL (150-450); Red Blood Count 3.86 10^6 /uL (3.70-4.87); Red Cell Distribution Width 16 % (10-15); White Blood Count 16.3 10^3/uL (3.5-10.8)
[2020-10-23 16:56] LABS: Activated Partial Thrombo Time 36.3 seconds (26.0-38.0); INR 1.6 (0.82-1.09)
[2020-10-23] MEDS ORDERED: Cefepime 2 GM IV - ED ONCE IV ONE (17:00)
[2020-10-23 17:03] LABS: ALT 17 U/L (7-52); AST 24 U/L (13-39); Albumin 3.1 g/dL (3.2-5.2); Alkaline Phosphatase 316 U/L (35-149); Anion Gap 8 mmol/L (2-11); Blood Urea Nitrogen 23 mg/dL (6-24); C Reactive Protein 115.42 mg/L (<8.01); CO2 Carbon Dioxide 38 mmol/L (22-32); Calcium 8.6 mg/dL (8.6-10.3); Chloride 95 mmol/L (101-111); EGFR African American 24.4 (>60); EGFR Non-African American 20.2 (>60); Globulin 3.2 g/dL (2-4); Glucose 93 mg/dL (70-100); Potassium 3.7 mmol/L (3.5-5.0); Sodium 141 mmol/L (135-145); Total Protein 6.3 g/dL (6.4-8.9)
[2020-10-23 17:07] LABS: Troponin I 0.03 ng/mL (<0.03)
[2020-10-23 17:11] LABS: Influenza A Molecular Negative (Negative); Influenza B Molecular Negative (Negative)
[2020-10-23] MEDS ORDERED: Diltiazem IV push/loading dose 5 MG/ML 5 ML vial (25 mg) IV SLOW PU ONE (17:21)
[2020-10-23] MEDS ORDERED: Amiodarone 360 MG IVPREMIX 360 MG/200 ML BAG IV ONE ×2 (17:22→20:00)
[2020-10-23] MEDS ORDERED: Amiodarone 150 mg IVPREMIX 150 MG/100 ML BAG IV ONE (17:22)
[2020-10-23] MEDS ORDERED: Diltiazem (ADVAN VIAL) 100 MG/100 ML ADDV.BAG IV SCH (18:00)
[2020-10-23] MEDS ORDERED: Senna TAB 8.6 mg TAB PO PRN (19:08)
[2020-10-23] MEDS ORDERED: Hydrocortisone INJ 100 MG/2ML 2 ML VIAL IV ONE (20:50)
[2020-10-23] MEDS ORDERED: NS 0.9% 500 ml BAG 500 ML IV ONE (21:21)
[2020-10-24] MEDS ORDERED: NS 0.9% 500 ml BAG 500 ML IV ONE (01:26)
[2020-10-24] MEDS ORDERED: Amiodarone 360 MG IVPREMIX 360 MG/200 ML BAG IV SCH ×2 (01:59→09:00)
[2020-10-24] MEDS ORDERED: Phenylephrine IV 50 MG in NS 0.9% 250 ml 245 ML IV SCH (03:00)
[2020-10-24] MEDS ORDERED: AMIODARONE 360 MG IV ONE (03:56)
[2020-10-24] MEDS ORDERED: IVPREMIX IV ONE (03:56)
[2020-10-24 05:12] LABS: Hematocrit 35 % (35-47); Hemoglobin 11.4 g/dL (12.0-16.0); Mean Corpuscular HGB Conc 33 g/dL (31-36); Mean Corpuscular Hemoglobin 33 pg (27-31); Mean Corpuscular Volume 99 fL (80-97); Mean Platelet Volume 8.3 fL (7.4-10.4); Platelet Count 143 10^3/uL (150-450); Red Blood Count 3.48 10^6 /uL (3.70-4.87); Red Cell Distribution Width 16 % (10-15); White Blood Count 21.7 10^3/uL (3.5-10.8)
[2020-10-24 05:21] LABS: Calcium 8.5 mg/dL (8.6-10.3); EGFR Non-African American 14.9 (>60); Phosphorus 3.9 mg/dL (2.5-5.0); Potassium 3.8 mmol/L (3.5-5.0)
[2020-10-24 05:36] LABS: ABS Lymphocytes 0.2 10^3/ul (1.0-4.8); ABS Monocytes 0.9 10^3/ul (0-0.8); ABS Neutrophils 20.6 10^3/ul (1.5-7.7); Eosinophil % 0.1 %; Lymphocyte % 1.1 %; Vancomycin Trough 14.7 mcg/mL
[2020-10-24] MEDS: Phenylephrine IV 50 MG in NS 0.9% 250 ml 245 ML IV SCH (14:15)
[2020-10-24] MEDS ORDERED: Vancomycin per Pharmacy 1 EA NOTE FOLLOW UP SCH (18:00)
[2020-10-24] MEDS ORDERED: Cefepime 2 GM in Dextrose 2 GM/50 ML BAG IV SCH (18:00)
[2020-10-24] MEDS ORDERED: Vancomycin - DIALYSIS DOSING 1 EA NOTE FOLLOW UP SCH (19:00)
[2020-10-24] MEDS: Amiodarone 400 mg TAB PO SCH (19:16)
[2020-10-25 05:12] LABS: Hematocrit 36 % (35-47); Hemoglobin 11.6 g/dL (12.0-16.0); Mean Corpuscular HGB Conc 33 g/dL (31-36); Mean Corpuscular Hemoglobin 33 pg (27-31); Mean Corpuscular Volume 100 fL (80-97); Mean Platelet Volume 8.2 fL (7.4-10.4); Platelet Count 218 10^3/uL (150-450); Red Blood Count 3.57 10^6 /uL (3.70-4.87); Red Cell Distribution Width 16 % (10-15); White Blood Count 23.7 10^3/uL (3.5-10.8)
[2020-10-25 05:17] LABS: INR 1.42 (0.82-1.09)
[2020-10-25 05:30] LABS: Albumin 2.7 g/dL (3.2-5.2); Albumin/Globulin Ratio 0.9 (1-3); Calcium 8.6 mg/dL (8.6-10.3); EGFR African American 14.1 (>60); EGFR Non-African American 11.7 (>60); Globulin 2.9 g/dL (2-4); Magnesium 2.1 mg/dL (1.9-2.7); Potassium 3.9 mmol/L (3.5-5.0); Total Bilirubin 1.8 mg/dL (0.2-1.0); Total Protein 5.6 g/dL (6.4-8.9)
[2020-10-25] MEDS: Amiodarone 400 mg TAB PO SCH ×2 (08:19→21:24)
[2020-10-25] MEDS: Lanthanum 500 mg CHEW TAB PO SCH ×3 (09:53→17:40)
[2020-10-25] MEDS: Phenylephrine IV 50 MG in NS 0.9% 250 ml 245 ML IV SCH (12:57)
[2020-10-25] MEDS ORDERED: Phenylephrine IV 50 MG in NS 0.9% 250 ml 245 ML IV SCH (13:11)
[2020-10-25] MEDS ORDERED: Cefepime 1 GM in Dextrose 1 GM/50 ML BAG IV SCH (17:00)
[2020-10-26 04:54] LABS: Hematocrit 36 % (35-47); Hemoglobin 11.8 g/dL (12.0-16.0); Mean Corpuscular HGB Conc 33 g/dL (31-36); Mean Corpuscular Hemoglobin 33 pg (27-31); Mean Corpuscular Volume 99 fL (80-97); Mean Platelet Volume 8.1 fL (7.4-10.4); Platelet Count 212 10^3/uL (150-450); Red Blood Count 3.62 10^6 /uL (3.70-4.87); Red Cell Distribution Width 16 % (10-15); White Blood Count 14.8 10^3/uL (3.5-10.8)
[2020-10-26 05:10] LABS: Albumin 2.5 g/dL (3.2-5.2); Albumin/Globulin Ratio 0.9 (1-3); Calcium 7.8 mg/dL (8.6-10.3); EGFR African American 11.6 (>60); EGFR Non-African American 9.6 (>60); Globulin 2.9 g/dL (2-4); Magnesium 2.2 mg/dL (1.9-2.7); Phosphorus 5.3 mg/dL (2.5-5.0); Potassium 3.6 mmol/L (3.5-5.0); Total Bilirubin 1.5 mg/dL (0.2-1.0); Total Protein 5.4 g/dL (6.4-8.9)
[2020-10-26] MEDS ORDERED: Vancomycin Random Level NOTE FOLLOW UP ONE (06:00)
[2020-10-26] MEDS: Lanthanum 500 mg CHEW TAB PO SCH ×3 (09:08→18:33)
[2020-10-26 11:49] LABS: Hepatitis B Surface Antigen Nonreactive (Nonreactive)
[2020-10-26 12:06] LABS: Hepatitis B Surface Ab Not Immune (Immune)
[2020-10-26] MEDS: Phenylephrine IV 50 MG in NS 0.9% 250 ml 245 ML IV SCH (14:37)
[2020-10-26] MEDS: Pentafluoroprop/Tetrafluoro(NF) 1 SPRAY TOP.SPRAY TOPICAL PRN (15:49)
[2020-10-26] MEDS ORDERED: Vancomycin 750 MG in NS 0.9% 250 ML IVPB ONE ×2 (16:00→22:00)
[2020-10-26] MEDS: Cefepime 1 GM in Dextrose 1 GM/50 ML BAG IV SCH (22:48)
[2020-10-27 05:48] LABS: Hematocrit 33 % (35-47); Hemoglobin 11.2 g/dL (12.0-16.0); Mean Corpuscular HGB Conc 34 g/dL (31-36); Mean Corpuscular Hemoglobin 33 pg (27-31); Mean Corpuscular Volume 98 fL (80-97); Platelet Count 153 10^3/uL (150-450); Red Blood Count 3.38 10^6 /uL (3.70-4.87); Red Cell Distribution Width 16 % (10-15); White Blood Count 8.3 10^3/uL (3.5-10.8)
[2020-10-27 06:05] LABS: Albumin 2.4 g/dL (3.2-5.2); Albumin/Globulin Ratio 0.9 (1-3); Calcium 7.7 mg/dL (8.6-10.3); EGFR African American 20.3 (>60); EGFR Non-African American 16.7 (>60); Globulin 2.6 g/dL (2-4); Phosphorus 3.6 mg/dL (2.5-5.0); Potassium 3.5 mmol/L (3.5-5.0); Total Bilirubin 1.5 mg/dL (0.2-1.0)
[2020-10-27] MEDS: Phenylephrine IV 50 MG in NS 0.9% 250 ml 245 ML IV SCH ×2 (06:25→20:09)
[2020-10-27] MEDS: Lanthanum 500 mg CHEW TAB PO SCH ×3 (08:54→18:03)
[2020-10-27] MEDS ORDERED: Lidocaine 2.5%/Prilocain 2.5% 5 GM TUBE TOPICAL ONE (13:00)
[2020-10-27] MEDS ORDERED: Lidocaine 1% VIAL 10 MG/ML VIAL INJ ONE (16:30)
[2020-10-27] MEDS: Cefepime 1 GM in Dextrose 1 GM/50 ML BAG IV SCH (21:05)
[2020-10-28] MEDS ORDERED: Vancomycin Random Level NOTE FOLLOW UP ONE (06:00)
[2020-10-28 09:28] LABS: Hematocrit 32 % (35-47); Hemoglobin 10.8 g/dL (12.0-16.0); Mean Corpuscular HGB Conc 34 g/dL (31-36); Mean Corpuscular Hemoglobin 33 pg (27-31); Mean Corpuscular Volume 98 fL (80-97); Mean Platelet Volume 8.3 fL (7.4-10.4); Platelet Count 151 10^3/uL (150-450); Red Blood Count 3.27 10^6 /uL (3.70-4.87); Red Cell Distribution Width 16 % (10-15); White Blood Count 7.3 10^3/uL (3.5-10.8)
[2020-10-28 09:52] LABS: EGFR African American 14.3 (>60); EGFR Non-African American 11.8 (>60)
[2020-10-28] MEDS: Lanthanum 500 mg CHEW TAB PO SCH ×4 (10:27→17:36)
[2020-10-28] MEDS: Phenylephrine IV 50 MG in NS 0.9% 250 ml 245 ML IV SCH ×2 (11:14→19:40)
[2020-10-28 11:21] LABS: Magnesium 2.1 mg/dL (1.9-2.7)
[2020-10-28 12:03] LABS: Phosphorus 4.4 mg/dL (2.5-5.0)
[2020-10-28] MEDS ORDERED: Vancomycin 750 MG in NS 0.9% 250 ML IVPB ONE (18:00)
[2020-10-29 05:04] LABS: Hematocrit 30 % (35-47); Hemoglobin 10.3 g/dL (12.0-16.0); Mean Corpuscular HGB Conc 34 g/dL (31-36); Mean Corpuscular Hemoglobin 33 pg (27-31); Mean Corpuscular Volume 98 fL (80-97); Mean Platelet Volume 7.9 fL (7.4-10.4); Platelet Count 145 10^3/uL (150-450); Red Blood Count 3.12 10^6 /uL (3.70-4.87); Red Cell Distribution Width 16 % (10-15); White Blood Count 6.6 10^3/uL (3.5-10.8)
[2020-10-29 05:21] LABS: Albumin 2.2 g/dL (3.2-5.2); Calcium 7.4 mg/dL (8.6-10.3); EGFR African American 18.1 (>60); EGFR Non-African American 14.9 (>60); Globulin 2.3 g/dL (2-4); Indirect Bilirubin 0.7 mg/dL (0.3-1.0); Magnesium 1.9 mg/dL (1.9-2.7); Potassium 3.5 mmol/L (3.5-5.0); Total Bilirubin 1.2 mg/dL (0.2-1.0); Total Protein 4.5 g/dL (6.4-8.9)
[2020-10-29] MEDS: Lanthanum 500 mg CHEW TAB PO SCH ×3 (08:28→17:44)
[2020-10-29 11:06] LABS: TSH Ultra Thyroid Stim Horm 8.67 mcIU/mL (0.34-5.60)
[2020-10-29] MEDS: fentaNYL 100 mcg/2 ml 50 MCG/ML VIAL IV SLOW PU PRN (14:44)
[2020-10-30] MEDS: Pentafluoroprop/Tetrafluoro(NF) 1 SPRAY TOP.SPRAY TOPICAL PRN (08:16)
[2020-10-30] MEDS: Lanthanum 500 mg CHEW TAB PO SCH ×3 (12:28→18:01)
[2020-10-30] MEDS ORDERED: Vancomycin 750 MG in NS 0.9% 250 ML IVPB ONE (18:00)
[2020-10-31 05:22] LABS: Calcium 7.9 mg/dL (8.6-10.3); EGFR African American 18.9 (>60); EGFR Non-African American 15.6 (>60); Phosphorus 4.4 mg/dL (2.5-5.0); Potassium 3.8 mmol/L (3.5-5.0)
[2020-10-31] MEDS: fentaNYL 100 mcg/2 ml 50 MCG/ML VIAL IV SLOW PU PRN (09:43)
[2020-10-31] MEDS: Lanthanum 500 mg CHEW TAB PO SCH ×4 (09:44→17:34)
[2020-10-31] MEDS ORDERED: Calcium Carb (TUMS) 500 mg CHEW TAB PO ONE (13:11)
[2020-11-01 04:21] LABS: Hematocrit 31 % (35-47); Hemoglobin 10.3 g/dL (12.0-16.0); Mean Corpuscular HGB Conc 33 g/dL (31-36); Mean Corpuscular Hemoglobin 32 pg (27-31); Mean Corpuscular Volume 98 fL (80-97); Mean Platelet Volume 8.5 fL (7.4-10.4); Platelet Count 188 10^3/uL (150-450); Red Blood Count 3.18 10^6 /uL (3.70-4.87); Red Cell Distribution Width 16 % (10-15); White Blood Count 5.3 10^3/uL (3.5-10.8)
[2020-11-01 08:24] LABS: Hematocrit 31 % (35-47); Hemoglobin 10.4 g/dL (12.0-16.0); Mean Corpuscular HGB Conc 34 g/dL (31-36); Mean Corpuscular Hemoglobin 33 pg (27-31); Mean Corpuscular Volume 97 fL (80-97); Mean Platelet Volume 8.2 fL (7.4-10.4); Platelet Count 174 10^3/uL (150-450); Red Blood Count 3.15 10^6 /uL (3.70-4.87); Red Cell Distribution Width 16 % (10-15); White Blood Count 5.6 10^3/uL (3.5-10.8)
[2020-11-01 08:39] LABS: Calcium 8.1 mg/dL (8.6-10.3); EGFR African American 13.8 (>60); EGFR Non-African American 11.4 (>60); Potassium 4.1 mmol/L (3.5-5.0)
[2020-11-01] MEDS: Lanthanum 500 mg CHEW TAB PO SCH ×3 (09:06→16:46)
[2020-11-01 09:19] LABS: ABS Eosinophils 0.3 10^3/ul (0-0.6); ABS Lymphocytes 0.5 10^3/ul (1.0-4.8); ABS Monocytes 0.8 10^3/ul (0-0.8); ABS Neutrophils 4.1 10^3/ul (1.5-7.7); Eosinophil % 4.9 %; Lymphocyte % 8.3 %
[2020-11-01 09:29] LABS: Free T3 3.3 pg/mL (2.5-3.9)
[2020-11-01 09:30] LABS: Free T4 1.12 ng/dL (0.61-1.12)
[2020-11-01] MEDS ORDERED: Heparin 1,000 UNIT/ML 10 ml (10,000 UNITS) CATHLAB/DIALYSIS DIALYSIS ONE ×2 (10:00→14:30)
[2020-11-01] MEDS: fentaNYL 100 mcg/2 ml 50 MCG/ML VIAL IV SLOW PU PRN (16:46)
[2020-11-02 01:34] LABS: Calcium 7.9 mg/dL (8.6-10.3); EGFR African American 10.8 (>60); EGFR Non-African American 8.9 (>60); Magnesium 2.3 mg/dL (1.9-2.7)
[2020-11-02 02:08] LABS: Potassium 4.3 mmol/L (3.5-5.0)
[2020-11-02] MEDS ORDERED: Vancomycin Random Level NOTE FOLLOW UP ONE (06:00)
[2020-11-02 10:38] LABS: C Reactive Protein 21.18 mg/L (<8.01)
[2020-11-02] MEDS: Lanthanum 500 mg CHEW TAB PO SCH ×3 (10:48→20:33)
[2020-11-02] MEDS: fentaNYL 100 mcg/2 ml 50 MCG/ML VIAL IV SLOW PU PRN (12:55)
[2020-11-02 16:01] LABS: ABS Eosinophils 0.3 10^3/ul (0-0.6); ABS Lymphocytes 0.5 10^3/ul (1.0-4.8); ABS Monocytes 0.9 10^3/ul (0-0.8); ABS Neutrophils 4.2 10^3/ul (1.5-7.7); Eosinophil % 4.3 %; Hematocrit 30 % (35-47); Lymphocyte % 8.4 %; Mean Corpuscular HGB Conc 33 g/dL (31-36); Mean Corpuscular Hemoglobin 32 pg (27-31); Mean Corpuscular Volume 98 fL (80-97); Mean Platelet Volume 8.1 fL (7.4-10.4); Platelet Count 185 10^3/uL (150-450); Red Blood Count 3.07 10^6 /uL (3.70-4.87); Red Cell Distribution Width 16 % (10-15); White Blood Count 5.9 10^3/uL (3.5-10.8)
[2020-11-02 16:43] LABS: Calcium 7.7 mg/dL (8.6-10.3); EGFR African American 10.2 (>60); EGFR Non-African American 8.4 (>60); Magnesium 2.3 mg/dL (1.9-2.7); Potassium 4.2 mmol/L (3.5-5.0)
[2020-11-02] MEDS: Albumin Human 25% 12.5 GM/50 ML BTL IV PRN (17:34)
[2020-11-02] MEDS ORDERED: Vancomycin 750 MG in NS 0.9% 250 ML IVPB ONE (19:15)
[2020-11-03] MEDS: Lanthanum 500 mg CHEW TAB PO SCH ×3 (08:33→17:31)
[2020-11-04] MEDS ORDERED: Vancomycin Random Level NOTE FOLLOW UP ONE (06:00)
[2020-11-04] MEDS: Lanthanum 500 mg CHEW TAB PO SCH ×3 (09:25→18:25)
[2020-11-04 11:58] LABS: ABS Basophils 0.1 10^3/ul (0-0.2); ABS Eosinophils 0.2 10^3/ul (0-0.6); ABS Lymphocytes 0.5 10^3/ul (1.0-4.8); ABS Monocytes 0.8 10^3/ul (0-0.8); ABS Neutrophils 4.6 10^3/ul (1.5-7.7); Eosinophil % 2.7 %; Hematocrit 29 % (35-47); Hemoglobin 9.6 g/dL (12.0-16.0); Lymphocyte % 8.2 %; Mean Corpuscular HGB Conc 33 g/dL (31-36); Mean Corpuscular Hemoglobin 33 pg (27-31); Mean Corpuscular Volume 98 fL (80-97); Mean Platelet Volume 8.6 fL (7.4-10.4); Platelet Count 186 10^3/uL (150-450); Red Blood Count 2.95 10^6 /uL (3.70-4.87); Red Cell Distribution Width 16 % (10-15); White Blood Count 6.2 10^3/uL (3.5-10.8)
[2020-11-04 12:11] LABS: Calcium 8.2 mg/dL (8.6-10.3); EGFR African American 11.5 (>60); EGFR Non-African American 9.5 (>60); Potassium 4.1 mmol/L (3.5-5.0)
[2020-11-04] MEDS: Albumin Human 25% 12.5 GM/50 ML BTL IV PRN ×3 (14:07→15:47)
[2020-11-04] MEDS: Heparin 1,000 UNIT/ML 10 ml (10,000 UNITS) CATHLAB/DIALYSIS DIALYSIS ONE ×3 (14:17→15:55)
[2020-11-04] MEDS ORDERED: Vancomycin 750 MG in NS 0.9% 250 ML IVPB ONE (17:00)
[2020-11-05 03:53] VITALS: BP 89/41
[2020-11-05] MEDS: Lanthanum 500 mg CHEW TAB PO SCH (09:07)
== END 2020-11-05 11:32 ==
LOC: ED 15:47 → ICU 18:35 → MEDTELE 10-30 14:18
PROVIDERS: ADMIT Internal Medicine; ATTEND Internal Medicine